=== PATIENT | male | born 1940 | race Caucasian/White ===

== ENCOUNTER 2019-12-31 12:40 | Emergency (ER) | payer MEDICARE, OTHER, SELFPAY ==
[2019-12-31 12:40] VITALS: BP 121/63; PULSE 70; RESP 24; TEMP 36.7; O2SAT 97
--- NOTE | 2019-12-31 13:21 | ED.EXTPRO ---
HPI - Extremity Problem General Chief complaint: Extremity Problem,Nontraumatic Stated complaint: LEG WEAKNESS Time Seen by Provider: 12/31/19 12:52 Source: patient Mode of arrival: ambulatory Limitations: no limitations History of Present Illness HPI Narrative: This patient is a 79 year old male with history of DM, peripheral neuropathy who presents for evaluation of left leg pain. PAtient reports pain located on lateral left knee down to his ankle. He states he has had this pain for 1-2 months. His pain is getting worse and he is having pain with bearing weight. He denies any injury or prior knee issues. He was evaluated at [facility] for this pain 2 weeks ago. He was discharged with hydrocodone for pain but he ran out. His PCP has prescribed his tramadol but he states that does not have with the pain. He also reports pain to his left calf, but he denies chest pain, fever, or sob. Related Data Allergies Allergy/AdvReac Type Severity Reaction Status Date / Time No Known Allergies Allergy Mild Verified 12/31/19 12:44 Review of Systems Review of Systems: All systems reviewed & are unremarkable except as noted in HPI and below Constitutional: Constitutional: Denies chills and Denies fever(s) Gastrointestinal: Gastrointestinal: Denies abdominal pain and Denies nausea PMFSH Past Medical History Medical History (Updated 12/31/19 @ 20:45 by Hali Redmond MD) Diabetes mellitus Hypertension Surgical History Surgical History (Updated 12/31/19 @ 20:43 by Hali Redmond MD) S/P left knee arthroscopy Social History Social History (Updated 12/31/19 @ 20:44 by Hali Redmond MD) Smoking status: Never smoker Alcohol intake: former Exam Const: General: no acute distress and alert Nutritional Appearance: obese Orientation/consciousness: patient oriented x3 HENMT: General nose exam: No nasal polyps present Face and sinus: face symmetric Eyes: EOM: EOMs intact bilaterally Chest: Chest palpation & inspection: normal inspection of the chest Resp: Effort & Inspection: normal respiratory effort and no retractions Auscultation: clear to auscultation bilaterally Cardio: Rate: regular rate Rhythm: regular rhythm Heart sounds: no murmurs GI: GI Palp: Yes Soft to palpation, No Tenderness to palpation present (GI), No Guarding due to palpation present (GI) and No Rigid due to palpation Neuro: General: patient oriented x3 and moves all extremities Extrem: General: edema Other: no knee effusion, no erythema, there is TTP left calf Psych: Mental Status: mental status grossly normal Affect: normal affect Course Reevaluation(s) Reevaluation #1: I discussed patient that pain medication, lower extremity US, xray and labs had been ordered to evaluate his pain. His healthcare liaison states patient wants to leave AMA. He signed AMA Date: 12/31/19 Time: 13:22 Vital Signs Vital signs: Vital Signs Temperature 98.1 F 12/31/19 12:40 Pulse Rate 70 12/31/19 12:40 Respiratory Rate 24 H 12/31/19 12:40 Blood Pressure 121/63 12/31/19 12:40 Pulse Oximetry 97 12/31/19 12:40 Temperature 98.1 F 12/31/19 12:40 Pulse Rate 70 12/31/19 12:40 Respiratory Rate 24 H 12/31/19 12:40 Blood Pressure 121/63 12/31/19 12:40 Pulse Oximetry 97 12/31/19 12:40 Discharge Plan Discharge Clinical Impression: Leg pain, left Patient Disposition: Left Against Medical Advice Condition: Stable Interventions: Discharge Disposition Last Done: 12/31/19 14:06 IV Removed Last Done: 12/31/19 14:06 IV Stop Time Documented Last Done: 12/31/19 14:06 Follow-up/Referrals: Trung Avendaño MD [Primary Care Provider] - Discharge Date/Time: 12/31/19 14:07
--- NOTE | 2019-12-31 13:40 | PC.NURSE ---
After speaking with EDP pt and caregiver decided to leave AMA. Pt IV line removed and was assisted into a wheelchair and brought to car.
== END 2019-12-31 14:07 | disposition left against medical advice (07) ==
PROVIDERS: Emergency Provider General Practice; PCP Family Medicine
DX: M79.605 Pain in left leg (principal); E11.42 Type 2 diabetes mellitus with diabetic polyneuropathy; I10 Essential (primary) hypertension
CPT/HCPCS: 99281

== ENCOUNTER 2020-01-16 23:58 | IRF | payer MEDICARE, OTHER, SELFPAY ==
--- NOTE | 2020-01-16 23:42 | ADMGEN ---
This patient, Ramos Urbina, was admitted to [facility] Room 230-02. Patient/family oriented to hospital policies and general routines including ID bracelet, bed and alarms, visiting hours, pain management, procedures, bathroom and other care routines, personal items, smoking policy, room service/diet, and visiting hours. Information on how to activate the Rapid Response Team has been discussed. Patient/Family are encouraged to report perceived risks to care and to ask questions if they do not understand what they are told or what they should do.
[2020-01-16 23:55] VITALS: BP 181/147; PULSE 66; RESP 20; TEMP 36.1; O2SAT 100; BMI 49.4
[2020-01-17 06:00] VITALS: BP 161/57; PULSE 82; RESP 20; TEMP 36; O2SAT 98
[2020-01-17 06:14] LABS: Basophils Percent Auto 0.2 % (0.2-1.2); Eosinophils Absolute Auto 0.4 K/mm3 (0-0.3); Eosinophils Percent Auto 5.7 % (0-4.4); Hematocrit 31.5 % (42.0-52.0); Immature Granulocyte Absolute 0.02 K/mm3 (0.00-0.031); Immature Granulocyte Percent A 0.3 % (0-0.5); Lymphocytes Absolute Auto 2.41 K/mm3 (0.9-3.2); Lymphocytes Percent Auto 37.1 % (18.3-44.2); Mean Corpuscular HGB Conc 31.7 g/dl (32-36); Mean Corpuscular Volume 85.1 fl (80-100); Mean Platelet Volume 9.8 fl (7.4-10.4); Monocytes Absolute Auto 0.4 K/mm3 (0.1-0.6); Monocytes Percent Auto 6.6 % (2.6-8.5); Neutrophils Absolute Auto 3.3 K/mm3 (1.3-6.7); Neutrophils Percent Auto 50.1 % (45.5-73.1); Platelet Count Result 248 k/mm3 (150-375); Red Cell Distribution Width 12.6 % (11.5-14.5); White Blood Count 6.5 K/mm3 (4.5-10.0)
[2020-01-17 06:30] LABS: Anion Gap 8 mmol/L (8-16); Blood Urea Nitrogen 42 mg/dL (9-20); Calcium 9.2 mg/dL (8.4-10.2); Carbon Dioxide 24 mmol/L (22-30); Chloride 106 mmol/L (98-107); Estimated CRCL calculation 32 ml/min; Estimated Glomerular Filt Rate 29; Glucose 193 mg/dL (75-110); Potassium 4.4 mmol/L (3.4-5.0); Sodium 138 mmol/L (137-145)
[2020-01-17 06:36] LABS: Hemoglobin A1C 8.8 % (<5.7)
[2020-01-17 07:14] LABS: Glucose Point of Care 183 (65-105)
[2020-01-17] MEDS: INSULIN ASPART (*BKC) 100 UNITS/ML 10 UNITS SUB-Q ×3 (07:45→16:48)
[2020-01-17 09:44] VITALS: PULSE 82
[2020-01-17] MEDS: atenoloL 50 MG TABLET 100 MG PO (09:44)
[2020-01-17] MEDS: ASPIRIN 81 MG ENTERIC TABLET PO (09:44)
[2020-01-17] MEDS: GABAPENTIN 300 MG CAPSULE PO ×3 (09:45→17:38)
[2020-01-17] MEDS: TERAZOSIN HCL 1 MG CAPSULE 2 MG PO (09:45)
[2020-01-17] MEDS: PANTOPRAZOLE 40 MG TABLET PO (09:45)
[2020-01-17] MEDS: MUPIROCIN 2% OINT 22 GM TUBE 1 APPLIC TOPICAL ×3 (09:45→17:38)
[2020-01-17] MEDS: HYDROcodone/acetaminophen (*CRX) 5-325 MG TABLET 1 TAB PO (09:53)
[2020-01-17 11:47] LABS: Glucose Point of Care 236 (65-105)
[2020-01-17] MEDS: INSULIN ASPART (*BKC) 100 UNITS/ML SUB-Q (12:08)
--- NOTE | 2020-01-17 13:00 | PM.IMHP ---
H&P: HPI History of Present Illness Date/Time: 01/17/20 15:19 Chief complaint: Diabetic Right Foot Wound Narrative: Ramos Urbina is a 79 year old male who is right-handed is admitted with the rehab impairment category of miscellaneous / debility and weakness The etiology diagnosis of diabetic right foot wound 1st and 2nd toe for which he was treated with the IV antibiotics from the [facility] where he came to us The patient was examined by this examiner [id number] at 1:00 p.m. on January 17, 2020 H and P This 79-year-old was right-handed significantly obese hard of hearing with a past medical history of hypertension hyperlipidemia type 2 diabetes mellitus GERD congestive heart failure morbid obesity who initially presented to [facility] Emergency Department on January 12, 2020 due to right toe pain and concern for gangrene of the right 2nd toe. Right foot x-ray showed hallux valgus and degenerative disease. Blood work was performed the patient was discharged home on Bactrim and Bactroban. On January 12 read 20 the patient return to the emergency department per physician request due to positive blood cultures from January 12, 2020 showing Staph epi bacteremia. He was admitted for further evaluation and management of care on January 13, 2020. The patient was placed on IV antibiotics of Flagyl cefepime and vancomycin. He has a dark hard scab noted to the right 2nd toe and in fact the right big toe also and this is at the lateral aspect of the right toe. Chest x-ray shows cardiomegaly. Infectious Disease was consulted and repeated blood cultures are negative so IV antibiotics are discontinued. At this time no surgical intervention is warranted. Medical complications have included acute on chronic kidney injury, bilateral lower extremity edema, leukocytosis, uncontrolled diabetes, anemia, diabetic right foot wound, and hypotension. Patient would benefit from the diabetic consult or agricultural extension educator. The patient is awake alert x4 he will be discharged T with no p.o. prophylaxis to the patient was not on DVT prophylaxis prior to hospitalization. The patient has not traveled outside the [place] or had contact with someone who is ill that has traveled outside the [place] in the past 21 days. The patient has not traveled to an area of the [place] that is experiencing no transmission of the Coronavirus and has not had close personal contact with anyone that has. The patient does not have a fever. The patient is not experiencing lower respiratory illness symptoms. Therapy was initiated at the acute care facility and the patient was transferred to us from [facility] on January 16, 2020 later in the evening The patient has not had no major surgery in the last days. The patient has had falls in the past year. The patient has had no falls with injury in the past year. Past medical history, hypertension, hyperlipidemia, type 2 diabetes mellitus, GERD, congestive heart failure, morbid obesity, cellulitis of the left lower extremity obstructive sleep apnea on CPAP peripheral neuropathy restless leg syndrome I must add that the caregiver who knows the patient well mentions that he did have some Doppler studies done at the other hospital and did not show any blood clots however he does have poor circulation I presume that he does have a peripheral arterial disease Past surgical history, on February 10, 2005 patient had L4-5/ L5-S1 laminectomy, facetectomy, foraminotomy with pedicle screw fixation and fusion of the L4 through S1 and left iliac crest bone graft harvest with Helios aspiration and insertion of Marcus with PL IG L5-S1 left left knee surgery, hernia repair x3 tonsillectomy Social history 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 He has 3 children he denies tobacco use alcohol use or illicit use of drugs Family history father had history of stroke and heart failure mother with history of arterial sc
[2020-01-17 14:00] VITALS: BP 135/51; PULSE 58; RESP 18; TEMP 36.5; O2SAT 98
[2020-01-17 17:01] LABS: Glucose Point of Care 154 (65-105)
--- NOTE | 2020-01-17 19:42 | PC.NURSE ---
at 1800 patient c/o feeling his heart beating out of his chest b/p is 135/62 pulse is 102 and pulse ox is 96%. No diaphoresis or SOB. assured patient his blood pressure is fine. continued to monitor. at 1830 gave patient xanax for anxiety, at present time states he feels better but wants medication to help him sleep. continue to monitor, report to night nurse
[2020-01-17 20:00] VITALS: PULSE 63; RESP 18; O2SAT 100
[2020-01-17 21:23] LABS: Glucose Point of Care 153 (65-105)
[2020-01-17] MEDS: INSULIN GLARGINE (*BKC) 100 UNITS/ML 30 UNITS SUB-Q (21:24)
[2020-01-17] MEDS: rOPINIRole HCL 1 MG TABLET 2 MG PO (21:24)
[2020-01-17 22:00] VITALS: BP 151/72; PULSE 63; RESP 18; TEMP 36.2; O2SAT 100
[2020-01-18 06:00] VITALS: BP 178/74; PULSE 65; RESP 16; TEMP 36.4; O2SAT 97
[2020-01-18 06:58] LABS: Glucose Point of Care 168 (65-105)
[2020-01-18] MEDS: INSULIN ASPART (*BKC) 100 UNITS/ML 10 UNITS SUB-Q ×3 (09:15→17:38)
[2020-01-18] MEDS: ASPIRIN 81 MG ENTERIC TABLET PO (09:18)
[2020-01-18] MEDS: GABAPENTIN 300 MG CAPSULE PO ×3 (09:18→17:35)
[2020-01-18] MEDS: MUPIROCIN 2% OINT 22 GM TUBE 1 APPLIC TOPICAL ×3 (09:19→17:39)
[2020-01-18] MEDS: TERAZOSIN HCL 1 MG CAPSULE 2 MG PO (09:19)
[2020-01-18] MEDS: PANTOPRAZOLE 40 MG TABLET PO (09:19)
[2020-01-18 09:28] VITALS: PULSE 65
[2020-01-18] MEDS: atenoloL 50 MG TABLET 100 MG PO (09:28)
[2020-01-18] MEDS: HYDROcodone/acetaminophen (*CRX) 5-325 MG TABLET 1 TAB PO ×2 (10:38→21:21)
[2020-01-18 12:01] LABS: Glucose Point of Care 220 (65-105)
[2020-01-18] MEDS: INSULIN ASPART (*BKC) 100 UNITS/ML SUB-Q (12:01)
[2020-01-18 14:00] VITALS: BP 129/69; PULSE 60; RESP 20; TEMP 37.1; O2SAT 97
--- NOTE | 2020-01-18 15:50 | WPDNEURORHBP ---
Subjective Date/time seen: 01/18/20 15:50 Interval history: this 79-year-old gentleman who is morbidly obese with a BMI of 49.5 also has sleep apnea diabetes diabetic peripheral neuropathy and also diabetic right big toe and the 2nd toe wound which in fact is better a consult from the Wound Care Nursing is pending the patient is happy with the care he is receiving he denies any headache nausea vomiting chest pain shortness of breath fever chills sore throat Review of Systems Review of Systems: All systems reviewed & are unremarkable except as noted in HPI and below Functional Status Ambulation Ability Ability to Ambulate 10 Feet: Contact Guard Ambulation Assistive Devices: Walker, Wheeled Transfers Ability Ability to Transfer In/Out of Chair: Contact Guard Exam Narrative: Exam Narrative: patient is awake and alert well oriented in time place and person is speech and language functions are normal cranial exam shows normal his strength is improving his peripheral neuropathy is stable the wound in his right big toe and the 2nd toe shows black eschar however the redness is less and swelling of the extremities is also less he most likely also has a peripheral arterial disease beside having had the diabetic peripheral neuropathy Objective Data Vital Signs Vital Signs: Vital Signs - 24 hr 01/17/20 20:00 01/17/20 22:00 01/18/20 06:00 Temperature 36.2 C L 36.4 C Pulse Rate 63 63 65 Respiratory Rate 18 18 16 Blood Pressure 151/72 H 178/74 H Pulse Oximetry 100 100 97 01/18/20 09:28 01/18/20 14:00 Temperature 37.1 C Pulse Rate 65 60 Respiratory Rate 20 Blood Pressure 129/69 Pulse Oximetry 97 Intake/Output Intake/Output: Intake & Output 01/15/20 01/16/20 01/17/20 01/18/20 23:59 23:59 23:59 23:59 Intake Total 720 480 Balance 720 480 Meds/Results Medications: Active Medications Generic Name Dose Route Start Last Admin Trade Name Freq PRN Reason Stop Dose Admin Hydrocodone Bitart/Acetaminophen 1 tab 01/17/20 00:23 01/18/20 10:38 Hydrocodone/Acetaminophen (*Crx) 5-325 Mg Tablet PO 1 tab Q6H PRN Administration Pain Aspirin 81 mg 01/17/20 09:00 01/18/20 09:18 Aspirin 81 Mg Enteric Tablet PO 02/16/20 09:01 81 mg DAILY MARIANO Administration Atenolol 100 mg 01/17/20 09:00 01/18/20 09:28 Atenolol 50 Mg Tablet PO 100 mg DAILY MARIANO Administration Dextrose 12.5 gm 01/17/20 00:28 Dextrose 50% 25 Gm/50 Ml Syringe IV PUSH PRN PRN Hypoglycemia Protocol Ergocalciferol 50,000 unit 01/21/20 09:00 Ergocalciferol 50,000 Unit Capsule PO We@0900 MARIANO Gabapentin 300 mg 01/17/20 09:00 01/18/20 12:16 Gabapentin 300 Mg Capsule PO 300 mg TID MARIANO Administration Glucagon 1 mg 01/17/20 00:28 Glucagon For Inj 1 Mg Vial IM PRN PRN Hypoglycemia Protocol Glucose 15 gm 01/17/20 00:28 Glucose Oral Gel 15 Gm Of Glucse In 37.5 Gm Tube PO PRN PRN Hypoglycemia Protocol Dextrose 1,000 mls @ 100 mls/hr 01/17/20 00:28 Dextrose 5% 1,000 Ml IVPB PRN PRN Hypoglycemia Protocol Insulin Aspart 10 units 01/17/20 08:00 01/18/20 12:01 Insulin Aspart (*Bkc) 100 Units/Ml SUB-Q 02/16/20 08:01 10 units TIDWM MARIANO Administration Insulin Aspart 2 - 5 units 01/17/20 08:00 01/18/20 12:01 Insulin Aspart (*Bkc) 100 Units/Ml SUB-Q 2 units TIDWM MARIANO Administration Protocol Insulin Glargine 30 units 01/17/20 21:00 01/17/20 21:24 Insulin Glargine (*Bkc) 100 Units/Ml SUB-Q 30 units HS MARIANO Administration Mupirocin 1 applic 01/17/20 09:00 01/18/20 09:19 Mupirocin 2% Oint 22 Gm Tube TOPICAL 02/16/20 09:01 1 applic TID MARIANO Administration Pantoprazole Sodium 40 mg 01/17/20 09:00 01/18/20 09:19 Pantoprazole 40 Mg Tablet PO 40 mg QAM MARIANO Administration Ropinirole HCl 2 mg 01/17/20 21:00 01/17/20 21:24 Ropinirole Hcl 1 Mg Tablet PO 2 mg HS MARIANO Administr
[2020-01-18 17:39] LABS: Glucose Point of Care 197 (65-105)
[2020-01-18] MEDS: rOPINIRole HCL 1 MG TABLET 2 MG PO (21:05)
[2020-01-18] MEDS: INSULIN GLARGINE (*BKC) 100 UNITS/ML 30 UNITS SUB-Q (21:06)
[2020-01-18 21:15] LABS: Glucose Point of Care 247 (65-105)
[2020-01-18 22:00] VITALS: BP 149/74; PULSE 64; RESP 18; TEMP 36.4; O2SAT 97
[2020-01-19 06:00] VITALS: BP 168/54; PULSE 70; RESP 19; TEMP 36; O2SAT 98
[2020-01-19 07:01] LABS: Glucose Point of Care 186 (65-105)
[2020-01-19 07:40] VITALS: PULSE 64
[2020-01-19] MEDS: atenoloL 50 MG TABLET 100 MG PO (07:40)
[2020-01-19] MEDS: ASPIRIN 81 MG ENTERIC TABLET PO (07:40)
[2020-01-19] MEDS: INSULIN ASPART (*BKC) 100 UNITS/ML 10 UNITS SUB-Q ×3 (07:41→17:14)
[2020-01-19] MEDS: GABAPENTIN 300 MG CAPSULE PO ×3 (07:41→17:14)
[2020-01-19] MEDS: MUPIROCIN 2% OINT 22 GM TUBE 1 APPLIC TOPICAL ×3 (07:41→17:14)
[2020-01-19] MEDS: PANTOPRAZOLE 40 MG TABLET PO (07:41)
[2020-01-19] MEDS: TERAZOSIN HCL 1 MG CAPSULE 2 MG PO (07:41)
[2020-01-19] MEDS: HYDROcodone/acetaminophen (*CRX) 5-325 MG TABLET 1 TAB PO ×2 (09:57→19:11)
--- NOTE | 2020-01-19 10:43 | RPD ---
INDIVIDUALIZED PLAN OF CARE FOR Ramos Urbina Brief Synthesis of Pre-Admission Screen, Post-Admission Evaluation and Therapy Evaluations: The patient presents to rehab with a diabetic right foot wound. Comorbidities include generalized weakness, malaise and fatigue, diabetic right foot wound, hypertension, hyperlipidemia, type 2 diabetes mellitus, GERD, CHF, morbid obesity, acute kidney injury superimposed on chronic kidney disease stage 3, hyperglycemia, anemia, obstructive sleep apnea on CPAP, restless leg syndrome, diabetic polyneuropathy associated with DM, and acute cystitis with hematura. The complexity of the patient's medical management, nursing, and therapy needs require an inpatient rehab hospital stay with a physician-led interdisciplinary team approach. The patient?s needs will be best met in an intensive program vs. at a lower level of care. The patient requires physician services for medical oversight, management of medical complications in setting of present comorbidities, and pain management. The patient requires nursing services for DVT prophylactics, infection protection, medication management and education, pressure relief, and wound care. Deficits include:ADLs, Balance, Endurance, Family Training/Education, Mobility, Pain Management, ROM, Safety, Strength, and Transfers Oracle Obiee Developer/Case Management for: Discharge Planning and Patient/Family Counseling Physical Therapy: 5 days per week for 90 minutes. Treatments may include: Therapeutic Exercise, Gait Training, Neuromuscular Re-education, Transfer Training, Community Reintegration, Bed Mobility, Patient/Family Education, Wheelchair Mobility Group Therapy/Concurrent Therapy Rationales: -Improve attention span during functional activities in a distracted environment. -Enhance problem solving and/or adequate judgment skills during functional activities in a distracted environment. -Promote increased safety awareness in a distracted environment to reduce fall risk with functional tasks, transfers, and ambulation to allow a more safe, self-sufficient return to the home environment. -Improve dynamic balance skills to promote safety and independence with functional activities in a distracted environment for maximum gain. Occupational Therapy: 5 days per week for 90 minutes. Treatments may include: Therapeutic Exercise, Therapeutic Activity, Cognitive Training, Self-Care Transfer Training, Community Reintegration, Home Management, Patient/Family Education, Wheelchair Mobility Training, Energy Conservation Training Group Therapy/Concurrent Therapy Rationales: -Allow therapist to observe and teach generalization and carry-over of skills learned in individual therapy. -Enhance problem solving and sequencing skills during therapeutic activities in a distracted environment. -Promote increased safety awareness in a realistic setting to reduce fall risk with functional tasks due to visual and verbal distractions. -Increase functional level with ADLs, ADL transfers and use of adaptive equipment through therapeutic activities with others while promoting safety to allow a more safe, self-sufficient return home. Medical Prognosis: Good Anticipated Length of Stay: 10 days Rehab Goals: Eating Goal: 06-Independent Oral Hygiene Goal: 06-Independent Toileting Hygiene Goal: 04-Supervision or Touching Assistance Shower/Bathe Self Goal: 04-Supervision or Touching Assistance Upper Body Dressing Goal: 05-Setup or Clean Up Assistance Lower Body Dressing Goal: 04-Supervision or Touching Assistance Putting On/Taking Off Footwear Goal: 04-Supervision or Touching Assistance Rolling Left and Right Goal: 06-Independent Sit to Lying Goal: 06-Independent Lying to Sitting on Side of Bed Goal: 06-Independent Sit to Stand Goal: 06-Independent Chair/Qyr-[id number]-Kbhxa Transfer Goal: 06-Independent Toilet Transfer Goal: 06-Independent Car Transfer Goal: 06-Independent Walk 10' Goal: 06-Independent Walk 50' with Two Turns Goal: 03-
[2020-01-19 11:48] LABS: Glucose Point of Care 179 (65-105)
[2020-01-19 14:00] VITALS: BP 127/46; PULSE 58; RESP 18; TEMP 37; O2SAT 99
[2020-01-19 14:10] VITALS: BMI 49.4
--- NOTE | 2020-01-19 15:16 | PCNSR ---
On 01/19/20, the student, Ernestine Mcduffie, provided care and completed [facility] documentation on this patient. I have reviewed the student's documentation and agree with the findings.
[2020-01-19 16:56] LABS: Glucose Point of Care 143 (65-105)
[2020-01-19 20:00] VITALS: PULSE 64; RESP 20; O2SAT 98
[2020-01-19 20:21] VITALS: BP 162/49; PULSE 55; RESP 20; TEMP 36.4; O2SAT 100
[2020-01-19 21:01] LABS: Glucose Point of Care 191 (65-105)
[2020-01-19] MEDS: rOPINIRole HCL 1 MG TABLET 2 MG PO (21:10)
[2020-01-19] MEDS: INSULIN GLARGINE (*BKC) 100 UNITS/ML 30 UNITS SUB-Q (21:11)
[2020-01-19 22:35] VITALS: PULSE 64; O2SAT 98
[2020-01-20 03:01] VITALS: PULSE 59; O2SAT 97
[2020-01-20 05:22] VITALS: BP 139/51; PULSE 60; RESP 20; TEMP 36.3; O2SAT 98
[2020-01-20 06:54] LABS: Glucose Point of Care 168 (65-105)
[2020-01-20] MEDS: INSULIN ASPART (*BKC) 100 UNITS/ML 10 UNITS SUB-Q ×3 (07:14→17:30)
[2020-01-20] MEDS: TERAZOSIN HCL 1 MG CAPSULE 2 MG PO (07:49)
[2020-01-20 07:50] VITALS: PULSE 62
[2020-01-20] MEDS: atenoloL 50 MG TABLET 100 MG PO (07:50)
[2020-01-20] MEDS: ASPIRIN 81 MG ENTERIC TABLET PO (07:50)
[2020-01-20] MEDS: GABAPENTIN 300 MG CAPSULE PO ×3 (07:50→17:26)
[2020-01-20] MEDS: PANTOPRAZOLE 40 MG TABLET PO (07:51)
[2020-01-20] MEDS: MUPIROCIN 2% OINT 22 GM TUBE 1 APPLIC TOPICAL (07:52)
[2020-01-20] MEDS: HYDROcodone/acetaminophen (*CRX) 5-325 MG TABLET 1 TAB PO (07:52)
[2020-01-20 12:01] LABS: Glucose Point of Care 164 (65-105)
--- NOTE | 2020-01-20 12:43 | WPDNEURORHBP ---
Subjective Date/time seen: 01/20/20 12:43 Interval history: this 79-year-old significantly obese gentleman is here for the diabetic right foot wound which is getting better and the upper wound care nurse has seen and the ask her black 1 has fallen there is much less swelling the patient is improving in the rehab he has been deconditioned for quite some time and the aches and pains is having is after the therapy and I told him so he also has left knee pain obviously caring 134.8 kilogram on his body with the osteoarthritis of his knee these things were explained to him and also the power of emd teacher rather caregiver in this case on the other in the patient denies any chest pain shortness of breath fever chills sore throat Will have the asthma educator involved continue the PT OT Functional Status Ambulation Ability Ability to Ambulate 10 Feet: Contact Guard Ambulation Assistive Devices: Walker, Wheeled Transfers Ability Ability to Transfer In/Out of Chair: Contact Guard Exam Narrative: Exam Narrative: patient is awake alert well oriented time place person stable right foot wound is much condenser cleaner healthy less swelling of the legs Nasim Chiquis arthritic left knee more so than the right knee evidence of peripheral neuropathy overall patient has sleep apnea for which she uses the CPAP overall picture is of improvement Objective Data Vital Signs Vital Signs: Vital Signs - 24 hr 01/19/20 14:00 01/19/20 20:00 01/19/20 20:21 Temperature 37.0 C 36.4 C Pulse Rate 58 L 64 55 L Respiratory Rate 18 20 20 Blood Pressure 127/46 L 162/49 H Pulse Oximetry 99 98 100 01/19/20 22:35 01/20/20 03:01 01/20/20 05:22 Temperature 36.3 C L Pulse Rate 64 59 L 60 Respiratory Rate 20 Blood Pressure 139/51 L Pulse Oximetry 98 97 98 01/20/20 07:50 Temperature Pulse Rate 62 Respiratory Rate Blood Pressure Pulse Oximetry Intake/Output Intake/Output: Intake & Output 01/17/20 01/18/20 01/19/20 01/20/20 23:59 23:59 23:59 23:59 Intake Total 301 894 2084 480 Balance 091 919 7234 480 Meds/Results Medications: Active Medications Generic Name Dose Route Start Last Admin Trade Name Freq PRN Reason Stop Dose Admin Hydrocodone Bitart/Acetaminophen 1 tab 01/17/20 00:23 01/20/20 07:52 Hydrocodone/Acetaminophen (*Crx) 5-325 Mg Tablet PO 1 tab Q6H PRN Administration Pain Aspirin 81 mg 01/17/20 09:00 01/20/20 07:50 Aspirin 81 Mg Enteric Tablet PO 02/16/20 09:01 81 mg DAILY MARIANO Administration Atenolol 100 mg 01/17/20 09:00 01/20/20 07:50 Atenolol 50 Mg Tablet PO 100 mg DAILY MARIANO Administration Dextrose 12.5 gm 01/17/20 00:28 Dextrose 50% 25 Gm/50 Ml Syringe IV PUSH PRN PRN Hypoglycemia Protocol Ergocalciferol 50,000 unit 01/21/20 09:00 Ergocalciferol 50,000 Unit Capsule PO We@0900 MARIANO Gabapentin 300 mg 01/17/20 09:00 01/20/20 12:18 Gabapentin 300 Mg Capsule PO 300 mg TID MARIANO Administration Glucagon 1 mg 01/17/20 00:28 Glucagon For Inj 1 Mg Vial IM PRN PRN Hypoglycemia Protocol Glucose 15 gm 01/17/20 00:28 Glucose Oral Gel 15 Gm Of Glucse In 37.5 Gm Tube PO PRN PRN Hypoglycemia Protocol Dextrose 1,000 mls @ 100 mls/hr 01/17/20 00:28 Dextrose 5% 1,000 Ml IVPB PRN PRN Hypoglycemia Protocol Insulin Aspart 10 units 01/17/20 08:00 01/20/20 12:18 Insulin Aspart (*Bkc) 100 Units/Ml SUB-Q 02/16/20 08:01 10 units TIDWM MARIANO Administration Insulin Aspart 2 - 5 units 01/17/20 08:00 01/20/20 12:18 Insulin Aspart (*Bkc) 100 Units/Ml SUB-Q Not Given TIDWM [facility] Protocol Insulin Glargine 30 units 01/17/20 21:00 01/19/20 21:11 Insulin Glargine (*Bkc) 100 Units/Ml SUB-Q 30 units HS MARIANO Administration Ondansetron HCl 4 mg 01/20/20 10:46 Ondansetron Hcl Odt 4 Mg Tablet PO Q6H PRN Nausea And Vomiting Pantoprazole Sodium 40 mg 01/17/20 09:00 10
[2020-01-20 14:00] VITALS: BP 130/52; PULSE 56; RESP 18; TEMP 36.6; O2SAT 98
--- NOTE | 2020-01-20 14:12 | PC.NURSE ---
Spoke with parent educator, she will be up here sunday, 01/22 to speak with patient
--- NOTE | 2020-01-20 16:33 | PC.NURSE ---
Patient given educational material on pain management, itching skin, and managing diabetes. Encouraged him to read and ask any questions he may have
[2020-01-20 17:05] LABS: Glucose Point of Care 152 (65-105)
[2020-01-20] MEDS: diphenhydrAMINE HCl CAP 25 MG CAPSULE PO (17:29)
[2020-01-20] MEDS: rOPINIRole HCL 1 MG TABLET 2 MG PO (20:38)
[2020-01-20] MEDS: INSULIN GLARGINE (*BKC) 100 UNITS/ML 30 UNITS SUB-Q (20:40)
[2020-01-20 20:44] LABS: Glucose Point of Care 166 (65-105)
[2020-01-20 22:00] VITALS: BP 161/56; PULSE 56; RESP 20; TEMP 36.6; O2SAT 97
[2020-01-20 22:31] VITALS: PULSE 60; O2SAT 92
[2020-01-21] VITALS (7 sets, daily range): BP systolic 102–150; BP diastolic 44–60; PULSE 56–60; RESP 16–19; TEMP 36.3–36.4; O2SAT 93–99
[2020-01-21 06:57] LABS: Glucose Point of Care 118 (65-105)
[2020-01-21] MEDS: ONDANSETRON HCL ODT 4 MG TABLET PO (07:26)
[2020-01-21] MEDS: INSULIN ASPART (*BKC) 100 UNITS/ML 10 UNITS SUB-Q ×3 (08:30→17:32)
[2020-01-21] MEDS: ERGOCALCIFEROL 50,000 UNIT CAPSULE 50000 UNITS PO (08:31)
[2020-01-21] MEDS: GABAPENTIN 300 MG CAPSULE PO ×3 (08:31→17:27)
[2020-01-21] MEDS: atenoloL 50 MG TABLET 100 MG PO (08:31)
[2020-01-21] MEDS: ASPIRIN 81 MG ENTERIC TABLET PO (08:31)
[2020-01-21] MEDS: TERAZOSIN HCL 1 MG CAPSULE 2 MG PO (08:32)
[2020-01-21] MEDS: PANTOPRAZOLE 40 MG TABLET PO (08:32)
[2020-01-21] MEDS: diphenhydrAMINE HCl CAP 25 MG CAPSULE PO ×2 (09:29→18:35)
[2020-01-21] MEDS: HYDROcodone/acetaminophen (*CRX) 5-325 MG TABLET 1 TAB PO (10:49)
[2020-01-21 11:47] LABS: Glucose Point of Care 183 (65-105)
--- NOTE | 2020-01-21 12:30 | WPDNEURORHBP ---
Subjective Date/time seen: 01/21/20 12:30 Interval history: this 79-year-old gentleman is here because of diabetic right foot wound which is improving quite a bit is significantly obese with multiple medical issues including the sleep apnea being on CPAP and aches and pains however he has been quite a bit deconditioned and has done fairly well in over rehab program walking up to 50 feet with a walker which is a great thing he has been able to achieve while we pushed him to the rehab his aches and pains remained the same nothing extraordinary he denies any headache nausea vomiting chest pain shortness of breath fever chills or sore throat Review of Systems Review of Systems: All systems reviewed & are unremarkable except as noted in HPI and below Functional Status Ambulation Ability Ability to Ambulate 10 Feet: Contact Guard Ability to Ambulate 50 Feet With 2 Turns: Contact Guard Ambulation Assistive Devices: Walker, Wheeled Transfers Ability Ability to Transfer In/Out of Chair: Contact Guard Exam Narrative: Exam Narrative: patient is stable not any distress stable vital signs signs not any distress well oriented time place and person significantly obese with left knee arthritis hampering the walking of course the wound on the right foot is clean and healthy swelling of the lower extremities is less examination of chest heart and abdomen is unremarkable no sign of any infectious processes is noted Objective Data Vital Signs Vital Signs: Vital Signs - 24 hr 01/20/20 14:00 01/20/20 22:00 01/20/20 22:31 Temperature 36.6 C 36.6 C Pulse Rate 56 L 56 L 60 Respiratory Rate 18 20 Blood Pressure 130/52 L 161/56 H Pulse Oximetry 98 97 92 01/21/20 02:20 01/21/20 06:00 01/21/20 08:31 Temperature 36.4 C Pulse Rate 59 L 58 L 60 Respiratory Rate 18 Blood Pressure 150/59 H Pulse Oximetry 93 97 01/21/20 08:39 Temperature Pulse Rate 60 Respiratory Rate 18 Blood Pressure Pulse Oximetry 97 Intake/Output Intake/Output: Intake & Output 01/18/20 01/19/20 01/20/20 01/21/20 23:59 23:59 23:59 23:59 Intake Total 720 1520 1200 480 Balance 720 1520 1200 480 Meds/Results Medications: Active Medications Generic Name Dose Route Start Last Admin Trade Name Freq PRN Reason Stop Dose Admin Hydrocodone Bitart/Acetaminophen 1 tab 10/17/20 00:23 01/21/20 10:49 Hydrocodone/Acetaminophen (*Crx) 5-325 Mg Tablet PO 1 tab Q6H PRN Administration Pain Aspirin 81 mg 01/17/20 09:00 01/21/20 08:31 Aspirin 81 Mg Enteric Tablet PO 02/16/20 09:01 81 mg DAILY MARIANO Administration Atenolol 100 mg 01/17/20 09:00 01/21/20 08:31 Atenolol 50 Mg Tablet PO 100 mg DAILY MARIANO Administration Dextrose 12.5 gm 01/17/20 00:28 Dextrose 50% 25 Gm/50 Ml Syringe IV PUSH PRN PRN Hypoglycemia Protocol Diphenhydramine HCl 25 mg 01/20/20 15:37 01/21/20 09:29 Diphenhydramine Hcl Cap 25 Mg Capsule PO 25 mg Q6H PRN Administration Itching Ergocalciferol 50,000 unit 01/21/20 09:00 01/21/20 08:31 Ergocalciferol 50,000 Unit Capsule PO 50,000 unit We@0900 MARIANO Administration Gabapentin 300 mg 01/17/20 09:00 01/21/20 12:03 Gabapentin 300 Mg Capsule PO 300 mg TID MARIANO Administration Glucagon 1 mg 01/17/20 00:28 Glucagon For Inj 1 Mg Vial IM PRN PRN Hypoglycemia Protocol Glucose 15 gm 01/17/20 00:28 Glucose Oral Gel 15 Gm Of Glucse In 37.5 Gm Tube PO PRN PRN Hypoglycemia Protocol Dextrose 1,000 mls @ 100 mls/hr 01/17/20 00:28 Dextrose 5% 1,000 Ml IVPB PRN PRN Hypoglycemia Protocol Insulin Aspart 10 units 01/17/20 08:00 01/21/20 12:03 Insulin Aspart (*Bkc) 100 Units/Ml SUB-Q 02/16/20 08:01 10 units TIDWM MARIANO Administration Insulin Aspart 2 - 5 units 01/17/20 08:00 01/21/20 12:03 Insulin Aspart (*Bkc) 100 Units/Ml SUB-Q Not Given TIDWM [facility] Protocol Insulin Glargine 30 un
[2020-01-21 17:01] LABS: Glucose Point of Care > 500 (65-105)
[2020-01-21 17:11] LABS: Glucose Point of Care 98 (65-105)
[2020-01-21 17:11] LABS: Glucose Point of Care 190 (65-105)
[2020-01-21 17:11] LABS: Glucose Point of Care 103 (65-105)
[2020-01-21 17:24] LABS: Glucose Point of Care 101 (65-105)
[2020-01-21 17:24] LABS: Glucose Point of Care 105 (65-105)
[2020-01-21 20:55] LABS: Glucose Point of Care 70 (65-105)
[2020-01-21] MEDS: rOPINIRole HCL 1 MG TABLET 2 MG PO (21:01)
[2020-01-21 21:07] LABS: Glucose Point of Care 77 (65-105)
[2020-01-21 22:44] LABS: Glucose Point of Care 139 (65-105)
[2020-01-22 02:45] VITALS: PULSE 57; O2SAT 95
[2020-01-22 06:00] VITALS: BP 150/56; PULSE 62; RESP 19; TEMP 36.1; O2SAT 97
[2020-01-22 06:33] LABS: Glucose Point of Care 154 (65-105)
[2020-01-22] MEDS: INSULIN ASPART (*BKC) 100 UNITS/ML 10 UNITS SUB-Q ×3 (07:46→17:30)
[2020-01-22] MEDS: TERAZOSIN HCL 1 MG CAPSULE 2 MG PO (07:47)
[2020-01-22 07:48] VITALS: PULSE 62
[2020-01-22] MEDS: atenoloL 50 MG TABLET 100 MG PO (07:48)
[2020-01-22] MEDS: GABAPENTIN 300 MG CAPSULE PO ×3 (07:48→17:30)
[2020-01-22] MEDS: HYDROcodone/acetaminophen (*CRX) 5-325 MG TABLET 1 TAB PO ×3 (07:48→20:27)
[2020-01-22] MEDS: diphenhydrAMINE HCl CAP 25 MG CAPSULE PO ×3 (07:48→20:29)
[2020-01-22] MEDS: ASPIRIN 81 MG ENTERIC TABLET PO (07:48)
[2020-01-22] MEDS: PANTOPRAZOLE 40 MG TABLET PO (07:49)
[2020-01-22] MEDS: ONDANSETRON HCL ODT 4 MG TABLET PO (10:46)
[2020-01-22 11:56] LABS: Glucose Point of Care 143 (65-105)
[2020-01-22 14:00] VITALS: BP 122/60; PULSE 60; RESP 18; TEMP 36.7; O2SAT 99
[2020-01-22 17:03] LABS: Glucose Point of Care 148 (65-105)
[2020-01-22] MEDS: INSULIN GLARGINE (*BKC) 100 UNITS/ML 30 UNITS SUB-Q (20:19)
[2020-01-22] MEDS: rOPINIRole HCL 1 MG TABLET 2 MG PO (20:19)
[2020-01-22 21:36] LABS: Glucose Point of Care 161 (65-105)
[2020-01-22 22:00] VITALS: BP 155/67; PULSE 63; RESP 19; TEMP 36.3; O2SAT 95
[2020-01-22 22:35] VITALS: PULSE 58; O2SAT 96
[2020-01-23 03:30] VITALS: PULSE 60; O2SAT 96
[2020-01-23 06:00] VITALS: BP 127/49; PULSE 57; RESP 17; TEMP 36.5; O2SAT 96
[2020-01-23 06:42] LABS: Glucose Point of Care 156 (65-105)
[2020-01-23] MEDS: INSULIN ASPART (*BKC) 100 UNITS/ML 10 UNITS SUB-Q ×3 (07:31→17:54)
[2020-01-23 09:49] VITALS: PULSE 60
[2020-01-23] MEDS: GABAPENTIN 300 MG CAPSULE PO ×3 (09:49→17:54)
[2020-01-23] MEDS: atenoloL 50 MG TABLET 100 MG PO (09:49)
[2020-01-23] MEDS: ASPIRIN 81 MG ENTERIC TABLET PO (09:49)
[2020-01-23] MEDS: TERAZOSIN HCL 1 MG CAPSULE 2 MG PO (09:49)
[2020-01-23] MEDS: HYDROcodone/acetaminophen (*CRX) 5-325 MG TABLET 1 TAB PO (09:50)
[2020-01-23] MEDS: PANTOPRAZOLE 40 MG TABLET PO (09:50)
[2020-01-23 11:59] LABS: Glucose Point of Care 165 (65-105)
--- NOTE | 2020-01-23 12:13 | WPDNEURORHBP ---
Subjective Date/time seen: 01/23/20 12:13 Interval history: this 79-year-old gentleman diabetic is here after having had a wound to his right 1st and 2nd toe which has healed well swelling of the legs is much better in fact he has done more as compared to what he was doing at home where mostly he was Fedder in not walk walking or doing much and he realizes that he denies any headache nausea vomiting chest pain shortness of breath fever chills sore throat not any distress looking forward to be going home Review of Systems Review of Systems: All systems reviewed & are unremarkable except as noted in HPI and below Functional Status Ambulation Ability Ability to Ambulate 10 Feet: Standby Assistance Ability to Ambulate 50 Feet With 2 Turns: Standby Assistance Ambulation Assistive Devices: Walker, Wheeled Transfers Ability Ability to Transfer In/Out of Chair: Standby Assistance Exam Narrative: Exam Narrative: the patient is awake alert well oriented time place person is speech language functions are normal cranial examination is normal evidence of peripheral neuropathy is there he has improved quite a bit the wound on the right 1st does clean and healthy and extremities reveal no deformities and in fact the swelling in lower extremities is less Objective Data Vital Signs Vital Signs: Vital Signs - 24 hr 01/22/20 14:00 01/22/20 22:00 01/22/20 22:35 Temperature 36.7 C 36.3 C L Pulse Rate 60 63 58 L Respiratory Rate 18 19 Blood Pressure 122/60 155/67 H Pulse Oximetry 99 95 96 01/23/20 03:30 01/23/20 06:00 01/23/20 09:49 Temperature 36.5 C Pulse Rate 60 57 L 60 Respiratory Rate 17 Blood Pressure 127/49 L Pulse Oximetry 96 96 Intake/Output Intake/Output: Intake & Output 01/20/20 01/21/20 01/22/20 01/23/20 23:59 23:59 23:59 23:59 Intake Total 4651 598 4982 240 Balance 7402 114 4924 240 Meds/Results Medications: Active Medications Generic Name Dose Route Start Last Admin Trade Name Freq PRN Reason Stop Dose Admin Hydrocodone Bitart/Acetaminophen 1 tab 01/17/20 00:23 01/23/20 09:50 Hydrocodone/Acetaminophen (*Crx) 5-325 Mg Tablet PO 1 tab Q6H PRN Administration Pain Aspirin 81 mg 01/17/20 09:00 01/23/20 09:49 Aspirin 81 Mg Enteric Tablet PO 02/16/20 09:01 81 mg DAILY MARIANO Administration Atenolol 100 mg 01/17/20 09:00 01/23/20 09:49 Atenolol 50 Mg Tablet PO 100 mg DAILY MARIANO Administration Dextrose 12.5 gm 01/17/20 00:28 Dextrose 50% 25 Gm/50 Ml Syringe IV PUSH PRN PRN Hypoglycemia Protocol Diphenhydramine HCl 25 mg 01/20/20 15:37 01/22/20 20:29 Diphenhydramine Hcl Cap 25 Mg Capsule PO 25 mg Q6H PRN Administration Itching Ergocalciferol 50,000 unit 01/21/20 09:00 01/21/20 08:31 Ergocalciferol 50,000 Unit Capsule PO 50,000 unit We@0900 MARIANO Administration Gabapentin 300 mg 01/17/20 09:00 01/23/20 09:49 Gabapentin 300 Mg Capsule PO 300 mg TID MARIANO Administration Glucagon 1 mg 01/17/20 00:28 Glucagon For Inj 1 Mg Vial IM PRN PRN Hypoglycemia Protocol Glucose 15 gm 01/17/20 00:28 Glucose Oral Gel 15 Gm Of Glucse In 37.5 Gm Tube PO PRN PRN Hypoglycemia Protocol Hydrocortisone 1 applic 01/21/20 18:41 Hydrocortisone 1% 30 Gm Cream TOPICAL Q6HR PRN Itching Dextrose 1,000 mls @ 100 mls/hr 01/17/20 00:28 Dextrose 5% 1,000 Ml IVPB PRN PRN Hypoglycemia Protocol Insulin Aspart 10 units 01/17/20 08:00 01/23/20 07:31 Insulin Aspart (*Bkc) 100 Units/Ml SUB-Q 02/16/20 08:01 10 units TIDWM MARIANO Administration Insulin Aspart 2 - 5 units 01/17/20 08:00 01/23/20 09:52 Insulin Aspart (*Bkc) 100 Units/Ml SUB-Q Not Given TIDWM [facility] Protocol Insulin Glargine 30 units 01/17/20 21:00 01/22/20 20:19 Insulin Glargine (*Bkc) 100 Units/Ml SUB-Q 30 units HS MARIANO Administration Ondansetron HCl 4 mg 01/20/20 10:46
[2020-01-23] MEDS: diphenhydrAMINE HCl CAP 25 MG CAPSULE PO ×2 (12:50→17:54)
[2020-01-23 14:00] VITALS: BP 131/81; PULSE 62; RESP 20; TEMP 36.4; O2SAT 98
[2020-01-23 16:30] VITALS: BMI 49.4
[2020-01-23 17:22] LABS: Glucose Point of Care 102 (65-105)
[2020-01-23 20:00] VITALS: PULSE 58; RESP 18; O2SAT 99
[2020-01-23 20:23] LABS: Glucose Point of Care 154 (65-105)
[2020-01-23 20:45] VITALS: BP 161/62; PULSE 58; RESP 18; TEMP 36.3; O2SAT 99
[2020-01-23] MEDS: rOPINIRole HCL 1 MG TABLET 2 MG PO (21:06)
[2020-01-23] MEDS: INSULIN GLARGINE (*BKC) 100 UNITS/ML 30 UNITS SUB-Q (21:08)
[2020-01-24] MEDS: diphenhydrAMINE HCl CAP 25 MG CAPSULE PO ×2 (04:01→09:51)
[2020-01-24 05:01] LABS: Anion Gap 7 mmol/L (8-16); Blood Urea Nitrogen 35 mg/dL (9-20); Carbon Dioxide 23 mmol/L (22-30); Chloride 104 mmol/L (98-107); Estimated CRCL calculation 33 ml/min; Estimated Glomerular Filt Rate 31; Glucose 159 mg/dL (75-110); Sodium 134 mmol/L (137-145)
[2020-01-24 05:14] LABS: Basophils Percent Auto 0.3 % (0.2-1.2); Eosinophils Absolute Auto 0.3 K/mm3 (0-0.3); Eosinophils Percent Auto 4.3 % (0-4.4); Hematocrit 29.6 % (42.0-52.0); Hemoglobin 9.6 g/dL (14.0-18.0); Immature Granulocyte Absolute 0.02 K/mm3 (0.00-0.031); Immature Granulocyte Percent A 0.3 % (0-0.5); Lymphocytes Absolute Auto 1.97 K/mm3 (0.9-3.2); Lymphocytes Percent Auto 32.6 % (18.3-44.2); Mean Corpuscular HGB Conc 32.4 g/dl (32-36); Mean Corpuscular Hemoglobin 26.8 pg (26-34); Mean Corpuscular Volume 82.7 fl (80-100); Mean Platelet Volume 9.1 fl (7.4-10.4); Monocytes Absolute Auto 0.3 K/mm3 (0.1-0.6); Monocytes Percent Auto 4.8 % (2.6-8.5); Neutrophils Absolute Auto 3.5 K/mm3 (1.3-6.7); Neutrophils Percent Auto 57.7 % (45.5-73.1); Platelet Count Result 214 k/mm3 (150-375); Red Blood Count 3.58 M/mm3 (4.6-6.20)
[2020-01-24 05:18] VITALS: BP 149/55; PULSE 69; RESP 20; TEMP 36.1; O2SAT 95
[2020-01-24 06:44] LABS: Glucose Point of Care 150 (65-105)
[2020-01-24] MEDS: PANTOPRAZOLE 40 MG TABLET PO (09:42)
[2020-01-24] MEDS: INSULIN ASPART (*BKC) 100 UNITS/ML 10 UNITS SUB-Q ×2 (09:45→12:55)
[2020-01-24] MEDS: ONDANSETRON HCL ODT 4 MG TABLET PO ×2 (09:47→20:31)
[2020-01-24] MEDS: GABAPENTIN 300 MG CAPSULE PO ×3 (09:47→18:24)
[2020-01-24] MEDS: TERAZOSIN HCL 1 MG CAPSULE 2 MG PO (09:47)
[2020-01-24 09:48] VITALS: PULSE 69
[2020-01-24] MEDS: ASPIRIN 81 MG ENTERIC TABLET PO (09:48)
[2020-01-24] MEDS: atenoloL 50 MG TABLET 100 MG PO (09:48)
[2020-01-24] MEDS: HYDROcodone/acetaminophen (*CRX) 5-325 MG TABLET 1 TAB PO (10:36)
[2020-01-24 11:38] LABS: Glucose Point of Care 187 (65-105)
[2020-01-24 14:00] VITALS: BP 123/61; PULSE 64; RESP 20; TEMP 36.8; O2SAT 97
--- NOTE | 2020-01-24 15:04 | WPDNEURORHBP ---
Subjective Date/time seen: 01/24/20 15:04 79 years old right-handed male with 1. Diabetic right foot wound 2. Hypertension 3. Hyperlipidemia 4. Type 2 diabetes mellitus 5. . Congestive heart failure 6 Morbid obesity7 History of positive blood culture and at this stage no surgical intervention by history no smoker,nor drinker Review of Systems Review of Systems: All systems reviewed & are unremarkable except as noted in HPI and below Functional Status Ambulation Ability Ability to Ambulate 10 Feet: Standby Assistance Ability to Ambulate 50 Feet With 2 Turns: Standby Assistance Ambulation Assistive Devices: Walker, Wheeled Transfers Ability Ability to Transfer In/Out of Chair: Standby Assistance Exam Narrative: Exam Narrative: examination today reveals him to be awake alert oriented x3 ,though he is extremely hard of hearing head,,normocephalic with no cranial bruit, ear nose throat examination carlyn,neckl supple with no cervical bruit, no thyromegaly, no lymphadenopathy, documented lipoma on the upper part of the neck, heart regular with no murmur, lungs clear to auscultation , neuro unchanged. Objective Data Vital Signs Vital Signs: Vital Signs - 24 hr 01/23/20 20:00 01/23/20 20:45 01/24/20 05:18 Temperature 36.3 C L 36.1 C L Pulse Rate 58 L 58 L 69 Respiratory Rate 18 18 20 Blood Pressure 161/62 H 149/55 H Pulse Oximetry 99 99 95 01/24/20 09:48 01/24/20 14:00 Temperature 36.8 C Pulse Rate 69 64 Respiratory Rate 20 Blood Pressure 123/61 Pulse Oximetry 97 Intake/Output Intake/Output: Intake & Output 01/21/20 01/22/20 01/23/20 01/24/20 23:59 23:59 23:59 23:59 Intake Total 960 1200 720 480 Balance 960 1200 720 480 Meds/Results Medications: Active Medications Generic Name Dose Route Start Last Admin Trade Name Freq PRN Reason Stop Dose Admin Hydrocodone Bitart/Acetaminophen 1 tab 01/17/20 00:23 01/24/20 10:36 Hydrocodone/Acetaminophen (*Crx) 5-325 Mg Tablet PO 1 tab Q6H PRN Administration Pain Aspirin 81 mg 01/17/20 09:00 01/24/20 09:48 Aspirin 81 Mg Enteric Tablet PO 02/16/20 09:01 81 mg DAILY MARIANO Administration Atenolol 100 mg 01/17/20 09:00 01/24/20 09:48 Atenolol 50 Mg Tablet PO 100 mg DAILY MARIANO Administration Dextrose 12.5 gm 01/17/20 00:28 Dextrose 50% 25 Gm/50 Ml Syringe IV PUSH PRN PRN Hypoglycemia Protocol Diphenhydramine HCl 25 mg 01/20/20 15:37 01/24/20 09:51 Diphenhydramine Hcl Cap 25 Mg Capsule PO 25 mg Q6H PRN Administration Itching Ergocalciferol 50,000 unit 01/21/20 09:00 01/21/20 08:31 Ergocalciferol 50,000 Unit Capsule PO 50,000 unit We@0900 MARIANO Administration Gabapentin 300 mg 01/17/20 09:00 01/24/20 12:57 Gabapentin 300 Mg Capsule PO 300 mg TID MARIANO Administration Glucagon 1 mg 01/17/20 00:28 Glucagon For Inj 1 Mg Vial IM PRN PRN Hypoglycemia Protocol Glucose 15 gm 01/17/20 00:28 Glucose Oral Gel 15 Gm Of Glucse In 37.5 Gm Tube PO PRN PRN Hypoglycemia Protocol Hydrocortisone 1 applic 01/21/20 18:41 Hydrocortisone 1% 30 Gm Cream TOPICAL Q6HR PRN Itching Dextrose 1,000 mls @ 100 mls/hr 01/17/20 00:28 Dextrose 5% 1,000 Ml IVPB PRN PRN Hypoglycemia Protocol Insulin Aspart 10 units 01/17/20 08:00 01/24/20 12:55 Insulin Aspart (*Bkc) 100 Units/Ml SUB-Q 02/16/20 08:01 10 units TIDWM MARIANO Administration Insulin Aspart 2 - 5 units 01/17/20 08:00 01/24/20 12:55 Insulin Aspart (*Bkc) 100 Units/Ml SUB-Q Not Given TIDWM [facility] Protocol Insulin Glargine 30 units 01/17/20 21:00 01/23/20 21:08 Insulin Glargine (*Bkc) 100 Units/Ml SUB-Q 30 units HS MARIANO Administration Ondansetron HCl 4 mg 01/20/20 10:46 01/24/20 09:47 Ondansetron Hcl Odt 4 Mg Tablet PO 4 mg Q6H PRN Administration Nausea And Vomiting Pantoprazole Sodium 40 mg 01/17/20 09:00 01/24/20
[2020-01-24 16:57] LABS: Glucose Point of Care 67 (65-105)
[2020-01-24 18:30] LABS: Glucose Point of Care 141 (65-105)
[2020-01-24 20:04] VITALS: BP 185/95; PULSE 73; RESP 22; TEMP 37.1; O2SAT 95
[2020-01-24 20:21] LABS: Glucose Point of Care 215 (65-105)
[2020-01-24] MEDS: rOPINIRole HCL 1 MG TABLET 2 MG PO (20:26)
[2020-01-24] MEDS: INSULIN GLARGINE (*BKC) 100 UNITS/ML 30 UNITS SUB-Q (20:28)
[2020-01-24 22:15] VITALS: BP 142/76
[2020-01-24 22:35] VITALS: PULSE 76; O2SAT 97
[2020-01-25 03:15] VITALS: PULSE 71; O2SAT 97
[2020-01-25 04:52] VITALS: BP 142/49; PULSE 76; RESP 22; TEMP 36.5; O2SAT 94
[2020-01-25 06:54] LABS: Glucose Point of Care 158 (65-105)
[2020-01-25] MEDS: diphenhydrAMINE HCl CAP 25 MG CAPSULE PO ×3 (07:40→20:50)
[2020-01-25] MEDS: HYDROCORTISONE 1% 30 GM CREAM 1 APPLIC TOPICAL (07:40)
[2020-01-25] MEDS: ASPIRIN 81 MG ENTERIC TABLET PO (07:41)
[2020-01-25 07:42] VITALS: PULSE 76
[2020-01-25] MEDS: INSULIN ASPART (*BKC) 100 UNITS/ML 10 UNITS SUB-Q ×3 (07:42→18:32)
[2020-01-25] MEDS: GABAPENTIN 300 MG CAPSULE PO ×3 (07:42→18:31)
[2020-01-25] MEDS: atenoloL 50 MG TABLET 100 MG PO (07:42)
[2020-01-25] MEDS: PANTOPRAZOLE 40 MG TABLET PO (07:43)
[2020-01-25] MEDS: TERAZOSIN HCL 1 MG CAPSULE 2 MG PO (07:43)
[2020-01-25 11:58] LABS: Glucose Point of Care 124 (65-105)
[2020-01-25] MEDS: ONDANSETRON HCL ODT 4 MG TABLET PO (13:28)
[2020-01-25] MEDS: HYDROcodone/acetaminophen (*CRX) 5-325 MG TABLET 1 TAB PO (13:28)
[2020-01-25 14:00] VITALS: BP 125/42; PULSE 64; RESP 20; TEMP 36.7; O2SAT 98
--- NOTE | 2020-01-25 14:19 | WPDREHABHP ---
H&P: HPI History of Present Illness Date/Time: 01/25/20 14:19 79 years old right-handed male with history of 1. Diabetic right foot wound 2. Hypertension 3. Hyperlipidemia 4. Type 2 diabetes mellitus 5. Congestive heart failure 6. Morbid obesity 7. History of positive blood culture and 8. No smoking or drinking habits at present receiving physical therapy and occupational therapy accordingly Chief complaint: Weakness Narrative: Ramos Urbina is a 79 year old male Review of Systems Review of Systems All systems reviewed & are unremarkable except as noted in HPI and below PMFSH Past Medical History Medical History (Updated 01/17/20 @ 15:34 by Vikash Peña MD) Diabetes mellitus Generalized weakness History of congestive heart failure Hypertension Morbid obesity Obstructive sleep apnea on CPAP Peripheral arterial disease Peripheral neuropathy Wound of right foot Surgical History Surgical History S/P left knee arthroscopy Family History Family History Father Congestive heart failure Mother Congestive heart failure Social History Social History Smoking status: Never smoker Alcohol intake: former Substance use: never Gender identity (if verbalized by the patient): Male Spiritual care concerns: No Meds Home Medications and Allergies Home Medications Medication Instructions Recorded Confirmed Type Humalog U-100 Insulin 10 unit SUBCUT TIDWM 01/17/20 01/17/20 History aspirin 81 mg PO DAILY 01/17/20 01/17/20 History atenolol 100 mg PO DAILY 01/17/20 01/17/20 History cholecalciferol (vitamin D3) 50,000 unit WEEKLY 01/17/20 01/17/20 History gabapentin 300 mg PO TID 01/17/20 01/17/20 History insulin glargine [Lantus U-100 30 unit SUBCUT HS 01/17/20 01/17/20 History Insulin] mupirocin calcium [Bactroban] 1 applic TOPICAL TID 01/17/20 01/17/20 History pantoprazole [Protonix] 40 mg PO QAM 01/17/20 01/17/20 History ropinirole [Requip] 2 mg HS 01/17/20 01/17/20 History sulfamethoxazole-trimethoprim 160 - 800 tablet PO BID 01/17/20 01/17/20 History [Bactrim DS] terazosin [Hytrin] 2 mg PO DAILY 01/17/20 01/17/20 History hydrocodone-acetaminophen [[place]] 1 tablet PO Q6H PRN #45 tablet 01/23/20 Rx Allergies Allergy/AdvReac Type Severity Reaction Status Date / Time No Known Allergies Allergy Mild Verified 12/31/19 12:44 Vital Signs Vital Signs - 24 hr 01/24/20 20:04 01/24/20 22:15 01/24/20 22:35 Temperature 37.1 C Pulse Rate 73 76 Respiratory Rate 22 H Blood Pressure 185/95 H 142/76 H Pulse Oximetry 95 97 01/25/20 03:15 01/25/20 04:52 01/25/20 07:42 Temperature 36.5 C Pulse Rate 71 76 76 Respiratory Rate 22 H Blood Pressure 142/49 H Pulse Oximetry 97 94 Exam Narrative Exam Narrative: on examination today he is awake alert sitting in chair comfortably following all the instructions very well, his speech not dysphasic not dysarthric, heart regular with no murmur, lungs without rhonchi or crepitations, abdomen is soft and protuberant but normal bowel sounds nontender, neurological examination unchanged Assessment and Plan Assessment and plan (1) Wound of right foot: Code(s): S91.301A - Unspecified open wound, right foot, initial encounter Status: Acute (2) Obstructive sleep apnea on CPAP: Code(s): G47.33 - Obstructive sleep apnea (adult) (pediatric); Z99.89 - Dependence on other enabling machines and devices Status: Acute (3) Peripheral arterial disease: Code(s): I73.9 - Peripheral vascular disease, unspecified Status: Acute (4) Peripheral neuropathy: Code(s): G62.9 - Polyneuropathy, unspecified Status: Acute (5) Generalized weakness: Code(s): R53.1 - Weakness Status: Acute (6) Morbid obesity: Code(s): E66.01 - Morbid (severe) obesity due
[2020-01-25 16:31] LABS: Glucose Point of Care 174 (65-105)
[2020-01-25 20:05] LABS: Glucose Point of Care 219 (65-105)
[2020-01-25] MEDS: rOPINIRole HCL 1 MG TABLET 2 MG PO (20:48)
[2020-01-25] MEDS: INSULIN GLARGINE (*BKC) 100 UNITS/ML 30 UNITS SUB-Q (20:50)
[2020-01-25 21:14] VITALS: PULSE 71; O2SAT 97
[2020-01-25 22:00] VITALS: BP 182/49; PULSE 64; RESP 18; TEMP 36.6; O2SAT 94
[2020-01-26 06:00] VITALS: BP 171/49; PULSE 69; RESP 19; TEMP 36.1; O2SAT 100
[2020-01-26 06:44] LABS: Glucose Point of Care 157 (65-105)
[2020-01-26] MEDS: INSULIN ASPART (*BKC) 100 UNITS/ML 10 UNITS SUB-Q ×2 (07:12→11:57)
[2020-01-26 08:00] VITALS: PULSE 66; RESP 18; O2SAT 99
[2020-01-26 08:20] VITALS: PULSE 66
[2020-01-26] MEDS: GABAPENTIN 300 MG CAPSULE PO (08:20)
[2020-01-26] MEDS: atenoloL 50 MG TABLET 100 MG PO (08:20)
[2020-01-26] MEDS: PANTOPRAZOLE 40 MG TABLET PO (08:20)
[2020-01-26] MEDS: TERAZOSIN HCL 1 MG CAPSULE 2 MG PO (08:21)
[2020-01-26] MEDS: ASPIRIN 81 MG ENTERIC TABLET PO (08:21)
[2020-01-26] MEDS: ONDANSETRON HCL ODT 4 MG TABLET PO (08:24)
[2020-01-26 11:55] LABS: Glucose Point of Care 150 (65-105)
--- NOTE | 2020-01-26 16:46 | PC.NURSE ---
Patient's caregiver Rebecca Mcintyre called stating that patient's insurance would not pay for Humalog. [facility] in [place] was the preferred pharmacy and per Dr. Castelan and the in home tutor Georgette stated Humalog could be substituted. I called [facility] to substitute per Dr. Castelan instruction. I called Rebecca mcintyre with information and stated if the Humalog could not be obtained to call back to [facility] and Dr. Castelan/Casey would be informed.
--- NOTE | 2020-01-26 18:15 | PC.NURSE ---
Patient's caregive Rebecca mcintyre called asking for Zofran for patient's nausea. Phoned Dr. Castelan and he approved Zofran 4 mg. q6 hrs prn for nausea, vomitting, called in to patient's pharmacy, [facility] in [place].
--- NOTE | 2020-01-29 12:03 | PM.DS ---
DS: Admitting Diagnosis Admitting Diagnosis Admitting Diagnosis: Weakness 79 years old right-handed male admitted to the rehab with the impairment category of miscellaneous /debility and weakness and etiological diagnosis of diabetic right foot wound involving 1st and 2nd toe for which he was treated with IV antibiotics at the [facility] and was transferred to us for the further care. he is extremely hard of hearing and in the past has history of 1. Hypertension 2. Hyperlipidemia 3. Type 2 diabetes mellitus 4. GERD 5. Congestive heart failure and 6. Morbid obesity he initially presented to [facility] Emergency Department on January 12, 2020 for the right toe pain with the concern regarding the possibility of gangrene. radiological investigation documented hallux valgus and degenerative disc disease he was discharged on Bactrim and Bactroban subsequently he returned to the ER for patient's physician request because the blood culture was positive for Staph bacteremia and he was placed on IV antibiotics along with Flagyl. infectious disease personnel were consulted but repeat blood cultures were negative the IV antibiotics were discontinued. he was also noted to have acute on chronic kidney injury with bilateral lower extremity edema.there was no history of COVID exposure. During the hospitalization here he was only seen by the rehab physicians .by the time of discharge he was walking with a wheeled walker up to 50ft with 2 turns and standby assistance, he was able to transfer in and out of chair with standby assistance ,and general physical examination was stable. He was found to be independent in all the modalities except he requires supervision for bathing lower body, dressing car transfer ,walking 10ft, 50ft,2 turns and walking 10ft on uneven surfaces, he was discharged to his home witha home health instruction had no fall during the entire hospitalization and his condition definitely improved. DS: Summary Time Spent with Patient Time attestation: Total time spent providing and/or coordinating discharge services: Discharge Plan Discharge Attending physician on discharge: Vikash Peña Discharging Clinician: Vikash Peña Anticipated Discharge Date/Time: 01/25/20 12:15 Patient Disposition: Home Health Service Activity: may shower and no driving Diet: diabetic Wound Care Instructions: follow printed instructions Discharge Instructions: Per Care Coordination: [facility] has been arranged to follow at discharge. [facility] will follow for PT/OT Eval and Treat. [facility] can be contacted at [phone]. Nursing please fax discharge paperwork to [phone]. Patient Instructions: Antibiotic Form, Pain Management in Older Adults (GEN), Itchy Skin (GEN), Diabetes Type 1: Management (GEN) Stand Alone Forms: General Discharge Information Follow-up/Referrals: Primary care Physician [Other] (Call your PCP if you have a fever over 101. Difficulty breathing or chest pain Persistant dizziness or light headedness. Severe uncontrolled pain.Headache, visual disturbances, weakness & speech changes.) Discharge Medications: New insulin aspart U-100 [Novolog U-100 Insulin aspart] 100 unit/mL Solution 10 units subcut TIDWM Qty: 0 RF: 0 gabapentin [Neurontin] 300 mg Capsule 300 mg PO TID Qty: 0 RF: 0 ergocalciferol (vitamin D2) [Vitamin D2] 1,250 mcg (50,000 unit) Capsule 50,000 unit PO We@0900 Qty: 0 RF: 0 (DME) insulin syringe-needle U-100 [BD Insulin Syringe Safety-Yue] 1 mL 29 gauge x 1/2 Syringe Qty: 10 RF: 3 Continued Lantus U-100 Insulin 100 unit/mL Solution 30 unit SUBCUT HS RF: 0 atenolol 100 mg Tablet 100 mg PO DAILY RF: 0 terazosin 2 mg Capsule 2 mg PO DAILY RF: 0 ropinirole 2 mg Tablet 2 mg HS RF: 0 pantoprazole [Protonix] 40 mg Tablet,Delayed Release (Dr/Ec) 40 mg PO QAM RF: 0 aspirin 81 mg Tablet 81 mg P
== END 2020-01-26 12:26 | disposition home health service (06) | DRG 638 ==
PROVIDERS: Admitting Provider Psychiatry & Neurology Neurology; PCP Internal Medicine; Visit Provider Psychiatry & Neurology Neurology
DX: E11.621 Type 2 diabetes mellitus with foot ulcer (principal); I13.0 Hypertensive heart and chronic kidney disease with heart failure and stage 1 through stage 4 chronic kidney disease, or unspecified chronic kidney disease; Z68.42 Body mass index [BMI] 45.0-49.9, adult; L97.519 Non-pressure chronic ulcer of other part of right foot with unspecified severity; R53.1 Weakness; D63.1 Anemia in chronic kidney disease; E11.22 Type 2 diabetes mellitus with diabetic chronic kidney disease; E11.51 Type 2 diabetes mellitus with diabetic peripheral angiopathy without gangrene; E11.42 Type 2 diabetes mellitus with diabetic polyneuropathy; E11.65 Type 2 diabetes mellitus with hyperglycemia; E78.5 Hyperlipidemia, unspecified; E66.01 Morbid (severe) obesity due to excess calories; G47.33 Obstructive sleep apnea (adult) (pediatric); G25.81 Restless legs syndrome; H91.90 Unspecified hearing loss, unspecified ear; I50.9 Heart failure, unspecified; K21.9 Gastro-esophageal reflux disease without esophagitis; M20.11 Hallux valgus (acquired), right foot; N18.30 Chronic kidney disease, stage 3 unspecified; Z99.89 Dependence on other enabling machines and devices; Z79.4 Long term (current) use of insulin
CPT/HCPCS: 36415; 80048; 83036; 85025; 97110; 97116; 97161; 97166; 97530; 97535; 97542; A9270; J1815

== ENCOUNTER 2020-11-17 16:12 | Emergency (ER) | payer MEDICARE, OTHER, SELFPAY ==
[2020-11-17 16:19] VITALS: BP 153/58; PULSE 67; RESP 20; TEMP 35.9; O2SAT 100
[2020-11-17 16:51] LABS: Basophils Percent Auto 0.4 % (0.2-1.2); Eosinophils Absolute Auto 0.4 K/mm3 (0-0.3); Eosinophils Percent Auto 3.5 % (0-4.4); Hematocrit 33.2 % (42.0-52.0); Hemoglobin 10.7 g/dL (14.0-18.0); Immature Granulocyte Absolute 0.03 K/mm3 (0.00-0.031); Immature Granulocyte Percent A 0.3 % (0-0.5); Lymphocytes Absolute Auto 3.84 K/mm3 (0.9-3.2); Lymphocytes Percent Auto 38.9 % (18.3-44.2); Mean Corpuscular HGB Conc 32.2 g/dl (32-36); Mean Corpuscular Hemoglobin 26.8 pg (26-34); Mean Platelet Volume 9.2 fl (7.4-10.4); Monocytes Absolute Auto 0.5 K/mm3 (0.1-0.6); Monocytes Percent Auto 5.3 % (2.6-8.5); Neutrophils Absolute Auto 5.1 K/mm3 (1.3-6.7); Neutrophils Percent Auto 51.6 % (45.5-73.1); Platelet Count Result 250 k/mm3 (150-375); Red Cell Distribution Width 12.7 % (11.5-14.5); White Blood Count 9.9 K/mm3 (4.5-10.0)
[2020-11-17 16:56] LABS: Add Urine Microscopic? YES; Appearance Urine Clear (Clear); Bilirubin Urine Negative (Negative); Blood Urine Negative (Negative); Color Urine Colorless (Yellow); Glucose Urine UA 3+ mg/dL (Negative); Ketones Urine Negative (Negative); Leukocyte Esterase Ur Negative LEU/UL (Negative); Mucus Urine Rare /lpf; Nitrate Urine Negative (Negative); Protein Urine Negative (Negative); Specific Grav Ur 1.005 (1.001-1.035); Squamous Epithelial Cell Urine Rare /hpf (Few); Urobilinogen Urine Negative mg/dL (<2.0); WBC Urine 0-3 /hpf
[2020-11-17 17:09] LABS: Alanine Aminotransferase 14 U/L (4-50); Albumin Level 4.5 g/dL (3.5-5.1); Alkaline Phosphatase 103 U/L (38-126); Anion Gap 11 mmol/L (8-16); Aspartate Amino Transferase 19 U/L (17-59); Bilirubin,Total 0.7 mg/dL (0.2-1.3); Blood Urea Nitrogen 50 mg/dL (9-20); Calcium 9.4 mg/dL (8.4-10.2); Carbon Dioxide 24 mmol/L (22-30); Chloride 95 mmol/L (98-107); Estimated CRCL calculation 33 ml/min; Estimated Glomerular Filt Rate 34; Glucose 460 mg/dL (65-110); Magnesium 1.6 mg/dL (1.6-2.3); Phosphorus 4.5 mg/dL (2.5-4.5); Potassium 4.2 mmol/L (3.4-5.0); Sodium 130 mmol/L (137-145)
[2020-11-17 19:06] LABS: Glucose Point of Care 417 mg/dl (65-105)
[2020-11-17] MEDS: INSULIN HUMAN REGULAR (*BKC) 100 UNITS/ML 12 UNITS IV PUSH (19:21)
[2020-11-17] MEDS: SODIUM CHLORIDE 0.9% IV 500 ML 999 ML IV CONT (19:21)
[2020-11-17 20:17] LABS: Glucose Point of Care 249 mg/dl (65-105)
[2020-11-17] MEDS: ALPRAZolam (*CRX) 0.25 MG TABLET 0.5 MG PO (20:18)
--- NOTE | 2020-11-17 20:38 | ED.GENADULT ---
HPI - General Adult General Chief complaint: Recheck/Abnormal Lab/Rx Stated complaint: elevated bs Time Seen by Provider: 11/17/20 18:53 Source: patient and family Mode of arrival: ambulatory Limitations: no limitations History of Present Illness HPI narrative: 79-year-old with a history of hypertension, hyperlipidemia, diabetes on insulin here with complaints of high blood sugar. Patient needs mentions that he may not be taking insulin as prescribed. However patient denies any fever or chills. No history of nausea or vomiting or abdominal pain. Onset (ago): day(s) (1) Exacerbating factors: none Associated symptoms: denies other symptoms Related Data Home Medications Medication Instructions Recorded Confirmed Lantus U-100 Insulin 30 unit SUBCUT HS 01/17/20 01/17/20 aspirin 81 mg PO DAILY 01/17/20 01/17/20 atenolol 100 mg PO DAILY 01/17/20 01/17/20 pantoprazole [Protonix] 40 mg PO QAM 01/17/20 01/17/20 ropinirole 2 mg HS 01/17/20 01/17/20 terazosin 2 mg PO DAILY 01/17/20 01/17/20 alprazolam 11/17/20 Allergies Allergy/AdvReac Type Severity Reaction Status Date / Time No Known Allergies Allergy Mild Verified 11/17/20 19:09 Review of Systems Review of Systems: All systems reviewed & are unremarkable except as noted in HPI and below Constitutional: Constitutional: Reports no additional constitutional complaints Eyes: Eyes: Reports no additional eye complaints ENT: Reports system reviewed and no additional complaints, except as documented Cardiovascular: Cardiovascular: Reports no additional cardiovascular complaints Respiratory: Respiratory: Reports no additional respiratory complaints Gastrointestinal: Gastrointestinal: Reports no additional gastrointestinal complaints Musculoskeletal: Musculoskeletal: Reports no additional musculoskeletal complaints Integumentary/Breasts: Skin/Breast: Reports system reviewed and no additional complaints, except as docu Neurologic: Reports system reviewed and no additional complaints, except as documented Endocrine: Endocrine: Reports as per HPI [facility] Past Medical History Medical History Diabetes mellitus Generalized weakness History of congestive heart failure Hypertension Morbid obesity Obstructive sleep apnea on CPAP Peripheral arterial disease Peripheral neuropathy Wound of right foot Surgical History Surgical History S/P left knee arthroscopy Family History Family History Father Congestive heart failure Mother Congestive heart failure Social History Social History Smoking status: Never smoker Alcohol intake: former Substance use: never Gender identity (if verbalized by the patient): Male Spiritual care concerns: No Exam Narrative: GENERAL: Well-appearing, morbidly obese, and in no acute distress. HEAD: Normocephalic, atraumatic. EYES: PERRLA and EOMI. NECK: Supple. CHEST: Clear to auscultation. No respiratory distress. HEART: Regular rate and rhythm. No murmur heard. Normal peripheral pulses. ABDOMEN: Soft, nontender, nondistended, normal active bowel sounds. EXTREMITIES: Normal range of motion. No edema. SKIN: Warm, dry, no rash. NEURO: No focal deficits. Alert and oriented x3. PSYCH: Normal mood and affect. Course Course Emergency Course: Patient presently has no major complaints I will give him IV fluids along with 12 units of regular insulin IV. He is presently not in DKA Vital Signs Vital signs: Vital Signs Temperature 35.9 C L 11/17/20 16:19 Pulse Rate 67 11/17/20 16:19 Respiratory Rate 20 11/17/20 16:19 Blood Pressure 153/58 H 11/17/20 16:19 Pulse Oximetry 100 11/17/20 16:19 Temperature 35.9 C L 11/17/20 16:19 Pulse Rate 67 11/17/20 16:19 Respiratory Rate 20 11/17/20 16:19 Bloo
[2020-11-17 20:50] VITALS: BP 150/78; PULSE 70; RESP 18; TEMP 36.6; O2SAT 100
== END 2020-11-17 20:50 | disposition home or self-care (01) ==
PROVIDERS: Emergency Medicine; Emergency Provider Family Medicine; PCP Internal Medicine
DX: E11.65 Type 2 diabetes mellitus with hyperglycemia (principal); E78.5 Hyperlipidemia, unspecified; I50.9 Heart failure, unspecified; I11.0 Hypertensive heart disease with heart failure; E66.01 Morbid (severe) obesity due to excess calories; Z68.39 Body mass index [BMI] 39.0-39.9, adult; E11.51 Type 2 diabetes mellitus with diabetic peripheral angiopathy without gangrene; E11.42 Type 2 diabetes mellitus with diabetic polyneuropathy; G47.33 Obstructive sleep apnea (adult) (pediatric); Z79.82 Long term (current) use of aspirin; Z79.4 Long term (current) use of insulin
CPT/HCPCS: 36415; 80053; 81001; 82010; 82948; 83735; 84100; 85025; 96361; 96374; 99284; A9270; J1815; J7040

== ENCOUNTER 2021-06-29 10:19 | Emergency (ER) | payer MEDICARE, OTHER, SELFPAY ==
[2021-06-29] VITALS (14 sets, daily range): BP systolic 109–172; BP diastolic 57–97; PULSE 62–64; RESP 18–19; TEMP 36.6; O2SAT 93–97
--- NOTE | ~2021-06-29 | CT_ITS ---
EXAMINATION: CT abdomen pelvis wo con EXAM DATE: 06/29/2021 10:58 INDICATION: Bilateral flank pain. TECHNIQUE: Spiral CT of the abdomen and pelvis was performed without contrast. Axial, coronal and sag ittal images were reviewed. The dose-length product (DLP) for this examination was 1533.43 mGy-cm. The exposure was tailored according to patient size (auto mA exposure control), and iterative reconst ruction (ASIR) was used as additional dose reduction technique. There is no prior study for comparis on. FINDINGS: There is no nephrolithiasis or hydronephrosis. The prostate is unremarkable. The bladder is unremarkable. The liver, spleen, adrenal glands and pancreas are unremarkable. Gallbladder is u nremarkable. No biliary obstruction. There is no retroperitoneal or pelvic lymphadenopathy. There is moderate scattered arteriosclerotic disease. The appendix is normal. There is mild scattered colonic diverticulosis. There is no adjacent inflamm atory change to suggest diverticulitis. The stomach and small bowel are unremarkable. There is expec rayna amount of colonic stool. No free intraperitoneal gas. Dense coronary artery calcifications an d/or stents. Scattered basilar granulomata. Small left inguinal fat-containing hernia. Small umbilic al fat-containing hernia. There is a widened disc space at the L1-2 level with erosion of the endplates. Scattered foci of gas within this disc space which typically excludes osteomyelitis. There is no paraspinal abscess. There is disc bulge at this level causing moderate central canal stenosis. Also severe disc disease at L2-3 and moderate to severe at L3-4. L4-S1 posterior fusion without lucency surrounding the screws. L5 la minectomies, L4 laminotomies. There are no osteoblastic or osteolytic lesions identified. IMPRESSION: 1. No acute intra-abdominal findings. 2. Advanced upper lumbar spondylosis with endplate Erosions L1-2 and moderate disc bulge, central ca nal stenosis. Probably all chronic degenerative. Are symptoms localizable to the back? Given lower zaida mbar surgical changes there are likely prior studies at outside facility which could be used for comp arison. 3. Mild colonic diverticulosis. 4. Small umbilical, left inguinal fat-containing hernias. Reviewed, dictated and finalized at location B. IMPRESSION: 1. No acute intra-abdominal findings. 2. Advanced upper lumbar spondylosis with endplate Erosions L1-2 and moderate disc bulge, central canal stenosis. Probably all chronic degenerative. Are symp toms localizable to the back? Given lower lumbar surgical changes there are lik jess prior studies at outside facility which could be used for comparison. 3. Mild colonic diverticulosis. 4. Small umbilical, left inguinal fat-containing hernias.
--- NOTE | 2021-06-29 10:46 | ED.BACK ---
HPI - Back Pain/Injury General Chief Complaint: Back Pain/Injury Stated Complaint: Back pain Time Seen by Provider: 06/29/21 10:25 Source: patient Mode of arrival: EMS Limitations: no limitations History of Present Illness HPI Narrative: Patient is an 80-year-old male complaining of low back pain, 9 out of 10, dull, aching, worse with movement, history of chronic low back pain, recently placed yesterday by his PCP on [facility] ER for his back pain. Patient also states that he has an appointment with his pain management doctor next week for back injection but cannot wait that long since the pain is getting worse. Patient denies any recent injury. Patient denies any weakness, numbness, incontinence, fever or chills. Related Data Home Medications Medication Instructions Recorded Confirmed Lantus U-100 Insulin 30 unit SUBCUT HS 01/17/20 01/17/20 atenolol 100 mg PO DAILY 01/17/20 01/17/20 pantoprazole [Protonix] 40 mg PO QAM 01/17/20 01/17/20 ropinirole 2 mg HS 01/17/20 01/17/20 terazosin 2 mg PO DAILY 01/17/20 01/17/20 bupropion HCl 50 mg PO BID 06/29/21 buspirone 5 mg PO TID 06/29/21 furosemide 40 mg PO DAILY 06/29/21 hydroxyzine HCl 25 mg PO TID 06/29/21 simvastatin 40 mg PO DAILY 06/29/21 Allergies Allergy/AdvReac Type Severity Reaction Status Date / Time No Known Allergies Allergy Mild Verified 11/17/20 19:09 Review of Systems Review of Systems: All systems reviewed & are unremarkable except as noted in HPI and below Constitutional: Constitutional: Denies body ache(s), Denies chills, Denies excessive sweating, Denies fatigue, Denies fever(s), Denies headache(s), Denies lethargy, Denies malaise, Denies weakness and Denies weight loss Eyes: Eyes: Denies blurry vision, Denies change in vision and Denies loss of vision ENT: Denies dizziness, Denies ear discharge, Denies headache(s), Denies lip swelling, Denies epistaxis, Denies nasal congestion, Denies neck pain, Denies throat swelling and Denies tongue swelling Cardiovascular: Cardiovascular: Denies chest pain, Denies chest pain at rest, Denies chest pain with activity, Denies diaphoresis, Denies rapid heart rate, Denies edema, Denies irregular heart rhythm, Denies lightheadedness, Denies palpitations, Denies dyspnea and Denies dyspnea on exertion Respiratory: Respiratory: Denies chest congestion, Denies cough, Denies hemoptysis, Denies dyspnea and Denies dyspnea on exertion Gastrointestinal: Gastrointestinal: Denies abdominal pain, Denies melena, Denies hematochezia, Denies diarrhea, Denies nausea, Denies vomiting and Denies hematemesis Musculoskeletal: Musculoskeletal: Reports as per HPI, Denies abnormal gait, Denies deformity, Denies limited range of motion, Denies neck pain and Denies numbness Neurologic: Denies Abnormal speech present, Denies abnormal gait, Denies confusion, Denies dizziness, Denies headache(s), Denies focal weakness, Denies loss of vision, Denies numbness, Denies Other visual disturbances, Denies Sensory deficit (Neuro) and Denies weakness Psychiatric: Psychiatric: Denies confusion, Denies depression, Denies auditory hallucinations, Denies homicidal ideation and Denies suicidal ideation Endocrine: Endocrine: Denies cold intolerance, Denies excessive sweating, Denies fatigue, Denies heat intolerance and Denies palpitations Hematologic/Lymphatic: Hematologic/Lymphatic: Denies easy bleeding and Denies easy bruising Allergic/Immunologic: Allergic/Immunologic: Denies lip swelling, Denies throat swelling and Denies tongue swelling PMFSH Past Medical History Medical History Diabetes mellitus Generalized weakness History of congestive heart failure Hypertension Morbid obesity Obstructive sleep apnea on CPAP Peripheral arterial disease Peripheral neuropathy Wound of right foot Surgical History Surgical History S/P left knee arthroscopy
[2021-06-29] MEDS: diazePAM (*CRX) 5 MG TABLET PO (11:55)
[2021-06-29] MEDS: HYDROmorphone HCL INJ (*CRX) 1 MG/ML SYR IM (11:56)
--- NOTE | 2021-06-29 12:52 | PC.NURSE ---
RN called pt's brother, pt's brother will pick him up in about 30 minutes. Pt updated.
== END 2021-06-29 13:43 | disposition home or self-care (01) ==
PROVIDERS: Emergency Provider Emergency Medicine; PCP Internal Medicine
DX: M54.50 Low back pain, unspecified (principal); E11.9 Type 2 diabetes mellitus without complications; Z79.4 Long term (current) use of insulin; I11.0 Hypertensive heart disease with heart failure; I50.9 Heart failure, unspecified; G47.30 Sleep apnea, unspecified
CPT/HCPCS: 74176; 96372; 99284; A9270; J1170

== ENCOUNTER 2021-12-19 18:06 | Emergency (ER) | payer MEDICARE, OTHER, SELFPAY ==
[2021-12-19 19:10] VITALS: BP 118/57; PULSE 105; RESP 18; TEMP 36.4; O2SAT 97
[2021-12-19 19:18] LABS: Glucose Point of Care 170 mg/dl (65-105)
--- NOTE | 2021-12-19 20:07 | ED.GENADULT ---
HPI - General Adult General Chief complaint: Nausea/Vomiting/Diarrhea Stated complaint: nausea, myalgia Time Seen by Provider: 12/19/21 19:48 History of Present Illness HPI narrative: Patient is an 81-year-old male here for evaluation of generalized fatigue and right arm soreness today. Patient had a COVID and flu shot in right arm yesterday. Patient states he just feels generally unwell, is somewhat nauseated, and has had little appetite. He also reports right arm pain at the injection site. Patient took a Tylenol earlier this morning with some relief. No abdominal pain, chest pain, shortness of breath, fevers or chills, vomiting. Denies any urinary complaints. Related Data Home Medications Medication Instructions Recorded Confirmed atenolol 100 mg tablet 100 mg PO DAILY 01/17/20 01/17/20 insulin glargine 100 unit/mL 30 unit subcut HS 01/17/20 01/17/20 subcutaneous solution (Lantus U-100 Insulin) pantoprazole 40 mg tablet,delayed 40 mg PO QAM 01/17/20 01/17/20 release (Protonix) ropinirole 2 mg tablet 2 mg HS 01/17/20 01/17/20 terazosin 2 mg capsule 2 mg PO DAILY 01/17/20 01/17/20 bupropion HCl 100 mg tablet 50 mg PO BID 06/29/21 buspirone 5 mg tablet 5 mg PO TID 06/29/21 furosemide 40 mg tablet 40 mg PO DAILY 06/29/21 hydroxyzine HCl 25 mg tablet 25 mg PO TID 06/29/21 simvastatin 40 mg tablet 40 mg PO DAILY 06/29/21 Allergies Allergy/AdvReac Type Severity Reaction Status Date / Time No Known Allergies Allergy Mild Verified 11/17/20 19:09 Review of Systems Review of Systems: Gen: Denies fevers or chills Eyes: Denies eye pain or visual change ENT: Denies congestion Respiratory: Denies shortness of breath or cough CV: Denies chest pain or palpitations GI: Denies abdominal pain nausea, emesis or diarrhea denies burning, urgency, frequency or hematuria Musculoskeletal: Denies back pain or muscle pain Neuro: Reports generalized fatigue. Denies numbness, tingling, focal weakness Skin: Denies rash Except as documented, all other systems reviewed and negative [facility] Past Medical History Medical History Diabetes mellitus Generalized weakness History of congestive heart failure Hypertension Morbid obesity Obstructive sleep apnea on CPAP Peripheral arterial disease Peripheral neuropathy Wound of right foot Surgical History Surgical History S/P left knee arthroscopy Family History Family History Father Congestive heart failure Mother Congestive heart failure Social History Social History Smoking status: Never smoker Alcohol intake: former Substance use: never Gender identity (if verbalized by the patient): Male Spiritual care concerns: No Exam Narrative: APPEARANCE: Well appearing, no pain in distress, well-nourished. Head: Normocephalic and atraumatic. EYES: PERRLA/EOMI, conjunctivae clear NOSE: No nasal drainage EARS: External ear normal in appearance THROAT: Oropharynx is clear. Mucous membranes are moist. NECK: Supple. No adenopathy, no masses. RESPIRATORY: Airway patent, respirations nonlabored. Clear to auscultation bilaterally, no rales, rhonchi, wheezing. CARDIOVASCULAR: Regular rate and rhythm without murmurs, rubs, or gallops. ABDOMINAL: Normoactive bowel sounds. Soft, nontender, nondistended. No rebound tenderness or guarding. MUSCULOSKELETAL: Extremities are warm and well-perfused. Moves all extremities well. No edema. NEURO: Normal speech. No focal neurologic deficits. SKIN: Skin is warm and dry. No rashes. PSYCHIATRIC: Normal affect/mood. Course Vital Signs Vital signs: Vital Signs Temperature 97.6 F 12/19/21 19:10 Pulse Rate 105 H 12/19/21 19:10 Respiratory Rate 18 12/19/21 19:10 Blood Pressure 118/57 L
[2021-12-19] MEDS: ACETAMINOPHEN 325 MG TABLET 650 MG PO (20:16)
[2021-12-19 21:04] LABS: Basophils Percent Auto 0.2 % (0.2-1.2); Eosinophils Percent Auto 0.2 % (0-4.4); Hematocrit 29.9 % (42.0-52.0); Hemoglobin 9.4 g/dL (14.0-18.0); Immature Granulocyte Absolute 0.03 K/mm3 (0.00-0.031); Immature Granulocyte Percent A 0.5 % (0-0.5); Lymphocytes Absolute Auto 1.37 K/mm3 (0.9-3.2); Lymphocytes Percent Auto 24.9 % (18.3-44.2); Mean Corpuscular HGB Conc 31.4 g/dl (32-36); Mean Corpuscular Hemoglobin 28.1 pg (26-34); Mean Corpuscular Volume 89.3 fl (80-100); Monocytes Absolute Auto 0.3 K/mm3 (0.1-0.6); Monocytes Percent Auto 5.5 % (2.6-8.5); Neutrophils Absolute Auto 3.8 K/mm3 (1.3-6.7); Neutrophils Percent Auto 68.7 % (45.5-73.1); Platelet Count Result 172 k/mm3 (150-375); Red Blood Count 3.35 M/mm3 (4.6-6.20); White Blood Count 5.5 K/mm3 (4.5-10.0)
[2021-12-19 21:15] LABS: Alanine Aminotransferase 15 U/L (6-50); Albumin Level 3.9 g/dL (3.5-5.1); Alkaline Phosphatase 65 U/L (38-126); Anion Gap 15 mmol/L (8-16); Aspartate Amino Transferase 17 U/L (17-59); Bilirubin,Total 0.4 mg/dL (0.2-1.3); Blood Urea Nitrogen 51 mg/dL (9-20); Calcium 8.6 mg/dL (8.4-10.2); Carbon Dioxide 20 mmol/L (22-30); Chloride 101 mmol/L (98-107); Estimated CRCL calculation 26 ml/min; Estimated Glomerular Filt Rate 27; Glucose 155 mg/dL (65-110); Potassium 4.5 mmol/L (3.4-5.0); Sodium 136 mmol/L (137-145)
--- NOTE | 2021-12-19 21:26 | ECG_ITS ---
Measurements Intervals [place] Rate: 99 P: 14 LA: 231 QRS: -8 QRSD: 85 T: 37 QT: 319 QTc: 409 Interpretive Statements SINUS RHYTHM WITH FIRST DEGREE AV BLOCK ABNORMAL ECG NO PREVIOUS ECG AVAILABLE FOR COMPARISON Electronically Signed On 12-20-2021 9:56:15 CDT by Hector Hernandez D.O.
[2021-12-19 22:44] LABS: Appearance Urine Clear (Clear); Bilirubin Urine Negative (Negative); Blood Urine Negative (Negative); Color Urine Yellow (Yellow); Glucose Urine UA Negative (Negative); Ketones Urine Negative (Negative); Leukocyte Esterase Ur 1+ LEU/UL (Negative); Nitrate Urine Negative (Negative); Protein Urine Negative (Negative); Specific Grav Ur 1.015 (1.001-1.035); Urobilinogen Urine 0.2 mg/dL (<2.0)
[2021-12-19 23:20] LABS: Bacteria Urine Trace /hpf; RBC Urine 0-2 /hpf (0-2); WBC Urine 16-20 /hpf
[2021-12-19 23:25] LABS: Add Urine Microscopic? YES
== END 2021-12-19 23:22 | disposition home or self-care (01) ==
PROVIDERS: Physician Assistant; Emergency Provider Emergency Medicine; PCP Internal Medicine
DX: M79.10 Myalgia, unspecified site (principal); T50.B95A Adverse effect of other viral vaccines, initial encounter; I50.9 Heart failure, unspecified; I11.0 Hypertensive heart disease with heart failure; E11.51 Type 2 diabetes mellitus with diabetic peripheral angiopathy without gangrene; I73.9 Peripheral vascular disease, unspecified; E11.42 Type 2 diabetes mellitus with diabetic polyneuropathy; G47.33 Obstructive sleep apnea (adult) (pediatric); Z79.4 Long term (current) use of insulin; I44.0 Atrioventricular block, first degree
CPT/HCPCS: 36415; 80053; 81001; 82948; 85025; 87086; 93005; 99283; A9270

== ENCOUNTER → 2023-01-09 10:43 | Outpatient (CLI) | payer MEDICARE, OTHER, SELFPAY ==
--- NOTE | ~2023-01-09 | US_ITS ---
Renal-Bladder ultrasound Clinical History: Abdominal pain Technique: Real-time sonographic imaging of the kidneys and urinary bladder was performed. Findings: The right kidney measures 8.4 cm in length and the left kidney measures 10.5 cm. There is n o hydronephrosis or renal calculus identified. Renal cortical echogenicity is within normal limits. N o renal mass lesion is identified. The urinary bladder is minimally distended at the time of this exam, somewhat limiting evaluation. Impression: No hydronephrosis. Reviewed, dictated and finalized at location M. Impression: No hydronephrosis.
== END ==
PROVIDERS: PCP Internal Medicine Nephrology; Visit Provider Internal Medicine Nephrology
DX: R10.9 Unspecified abdominal pain (principal)
CPT/HCPCS: 76775

== ENCOUNTER 2023-11-21 08:00 | Outpatient (CLI) | payer MEDICARE, SELFPAY ==
--- NOTE | ~2023-11-21 | XR_ITS ---
EXAMINATION: XR UGI w small bowel DATE: 11/21/2023 12:44 INDICATION: Chronic nausea. TECHNIQUE: The patient drank thin barium. Fluoroscopy of the esophagus, stomach, and small bowel was performed. Fluoroscopy exposure time was 0.7 minutes. Radiographs of the abdomen were obtained. The t ota number of images was 535. COMPARISON: CT abdomen and pelvis 06/29/2021 FINDINGS: UPPER GASTROINTESTINAL SERIES: There is no mass or stricture of the esophagus. There is decreased primary and secondary esophageal p eristalsis. Abnormal tertiary waves are noted. There is no hiatal hernia. There was no gastroesophage al reflux with provocative maneuvers. The stomach shows a normal folding pattern. SMALL BOWEL SERIES: The small bowel shows a normal folding pattern. No mass or stricture. There is no contrast in the col on at 3 hours and 45 minutes. There are changes of anterior and posterior fusion procedures in lumbar spine. IMPRESSION: 1. Moderate esophageal peristalsis. 2. Slow passage of contrast in the small bowel, consistent with adynamic ileus. Reviewed, dictated and finalized at location A.
== END 2023-11-21 08:01 | disposition home or self-care (01) ==
PROVIDERS: PCP Family Medicine; Visit Provider Nurse Practitioner
DX: R11.0 Nausea (principal); R93.3 Abnormal findings on diagnostic imaging of other parts of digestive tract
CPT/HCPCS: 74240; 74248

== ENCOUNTER 2023-12-26 02:31 | Inpatient (IN) | payer MEDICARE, SELFPAY ==
[2023-12-26] VITALS (26 sets, daily range): BP systolic 118–157; BP diastolic 1–90; PULSE 85–142; RESP 17–25; TEMP 35.8–38.9; O2SAT 92–100; BMI 47.2
--- NOTE | 2023-12-26 | ECHO_ITS ---
Patient Info Name: Ramos Urbina Age: 83 years : 1940 Gender: Male Ht: 65 in Wt: 283 lbs BSA: 2.50 m2 HR: 105 bpm BP: 118 / 59 mmHg Heart Rhythm: Sinus Rhythm, Tachycardia Technical Quality: Poor Exam Date: 12/26/2023 12:03 PM Exam Location: Echo Lab Patient Status: Inpatient Admit Date: 12/26/2023 Staff Ordering Physician: Rebecca Parmar APRN Regional Safety Manager: Anmol Youssef RDCS Attending Provider: Rebecca Parmar APRN Referring Physician: Ghulam RIVAS; Exam Type: CA echo dop color flow w con Study Info Indications I48.1 - Persistent atrial fibrillation - Atrial Flutter Complete two-dimensional, color flow and Doppler transthoracic echocardiogram is performed with contrast to opacify the left ventricle and to improve the deliniation of the left ventricle endocardial borders. Contrast/Agitated Saline Contrast/Ag. Saline: Definity Amount: 3.00 ml Existing IV Access: Yes IV Access Condition: patent with no signs of infiltration Reason for Poor Study: poor echocardiographic windows Summary 1. Very technically difficult study with limited views. 2. Left ventricular chamber dimension is normal. 3. Left ventricular systolic function is normal, estimated at 50-55%. 4. The left ventricular diastolic function is grade III diastolic dysfunction. 5. Right ventricular systolic function is normal. 6. No significant valvular disease appreciated. Left Ventricle Left ventricular chamber dimension is normal. Left ventricular systolic function is normal, estimated at 50-55%. The left ventricular diastolic function is grade III diastolic dysfunction. Right Ventricle Right ventricular chamber dimension is normal. Right ventricular systolic function is normal. Left Atria Left atrial chamber dimension is normal. Right Atria Right atrial chamber dimension is normal. Aortic Valve The aortic valve is not well visualized. There is no aortic valve stenosis. There is no aortic valve regurgitation. Pulmonic Valve The pulmonic valve is not well visualized. Mitral Valve There is trace mitral valve regurgitation. The mitral valve annulus is mildly calcified. Tricuspid Valve There is trace tricuspid valve regurgitation. Pericardium/Pleural There is no pericardial effusion. Inferior Vena Cava Inferior vena cava is not well visualized. Aorta The aortic root size at the sinus of Valsalva is normal. Left Ventricular Outflow Tract Name Value Normal LVOT 2D LVOT Diameter 2.11 cm LVOT Doppler LVOT Peak Gradient 4 mmHg LVOT Mean Gradient 2 mmHg LVOT VTI 14.50 cm LVOT VTI/AV VTI Ratio 1.07 LVOT Stroke Volume 50.56 ml LVOT CO 4.94 l/min LVOT CI 1.97 L/min/m2 Pulmonic Valve Name Value Normal PV Doppler
--- NOTE | ~2023-12-26 | NM_ITS ---
EXAMINATION: NM lung vent and perfusion DATE: 12/26/2023 13:45 INDICATION: Atrial flutter and hypoxia TECHNIQUE: 7.9 mCi xenon-133 by inhalation and 5.3 mCi Tc-99m MAA by intravenous route. Scintigraphi c images of the chest were obtained. COMPARISON: Chest CT dated 12/26/2023 FINDINGS: The ventilation images are suboptimal but demonstrate grossly homogeneous radiotracer activity throug hout the lungs on the single breath ventilation sequence. There is relatively homogeneous matched pe rfusion throughout the lungs. No discrete perfusion defects identified. IMPRESSION: 1. Normal study. Very low probability for pulmonary embolism. Reviewed, dictated and finalized at location A.
--- NOTE | ~2023-12-26 | CT_ITS ---
CT Scan of the Chest without Contrast: Clinical Indication: Shortness of breath Technique: Contiguous sections were acquired throughout the chest without intravenous contrast. Dose reduction technique was used on this scan by utilizing automated exposure control and iterative recon struction technique. The dose-length product (DLP) was 845.00 mGy-cm. Findings: There is no evidence of any significant mediastinal, hilar or axillary lymphadenopathy. Calcified med iastinal and hilar lymph nodes are present. There are extensive coronary artery calcifications as wel l as atherosclerotic calcifications of the aorta. There is no evidence of pleural or pericardial effusion. Multiple scattered bilateral calcified granulomas are present. There is focal scarring or atelectasis at the lingula. Images through the upper abdomen reveal no abnormalities. Impression: No acute abnormality. Evidence of prior granulomatous disease. Atherosclerotic disease, as above. Reviewed, dictated and finalized at [facility]. Impression: No acute abnormality. Evidence of prior granulomatous disease. Atherosclerotic disease, as above.
--- NOTE | ~2023-12-26 | US_ITS ---
EXAMINATION: US venous doppler [facility] DATE: 12/26/2023 14:30 INDICATION: Edema/pain . TECHNIQUE: Grayscale images without and with compression and Doppler images of the bilateral lower ex tremity veins were obtained. COMPARISON: None FINDINGS: The right common femoral vein, profunda (deep) femoral vein, femoral vein, popliteal vein, peroneal v ein, posterior tibial veins, gastrocnemius vein, and greater saphenous vein are patent. The left common femoral vein, profunda (deep) femoral vein, femoral vein, popliteal vein, gastrocnem ius vein, and greater saphenous vein are patent. IMPRESSION: Left posterior tibial vein and peroneal vein not imaged. Otherwise patent bilateral lower extremity v eins. No evidence of deep venous thrombosis in the visualized veins. Reviewed, dictated and finalized at location K. IMPRESSION: Left posterior tibial vein and peroneal vein not imaged. Otherwise patent bilat eral lower extremity veins. No evidence of deep venous thrombosis in the visual ized veins.
--- NOTE | ~2023-12-26 | US_ITS ---
EXAMINATION:US venous doppler LE LT INDICATION:Left calf pain TECHNIQUE: Multiple grayscale, color flow and Doppler images of the left lower extremity deep venous systems were obtained and reviewed. COMPARISON:No prior studies for comparison. FINDINGS: The common femoral, superficial femoral and popliteal veins demonstrate normal respiratory variation, augmentation and compressibility. Color flow is also seen within the posterior tibial, pe roneal, greater saphenous and profunda veins. IMPRESSION: 1: No lower extremity deep venous thrombosis. Reviewed, dictated and finalized at location B.
--- NOTE | 2023-12-26 02:37 | ECG_ITS ---
Test Date: 2023-12-26 02:38:05 Measurements Intervals [place] Rate: 140 P: 200 MD: 132 QRS: -9 QRSD: 85 T: 61 QT: 293 QTc: 448 Interpretive Statements ATRIAL FLUTTER/TACHYCARDIA WITH RAPID VENTRICULAR RESPONSE CONSIDER INFERIOR INFARCT, AGE INDETERMINATE BORDERLINE ST-T WAVE ABNORMALITY- LAT/HIGH LAT LEADS ABNORMAL ECG No previous ECG available for comparison Electronically Signed On 12-26-2023 06:42:25 CDT by Hector Hernandez D.O.
--- NOTE | 2023-12-26 02:45 | PC.NURSE ---
pt did get a covid vaccine today.
[2023-12-26 02:55] LABS: Basophils Percent Auto 0.2 % (0.2-1.2); Eosinophils Absolute Auto 0.2 K/mm3 (0-0.3); Hematocrit 28.5 % (42.0-52.0); Hemoglobin 9.1 g/dL (14.0-18.0); Immature Granulocyte Absolute 0.08 K/mm3 (0.00-0.031); Immature Granulocyte Percent A 0.9 % (0-0.5); Lymphocytes Percent Auto 8.1 % (18.3-44.2); Mean Corpuscular HGB Conc 31.9 g/dl (32-36); Mean Corpuscular Hemoglobin 27.5 pg (26-34); Mean Corpuscular Volume 86.1 fl (80-100); Mean Platelet Volume 8.9 fl (7.4-10.4); Monocytes Absolute Auto 0.3 K/mm3 (0.1-0.6); Neutrophils Absolute Auto 7.3 K/mm3 (1.3-6.7); Neutrophils Percent Auto 84.8 % (45.5-73.1); Platelet Count Result 232 k/mm3 (150-375); Red Blood Count 3.31 M/mm3 (4.6-6.20); Red Cell Distribution Width 13.8 % (11.5-14.5); White Blood Count 8.6 K/mm3 (4.5-10.0)
[2023-12-26 03:18] LABS: Lactic Acid Reflex 4.7 mmol/L (0.7-2.0)
[2023-12-26 03:32] LABS: Influenza A QL RT-PCR Negative (Negative); Influenza B QL RT-PCR Negative (Negative); RSV RNA, RT-PCR Negative (Negative); SARS-CoV-2 RNA PCR Negative (Negative)
[2023-12-26 03:33] LABS: Alanine Aminotransferase 14 U/L (6-50); Albumin Level 3.7 g/dL (3.5-5.1); Alkaline Phosphatase 88 U/L (38-126); Anion Gap 16 mmol/L (4-12); Aspartate Amino Transferase 20 U/L (17-59); Bilirubin,Total 0.2 mg/dL (0.2-1.3); Blood Urea Nitrogen 36 mg/dL (9-20); Calcium 8.4 mg/dL (8.4-10.2); Carbon Dioxide 18 mmol/L (22-30); Chloride 99 mmol/L (98-107); Estimated CRCL calculation 23 ml/min; Estimated Glomerular Filt Rate 22; Glucose 241 mg/dL (65-110); Sodium 133 mmol/L (137-145)
[2023-12-26 03:46] LABS: Potassium 4.8 mmol/L (3.4-5.0)
[2023-12-26 04:08] LABS: NT Pro B Type Natriuretic Pept 531 pg/mL (19.9-100)
[2023-12-26 05:52] LABS: Alveolar/Arterial O2 Gradient 66.5 mmHg; Base Excess ABG -3.2 mEq/l (+/-2.0); Fractional Inspired Oxygen 28 %; Oxygen Content ABG 13.4 %vol (16.0-22.0); Oxygen Saturation ABG 97.2 % (95.0-100.0); Oxyhemoglobin 95.9 % THb (90.0-100.0); PCO2 ABG 34.4 mmHg (35.0-45.0); PO2 ABG 92.6 mmHg (80.0-100.0); PO2 FiO2 Ratio Arterial Blood 3.31 %; Total Hemoglobin 9.8 g/dL (12.0-18.0); pH ABG 7.404 (7.350-7.450)
[2023-12-26 05:53] LABS: Reflex Lactic Acid Yes or No Add Lactic
[2023-12-26 05:54] LABS: Device NASAL CANNULA; Modified Allen's Test Pass; Site Drawn RIGHT RADIAL
[2023-12-26] MEDS: ENOXAPARIN 60 MG/0.6 ML SYRINGE 29 MG SUB-Q (05:54)
[2023-12-26] MEDS: SODIUM CHLORIDE 0.9% IV 1,000 ML 999 ML IV CONT (05:54)
--- NOTE | 2023-12-26 05:54 | ED.GENADULT ---
HPI - General Adult General Chief complaint: Shortness of Breath/Dyspnea Stated complaint: fall/sob 3D Time Seen by Provider: 12/26/23 02:44 History of Present Illness HPI narrative: Patient is an 83-year-old male who presents to the emergency department this morning complaining of shortness of breath that has been worsening for the past 3-4 days. Patient presented to the emergency department via EMS and initially EMS were called for a lift assist but once they got there patient was complaining of shortness of breath. Patient states that he called his primary care physician and informed him that he was having worsening shortness of breath and his PCP told him to wear his CPAP not only at night but throughout the day as well which patient states that he has been doing. Patient presented to the emergency department tachycardic, tachypneic and satting around 90% on room air. EMS reports that patient was noted to be hypoxic around 85% on room air. Patient currently denies any chest pain or recent URI/flu-like symptoms, denies any fevers or chills at home, denies any abdominal pain, any dysuria or hematuria, any nausea or vomiting. No additional symptoms or concerns at this time. Related Data Home Medications Medication Instructions Recorded Confirmed simvastatin 40 mg tablet 40 mg PO DAILY 06/29/21 12/13/23 acetaminophen 325 mg capsule 650 mg PO Q6H PRN 12/07/22 12/13/23 bupropion HCl 150 mg tablet,12 hr 150 mg PO BID 12/07/22 12/13/23 sustained-release buspirone 5 mg tablet 5 mg PO BID 12/07/22 12/13/23 docusate sodium 100 mg capsule 100 mg PO DAILY 12/07/22 12/13/23 terazosin 2 mg capsule 2 mg PO BID 12/07/22 12/13/23 ropinirole 1 mg tablet 1 mg PO QHS 03/06/23 12/13/23 [id number]-[id number]-[id number] 1 cap PO Q6H PRN 05/01/23 12/13/23 50 mg-325 mg-40 mg capsule (Esgic) Allergies Allergy/AdvReac Type Severity Reaction Status Date / Time No Known Allergies Allergy Mild Verified 12/26/23 05:59 Review of Systems Review of Systems: All systems are reviewed and are negative unless stated otherwise in the HPI. PMFSH Past Medical History Medical History Abdominal pain Anemia Anxiety Cellulitis of leg, left Chronic kidney disease Chronic low back pain Depression Diabetes mellitus Edema Encounter to establish care Generalized weakness GERD (gastroesophageal reflux disease) History of congestive heart failure Hyperlipidemia Hypertension Lower abdominal pain Morbid obesity Morbid obesity with BMI of 40.0-44.9, adult Nausea Obstructive sleep apnea on CPAP Peripheral arterial disease Peripheral neuropathy Seasonal allergies Tinea cruris Urinary frequency Wound of right foot Surgical History Surgical History S/P left knee arthroscopy Family History Family History Father Congestive heart failure Cerebrovascular accident Hypertension Mother Congestive heart failure Lung cancer Heart disease Sibling Hypertension Daughter Lung cancer Depression Grandparent Diabetes mellitus Social History Social History Smoking status: Never smoker Alcohol intake: former Substance use: never Do You Feel Safe in your Home?: Yes Lack of Transportation: No Lack of Food: Never True Current Housing: I Do Not Have Housing Concerned About Future Housing: No Difficulty Paying Gas/Electric Bills: Decline to Answer Difficulty Paying for Meds: No Currently Unemployed: No Education: Grade School Difficulty w/ Childcare or Family Care: No Gender identity (if verbalized by the patient): Male Spiritual care concerns: No Exam Narrative: General: Alert, awake, afebrile, in no acute distress. HEENT: PERRL, no rhinorrhea, no post nasal drip, oropharynx clear. Cardi
[2023-12-26] MEDS: ENOXAPARIN 100 MG/ML SYRINGE SUB-Q (05:55)
--- NOTE | 2023-12-26 07:51 | ECG_ITS ---
Test Date: 2023-12-26 09:25:02 Measurements Intervals [place] Rate: 108 P: 29 SD: 241 QRS: -14 QRSD: 87 T: 47 QT: 309 QTc: 415 Interpretive Statements SINUS TACHYCARDIA WITH FIRST DEGREE AV BLOCK CONSIDER INFERIOR INFARCT, AGE INDETERMINATE NONSPECIFIC ST-T WAVE ABNORMALITY- HIGH LATERAL LEADS ABNORMAL ECG Compared to ECG 12/26/2023 02:38:05 ATRIAL FLUTTER/TACHYCARDIA NO LONGER PRESENT Electronically Signed On 12-26-2023 10:14:39 CDT by Hector Hernandez D.O.
[2023-12-26 07:55] LABS: Lactic Acid 1.6 mmol/L (0.7-2.0)
[2023-12-26 07:58] LABS: Glucose Point of Care 213 mg/dl (65-105)
[2023-12-26] MEDS: METOPROLOL TARTRATE INJ 5 MG/5 ML VIAL IV PUSH (08:29)
[2023-12-26 09:25] LABS: Cholesterol 144 mg/dL (0-200); HDL Direct 70 mg/dL; Magnesium 1.8 mg/dL (1.6-2.3); Triglycerides 78 mg/dL (<150)
[2023-12-26 09:34] LABS: LDL Cholesterol Direct 48 mg/dL
[2023-12-26] MEDS: INSULIN ASPART (*BKC) 100 UNITS/ML SUB-Q (10:15)
[2023-12-26] MEDS: busPIRone HCL 5 MG TABLET PO ×2 (10:49→17:20)
[2023-12-26] MEDS: FUROSEMIDE 20 MG TABLET PO (10:49)
[2023-12-26] MEDS: DICYCLOMINE HCL 10 MG CAPSULE 20 MG PO ×3 (10:49→21:48)
[2023-12-26] MEDS: MICONAZOLE NITRATE 2% CREAM 30 GM TUBE 1 APPLIC TOPICAL ×2 (10:50→21:48)
[2023-12-26] MEDS: METOPROLOL SUCCINATE EXT REL 50 MG TABCR PO (10:50)
[2023-12-26] MEDS: SERTRALINE HCL 50 MG TABLET PO (10:50)
[2023-12-26] MEDS: buPROPion HCL SR (12 HR) 150 MG TAB PO ×2 (10:50→21:48)
[2023-12-26 11:37] LABS: Glucose Point of Care 173 mg/dl (65-105)
[2023-12-26] MEDS: CEPHALEXIN 500 MG CAPSULE PO ×3 (11:47→21:48)
[2023-12-26] MEDS: PERFLUTREN LIPID MICROSPHERES 1.5 ML VIAL DILUTED TO 10 ML TOTAL VOLUME IV PUSH (12:49)
--- NOTE | 2023-12-26 12:49 | IVDEFINITY ---
Prior to administration of IV Definity the patient was educated on the risks and benefits of the imaging enhancing agent including potential adverse side effects. The patient verbalized understanding. Allergies were verified. No exclusion criteria were identified and at least one of the following inclusion criteria were met: 1) physician request, 2) patient technically difficult to image (per the [place] [employer] guidelines of two or more segments not discernable within the apical view), or 3) questionable left ventricular function. ?
[2023-12-26] MEDS: GABAPENTIN 300 MG CAPSULE PO (14:05)
--- NOTE | 2023-12-26 14:20 | PM.CNCAR ---
Assessment and Plan Assessment and plan (1) Atrial flutter with rapid ventricular response: Code(s): I48.92 - Unspecified atrial flutter Status: Acute Assessment and Plan: In sinus rhythm this morning. Agree with starting Toprol. Discussed anticoagulation with the patient, he is agreeable. Start Eliquis 2.5mg BID given age and renal function. TTE pending. (2) Hypertension: Code(s): I10 - Essential (primary) hypertension Status: Acute Assessment and Plan: Continue Toprol, Lasix (3) Diabetes mellitus: Code(s): E11.9 - Type 2 diabetes mellitus without complications Status: Acute Assessment and Plan: Management as per primary team. (4) Obstructive sleep apnea on CPAP: Code(s): G47.33 - Obstructive sleep apnea (adult) (pediatric); Z99.89 - Dependence on other enabling machines and devices Status: Acute (5) Hyperlipidemia: Code(s): E78.5 - Hyperlipidemia, unspecified Status: Acute Assessment and Plan: Continue statin. History of Present Illness History of Present Illness Consult date/time: 12/26/23 14:20 Requesting physician: Rebecca Parmar, MEDICAL SCHEDULER Consult reason: Other (Atrial flutter with RVR) Reason For Visit: hypoxic,sob Narrative: This is an 83 year old male with hypertension, hyperlipidemia, diabetes mellitus, chronic kidney disease, morbid obesity with BMI of 47 who presented to [place] for shortness of breath. No chest pain. He was found to be in atrial flutter with RVR upon presentation. Workup shows: Hgb of 9.1 SCr is 2.8 TSH level normal. Chest CT with no acute abnormality, evidence of prior granulomatous disease. V/Q scan is negative. Review of Systems Review of Systems: All systems reviewed & are unremarkable except as noted in HPI and below (HPI) [facility] Past Medical History Medical History Abdominal pain Anemia Anxiety Cellulitis of leg, left Chronic kidney disease Chronic low back pain Depression Diabetes mellitus Edema Encounter to establish care Generalized weakness GERD (gastroesophageal reflux disease) History of congestive heart failure Hyperlipidemia Hypertension Lower abdominal pain Morbid obesity Morbid obesity with BMI of 40.0-44.9, adult Nausea Obstructive sleep apnea on CPAP Peripheral arterial disease Peripheral neuropathy Seasonal allergies Tinea cruris Urinary frequency Wound of right foot Surgical History Surgical History S/P left knee arthroscopy Family History Family History Father Congestive heart failure Cerebrovascular accident Hypertension Mother Congestive heart failure Lung cancer Heart disease Sibling Hypertension Daughter Lung cancer Depression Grandparent Diabetes mellitus Social History Social History Smoking status: Never smoker Alcohol intake: former Substance use: never Do You Feel Safe in your Home?: Yes Lack of Transportation: No Lack of Food: Never True Current Housing: I Do Not Have Housing Concerned About Future Housing: No Difficulty Paying Gas/Electric Bills: Decline to Answer Difficulty Paying for Meds: No Currently Unemployed: No Education: Grade School Difficulty w/ Childcare or Family Care: No Gender identity (if verbalized by the patient): Male Spiritual care concerns: No Meds Home Medications and Allergies Home Medications Medication Instructions Recorded Confirmed Type simvastatin 40 mg tablet 40 mg PO HS 06/29/21 12/26/23 History acetaminophen 325 mg capsule 650 mg PO Q6H PRN headache/fever 12/07/22 12/26/23 History bupropion HCl 150 mg tablet,12 hr 150 mg PO BID 12/07/22 12/26/23 History sustained-release buspirone 5 mg tablet 5 mg PO BID 12/07/22 12/26/23 History docus
--- NOTE | 2023-12-26 15:02 | PM.IMHP ---
H&P: HPI History of Present Illness Date/Time: 12/26/23 15:02 Chief Complaint: SOB/Fall Narrative: Patient is an 83-year-old male who presented to the emergency department overnight with complaints shortness of breath. Per staff at the assisted nursing facility patient had fallen and called EMS for lift assist in upon assessment patient was found to be hypoxic with tachycardia and tachypnea with oxygen saturations at 85% on room air. Patient was then brought to the emergency department for further evaluation. Patient is not the best historian his past medical history most information is taken from the medical chart. Patient has a past medical history of diabetes, chronic kidney disease, GERD, CHF, HLD, HTN, MAICOL, PAD, and peripheral neuropathy. It was reported patient had received his COVID-19 vaccination yesterday. Upon arrival patient did have a temperature of a 102? and was found to be in AFib RVR with rates as great as 140s to 150s. Patient was given full-dose Lovenox with V/Q scan pending for in the morning he was then admitted to IMU for further evaluation. Patient had been placed 4 L supplemental oxygen for his hypoxia. Review of Systems Review of Systems: All systems reviewed & are unremarkable except as noted in HPI and below PMFSH Past Medical History Medical History Abdominal pain Anemia Anxiety Cellulitis of leg, left Chronic kidney disease Chronic low back pain Depression Diabetes mellitus Edema Encounter to establish care Generalized weakness GERD (gastroesophageal reflux disease) History of congestive heart failure Hyperlipidemia Hypertension Lower abdominal pain Morbid obesity Morbid obesity with BMI of 40.0-44.9, adult Nausea Obstructive sleep apnea on CPAP Peripheral arterial disease Peripheral neuropathy Seasonal allergies Tinea cruris Urinary frequency Wound of right foot Surgical History Surgical History S/P left knee arthroscopy Family History Family History Father Congestive heart failure Cerebrovascular accident Hypertension Mother Congestive heart failure Lung cancer Heart disease Sibling Hypertension Daughter Lung cancer Depression Grandparent Diabetes mellitus Social History Social History Smoking status: Never smoker Alcohol intake: former Substance use: never Do You Feel Safe in your Home?: Yes Lack of Transportation: No Lack of Food: Never True Current Housing: I Do Not Have Housing Concerned About Future Housing: No Difficulty Paying Gas/Electric Bills: Decline to Answer Difficulty Paying for Meds: No Currently Unemployed: No Education: Grade School Difficulty w/ Childcare or Family Care: No Gender identity (if verbalized by the patient): Male Spiritual care concerns: No Meds Home Medications and Allergies Home Medications Medication Instructions Recorded Confirmed Type simvastatin 40 mg tablet 40 mg PO HS 06/29/21 12/26/23 History acetaminophen 325 mg capsule 650 mg PO Q6H PRN headache/fever 12/07/22 12/26/23 History bupropion HCl 150 mg tablet,12 hr 150 mg PO BID 12/07/22 12/26/23 History sustained-release buspirone 5 mg tablet 5 mg PO BID 12/07/22 12/26/23 History docusate sodium 100 mg capsule 100 mg PO DAILY 12/07/22 12/26/23 History terazosin 2 mg capsule 2 mg PO BID 12/07/22 12/26/23 History tramadol 50 mg tablet 50 - 100 mg PO Q6H PRN pain #240 01/03/23 12/26/23 Rx tabs gabapentin 300 mg capsule See Rx Instructions PO TID #120 01/24/23 12/26/23 Rx (Neurontin) caps ropinirole 1 mg tablet 1 mg PO QHS 03/06/23 12/26/23 History slstvtbjzv-yueqfesdpqqem-fyeuzyua 1 - 2 cap PO Q6H PRN headaches 05/01/23 12/26/23 History 50 mg-325 mg-40 mg capsule (Esgic) sertralin
[2023-12-26 15:43] LABS: Glucose Point of Care 146 mg/dl (65-105)
--- NOTE | 2023-12-26 16:09 | ECG_ITS ---
Test Date: 2023-12-26 16:20:39 Measurements Intervals [place] Rate: 98 P: 45 TN: 255 QRS: -17 QRSD: 107 T: 28 QT: 345 QTc: 442 Interpretive Statements SINUS RHYTHM WITH FIRST DEGREE AV BLOCK CONSIDER INFERIOR INFARCT, AGE INDETERMINATE BORDERLINE ECG Compared to ECG 12/26/2023 09:25:02 HEART RATE HAS DECREASED Electronically Signed On 12-27-2023 05:37:39 CDT by Hector Hernandez D.O.
--- NOTE | 2023-12-26 16:39 | PC.NURSE ---
Pt complains of 7/10 midsternal non-radiating chest pain, non reproducible with palpation. Describes as burning like gas . Dr. Calzada notified. EKG completed. Results transmitted and reviewed with Dr. Calzada. New orders noted for GI cocktail.
[2023-12-26] MEDS: TERAZOSIN HCL 1 MG CAPSULE 2 MG PO (17:20)
[2023-12-26] MEDS: FLUTICASONE PROPIONATE 0.05% NA SPR 16 GM BTL (*BKC) 1 SPRAY NASAL (17:21)
[2023-12-26] MEDS: BELLADONNA ALK/PHENOB ELIX 10 ML, MAG HYDROX/ALUMINUM HYD/SIMETH 30 ML, LIDOCAINE HCL 2... PO (17:23)
[2023-12-26 20:29] LABS: Glucose Point of Care 148 mg/dl (65-105)
[2023-12-26] MEDS: SIMVASTATIN 20 MG TABLET 40 MG PO (21:48)
[2023-12-26] MEDS: GABAPENTIN 300 MG CAPSULE 600 MG PO (21:48)
[2023-12-26] MEDS: rOPINIRole HCL 1 MG TABLET PO (21:48)
[2023-12-26] MEDS: APIXABAN 2.5 MG TABLET PO (21:48)
[2023-12-27] VITALS (21 sets, daily range): BP systolic 134–153; BP diastolic 40–82; PULSE 70–91; RESP 15–23; TEMP 36.4–37.1; O2SAT 95–99
[2023-12-27 05:24] LABS: Basophils Percent Auto 0.2 % (0.2-1.2); Eosinophils Percent Auto 0.4 % (0-4.4); Hematocrit 30.5 % (42.0-52.0); Hemoglobin 9.6 g/dL (14.0-18.0); Immature Granulocyte Absolute 0.07 K/mm3 (0.00-0.031); Immature Granulocyte Percent A 1.3 % (0-0.5); Lymphocytes Absolute Auto 0.76 K/mm3 (0.9-3.2); Lymphocytes Percent Auto 13.9 % (18.3-44.2); Mean Corpuscular HGB Conc 31.5 g/dl (32-36); Mean Corpuscular Hemoglobin 27.5 pg (26-34); Mean Corpuscular Volume 87.4 fl (80-100); Mean Platelet Volume 8.9 fl (7.4-10.4); Monocytes Absolute Auto 0.3 K/mm3 (0.1-0.6); Monocytes Percent Auto 6.1 % (2.6-8.5); Neutrophils Absolute Auto 4.3 K/mm3 (1.3-6.7); Neutrophils Percent Auto 78.1 % (45.5-73.1); Platelet Count Result 186 k/mm3 (150-375); Red Blood Count 3.49 M/mm3 (4.6-6.20); Red Cell Distribution Width 13.9 % (11.5-14.5); White Blood Count 5.5 K/mm3 (4.5-10.0)
[2023-12-27 05:36] LABS: Alanine Aminotransferase 30 U/L (6-50); Albumin Level 3.3 g/dL (3.5-5.1); Alkaline Phosphatase 70 U/L (38-126); Anion Gap 8 mmol/L (4-12); Aspartate Amino Transferase 140 U/L (17-59); Bilirubin,Total 0.3 mg/dL (0.2-1.3); Blood Urea Nitrogen 36 mg/dL (9-20); Calcium 8.3 mg/dL (8.4-10.2); Carbon Dioxide 24 mmol/L (22-30); Chloride 99 mmol/L (98-107); Estimated CRCL calculation 23 ml/min; Estimated Glomerular Filt Rate 22; Glucose 145 mg/dL (65-110); Potassium 3.9 mmol/L (3.4-5.0); Sodium 131 mmol/L (137-145)
[2023-12-27] MEDS: CEPHALEXIN 500 MG CAPSULE PO ×3 (06:53→19:56)
[2023-12-27] MEDS: DICYCLOMINE HCL 10 MG CAPSULE 20 MG PO ×4 (06:53→19:55)
[2023-12-27 07:52] LABS: Glucose Point of Care 151 mg/dl (65-105)
--- NOTE | 2023-12-27 08:24 | P.PNIM_ITS ---
Progress Note: A&P Assessment and Plan (1) Atrial flutter with rapid ventricular response: Code(s): I48.92 - Unspecified atrial flutter Status: Acute Assessment and Plan: * New onset * Lopressor x1 rates in the 120's * started on metoprolol PO * Cardiology consult * Echocardiogram pending * Started on Eliquis 2.5 mg b.i.d. per renal dose an age * Converted to sinus tach * Patient reported he received his COVID vaccine yesterday 12/27/23: * Continue metoprolol and Eliquis * Currently in normal sinus rhythm * Cardiology following * Continue to wean O2 for sat greater than 92% (2) Acute respiratory failure with hypoxia: Code(s): J96.01 - Acute respiratory failure with hypoxia Status: Acute Assessment and Plan: * Secondary to AFIB RVR * V/Q negative PE * Will continue to wean oxygen as tolerated * Chest CT with no acute abnormalities * We need home O2 walk study prior to discharge * Continue CPAP at night 12/27/23: * Continue to wean O2 for sat greater than 92% (3) Acute kidney injury superimposed on chronic kidney disease: Code(s): N17.9 - Acute kidney failure, unspecified; N18.9 - Chronic kidney disease, unspecified Status: Acute Assessment and Plan: * 2.3-2.8 around 2.00 is baseline follow with Follow with Dr. Lozano O/P * Avoid nephrotoxic drugs. * Monitor antihypertensive drug therapy. * Avoid NSAIDs. * Routine CMP monitoring GFR. * Monitor electrolytes especially potassium. * Antibiotic doses depending on creatinine clearance. * Pharmacy does medications. * Routine follow-up with Nephrology as an outpatient. 12/27/23: * Creatinine 2.80 * Continue to avoid nephrotoxic drugs were imaging with contrast L (4) Hypertension: Code(s): I10 - Essential (primary) hypertension Status: Acute Assessment and Plan: * Stable * Resumed home medications * Started on metoprolol 12/27/23: * No change to current treatment plan (5) Diabetes mellitus: Code(s): E11.9 - Type 2 diabetes mellitus without complications Status: Acute Assessment and Plan: * Accu-Cheks a.c. HS * sliding scale insulin * hold oral diabetic medications * resume patient's home long-acting * Diabetic diet * consult to dietitian * encourage lifestyle modifications and weight loss * Optimize [place] inhibitors and statins. * Watch for hypoglycemia/hypoglycemic protocol ordered 12/27/23: * No change to current treatment plan (6) Morbid obesity: Code(s): E66.01 - Morbid (severe) obesity due to excess calories Status: Acute Assessment and Plan: * encourage increased on physical activity and lifestyle modifications * BMI 47.2 * Diet exercise counseling done. 12/27/23: * No change to current treatment plan (7) Obstructive sleep apnea on CPAP: Code(s): G47.33 - Obstructive sleep apnea (adult) (pediatric); Z99.89 - Dependence on other enabling machines and devices Status: Acute Assessment and [place]
--- NOTE | 2023-12-27 08:24 | PM.IMPN ---
Progress Note: A&P Assessment and Plan (1) Atrial flutter with rapid ventricular response: Code(s): I48.92 - Unspecified atrial flutter Status: Acute Assessment and Plan: New onset Lopressor x1 rates in the 120's started on metoprolol PO Cardiology consult Echocardiogram pending Started on Eliquis 2.5 mg b.i.d. per renal dose an age Converted to sinus tach Patient reported he received his COVID vaccine yesterday 12/27/23: Continue metoprolol and Eliquis Currently in normal sinus rhythm Cardiology following Continue to wean O2 for sat greater than 92% (2) Acute respiratory failure with hypoxia: Code(s): J96.01 - Acute respiratory failure with hypoxia Status: Acute Assessment and Plan: Secondary to AFIB RVR V/Q negative PE Will continue to wean oxygen as tolerated Chest CT with no acute abnormalities We need home O2 walk study prior to discharge Continue CPAP at night 12/27/23: Continue to wean O2 for sat greater than 92% (3) Acute kidney injury superimposed on chronic kidney disease: Code(s): N17.9 - Acute kidney failure, unspecified; N18.9 - Chronic kidney disease, unspecified Status: Acute Assessment and Plan: 2.3-2.8 around 2.00 is baseline follow with Follow with Dr. Lozano O/P Avoid nephrotoxic drugs. Monitor antihypertensive drug therapy. Avoid NSAIDs. Routine CMP monitoring GFR. Monitor electrolytes especially potassium. Antibiotic doses depending on creatinine clearance. Pharmacy does medications. Routine follow-up with Nephrology as an outpatient. 12/27/23: Creatinine 2.80 Continue to avoid nephrotoxic drugs were imaging with contrast (4) Hypertension: Code(s): I10 - Essential (primary) hypertension Status: Acute Assessment and Plan: Stable Resumed home medications Started on metoprolol 12/27/23: No change to current treatment plan (5) Diabetes mellitus: Code(s): E11.9 - Type 2 diabetes mellitus without complications Status: Acute Assessment and Plan: Accu-Cheks a.c. HS sliding scale insulin hold oral diabetic medications resume patient's home long-acting Diabetic diet consult to dietitian encourage lifestyle modifications and weight loss Optimize [place] inhibitors and statins. Watch for hypoglycemia/hypoglycemic protocol ordered 12/27/23: No change to current treatment plan (6) Morbid obesity: Code(s): E66.01 - Morbid (severe) obesity due to excess calories Status: Acute Assessment and Plan: encourage increased on physical activity and lifestyle modifications BMI 47.2 Diet exercise counseling done. 12/27/23: No change to current treatment plan (7) Obstructive sleep apnea on CPAP: Code(s): G47.33 - Obstructive sleep apnea (adult) (pediatric); Z99.89 - Dependence on other enabling machines and devices Status: Acute Assessment and Plan: CPAP at night 12/27/23: No change to current treatment plan (8) Fever: Code(s): R50.9 - Fever, unspecified Status: Acute Assessment and Plan: Unknown origin Likely secondary to response to COVID vaccine Is being treated for cellulitis on antibiotics Chest x-ray clear Normal WBC Antipyretics 12/27/23: Patient T-max 99.0? Could be due to known cellulitis versus COVID vaccine White blood cell count is still normal today (9) Cellulitis of leg, left: Code(s): L03.116 - Cellulitis of left lower limb Status: Acute Assessment and Plan: 12/27/23: Currently on Keflex Reports that left lower extremity is sensitive to touch Time Spent With Patient Time with patient: 25 - 35 minutes Subjective Date/time seen: 12/27/23 08:24 Interval history: Interval history: This is an 83 year old male with a significant past medical history of DM, GERD, HLD, HTN, OS
[2023-12-27] MEDS: SERTRALINE HCL 50 MG TABLET PO (09:10)
[2023-12-27] MEDS: busPIRone HCL 5 MG TABLET PO ×2 (09:10→16:51)
[2023-12-27] MEDS: METOPROLOL SUCCINATE EXT REL 50 MG TABCR PO (09:10)
[2023-12-27] MEDS: APIXABAN 2.5 MG TABLET PO ×2 (09:10→19:56)
[2023-12-27] MEDS: DOCUSATE SODIUM 100 MG CAPSULE PO (09:10)
[2023-12-27] MEDS: buPROPion HCL SR (12 HR) 150 MG TAB PO ×2 (09:10→19:56)
[2023-12-27] MEDS: FUROSEMIDE 20 MG TABLET PO (09:10)
[2023-12-27] MEDS: polyethylene glycoL 3350 17 GM POWD.PACK PO (09:10)
[2023-12-27] MEDS: GABAPENTIN 300 MG CAPSULE PO ×2 (09:11→13:33)
[2023-12-27] MEDS: MICONAZOLE NITRATE 2% CREAM 30 GM TUBE 1 APPLIC TOPICAL ×2 (09:11→19:56)
[2023-12-27] MEDS: PANTOPRAZOLE 40 MG TABLET PO (09:12)
[2023-12-27] MEDS: TERAZOSIN HCL 1 MG CAPSULE 2 MG PO ×2 (09:13→16:51)
[2023-12-27] MEDS: OLOPATADINE 0.1% OPHTH SOLN 5 ML BTL 1 DROP EACH EYE (09:13)
--- NOTE | 2023-12-27 09:59 | PM.PNCARD ---
Progress Note: A&P Assessment and Plan (1) Atrial flutter with rapid ventricular response: Code(s): I48.92 - Unspecified atrial flutter Status: Acute Assessment and Plan: Remains in sinus rhythm this morning. Agree with starting Toprol. Discussed anticoagulation with the patient, he is agreeable. Start Eliquis 2.5mg BID given age and renal function. TTE showed normal LV function, grade 3 diastolic dysfunction Cardiology will sign off. Please call with questions. (2) Hypertension: Code(s): I10 - Essential (primary) hypertension Status: Acute Assessment and Plan: Continue Toprol, Lasix (3) Diabetes mellitus: Code(s): E11.9 - Type 2 diabetes mellitus without complications Status: Acute Assessment and Plan: Management as per primary team. (4) Obstructive sleep apnea on CPAP: Code(s): G47.33 - Obstructive sleep apnea (adult) (pediatric); Z99.89 - Dependence on other enabling machines and devices Status: Acute (5) Hyperlipidemia: Code(s): E78.5 - Hyperlipidemia, unspecified Status: Acute Assessment and Plan: Continue statin. (6) Diastolic dysfunction: Onset Date: ~12/26/23 Code(s): I51.89 - Other ill-defined heart diseases Status: Acute Assessment and Plan: Grade 3 diastolic dysfunction. No clinical signs or symptoms of decompensated heart failure. Blood pressure control, weight loss. Subjective Date/time seen: 12/27/23 09:59 Interval history: Cardiology follow up for atrial flutter Date of service 12/27/2023: Remains in sinus rhythm. Has a sore throat but no other complaints. Review of Systems Review of Systems: All systems reviewed & are unremarkable except as noted in HPI and below (HPI) Exam Const: General: comfortable and no acute distress Other: Morbid obesity HENMT: Mouth: Yes moist mucous membranes Eyes: General: appearance normal, both eyes and all related structures Sclera: sclerae normal Resp: Effort & Inspection: normal respiratory effort Cardio: Rate: regular rate Rhythm: regular rhythm Heart sounds: no murmurs Skin: General skin exam: normal color Psych: Mental Status: mental status grossly normal Affect: normal affect Objective Data Vital Signs Vital Signs: Vital Signs - 24 hr 12/26/23 10:50 12/26/23 11:44 12/26/23 10:00 Temperature 35.8 C L Pulse Rate 108 H 105 H 109 H Respiratory Rate 20 Blood Pressure 135/55 L Pulse Oximetry 100 Oxygen Delivery Oxygen Flow Rate 12/26/23 12:00 12/26/23 14:00 12/26/23 12:00 Temperature Pulse Rate 100 102 H Respiratory Rate Blood Pressure Pulse Oximetry 100 Oxygen Delivery Nasal Cannula Oxygen Flow Rate 4 12/26/23 15:51 12/26/23 16:00 12/26/23 18:00 Temperature 36.0 C L Pulse Rate 102 H 104 H 95 Respiratory Rate 20 Blood Pressure 134/78 Pulse Oximetry 98 Oxygen Delivery Oxygen Flow Rate 12/26/23 16:00 12/26/23 20:11 12/26/23 20:00 Temperature 37.2 C Pulse Rate 93 93 Respiratory Rate 23 H 23 H Blood Pressure 130/60 Pulse Oximetry 96 95 95 Oxygen Delivery Nasal Cannula Nasal Cannula Oxygen Flow Rate 2 2 12/26/23 23:56 12/27/23 00:30 12/26/23 20:00 Temperature 36.4 C Pulse Rate 90 94 Respiratory Rate 23 H 19 Blood Pressure 134/50 L Pulse Oximetry 97 95 Oxygen Delivery Autopap Oxygen Flow Rate 12/26/23 22:00 12/27/23 00:00 12/27/23 00:00 Temperature Pulse Rate 85 89 89 Respiratory Rate 19 Blood Pressure Pulse Oximetry 95 Oxygen Delivery Autopap Oxygen Flow Rate 12/27/23 02:00 12/27/23 02:54 12/27/23 04:37 Temperature 36.4 C Pulse Rate 82 85 Respiratory Rate 16 23 H Blood Pressure 134/46 L Pulse Oximetry 95 98 Oxygen Delivery Autopap Oxygen Flow Rate 12/27/23 04:00 12/27/23 04:00 12/27/23 06:00 Temperature Pulse Rate 79 85 90 Respiratory Rate 23 H Blood Pres
[2023-12-27] MEDS: MORPHINE SULFATE (*CRX) 2 MG/ML INJ IV PUSH (10:29)
[2023-12-27 11:55] LABS: Glucose Point of Care 190 mg/dl (65-105)
[2023-12-27 15:45] LABS: Glucose Point of Care 164 mg/dl (65-105)
[2023-12-27] MEDS: rOPINIRole HCL 1 MG TABLET PO (19:54)
[2023-12-27] MEDS: GABAPENTIN 300 MG CAPSULE 600 MG PO (19:55)
[2023-12-27] MEDS: SIMVASTATIN 20 MG TABLET 40 MG PO (19:55)
[2023-12-27 20:11] LABS: Glucose Point of Care 149 mg/dl (65-105)
[2023-12-28] VITALS (22 sets, daily range): BP systolic 112–145; BP diastolic 43–84; PULSE 60–86; RESP 11–24; TEMP 36.1–37.2; O2SAT 92–99
[2023-12-28 05:32] LABS: Basophils Percent Auto 0.3 % (0.2-1.2); Eosinophils Absolute Auto 0.3 K/mm3 (0-0.3); Eosinophils Percent Auto 4.2 % (0-4.4); Hematocrit 30.1 % (42.0-52.0); Hemoglobin 9.3 g/dL (14.0-18.0); Immature Granulocyte Absolute 0.08 K/mm3 (0.00-0.031); Immature Granulocyte Percent A 1.3 % (0-0.5); Lymphocytes Absolute Auto 1.52 K/mm3 (0.9-3.2); Lymphocytes Percent Auto 25.2 % (18.3-44.2); Mean Corpuscular HGB Conc 30.9 g/dl (32-36); Mean Corpuscular Hemoglobin 27.5 pg (26-34); Mean Corpuscular Volume 89.1 fl (80-100); Mean Platelet Volume 9.2 fl (7.4-10.4); Monocytes Absolute Auto 0.4 K/mm3 (0.1-0.6); Monocytes Percent Auto 7.1 % (2.6-8.5); Neutrophils Absolute Auto 3.7 K/mm3 (1.3-6.7); Neutrophils Percent Auto 61.9 % (45.5-73.1); Platelet Count Result 184 k/mm3 (150-375); Red Blood Count 3.38 M/mm3 (4.6-6.20); Red Cell Distribution Width 13.7 % (11.5-14.5)
[2023-12-28 05:43] LABS: Alanine Aminotransferase 33 U/L (6-50); Albumin Level 3.3 g/dL (3.5-5.1); Alkaline Phosphatase 61 U/L (38-126); Anion Gap 11 mmol/L (4-12); Aspartate Amino Transferase 130 U/L (17-59); Bilirubin,Total 0.3 mg/dL (0.2-1.3); Blood Urea Nitrogen 42 mg/dL (9-20); Calcium 8.4 mg/dL (8.4-10.2); Carbon Dioxide 23 mmol/L (22-30); Chloride 101 mmol/L (98-107); Estimated CRCL calculation 21 ml/min; Estimated Glomerular Filt Rate 19; Glucose 150 mg/dL (65-110); Sodium 135 mmol/L (137-145)
[2023-12-28] MEDS: DICYCLOMINE HCL 10 MG CAPSULE 20 MG PO ×4 (06:47→20:55)
[2023-12-28] MEDS: CEPHALEXIN 500 MG CAPSULE PO ×3 (06:47→20:56)
[2023-12-28 08:10] LABS: Glucose Point of Care 165 mg/dl (65-105)
[2023-12-28] MEDS: polyethylene glycoL 3350 17 GM POWD.PACK PO (08:32)
[2023-12-28] MEDS: busPIRone HCL 5 MG TABLET PO ×2 (08:35→16:28)
[2023-12-28] MEDS: FLUTICASONE PROPIONATE 0.05% NA SPR 16 GM BTL (*BKC) 1 SPRAY NASAL (08:35)
[2023-12-28] MEDS: FUROSEMIDE 20 MG TABLET PO (08:35)
[2023-12-28] MEDS: buPROPion HCL SR (12 HR) 150 MG TAB PO ×2 (08:35→20:55)
[2023-12-28] MEDS: METOPROLOL SUCCINATE EXT REL 50 MG TABCR PO (08:35)
[2023-12-28] MEDS: APIXABAN 2.5 MG TABLET PO ×2 (08:36→20:56)
[2023-12-28] MEDS: SERTRALINE HCL 50 MG TABLET PO (08:36)
[2023-12-28] MEDS: PANTOPRAZOLE 40 MG TABLET PO (08:36)
[2023-12-28] MEDS: TERAZOSIN HCL 1 MG CAPSULE 2 MG PO ×2 (08:36→16:28)
[2023-12-28] MEDS: DOCUSATE SODIUM 100 MG CAPSULE PO (08:36)
[2023-12-28] MEDS: MICONAZOLE NITRATE 2% CREAM 30 GM TUBE 1 APPLIC TOPICAL ×2 (08:37→20:56)
[2023-12-28] MEDS: OLOPATADINE 0.1% OPHTH SOLN 5 ML BTL 1 DROP EACH EYE (08:44)
[2023-12-28] MEDS: GABAPENTIN 300 MG CAPSULE PO ×2 (08:44→13:04)
--- NOTE | 2023-12-28 11:20 | PC.NURSE ---
Updated [facility] staff member, Jaycee, via telephone on patient condition.
--- NOTE | 2023-12-28 12:29 | PC.NURSE ---
Updated patient's sister, JacqueABE, on plan of care and patient condition.
--- NOTE | 2023-12-28 12:37 | PCPTNOTE ---
changed PT orders from 3-5x/week to 2-3x/week d/t pt progressing quickly and requiring less intense frequency of therapy
--- NOTE | 2023-12-28 12:44 | PM.DS ---
DS: Admitting Diagnosis Discharge Date 12/28/23 Admitting Diagnosis Atrial flutter with rapid ventricular response Acute respiratory failure with hypoxia Hypertension Diabetes mellitus Morbid obesity Obstructive sleep apnea on CPAP Acute kidney injury superimposed on chronic kidney disease Fever DS: Discharge Diagnosis Discharge Diagnosis (1) Atrial flutter with rapid ventricular response: Code(s): I48.92 - Unspecified atrial flutter Status: Acute (2) Acute respiratory failure with hypoxia: Code(s): J96.01 - Acute respiratory failure with hypoxia Status: Acute (3) Acute kidney injury superimposed on chronic kidney disease: Code(s): N17.9 - Acute kidney failure, unspecified; N18.9 - Chronic kidney disease, unspecified Status: Acute (4) Hypertension: Code(s): I10 - Essential (primary) hypertension Status: Acute (5) Diabetes mellitus: Code(s): E11.9 - Type 2 diabetes mellitus without complications Status: Acute (6) Morbid obesity: Code(s): E66.01 - Morbid (severe) obesity due to excess calories Status: Acute (7) Obstructive sleep apnea on CPAP: Code(s): G47.33 - Obstructive sleep apnea (adult) (pediatric); Z99.89 - Dependence on other enabling machines and devices Status: Acute (8) Fever: Code(s): R50.9 - Fever, unspecified Status: Acute (9) Cellulitis of leg, left: Code(s): L03.116 - Cellulitis of left lower limb Status: Acute DS: Summary Hospital Course Reason for hospitalization: Atrial flutter with rapid ventricular response Acute respiratory failure with hypoxia Hypertension Diabetes mellitus Morbid obesity Obstructive sleep apnea on CPAP Acute kidney injury superimposed on chronic kidney disease Fever Hospital Course: This is an 83 year old male with a significant past medical history of DM, GERD, HLD, HTN, MAICOL, obesity, peripheral neuropathy, anxiety, depression who presented to the hospital on 12/26/23 with complaint of shortness of breath. Work up in the hospital included Chest CT was negative for any acute abnormality. Pulmonary perfusion imaging shown low probability for PE. Venous doppler's negative for DVT. Initial labs shown WBC 8.6, Hgb 9.1, Na+ 133, Bicarb 18, anion gap 16, Creatinine 2.80, eGFR 22, BG ranging 146-241, Lactic acid 4.7> 1.6, pro BNP 531, TSH 2.090. Respiratory panel negative for Influenza A and B, RSV, Covid. Blood cultures were obtained and showing no growth to date on preliminary read. Initial EKG showing a flutter with a rate of 140. Patient was given a dose of metoprolol and converted yesterday. Echo shown normal LV systolic function with an estimated EF of 50-55%, grade III diastolic dysfunction. EKG post metoprolol shown sinus rhythm with 1st degree AV block with a rate of 98, QTc 442. Patient was started on metoprolol and Eliquis for his atrial flutter with RVR. He converted after receiving an oral dose of metoprolol. Cardiology was consulted increase with care plan. Patient did have acute respiratory failure with hypoxia and was likely due to his atrial flutter. Patient has not been taking in a lot of food or fluid. He states that he does not feel hungry. Encouraged him to drink more fluids and will hold off on his Lasix for now. He will need to follow up with his primary care physician next week. He will also need to get a BMP to check his creatinine level. Final diagnosis: Atrial flutter with rapid ventricular response, acute respiratory failure with hypoxia, acute kidney injury superimposed on chronic kidney disease, cellulitis Status at Discharge Cognitive/behavioral status at discharge: Alert oriented x3 Functional status at discharge: uses cane/walker Overall status at discharge: patient is progressing back to baseline Time Spent with Patient Time attestation: Total time spent providing and/or coordinating discharge services: Time spent: Greater than 30 minute
[2023-12-28 13:09] LABS: Glucose Point of Care 170 mg/dl (65-105)
--- NOTE | 2023-12-28 15:23 | P.PNIM_ITS ---
Progress Note: A&P Assessment and Plan (1) Atrial flutter with rapid ventricular response: Code(s): I48.92 - Unspecified atrial flutter Status: Acute Assessment and Plan: * New onset * Lopressor x1 rates in the 120's * started on metoprolol PO * Cardiology consult * Echocardiogram pending * Started on Eliquis 2.5 mg b.i.d. per renal dose an age * Converted to sinus tach * Patient reported he received his COVID vaccine yesterday 12/27/23: * Continue metoprolol and Eliquis * Currently in normal sinus rhythm * Cardiology following * Continue to wean O2 for sat greater than 92% 12/28/23: * Continue with current treatment plan (2) Acute respiratory failure with hypoxia: Code(s): J96.01 - Acute respiratory failure with hypoxia Status: Acute Assessment and Plan: * Secondary to AFIB RVR * V/Q negative PE * Will continue to wean oxygen as tolerated * Chest CT with no acute abnormalities * We need home O2 walk study prior to discharge * Continue CPAP at night 12/27/23: * Continue to wean O2 for sat greater than 92% 12/28/23: * Will need home O2 study before discharge * Currently on C pap (3) Acute kidney injury superimposed on chronic kidney disease: Code(s): N17.9 - Acute kidney failure, unspecified; N18.9 - Chronic kidney disease, unspecified Status: Acute Assessment and Plan: * 2.3-2.8 around 2.00 is baseline follow with Follow with Dr. Lozano O/P * Avoid nephrotoxic drugs. * Monitor antihypertensive drug therapy. * Avoid NSAIDs. * Routine CMP monitoring GFR. * Monitor electrolytes especially potassium. * Antibiotic doses depending on creatinine clearance. * Pharmacy does medications. * Routine follow-up with Nephrology as an outpatient. 12/27/23: * Creatinine 2.80 * Continue to avoid nephrotoxic drugs were imaging with contrast 12/28/23: * Creatinine 3.10 * Will hold Lasix today * Encouraged po intake, patient has not been eating or drinking * Urine output adequate * Patient is net negative 746ml according to the EMR (4) Hypertension: Code(s): I10 - Essential (primary) hypertension Status: Acute Assessment and Plan: * Stable * Resumed home medications * Started on metoprolol 12/27/23: * No change to current treatment plan (5) Diabetes mellitus: Code(s): E11.9 - Type 2 diabetes mellitus without complications Status: Acute Assessment and Plan: * Accu-Cheks a.c. HS * sliding scale insulin * hold oral diabetic medications * resume patient's home long-acting * Diabetic diet * consult to dietitian * encourage lifestyle modifications and weight loss * Optimize [place] inhibitors and statins. * Watch for hypoglycemia/hypoglycemic protocol ordered 12/27/23: * No change to current treatment plan (6) Morbid obesity: Code(s): E66.01 - Morbid (severe) obesity due to excess calories Status: Acute Assessment and Plan: * encourage increased on physical activity and lifestyle modificatio
--- NOTE | 2023-12-28 15:23 | PM.IMPN ---
Progress Note: A&P Assessment and Plan (1) Atrial flutter with rapid ventricular response: Code(s): I48.92 - Unspecified atrial flutter Status: Acute Assessment and Plan: New onset Lopressor x1 rates in the 120's started on metoprolol PO Cardiology consult Echocardiogram pending Started on Eliquis 2.5 mg b.i.d. per renal dose an age Converted to sinus tach Patient reported he received his COVID vaccine yesterday 12/27/23: Continue metoprolol and Eliquis Currently in normal sinus rhythm Cardiology following Continue to wean O2 for sat greater than 92% 12/28/23: Continue with current treatment plan (2) Acute respiratory failure with hypoxia: Code(s): J96.01 - Acute respiratory failure with hypoxia Status: Acute Assessment and Plan: Secondary to AFIB RVR V/Q negative PE Will continue to wean oxygen as tolerated Chest CT with no acute abnormalities We need home O2 walk study prior to discharge Continue CPAP at night 12/27/23: Continue to wean O2 for sat greater than 92% 12/28/23: Will need home O2 study before discharge Currently on C pap (3) Acute kidney injury superimposed on chronic kidney disease: Code(s): N17.9 - Acute kidney failure, unspecified; N18.9 - Chronic kidney disease, unspecified Status: Acute Assessment and Plan: 2.3-2.8 around 2.00 is baseline follow with Follow with Dr. Lozano O/P Avoid nephrotoxic drugs. Monitor antihypertensive drug therapy. Avoid NSAIDs. Routine CMP monitoring GFR. Monitor electrolytes especially potassium. Antibiotic doses depending on creatinine clearance. Pharmacy does medications. Routine follow-up with Nephrology as an outpatient. 12/27/23: Creatinine 2.80 Continue to avoid nephrotoxic drugs were imaging with contrast 12/28/23: Creatinine 3.10 Will hold Lasix today Encouraged po intake, patient has not been eating or drinking Urine output adequate Patient is net negative 746ml according to the EMR (4) Hypertension: Code(s): I10 - Essential (primary) hypertension Status: Acute Assessment and Plan: Stable Resumed home medications Started on metoprolol 12/27/23: No change to current treatment plan (5) Diabetes mellitus: Code(s): E11.9 - Type 2 diabetes mellitus without complications Status: Acute Assessment and Plan: Accu-Cheks a.c. HS sliding scale insulin hold oral diabetic medications resume patient's home long-acting Diabetic diet consult to dietitian encourage lifestyle modifications and weight loss Optimize [place] inhibitors and statins. Watch for hypoglycemia/hypoglycemic protocol ordered 12/27/23: No change to current treatment plan (6) Morbid obesity: Code(s): E66.01 - Morbid (severe) obesity due to excess calories Status: Acute Assessment and Plan: encourage increased on physical activity and lifestyle modifications BMI 47.2 Diet exercise counseling done. 12/27/23: No change to current treatment plan (7) Obstructive sleep apnea on CPAP: Code(s): G47.33 - Obstructive sleep apnea (adult) (pediatric); Z99.89 - Dependence on other enabling machines and devices Status: Acute Assessment and Plan: CPAP at night 12/27/23: No change to current treatment plan (8) Fever: Code(s): R50.9 - Fever, unspecified Status: Acute Assessment and Plan: Unknown origin Likely secondary to response to COVID vaccine Is being treated for cellulitis on antibiotics Chest x-ray clear Normal WBC Antipyretics 12/27/23: Patient T-max 99.0? Could be due to known cellulitis versus COVID vaccine White blood cell count is still normal today (9) Cellulitis of leg, left: Code(s): L03.116 - Cellulitis of left lower limb Status: Acute Assessment and Plan: 12/27/23: Cur
[2023-12-28 16:25] LABS: Glucose Point of Care 186 mg/dl (65-105)
--- NOTE | 2023-12-28 16:29 | PCRCNOTE ---
HOLD HOME O2 EVAL UNTIL CLOSER TO D/C. PT ON ROOM AIR RESTING, 93%- DID WELL WITH PT/OT ON ROOM AIR. DID NOT AMBULATE AT THIS TIME.
[2023-12-28 20:18] LABS: Glucose Point of Care 195 mg/dl (65-105)
[2023-12-28] MEDS: SIMVASTATIN 20 MG TABLET 40 MG PO (20:56)
[2023-12-28] MEDS: rOPINIRole HCL 1 MG TABLET PO (20:56)
[2023-12-28] MEDS: GABAPENTIN 300 MG CAPSULE 600 MG PO (20:56)
[2023-12-29] VITALS (16 sets, daily range): BP systolic 106–170; BP diastolic 54–82; PULSE 60–83; RESP 11–23; TEMP 36.4–37.1; O2SAT 92–99
[2023-12-29 05:26] LABS: Basophils Percent Auto 0.4 % (0.2-1.2); Eosinophils Absolute Auto 0.3 K/mm3 (0-0.3); Eosinophils Percent Auto 5.9 % (0-4.4); Hematocrit 28.6 % (42.0-52.0); Immature Granulocyte Absolute 0.04 K/mm3 (0.00-0.031); Immature Granulocyte Percent A 0.8 % (0-0.5); Lymphocytes Absolute Auto 1.39 K/mm3 (0.9-3.2); Lymphocytes Percent Auto 26.3 % (18.3-44.2); Mean Corpuscular HGB Conc 31.5 g/dl (32-36); Mean Corpuscular Hemoglobin 27.6 pg (26-34); Mean Corpuscular Volume 87.7 fl (80-100); Mean Platelet Volume 9.5 fl (7.4-10.4); Monocytes Absolute Auto 0.4 K/mm3 (0.1-0.6); Monocytes Percent Auto 7.6 % (2.6-8.5); Neutrophils Absolute Auto 3.1 K/mm3 (1.3-6.7); Platelet Count Result 185 k/mm3 (150-375); Red Blood Count 3.26 M/mm3 (4.6-6.20); Red Cell Distribution Width 13.6 % (11.5-14.5); White Blood Count 5.3 K/mm3 (4.5-10.0)
[2023-12-29 05:38] LABS: Alanine Aminotransferase 39 U/L (6-50); Albumin Level 3.3 g/dL (3.5-5.1); Alkaline Phosphatase 70 U/L (38-126); Anion Gap 8 mmol/L (4-12); Aspartate Amino Transferase 109 U/L (17-59); Bilirubin,Total 0.3 mg/dL (0.2-1.3); Blood Urea Nitrogen 44 mg/dL (9-20); Calcium 8.5 mg/dL (8.4-10.2); Carbon Dioxide 25 mmol/L (22-30); Chloride 101 mmol/L (98-107); Estimated CRCL calculation 21 ml/min; Estimated Glomerular Filt Rate 21; Glucose 190 mg/dL (65-110); Potassium 3.8 mmol/L (3.4-5.0); Sodium 134 mmol/L (137-145)
[2023-12-29] MEDS: DICYCLOMINE HCL 10 MG CAPSULE 20 MG PO ×4 (06:57→20:26)
[2023-12-29] MEDS: CEPHALEXIN 500 MG CAPSULE PO ×2 (06:57→13:58)
[2023-12-29 07:37] LABS: Glucose Point of Care 192 mg/dl (65-105)
[2023-12-29] MEDS: TERAZOSIN HCL 1 MG CAPSULE 2 MG PO ×2 (08:24→17:13)
[2023-12-29] MEDS: SERTRALINE HCL 50 MG TABLET PO (08:24)
[2023-12-29] MEDS: PANTOPRAZOLE 40 MG TABLET PO (08:25)
[2023-12-29] MEDS: polyethylene glycoL 3350 17 GM POWD.PACK PO (08:25)
[2023-12-29] MEDS: busPIRone HCL 5 MG TABLET PO ×2 (08:26→17:13)
[2023-12-29] MEDS: FUROSEMIDE 20 MG TABLET PO (08:26)
[2023-12-29] MEDS: METOPROLOL SUCCINATE EXT REL 50 MG TABCR PO (08:26)
[2023-12-29] MEDS: OLOPATADINE 0.1% OPHTH SOLN 5 ML BTL 1 DROP EACH EYE (08:26)
[2023-12-29] MEDS: DOCUSATE SODIUM 100 MG CAPSULE PO (08:26)
[2023-12-29] MEDS: buPROPion HCL SR (12 HR) 150 MG TAB PO ×2 (08:27→20:26)
[2023-12-29] MEDS: APIXABAN 2.5 MG TABLET PO ×2 (08:27→20:25)
[2023-12-29] MEDS: MICONAZOLE NITRATE 2% CREAM 30 GM TUBE 1 APPLIC TOPICAL ×2 (08:30→20:28)
[2023-12-29] MEDS: GABAPENTIN 300 MG CAPSULE PO ×2 (08:30→13:58)
[2023-12-29] MEDS: INSULIN ASPART (*BKC) 100 UNITS/ML SUB-Q (11:24)
[2023-12-29 11:32] LABS: Glucose Point of Care 202 mg/dl (65-105)
--- NOTE | 2023-12-29 13:01 | P.PNIM_ITS ---
Progress Note: A&P Assessment and Plan (1) Bacteremia: Code(s): R78.81 - Bacteremia Status: Acute Assessment and Plan: * blood cultures positive for Staph epidermidis x1 bottle likely contaminated * will start vancomycin empirically pending follow-up cultures * patient did have a fever 102 POA * follow-up cultures pending (2) Fever: Code(s): R50.9 - Fever, unspecified Status: Acute Assessment and Plan: * Unknown origin * Likely secondary to response to COVID vaccine * Is being treated for cellulitis on antibiotics * Chest x-ray clear * Normal WBC * Antipyretics 12/27/23: * Patient T-max 99.0? * Could be due to known cellulitis versus COVID vaccine * White blood cell count is still normal today 12/29/2023 * Max Fever 102 POA * Now positive blood culture Staph x 1 bottle likely contaminated * start on vancomycin empirically due to patient's previous temperatures * repeat cultures ordered * UA ordered (3) Atrial flutter with rapid ventricular response: Code(s): I48.92 - Unspecified atrial flutter Status: Acute Assessment and Plan: * New onset * Lopressor x1 rates in the 120's * started on metoprolol PO * Cardiology consult * Echocardiogram pending * Started on Eliquis 2.5 mg b.i.d. per renal dose an age * Converted to sinus tach * Patient reported he received his COVID vaccine yesterday 12/27/23: * Continue metoprolol and Eliquis * Currently in normal sinus rhythm * Cardiology following * Continue to wean O2 for sat greater than 92% 12/28/23: * Continue with current treatment plan (4) Acute respiratory failure with hypoxia: Code(s): J96.01 - Acute respiratory failure with hypoxia Status: Acute Assessment and Plan: * Secondary to AFIB RVR * V/Q negative PE * Will continue to wean oxygen as tolerated * Chest CT with no acute abnormalities * We need home O2 walk study prior to discharge * Continue CPAP at night 12/27/23: * Continue to wean O2 for sat greater than 92% 12/28/23: * Will need home O2 study before discharge * Currently on C pap (5) Acute kidney injury superimposed on chronic kidney disease: Code(s): N17.9 - Acute kidney failure, unspecified; N18.9 - Chronic kidney disease, unspecified Status: Acute Assessment and Plan: * 2.3-2.8 around 2.00 is baseline follow with Follow with Dr. Lozano O/P * Avoid nephrotoxic drugs. * Monitor antihypertensive drug therapy. * Avoid NSAIDs. * Routine CMP monitoring GFR. * Monitor electrolytes especially potassium. * Antibiotic doses depending on creatinine clearance. * Pharmacy does medications. * Routine follow-up with Nephrology as an outpatient. 12/27/23: * Creatinine 2.80 * Continue to avoid nephrotoxic drugs were imaging with contrast 12/28/23: * Creatinine 3.10 * Will hold Lasix today * Encouraged po intake, patient has not been eating or drinking * Urine output adequate * Patient is net negative 746ml according to the EMR (6) Hypertension:
--- NOTE | 2023-12-29 13:01 | PM.IMPN ---
Progress Note: A&P Assessment and Plan (1) Bacteremia: Code(s): R78.81 - Bacteremia Status: Acute Assessment and Plan: blood cultures positive for Staph epidermidis x1 bottle likely contaminated will start vancomycin empirically pending follow-up cultures patient did have a fever 102 POA follow-up cultures pending (2) Fever: Code(s): R50.9 - Fever, unspecified Status: Acute Assessment and Plan: Unknown origin Likely secondary to response to COVID vaccine Is being treated for cellulitis on antibiotics Chest x-ray clear Normal WBC Antipyretics 12/27/23: Patient T-max 99.0? Could be due to known cellulitis versus COVID vaccine White blood cell count is still normal today 12/29/2023 Max Fever 102 POA Now positive blood culture Staph x 1 bottle likely contaminated start on vancomycin empirically due to patient's previous temperatures repeat cultures ordered UA ordered (3) Atrial flutter with rapid ventricular response: Code(s): I48.92 - Unspecified atrial flutter Status: Acute Assessment and Plan: New onset Lopressor x1 rates in the 120's started on metoprolol PO Cardiology consult Echocardiogram pending Started on Eliquis 2.5 mg b.i.d. per renal dose an age Converted to sinus tach Patient reported he received his COVID vaccine yesterday 12/27/23: Continue metoprolol and Eliquis Currently in normal sinus rhythm Cardiology following Continue to wean O2 for sat greater than 92% 12/28/23: Continue with current treatment plan (4) Acute respiratory failure with hypoxia: Code(s): J96.01 - Acute respiratory failure with hypoxia Status: Acute Assessment and Plan: Secondary to AFIB RVR V/Q negative PE Will continue to wean oxygen as tolerated Chest CT with no acute abnormalities We need home O2 walk study prior to discharge Continue CPAP at night 12/27/23: Continue to wean O2 for sat greater than 92% 12/28/23: Will need home O2 study before discharge Currently on C pap (5) Acute kidney injury superimposed on chronic kidney disease: Code(s): N17.9 - Acute kidney failure, unspecified; N18.9 - Chronic kidney disease, unspecified Status: Acute Assessment and Plan: 2.3-2.8 around 2.00 is baseline follow with Follow with Dr. oLzano O/P Avoid nephrotoxic drugs. Monitor antihypertensive drug therapy. Avoid NSAIDs. Routine CMP monitoring GFR. Monitor electrolytes especially potassium. Antibiotic doses depending on creatinine clearance. Pharmacy does medications. Routine follow-up with Nephrology as an outpatient. 12/27/23: Creatinine 2.80 Continue to avoid nephrotoxic drugs were imaging with contrast 12/28/23: Creatinine 3.10 Will hold Lasix today Encouraged po intake, patient has not been eating or drinking Urine output adequate Patient is net negative 746ml according to the EMR (6) Hypertension: Code(s): I10 - Essential (primary) hypertension Status: Acute Assessment and Plan: Stable Resumed home medications Started on metoprolol 12/27/23: No change to current treatment plan (7) Diabetes mellitus: Code(s): E11.9 - Type 2 diabetes mellitus without complications Status: Acute Assessment and Plan: Accu-Cheks a.c. HS sliding scale insulin hold oral diabetic medications resume patient's home long-acting Diabetic diet consult to dietitian encourage lifestyle modifications and weight loss Optimize [place] inhibitors and statins. Watch for hypoglycemia/hypoglycemic protocol ordered 12/27/23: No change to current treatment plan (8) Morbid obesity: Code(s): E66.01 - Morbid (severe) obesity due to excess calories Status: Acute Assessment and Plan: encourage increased on physical activity and lifestyle modifications BMI 47.2
[2023-12-29 14:22] LABS: Add Urine Microscopic? YES; Appearance Urine Clear (Clear); Bacteria Urine None Seen /hpf; Bilirubin Urine Negative (Negative); Blood Urine 2+ (Negative); Color Urine Yellow (Yellow); Glucose Urine UA Trace mg/dL (Negative); Ketones Urine Negative (Negative); Leukocyte Esterase Ur 2+ LEU/UL (Negative); Need Manual Microscopic Reviewed; Nitrate Urine Negative (Negative); Protein Urine 3+ mg/dL (Negative); Specific Grav Ur 1.015 (1.001-1.035); Squamous Epithelial Cell Urine None Seen /hpf (Few); Urobilinogen Urine 0.2 mg/dL (<2.0); WBC Urine 51-100 /hpf (0-3); pH Urine 5.5 (5.0-9.0)
[2023-12-29] MEDS: VANCOMYCIN 1,250 MG/NS 250 ML 1,250 MG/250 ML BAG 166.67 MG IVPB ×2 (14:42→17:11)
[2023-12-29 17:31] LABS: Glucose Point of Care 168 mg/dl (65-105)
[2023-12-29] MEDS: rOPINIRole HCL 1 MG TABLET PO (20:24)
[2023-12-29] MEDS: GABAPENTIN 300 MG CAPSULE 600 MG PO (20:25)
[2023-12-29] MEDS: SIMVASTATIN 20 MG TABLET 40 MG PO (20:26)
[2023-12-29 20:32] LABS: Glucose Point of Care 238 mg/dl (65-105)
[2023-12-30] VITALS (14 sets, daily range): BP systolic 130–161; BP diastolic 54–66; PULSE 61–76; RESP 14–22; TEMP 36.4–36.6; O2SAT 95–98
--- NOTE | 2023-12-30 04:44 | PC.NURSE ---
Danisha Piedra RN took over patient cares [phone]
[2023-12-30 06:03] LABS: Basophils Percent Auto 0.2 % (0.2-1.2); Eosinophils Absolute Auto 0.3 K/mm3 (0-0.3); Eosinophils Percent Auto 6.8 % (0-4.4); Hemoglobin 9.3 g/dL (14.0-18.0); Immature Granulocyte Absolute 0.03 K/mm3 (0.00-0.031); Immature Granulocyte Percent A 0.6 % (0-0.5); Lymphocytes Absolute Auto 1.51 K/mm3 (0.9-3.2); Lymphocytes Percent Auto 30.3 % (18.3-44.2); Mean Corpuscular Hemoglobin 26.7 pg (26-34); Mean Corpuscular Volume 86.2 fl (80-100); Mean Platelet Volume 9.4 fl (7.4-10.4); Monocytes Absolute Auto 0.4 K/mm3 (0.1-0.6); Neutrophils Absolute Auto 2.7 K/mm3 (1.3-6.7); Neutrophils Percent Auto 54.1 % (45.5-73.1); Platelet Count Result 201 k/mm3 (150-375); Red Blood Count 3.48 M/mm3 (4.6-6.20); Red Cell Distribution Width 13.6 % (11.5-14.5)
[2023-12-30 06:24] LABS: Alanine Aminotransferase 39 U/L (6-50); Albumin Level 3.4 g/dL (3.5-5.1); Alkaline Phosphatase 68 U/L (38-126); Anion Gap 10 mmol/L (4-12); Aspartate Amino Transferase 82 U/L (17-59); Bilirubin,Total 0.3 mg/dL (0.2-1.3); Blood Urea Nitrogen 44 mg/dL (9-20); Calcium 8.5 mg/dL (8.4-10.2); Carbon Dioxide 24 mmol/L (22-30); Chloride 103 mmol/L (98-107); Estimated CRCL calculation 24 ml/min; Estimated Glomerular Filt Rate 24; Glucose 222 mg/dL (65-110); Potassium 3.8 mmol/L (3.4-5.0); Sodium 137 mmol/L (137-145)
[2023-12-30] MEDS: DICYCLOMINE HCL 10 MG CAPSULE 20 MG PO ×4 (06:27→20:49)
[2023-12-30 07:46] LABS: Glucose Point of Care 249 mg/dl (65-105)
[2023-12-30] MEDS: INSULIN ASPART (*BKC) 100 UNITS/ML SUB-Q ×3 (08:11→16:45)
[2023-12-30] MEDS: FUROSEMIDE 20 MG TABLET PO (08:23)
[2023-12-30] MEDS: DOCUSATE SODIUM 100 MG CAPSULE PO (08:23)
[2023-12-30] MEDS: buPROPion HCL SR (12 HR) 150 MG TAB PO ×2 (08:24→20:49)
[2023-12-30] MEDS: busPIRone HCL 5 MG TABLET PO ×2 (08:24→16:50)
[2023-12-30] MEDS: METOPROLOL SUCCINATE EXT REL 50 MG TABCR PO (08:24)
[2023-12-30] MEDS: APIXABAN 2.5 MG TABLET PO ×2 (08:24→20:49)
[2023-12-30] MEDS: SERTRALINE HCL 50 MG TABLET PO (08:29)
[2023-12-30] MEDS: GABAPENTIN 300 MG CAPSULE PO ×2 (08:29→13:20)
[2023-12-30] MEDS: PANTOPRAZOLE 40 MG TABLET PO (08:29)
[2023-12-30] MEDS: TERAZOSIN HCL 1 MG CAPSULE 2 MG PO ×2 (08:29→16:45)
[2023-12-30] MEDS: MICONAZOLE NITRATE 2% CREAM 30 GM TUBE 1 APPLIC TOPICAL ×2 (08:30→20:51)
[2023-12-30] MEDS: OLOPATADINE 0.1% OPHTH SOLN 5 ML BTL 1 DROP EACH EYE (08:49)
--- NOTE | 2023-12-30 08:54 | PCOTNOTE ---
Attempted to see pt for OT treatment. Pt was trying to sleep at therapist arrival with cpap on. Pt request to attempt therapy later.
[2023-12-30 11:17] LABS: Glucose Point of Care 276 mg/dl (65-105)
[2023-12-30] MEDS: CALCIUM CARBONATE (TUMS) 500 MG (200 MG ELEMENTAL) PO (11:25)
--- NOTE | 2023-12-30 15:00 | PM.IMPN ---
Progress Note: A&P Assessment and Plan (1) Bacteremia: Code(s): R78.81 - Bacteremia Status: Acute Assessment and Plan: blood cultures positive for Staph epidermidis x1 bottle likely contaminated will start vancomycin empirically pending follow-up cultures patient did have a fever 102 POA follow-up cultures pending (2) Fever: Code(s): R50.9 - Fever, unspecified Status: Acute Assessment and Plan: Unknown origin Likely secondary to response to COVID vaccine Is being treated for cellulitis on antibiotics Chest x-ray clear Normal WBC Antipyretics 12/27/23: Patient T-max 99.0? Could be due to known cellulitis versus COVID vaccine White blood cell count is still normal today 12/29/2023 Max Fever 102 POA Now positive blood culture Staph x 1 bottle likely contaminated start on vancomycin empirically due to patient's previous temperatures repeat cultures ordered UA ordered 12/30/23: UA suspicious for UTI HAs remained Afebrile (3) Atrial flutter with rapid ventricular response: Code(s): I48.92 - Unspecified atrial flutter Status: Acute Assessment and Plan: New onset Lopressor x1 rates in the 120's started on metoprolol PO Cardiology consult Echocardiogram pending Started on Eliquis 2.5 mg b.i.d. per renal dose an age Converted to sinus tach Patient reported he received his COVID vaccine yesterday 12/27/23: Continue metoprolol and Eliquis Currently in normal sinus rhythm Cardiology following Continue to wean O2 for sat greater than 92% 12/28/23: Continue with current treatment plan (4) Acute respiratory failure with hypoxia: Code(s): J96.01 - Acute respiratory failure with hypoxia Status: Acute Assessment and Plan: Secondary to AFIB RVR V/Q negative PE Will continue to wean oxygen as tolerated Chest CT with no acute abnormalities We need home O2 walk study prior to discharge Continue CPAP at night 12/27/23: Continue to wean O2 for sat greater than 92% 12/28/23: Will need home O2 study before discharge Currently on C pap (5) Acute kidney injury superimposed on chronic kidney disease: Code(s): N17.9 - Acute kidney failure, unspecified; N18.9 - Chronic kidney disease, unspecified Status: Acute Assessment and Plan: 2.3-2.8 around 2.00 is baseline follow with Follow with Dr. Lozano O/P Avoid nephrotoxic drugs. Monitor antihypertensive drug therapy. Avoid NSAIDs. Routine CMP monitoring GFR. Monitor electrolytes especially potassium. Antibiotic doses depending on creatinine clearance. Pharmacy does medications. Routine follow-up with Nephrology as an outpatient. 12/27/23: Creatinine 2.80 Continue to avoid nephrotoxic drugs were imaging with contrast 12/28/23: Creatinine 3.10 Will hold Lasix today Encouraged po intake, patient has not been eating or drinking Urine output adequate Patient is net negative 746ml according to the EMR 12/30/23: Stable (6) Hypertension: Code(s): I10 - Essential (primary) hypertension Status: Acute Assessment and Plan: Stable Resumed home medications Started on metoprolol 12/27/23: No change to current treatment plan (7) Diabetes mellitus: Code(s): E11.9 - Type 2 diabetes mellitus without complications Status: Acute Assessment and Plan: Accu-Cheks a.c. HS sliding scale insulin hold oral diabetic medications resume patient's home long-acting Diabetic diet consult to dietitian encourage lifestyle modifications and weight loss Optimize [place] inhibitors and statins. Watch for hypoglycemia/hypoglycemic protocol ordered 12/27/23: No change to current treatment plan (8) Morbid obesity: Code(s): E66.01 - Morbid (severe) obesity due to excess calories Status: Acute Assessment and Plan: e
--- NOTE | 2023-12-30 15:29 | PC.NURSE ---
Reviewed and acknowledge charting Corrie Miles, Arnold[facility]
[2023-12-30 16:17] LABS: Glucose Point of Care 282 mg/dl (65-105)
[2023-12-30] MEDS: FAMOTIDINE 20 MG TABLET PO (16:49)
[2023-12-30 20:07] LABS: Glucose Point of Care 243 mg/dl (65-105)
[2023-12-30] MEDS: SIMVASTATIN 20 MG TABLET 40 MG PO (20:48)
[2023-12-30] MEDS: GABAPENTIN 300 MG CAPSULE 600 MG PO (20:48)
[2023-12-30] MEDS: rOPINIRole HCL 1 MG TABLET PO (20:49)
[2023-12-31] VITALS (7 sets, daily range): BP systolic 136–140; BP diastolic 59–65; PULSE 61–68; RESP 22; TEMP 36.4–36.6; O2SAT 91–94
[2023-12-31] MEDS: VANCOMYCIN 1,500 MG/NS 500 ML 1,500 MG/500 ML BAG 250 MG IVPB (04:00)
[2023-12-31 04:53] LABS: Basophils Percent Auto 0.3 % (0.2-1.2); Eosinophils Absolute Auto 0.3 K/mm3 (0-0.3); Eosinophils Percent Auto 5.7 % (0-4.4); Hematocrit 28.6 % (42.0-52.0); Hemoglobin 8.7 g/dL (14.0-18.0); Immature Granulocyte Absolute 0.05 K/mm3 (0.00-0.031); Immature Granulocyte Percent A 0.8 % (0-0.5); Lymphocytes Absolute Auto 2.14 K/mm3 (0.9-3.2); Mean Corpuscular HGB Conc 30.4 g/dl (32-36); Mean Corpuscular Hemoglobin 26.5 pg (26-34); Mean Corpuscular Volume 87.2 fl (80-100); Mean Platelet Volume 9.3 fl (7.4-10.4); Monocytes Absolute Auto 0.4 K/mm3 (0.1-0.6); Monocytes Percent Auto 7.4 % (2.6-8.5); Neutrophils Percent Auto 49.8 % (45.5-73.1); Platelet Count Result 212 k/mm3 (150-375); Red Blood Count 3.28 M/mm3 (4.6-6.20); Red Cell Distribution Width 13.4 % (11.5-14.5)
[2023-12-31 05:06] LABS: Alanine Aminotransferase 35 U/L (6-50); Albumin Level 3.3 g/dL (3.5-5.1); Alkaline Phosphatase 70 U/L (38-126); Anion Gap 7 mmol/L (4-12); Aspartate Amino Transferase 54 U/L (17-59); Bilirubin,Total 0.2 mg/dL (0.2-1.3); Blood Urea Nitrogen 41 mg/dL (9-20); Calcium 8.4 mg/dL (8.4-10.2); Carbon Dioxide 27 mmol/L (22-30); Chloride 103 mmol/L (98-107); Estimated CRCL calculation 24 ml/min; Estimated Glomerular Filt Rate 24; Glucose 249 mg/dL (65-110); Potassium 3.9 mmol/L (3.4-5.0); Sodium 137 mmol/L (137-145)
[2023-12-31] MEDS: DICYCLOMINE HCL 10 MG CAPSULE 20 MG PO ×2 (05:42→13:06)
[2023-12-31] MEDS: CALCIUM CARBONATE (TUMS) 500 MG (200 MG ELEMENTAL) PO (08:03)
[2023-12-31 08:13] LABS: Glucose Point of Care 245 mg/dl (65-105)
[2023-12-31] MEDS: SERTRALINE HCL 50 MG TABLET PO (08:35)
[2023-12-31] MEDS: TERAZOSIN HCL 1 MG CAPSULE 2 MG PO (08:35)
[2023-12-31] MEDS: FUROSEMIDE 20 MG TABLET PO (08:35)
[2023-12-31] MEDS: METOPROLOL SUCCINATE EXT REL 50 MG TABCR PO (08:35)
[2023-12-31] MEDS: buPROPion HCL SR (12 HR) 150 MG TAB PO (08:35)
[2023-12-31] MEDS: PANTOPRAZOLE 40 MG TABLET PO (08:35)
[2023-12-31] MEDS: busPIRone HCL 5 MG TABLET PO (08:35)
[2023-12-31] MEDS: APIXABAN 2.5 MG TABLET PO (08:35)
[2023-12-31] MEDS: FLUTICASONE PROPIONATE 0.05% NA SPR 16 GM BTL (*BKC) 1 SPRAY NASAL (08:35)
[2023-12-31] MEDS: OLOPATADINE 0.1% OPHTH SOLN 5 ML BTL 1 DROP EACH EYE (08:36)
[2023-12-31] MEDS: MICONAZOLE NITRATE 2% CREAM 30 GM TUBE 1 APPLIC TOPICAL (08:36)
[2023-12-31] MEDS: INSULIN ASPART (*BKC) 100 UNITS/ML SUB-Q ×2 (08:36→13:06)
[2023-12-31] MEDS: GABAPENTIN 300 MG CAPSULE PO ×2 (08:40→13:06)
[2023-12-31 11:58] LABS: Glucose Point of Care 280 mg/dl (65-105)
--- NOTE | 2023-12-31 14:51 | PC.NURSE ---
Pt voided 200mls clear, yellow urine per urinal post farr removal. Offers no complaints.
--- NOTE | 2023-12-31 15:21 | PM.DS ---
DS: Admitting Diagnosis Discharge Date 12/31/2023 Admitting Diagnosis AFIB with RVR/FEVER/Cellulitis DS: Discharge Diagnosis Discharge Diagnosis (1) Bacteremia: Code(s): R78.81 - Bacteremia Status: Acute Assessment and Plan: RULED OUT (2) Fever: Code(s): R50.9 - Fever, unspecified Status: Acute (3) Atrial flutter with rapid ventricular response: Code(s): I48.92 - Unspecified atrial flutter Status: Acute (4) Acute respiratory failure with hypoxia: Code(s): J96.01 - Acute respiratory failure with hypoxia Status: Acute (5) Acute kidney injury superimposed on chronic kidney disease: Code(s): N17.9 - Acute kidney failure, unspecified; N18.9 - Chronic kidney disease, unspecified Status: Acute (6) Hypertension: Code(s): I10 - Essential (primary) hypertension Status: Acute (7) Diabetes mellitus: Code(s): E11.9 - Type 2 diabetes mellitus without complications Status: Acute (8) Morbid obesity: Code(s): E66.01 - Morbid (severe) obesity due to excess calories Status: Acute Assessment and Plan: encourage increased on physical activity and lifestyle modifications BMI 47.2 Diet exercise counseling done. 12/27/23: No change to current treatment plan (9) Obstructive sleep apnea on CPAP: Code(s): G47.33 - Obstructive sleep apnea (adult) (pediatric); Z99.89 - Dependence on other enabling machines and devices Status: Acute (10) Cellulitis of leg, left: Code(s): L03.116 - Cellulitis of left lower limb Status: Acute (11) Urinary retention: Code(s): R33.9 - Retention of urine, unspecified Status: Acute (12) UTI (urinary tract infection): Code(s): N39.0 - Urinary tract infection, site not specified Status: Acute Plan Disposition: Patient discharged to Assisted living can follow-up with primary in 2 weeks and schedule follow-up with urology if urinary retention returns. DS: Summary Hospital Course Reason for hospitalization: AFIB with RVR/FEVER/Cellulitis Hospital Course: Patient was a 83-year-old male who presented to the emergency department overnight with complaints shortness of breath. Per staff at the assisted nursing facility patient had fallen and called EMS for lift assist in upon assessment patient was found to be hypoxic with tachycardia and tachypnea with oxygen saturations at 85% on room air. Patient was then brought to the emergency department for further evaluation. Patient is not the best historian his past medical history most information is taken from the medical chart. Patient has a past medical history of diabetes, chronic kidney disease, GERD, CHF, HLD, HTN, MAICOL, PAD, and peripheral neuropathy. It was reported patient had received his COVID-19 vaccination yesterday. Upon arrival patient did have a temperature of a 102? and was found to be in AFib RVR with rates as great as 140s to 150s. Patient was given full-dose Lovenox with V/Q scan pending for in the morning he was then admitted to IMU for further evaluation. Patient was placed 4 L supplemental oxygen for his hypoxia, V/Q showed low probability for PE and he was transitioned to PO Eliquis for his AFIB. Patient continued to improve and was weaned off oxygen. Patient did have positive blood culture x 1 bottle due to patient presentation and fever on arrival he was placed on vanc empirically until rule out. MRSA nares was negative and second set of blood cultures negative, ABX therapy was D/C due to contamination. Patient also had urinary retention during admission which he has had a history of currently terazosin, was able to remove farr and perform bladder trial with post void. Patient had been started on metoprolol and eliquis which he converted and remained in SR well controlled. Echo reviewed with no significant findings. Cardiology cleared patient for disc
== END 2023-12-31 17:13 | DRG 189 ==
LOC: ANHED 06:04 → ANHIMU 06:21
PROVIDERS: Admitting Provider Internal Medicine; Emergency Provider Emergency Medicine; PCP Family Medicine; Visit Provider Nurse Practitioner Family
DX: J96.01 Acute respiratory failure with hypoxia (principal); Z68.42 Body mass index [BMI] 45.0-49.9, adult; N17.9 Acute kidney failure, unspecified; L03.116 Cellulitis of left lower limb; N39.0 Urinary tract infection, site not specified; I13.0 Hypertensive heart and chronic kidney disease with heart failure and stage 1 through stage 4 chronic kidney disease, or unspecified chronic kidney disease; I48.92 Unspecified atrial flutter; R78.81 Bacteremia; B95.7 Other staphylococcus as the cause of diseases classified elsewhere; E66.01 Morbid (severe) obesity due to excess calories; E78.5 Hyperlipidemia, unspecified; E11.51 Type 2 diabetes mellitus with diabetic peripheral angiopathy without gangrene; E11.22 Type 2 diabetes mellitus with diabetic chronic kidney disease; E11.42 Type 2 diabetes mellitus with diabetic polyneuropathy; F32.A Depression, unspecified; F41.9 Anxiety disorder, unspecified; G47.33 Obstructive sleep apnea (adult) (pediatric); I50.9 Heart failure, unspecified; K21.9 Gastro-esophageal reflux disease without esophagitis; N18.9 Chronic kidney disease, unspecified; R50.83 Postvaccination fever; R33.9 Retention of urine, unspecified; T50.B95A Adverse effect of other viral vaccines, initial encounter; Z99.89 Dependence on other enabling machines and devices; Z79.4 Long term (current) use of insulin; Z20.822 Contact with and (suspected) exposure to COVID-19
CPT/HCPCS: 36415; 36600; 71250; 78582; 80053; 80061; 81001; 82805; 82810; 82948; 83605; 83735; 83880; 84443; 85018; 85025; 87040; 87077; 87086; 87181; 87637; 93005; 93970; 93971; 94002; 96372; 97110; 97162; 97165; 97530; 97535; 99285; A9270; A9540; A9558; C8929; J0696; J1650; J1815; J2270; J3370; J7030; Q9957

== ENCOUNTER 2024-02-01 17:48 | Emergency (ER) | payer MEDICARE, SELFPAY ==
[2024-02-01] VITALS (12 sets, daily range): BP systolic 111–141; BP diastolic 46–98; PULSE 81–98; RESP 17–22; TEMP 36.9; O2SAT 95–100
--- NOTE | 2024-02-01 18:13 | PC.NURSE ---
pt states to staff that they were scheduled to get a shower at the facility Sunday and , but has not received one since Sunday01/26/24.
[2024-02-01 20:36] LABS: Basophils Percent Auto 0.3 % (0.2-1.2); Eosinophils Absolute Auto 0.6 K/mm3 (0-0.3); Eosinophils Percent Auto 5.6 % (0-4.4); Hematocrit 25.8 % (42.0-52.0); Hemoglobin 8.1 g/dL (14.0-18.0); Immature Granulocyte Absolute 0.04 K/mm3 (0.00-0.031); Immature Granulocyte Percent A 0.4 % (0-0.5); Lymphocytes Absolute Auto 4.83 K/mm3 (0.9-3.2); Lymphocytes Percent Auto 46.9 % (18.3-44.2); Mean Corpuscular HGB Conc 31.4 g/dl (32-36); Mean Corpuscular Hemoglobin 27.1 pg (26-34); Mean Corpuscular Volume 86.3 fl (80-100); Mean Platelet Volume 8.6 fl (7.4-10.4); Monocytes Absolute Auto 0.7 K/mm3 (0.1-0.6); Monocytes Percent Auto 6.5 % (2.6-8.5); Neutrophils Absolute Auto 4.1 K/mm3 (1.3-6.7); Neutrophils Percent Auto 40.3 % (45.5-73.1); Platelet Count Result 251 k/mm3 (150-375); Red Blood Count 2.99 M/mm3 (4.6-6.20); Red Cell Distribution Width 14.7 % (11.5-14.5); White Blood Count 10.3 K/mm3 (4.5-10.0)
--- NOTE | 2024-02-01 20:36 | ED.WOUNDLAC ---
HPI - Wound/Laceration General Chief Complaint: Wound/Laceration Stated Complaint: BUTT SORES Time Seen by Provider: 02/01/24 20:31 Source: patient Mode of arrival: ambulatory Limitations: no limitations History of Present Illness HPI narrative: This is an 83-year-old male who presents to the ED via EMS from assisted living for chief complaint of back/buttock sores and rash to the groin. Patient states that he noticed some drainage from the wound when he woke up this morning. Reports there is discharge in the groin area. Endorses irritation he throughout the entire area. Denies urinary symptoms. Denies abdominal pain, fevers, chills, back pain, nausea, vomiting. Related Data Home Medications Medication Instructions Recorded Confirmed simvastatin 40 mg tablet 40 mg PO HS 06/29/21 01/26/24 acetaminophen 325 mg capsule 650 mg PO Q6H PRN headache/fever 12/07/22 01/26/24 bupropion HCl 150 mg tablet,12 hr 150 mg PO BID 12/07/22 01/26/24 sustained-release buspirone 5 mg tablet 5 mg PO BID 12/07/22 01/26/24 terazosin 2 mg capsule 2 mg PO BID 12/07/22 01/26/24 ropinirole 1 mg tablet 1 mg PO QHS 03/06/23 01/26/24 [id number]-ktrgvmnioorst-xenmyvtp 1 - 2 cap PO Q6H PRN headaches 05/01/23 01/26/24 50 mg-325 mg-40 mg capsule (Esgic) insulin glargine 100 unit/mL (3 34 unit subcut DAILY 12/26/23 01/26/24 mL) subcutaneous pen (Lantus Solostar U-100 Insulin) insulin lispro 100 unit/mL See Rx Instructions .Route .COMPLEX 12/26/23 01/26/24 subcutaneous pen (Humalog KwikPen (U-100) Insulin) miconazole nitrate 2 % topical 1 applic topical BID PRN irritation 12/26/23 01/26/24 powder (Zeasorb AF) olopatadine 0.1 % eye drops 1 drp EACH EYE DAILY 12/26/23 01/26/24 (Pataday Twice Daily Relief) tirzepatide 2.5 mg/0.5 mL 5 mg subcut WEEKLY 12/26/23 01/26/24 subcutaneous pen injector (Mounjaro) torsemide 10 mg tablet 10 mg PO QAM 01/17/24 01/17/24 Allergies Allergy/AdvReac Type Severity Reaction Status Date / Time No Known Allergies Allergy Mild Verified 02/01/24 18:32 Review of Systems Review of Systems: All systems as dictated in [facility] Past Medical History Medical History Abdominal pain Anemia Anxiety Cellulitis of leg, left Chronic kidney disease Chronic low back pain Depression Diabetes mellitus Edema Encounter to establish care Generalized weakness GERD (gastroesophageal reflux disease) History of congestive heart failure Hyperlipidemia Hypertension Lower abdominal pain Morbid obesity Morbid obesity with BMI of 40.0-44.9, adult Nausea Obstructive sleep apnea on CPAP Peripheral arterial disease Peripheral neuropathy Seasonal allergies Tinea cruris Urinary frequency Wound of right foot Surgical History Surgical History S/P left knee arthroscopy Family History Family History Father Congestive heart failure Cerebrovascular accident Hypertension Mother Congestive heart failure Lung cancer Heart disease Sibling Hypertension Daughter Lung cancer Depression Grandparent Diabetes mellitus Social History Social History Smoking status: Never smoker Alcohol intake: former Substance use: never Do You Feel Safe in your Home?: Yes Lack of Transportation: No Lack of Food: Never True Current Housing: I Do Not Have Housing Concerned About Future Housing: No Difficulty Paying Gas/Electric Bills: Decline to Answer Difficulty Paying for Meds: No Currently Unemployed: No Education: Grade School Difficulty w/ Childcare or Family Care: No Gender identity (if verbalized by the patient): Male Spiritual care concerns: No Exam Narrative: GENERAL: Well-appearing, well-nourished, and in no acute distress. HEAD: Normocephalic, atraumatic. EYES: PERRLA and EOMI. ENT: Nares clear, no rhinorrhea or epistaxis. Mucous membranes moist. Oropharynx without tonsillar hypertrophy exudate or other lesions. NECK: Supple. No adenopathy or masses. CHEST: No respiratory distress. Clear to auscultation. No wheezes rales or rhonchi HEART: Regular rate and rhythm. No murmur heard. Normal peripheral pulses. ABDOMEN: Soft, nontender, nondistended, normal active bowel sounds. MSK: Normal range of motion. No edema. SKIN: Sacral decubitus stage I ulceration with erythema and some areas of skin breakdown. No purulence. Minimal warmth or tenderness. To the groin there is cause cheeselike discharge with beefy red erythema surrounding in the groin folds. NEURO: Alert and oriented x4. No focal deficits. PSYCH: Normal mood and affect. Course Vital Signs Vital signs: Vital Signs Blood Pressure 135/98 H 02/01/24 17:57 Pulse Oximetry 98 02/01/24 17:57 Temperature 98.4 F 02/01/24 18:00 Pulse Rate 83 02/01/24 21:02 Respiratory Rate 19 02/01/24 21:02 Blood Pressure 132/47 L 02/01/24 21:02 Pulse Oximetry 96 02/01/24 21:02 Oxygen Delivery Room Air 02/01/24 18:00 MDM - Wound/Laceration MDM Narrative Medical decision making narrative: This is a 83 yo male who presents to the ED for chief complaint of rash and discomfort to the buttocks and groin. Vitals are normal. Exam shows stage I sacral/buttock ulcer with scant amount of skin breakdown. No purulence or tenderness to luma infection. The skin folds of the groin show evidence of yeast intertrigo. No remarkable findings on his lab work, all seems to be at baseline. Patient was given nystatin cream here. Spoke with family member about the plan for the patient. We agreed the patient needs to have home health for dressing changes. He was given padded sacral ulcer dressing. Rx for nystatin given as well. Family will help out during the weekend and PCP will be contacted for home health. Patient will be discharged in stable condition. Supportive measures discussed and return precautions given. Patient is understanding and agreeable with plan for discharge with PCP follow-up. Lab Data 02/01/24 20:26 02/01/24 20:26 Labs: Lab Results 02/01/24 02/01/24 Range/Units 20:26 21:19 WBC 10.3 H (4.5-10.0) K/mm3 RBC 2.99 L (4.6-6.20) M/mm3 Hgb 8.1 L (14.0-18.0) g/dL Hct 25.8 L (42.0-52.0) % MCV 86.3 (80-100) fl MCH 27.1 (26-34) pg MCHC 31.4 L (32-36) g/dl RDW 14.7 H (11.5-14.5) % Plt Count 251 (150-375) k/mm3 MPV 8.6 (7.4-10.4) fl Immature Gran % (Auto) 0.4 (0-0.5) % Neut % (Auto) 40.3 L (45.5-73.1) % Lymph % (Auto) 46.9 H (18.3-44.2) % Ada % (Auto) 6.5 (2.6-8.5) % Eos % (Auto) 5.6 H (0-4.4) % Baso % (Auto) 0.3 (0.2-1.2) % Lymph # (Auto) 4.83 H (0.9-3.2) K/mm3 Ada # (Auto) 0.7 H (0.1-0.6) K/mm3 Eos # (Auto) 0.6 H (0-0.3) K/mm3 Baso # (Auto) 0.0 (0.0-0.1) K/mm3 Abs Immat Gran (auto) 0.04 H (0.00-0.031) K/mm3 Absolute Neuts (auto) 4.1 (1.3-6.7) K/mm3 Absolute Nucleated RBC 0.000 (0.0-0.012) K/mm3 Nucleated RBC % 0.0 (0.0-0.2) % PT 15.1 H (11.1-14.7) Seconds INR 1.2 APTT 37.0 H (22.3-36.8) Seconds Sodium 139 (137-145) mmol/L Potassium 4.4 (3.4-5.0) mmol/L Chloride 102 (98-107) mmol/L Carbon Dioxide 25 (22-30) mmol/L Anion Gap 12 (4-12) mmol/L BUN 49 H (9-20) mg/dL Creatinine 2.90 H (0.7-1.3) mg/dL Estim Creat Clear Calc Not Reportable Estimated GFR 21 L (59 - ) Glucose 118 H (65-110) mg/dL Calcium 8.2 L (8.4-10.2) mg/dL Total Bilirubin 0.3 (0.2-1.3) mg/dL AST 23 (17-59) U/L ALT 18 (6-50) U/L Alkaline Phosphatase 70 (38-126) U/L Total Protein 7.0 (6.3-8.2) g/dL Albumin 3.5 (3.5-5.1) g/dL Urine Color Yellow (Yellow) Urine Appearance Cloudy H (Clear) Urine pH 6.5 (5.0-9.0) Ur Specific [place] 1.014 (1.001-1.035) Urine Protein 2+ H (Negative) mg/dL Urine Glucose (UA) Negative (Negative) mg/dL Urine Ketones Negative (Negative) mg/dL Ur Blood (Man) Negative (Negative) Urine Nitrate Negative (Negative) Urine Bilirubin Negative (Negative) Urine Urobilinogen 1.0 (<2.0) mg/dL Add Ur Microanalysis Reviewed Leukocyte Esterase Rfl 2+ H (Negative) ELIZ/UL Urine RBC 6-10 H (0-2) /hpf Urine WBC >100 H (0-3) /hpf Ur Squamous Epith Cells None seen (Few) /hpf Urine Bacteria None seen /hpf Urine Casts 3-5 Discharge Plan Discharge Clinical Impression: Pressure injury of back, stage 1, Intertrigo, UTI (urinary tract infection) Patient Disposition: [place] Snf/Asst Living Condition: Stable Instructions: Antibiotic Form Additional Instructions: There is a pressure sore on in the backside that needs to be dressed and needs to have the pressure relieved every few hours. Please have the dressing changed every 1-2 days. Use the topical cream for yeast infection. Take cephalexin for possible UTI. Follow-up with PCP on these issues for next week If you have any new or worsening symptoms please return to the ER for further evaluation. Prescriptions: New nystatin 100,000 unit/gram powder 1 applic topical BID Qty: 15 0RF cephalexin 500 mg capsule 500 mg PO Q8H 7 Days Qty: 21 0RF cephalexin 500 mg capsule 500 mg PO Q8H 7 Days Qty: 21 0RF nystatin 100,000 unit/gram ointment 1 applic topical BID Qty: 15 0RF No Action acetaminophen 325 mg capsule 650 mg PO Q6H PRN (Reason: headache/fever) buspirone 5 mg tablet 5 mg PO BID bupropion HCl 150 mg tablet sustained-release 12 hr 150 mg PO BID terazosin 2 mg capsule 2 mg PO BID gabapentin [Neurontin] 300 mg capsule See Rx Instructions PO TID Qty: 120 11RF Rx Instructions: take 1 cap by mouth in morning and afternoon, and take 2 caps at night. ropinirole 1 mg tablet 1 mg PO QHS torsemide 10 mg tablet 10 mg PO QAM polyethylene glycol 3350 [Miralax] 17 gram powder in packet 17 g PO DAILY Qty: 30 11RF omeprazole 40 mg capsule,delayed release(DR/EC) 40 mg PO DAILY Qty: 30 6RF metoclopramide HCl [Reglan] 5 mg tablet 10 mg PO .HS Qty: 60 3RF sertraline 50 mg tablet 50 mg PO DAILY Qty: 30 11RF [id number]-ydxzxufkxfcpp-bfyh [Esgic] 50-325-40 mg capsule 1 - 2 cap PO Q6H PRN (Reason: headaches) Rx Instructions: take 1-2 tabs by mouth every 6h prn headaches; 1 tab for mild/mod and 2 for severe; max 6 tabs/day clotrimazole [Jock Itch (clotrimazole)] 1 % cream 1 applic topical Q12H Qty: 90 11RF Rx Instructions: apply to affected area miconazole nitrate [Antifungal (miconazole)] 2 % powder 1 applic topical BID PRN (Reason: rash) Qty: 85 11RF simvastatin 40 mg Tablet 40 mg PO HS miconazole nitrate [Zeasorb AF] 2 % Powder 1 applic TOPICAL BID PRN (Reason: irritation) insulin lispro [Humalog KwikPen Insulin] 100 unit/mL insulin pen See Rx Instructions .ROUTE .COMPLEX Rx Instructions: SSI: 150-200 =2u 201-250 =4u 251-300 =5u 301-350 =6u >350 =7u Mounjaro 2.5 mg/0.5 mL pen injector 5 mg SUBCUT WEEKLY Rx Instructions: administer on Sunday olopatadine [Pataday Twice Daily Relief] 0.1 % drops 1 drp EACH EYE DAILY insulin glargine [Lantus Solostar U-100 Insulin] 100 unit/mL (3 mL) insulin pen 34 unit subcut DAILY metoprolol succinate 50 mg Tablet Extended Release 24 Hr 50 mg PO QAM Qty: 30 0RF Eliquis 2.5 mg Tablet 2.5 mg PO Q12HR Qty: 60 0RF sennosides-docusate sodium 8.6-50 mg capsule 1 tab-cap PO BID PRN (Reason: constipation) Qty: 60 0RF tramadol 50 mg tablet 50 - 100 mg PO Q6H PRN (Reason: pain) Qty: 240 5RF Rx Instructions: take with acetaminophen ondansetron HCl 4 mg tablet 4 - 8 mg PO Q8H PRN (Reason: nausea and vomiting) Qty: 60 5RF (DME) FreeStyle Filemon 2 Sensor Kit See Rx Instructions .Route Qty: 2 2RF Rx Instructions: change every 14 days fluticasone propionate [Flonase Allergy Relief] 50 mcg/actuation spray,suspension 1 spray intranasal BID Qty: 16 2RF Rx Instructions: administer into each nostril insulin lispro [Humalog KwikPen Insulin] 100 unit/mL insulin pen 10 unit subcut .before meals MDD 40 Qty: 45 0RF Rx Instructions: 10 units three times/day before meals (DME) FreeStyle Filemon 2 [place] Misc See Rx Instructions .Route Qty: 1 0RF Rx Instructions: use with Filemon 2 Sensors Follow-up/Referrals: Trung Avendaño MD [Primary Care Provider] - Stand Alone Forms: Group Home Discharge Time of Disposition: 21:40
[2024-02-01 20:55] LABS: Alanine Aminotransferase 18 U/L (6-50); Albumin Level 3.5 g/dL (3.5-5.1); Alkaline Phosphatase 70 U/L (38-126); Anion Gap 12 mmol/L (4-12); Aspartate Amino Transferase 23 U/L (17-59); Bilirubin,Total 0.3 mg/dL (0.2-1.3); Blood Urea Nitrogen 49 mg/dL (9-20); Calcium 8.2 mg/dL (8.4-10.2); Carbon Dioxide 25 mmol/L (22-30); Chloride 102 mmol/L (98-107); Estimated Glomerular Filt Rate 21; Glucose 118 mg/dL (65-110); Potassium 4.4 mmol/L (3.4-5.0); Sodium 139 mmol/L (137-145)
[2024-02-01 21:12] LABS: INR 1.2; Prothrombin Time 15.1 Seconds (11.1-14.7)
[2024-02-01] MEDS: MICONAZOLE NITRATE 2% CREAM 30 GM TUBE 1 APPLIC TOPICAL (21:20)
--- NOTE | 2024-02-01 21:42 | PC.NURSE ---
pt family member Jcaque states that they would like to assist with changing patients dressings. educated family member on the phone about the importance of keeping dressings intact and monitoring the wound.
[2024-02-01 21:46] LABS: Add Urine Microscopic? YES; Appearance Urine Cloudy (Clear); Bacteria Urine None Seen /hpf; Bilirubin Urine Negative (Negative); Blood Urine Negative (Negative); Color Urine Yellow (Yellow); Glucose Urine UA Negative (Negative); Ketones Urine Negative (Negative); Leukocyte Esterase Ur 2+ LEU/UL (Negative); Need Manual Microscopic Reviewed; Nitrate Urine Negative (Negative); Protein Urine 2+ mg/dL (Negative); Specific Grav Ur 1.014 (1.001-1.035); Squamous Epithelial Cell Urine None Seen /hpf (Few); WBC Urine >100 /hpf (0-3); pH Urine 6.5 (5.0-9.0)
--- NOTE | 2024-02-01 22:39 | PC.NURSE ---
updated Michelle at [facility] @2114 and again at 2229. all questions answered.
--- NOTE | 2024-02-01 22:43 | PC.NURSE ---
ems arrives to get patient at 2240
== END 2024-02-01 22:43 ==
PROVIDERS: Emergency Medicine; Emergency Provider Physician Assistant; PCP Family Medicine
DX: L30.4 Erythema intertrigo (principal); L89.151 Pressure ulcer of sacral region, stage 1; N39.0 Urinary tract infection, site not specified; E11.22 Type 2 diabetes mellitus with diabetic chronic kidney disease; I13.0 Hypertensive heart and chronic kidney disease with heart failure and stage 1 through stage 4 chronic kidney disease, or unspecified chronic kidney disease; I50.9 Heart failure, unspecified; N18.9 Chronic kidney disease, unspecified; E11.51 Type 2 diabetes mellitus with diabetic peripheral angiopathy without gangrene; I73.9 Peripheral vascular disease, unspecified; E78.5 Hyperlipidemia, unspecified; E66.01 Morbid (severe) obesity due to excess calories; Z68.41 Body mass index [BMI] 40.0-44.9, adult; D64.9 Anemia, unspecified; K21.9 Gastro-esophageal reflux disease without esophagitis; F41.9 Anxiety disorder, unspecified; F32.A Depression, unspecified; Z79.4 Long term (current) use of insulin; Z79.85 Long-term (current) use of injectable non-insulin antidiabetic drugs; Z79.899 Other long term (current) drug therapy; G47.33 Obstructive sleep apnea (adult) (pediatric)
CPT/HCPCS: 36415; 80053; 81001; 85025; 85610; 85730; 87086; 99283; A9270

== ENCOUNTER 2024-02-20 17:57 | Emergency (ER) | payer MEDICARE, SELFPAY ==
--- NOTE | ~2024-02-20 | CT_ITS ---
EXAMINATION: CT abdomen pelvis wo con DATE: 02/20/2024 21:19 INDICATION: Lower abdominal pain. Urinary retention. TECHNIQUE: Computed tomography (CT) of the abdomen and pelvis was performed without intravenous contr ast. Automated exposure control and iterative reconstruction technique were employed. The dose-length product was 1705.70 mGy-cm. COMPARISON: CT abdomen and pelvis 06/29/2021 FINDINGS: The visualized portions of the lung bases demonstrate mild atelectasis. Calcified pulmonary nodules and calcified hilar mediastinal lymph nodes are consistent with old granulomatous disease. T he heart size is normal. There are coronary artery calcifications. No pericardial effusion. There is bilateral gynecomastia. Calcifications in the liver are consistent with old granulomatous disease. Th e gallbladder, spleen, pancreas, and adrenal glands are normal. There is cortical thinning of the kid neys. The bladder is distended. There is diverticulosis of the colon without evidence of diverticulit is. The rectosigmoid is distended and stool-filled. The appendix is normal. There are no pathological ly enlarged lymph nodes. There is no free intraperitoneal fluid. There is calcified atherosclerosis o f the aorta and many of the other arteries. There is an umbilical hernia containing fat. There is a l eft inguinal hernia containing fat. There is severe thoracic and lumbar spondylosis. There are chroni c compression fractures of L1 on L2. There are changes of posterior fusion procedure from L4 to S1 wi th pedicle screws. There are changes of anterior fusion procedure at L5-S1. IMPRESSION: 1. Distended and stool-filled rectosigmoid. 2. Umbilical hernia and left inguinal hernia containing fat. Reviewed, dictated and finalized at location A. L [employer]
[2024-02-20 18:02] VITALS: BP 174/64; PULSE 81; RESP 16; TEMP 36.6; O2SAT 97
--- NOTE | 2024-02-20 18:16 | ECG_ITS ---
Test Date: 2024-02-20 20:11:23 Measurements Intervals [place] Rate: 77 P: 5 MS: 220 QRS: -11 QRSD: 85 T: 30 QT: 379 QTc: 430 Interpretive Statements SINUS RHYTHM WITH FIRST DEGREE AV BLOCK CONSIDER INFERIOR INFARCT, AGE INDETERMINATE ABNORMAL ECG Compared to ECG 12/26/2023 16:20:39 NO SIGNIFICANT CHANGE Electronically Signed On 02-20-2024 20:22:47 INTERNAL CONTROL ANALYST by Hector Hernandez D.O.
[2024-02-20 20:35] LABS: Basophils Percent Auto 0.3 % (0.2-1.2); Eosinophils Absolute Auto 1.1 K/mm3 (0-0.3); Hematocrit 28.7 % (42.0-52.0); Hemoglobin 8.9 g/dL (14.0-18.0); Immature Granulocyte Absolute 0.09 K/mm3 (0.00-0.031); Immature Granulocyte Percent A 0.8 % (0-0.5); Lymphocytes Absolute Auto 4.58 K/mm3 (0.9-3.2); Lymphocytes Percent Auto 38.3 % (18.3-44.2); Mean Corpuscular Hemoglobin 26.6 pg (26-34); Mean Corpuscular Volume 85.9 fl (80-100); Mean Platelet Volume 8.7 fl (7.4-10.4); Monocytes Absolute Auto 0.7 K/mm3 (0.1-0.6); Monocytes Percent Auto 5.4 % (2.6-8.5); Neutrophils Absolute Auto 5.5 K/mm3 (1.3-6.7); Neutrophils Percent Auto 46.2 % (45.5-73.1); Platelet Count Result 282 k/mm3 (150-375); Red Blood Count 3.34 M/mm3 (4.6-6.20); Red Cell Distribution Width 14.7 % (11.5-14.5)
[2024-02-20 20:45] LABS: Alanine Aminotransferase 14 U/L (6-50); Albumin Level 3.9 g/dL (3.5-5.1); Alkaline Phosphatase 80 U/L (38-126); Anion Gap 11 mmol/L (4-12); Aspartate Amino Transferase 20 U/L (17-59); Bilirubin,Total 0.3 mg/dL (0.2-1.3); Blood Urea Nitrogen 52 mg/dL (9-20); Calcium 8.4 mg/dL (8.4-10.2); Carbon Dioxide 24 mmol/L (22-30); Chloride 101 mmol/L (98-107); Estimated Glomerular Filt Rate 20; Glucose 151 mg/dL (65-110); Lipase 26 U/L (23-300); Potassium 4.9 mmol/L (3.4-5.0); Sodium 136 mmol/L (137-145)
[2024-02-20 20:48] LABS: INR 1.1; Prothrombin Time 14.3 Seconds (11.1-14.7)
[2024-02-20 20:49] LABS: Partial Thromboplastin Time 40.3 Seconds (22.3-36.8)
[2024-02-20 20:56] LABS: Troponin I < 0.012 ng/mL (0.000-0.034)
--- NOTE | 2024-02-20 21:55 | ED_ITS ---
HPI - General Adult General Chief complaint: Urogenital-Male Stated complaint: urinary retention, wounds Time Seen by Provider: 02/20/24 21:51 History of Present Illness HPI narrative: Patient is an 83-year-old male who presents to the emergency department this evening complaining of constipation and inability to urinate since 1400. Patient states that he has not had a bowel movement in the last 4 days and today he finally took some stool softeners but admits that he has not had a bowel movement. He denies any abdominal pain, any fevers or chills, any nausea or vomiting, any chest pain or shortness of breath. Patient lives at her nearby assisted living facility. Denies any additional symptoms or concerns at this time. Related Data Home Medications Medication Instructions Recorded Confirmed simvastatin 40 mg tablet 40 mg PO HS 06/29/21 01/26/24 acetaminophen 325 mg capsule 650 mg PO Q6H PRN headache/fever 12/07/22 01/26/24 bupropion HCl 150 mg tablet,12 hr 150 mg PO BID 12/07/22 01/26/24 sustained-release buspirone 5 mg tablet 5 mg PO BID 12/07/22 01/26/24 terazosin 2 mg capsule 2 mg PO BID 12/07/22 01/26/24 ropinirole 1 mg tablet 1 mg PO QHS 03/06/23 01/26/24 [id number]-[id number] 1 - 2 cap PO Q6H PRN headaches 05/01/23 01/26/24 50 mg-325 mg-40 mg capsule (Esgic) insulin glargine 100 unit/mL (3 34 unit subcut DAILY 12/26/23 01/26/24 mL) subcutaneous pen (Lantus Solostar U-100 Insulin) insulin lispro 100 unit/mL See Rx Instructions .Route .COMPLEX 12/26/23 01/26/24 subcutaneous pen (Humalog KwikPen (U-100) Insulin) miconazole nitrate 2 % topical 1 applic topical BID PRN irritation 12/26/23 01/26/24 powder (Zeasorb AF) olopatadine 0.1 % eye drops 1 drp EACH EYE DAILY 12/26/23 01/26/24 (Pataday Twice Daily Relief) tirzepatide 2.5 mg/0.5 mL 5 mg subcut WEEKLY 12/26/23 01/26/24 subcutaneous pen injector (Mounjaro) torsemide 10 mg tablet 10 mg PO QAM 01/17/24 01/17/24 Allergies Allergy/AdvReac Type Severity Reaction Status Date / Time No Known Allergies Allergy Mild Verified 02/01/24 18:32 Review of Systems Review of Systems: All systems are reviewed and are negative unless stated otherwise in the HPI. [facility] Past Medical History Medical History Abdominal pain Anemia Anxiety Cellulitis of leg, left Chronic kidney disease Chronic low back pain Depression Diabetes mellitus Edema Encounter to establish care Generalized weakness GERD (gastroesophageal reflux disease) History of congestive heart failure Hyperlipidemia Hypertension Lower abdominal pain Morbid obesity Morbid obesity with BMI of 40.0-44.9, adult Nausea Obstructive sleep apnea on CPAP Peripheral arterial disease Peripheral neuropathy Seasonal allergies Tinea cruris Urinary frequency Wound of right foot Surgical History Surgical History S/P left knee arthroscopy Family History Family History Father Congestive heart failure Cerebrovascular accident Hypertension Mother Congestive heart failure Lung cancer Heart disease Sibling Hypertension Daughter Lung cancer Depression Grandparent Diabetes mellitus Social History Social History Smoking status: Never smoker Alcohol intake: former Substance use: never Do You Feel Safe in your Home?: Yes Lack of Transportation: No Lack of Food: Never True Current Housing: I Do Not Have Housing Concerned About Future Housing: No Difficulty Paying Gas/Electric Bills: Decline to Answer Difficulty Paying for Meds: No Currently Unemployed: No Education: Grade School Difficulty w/ Childcare or Family Care: No Gender identity (if verbalized by the patient): Male Spiritual care concerns: No Exam Narrative: General: Alert, awake, afebrile, in no acute distress, obese. HEENT: PERRL, no rhinorrhea, no post nasal drip, oropharynx clear. Neck: Trachea midline, no JVD, no lymphadenopathy. Cardiovascular: Regular rate and rhythm, no murmurs, rubs or gallops, no peripheral edema. Respiratory: Clear to auscultation bilaterally, no tachypnea, no wheezing, no rhonchi, no rubs, no respiratory distress. Abdomen: Soft, nontender, nondistended, no rebound, no guarding, no peritoneal signs. Rectal: Stage II sacral decubitus ulcers. Musculoskeletal: No joint swelling or deformity, normal muscle tone. Skin: No rashes or petechia, no signs of infection. Psychiatric: Alert and oriented, normal behavior and judgment for situation. Neurological: Alert and oriented to person, place, and time. Follows all commands. No focal deficits, speech is clear and fluent. Course Vital Signs Vital signs: Vital Signs Temperature 97.8 F 02/20/24 18:02 Pulse Rate 81 02/20/24 18:02 Respiratory Rate 16 02/20/24 18:02 Blood Pressure 174/64 H 02/20/24 18:02 Pulse Oximetry 97 02/20/24 18:02 Oxygen Delivery Room Air 02/20/24 18:02 Temperature 97.8 F 02/20/24 18:02 Pulse Rate 84 02/21/24 00:40 Respiratory Rate 16 02/21/24 00:40 Blood Pressure 169/82 H 02/21/24 00:40 Pulse Oximetry 100 02/21/24 00:40 Oxygen Delivery Room Air 02/20/24 18:02 Procedures Rectal Disimpaction Rectal Disimpaction #1: Rectal Disimpaction Date: 02/21/24 Rectal Disimpaction Time: 00:29 Time out performed rectal disimpaction: Yes Indication: fecal impaction Procedural Sedation: No Sedation/Analgesia: none Technique: manual disimpaction with gloved finger Result: significant stool output Patient Tolerated Procedure: well Complications: none Medical Decision Making MDM Narrative Medical decision making narrative: The patient was evaluated by myself in the emergency department. History is obtained from patient who is an independent historian and physical exam was performed. External medical records were reviewed at this time. IV was established and pertinent tests were ordered. Laboratory results obtained revealing a creatinine of 3 which is around patient's baseline given his history of CKD, otherwise no acute process. Bladder scan revealed 600 cc of urine. Urinalysis obtained via straight cath was unremarkable. Imaging studies obtained included CT abdomen pelvis with IV contrast which was independently interpreted by me revealing a distended and stool-filled rectosigmoid, which is pending final radiology interpretation. At this time, fecal disimpaction was performed. Patient was informed that the constipation/ fecal impaction is likely what is causing urinary retention. Differential diagnosis considerations include BPH, UTI, pyelonephritis, constipation, fecal impaction. Comorbidities impacting this visit include none. I have evaluated and discussed social determinants of health with the patient that could potentially impact subsequent diagnosis and treatment plans. On repeat assessment of the patient, reevaluation revealed that the patient is doing well and is in no acute distress. Patient symptoms have improved since he arrived to our emergency department. Repeat vital signs were all reviewed and noted to be stable. Differential diagnosis and treatment plan were discussed with the patient at bedside. Patient agrees with discussion and after shared medical decision making agrees with discharge. All questions were answered to the patient's satisfaction. Patient will follow up with his PCP in 3-5 days. He was provided with scripts for Colace and MiraLax to use as prescribed for his constipation and instructed on how to use them. Patient was provided with strict return precautions and instructed to return to the emergency department if any new or worsening symptoms develop. The patient was discharged in stable condition. Vital Signs Vital Signs: Vital Signs Temperature 97.8 F 02/20/24 18:02 Pulse Rate 81 02/20/24 18:02 Respiratory Rate 16 02/20/24 18:02 Blood Pressure 174/64 H 02/20/24 18:02 Pulse Oximetry 97 02/20/24 18:02 Oxygen Delivery Room Air 02/20/24 18:02 Temperature 97.8 F 02/20/24 18:02 Pulse Rate 84 02/21/24 00:40 Respiratory Rate 16 02/21/24 00:40 Blood Pressure 169/82 H 02/21/24 00:40 Pulse Oximetry 100 02/21/24 00:40 Oxygen Delivery Room Air 02/20/24 18:02 Lab Data 02/20/24 20:23 02/20/24 20:23 Labs: Lab Results 02/20/24 Range/Units 20:23 WBC 12.0 H (4.5-10.0) K/mm3 RBC 3.34 L (4.6-6.20) M/mm3 Hgb 8.9 L (14.0-18.0) g/dL Hct 28.7 L (42.0-52.0) % MCV 85.9 (80-100) fl MCH 26.6 (26-34) pg MCHC 31.0 L (32-36) g/dl RDW 14.7 H (11.5-14.5) % Plt Count 282 (150-375) k/mm3 MPV 8.7 (7.4-10.4) fl Immature Gran % (Auto) 0.8 H (0-0.5) % Neut % (Auto) 46.2 (45.5-73.1) % Lymph % (Auto) 38.3 (18.3-44.2) % [place] % (Auto) 5.4 (2.6-8.5) % Eos % (Auto) 9.0 H (0-4.4) % Baso % (Auto) 0.3 (0.2-1.2) % Lymph # (Auto) 4.58 H (0.9-3.2) K/mm3 [place] # (Auto) 0.7 H (0.1-0.6) K/mm3 Eos # (Auto) 1.1 H (0-0.3) K/mm3 Baso # (Auto) 0.0 (0.0-0.1) K/mm3 Abs Immat Gran (auto) 0.09 H (0.00-0.031) K/mm3 Absolute Neuts (auto) 5.5 (1.3-6.7) K/mm3 Absolute Nucleated RBC 0.000 (0.0-0.012) K/mm3 Nucleated RBC % 0.0 (0.0-0.2) % PT 14.3 (11.1-14.7) Seconds INR 1.1 APTT 40.3 H (22.3-36.8) Seconds Sodium 136 L (137-145) mmol/L Potassium 4.9 (3.4-5.0) mmol/L Chloride 101 (98-107) mmol/L Carbon Dioxide 24 (22-30) mmol/L Anion Gap 11 (4-12) mmol/L BUN 52 H (9-20) mg/dL Creatinine 3.00 H (0.7-1.3) mg/dL Estim Creat Clear Calc Not Reportable Estimated GFR 20 L (59 - ) Glucose 151 H (65-110) mg/dL Calcium 8.4 (8.4-10.2) mg/dL Total Bilirubin 0.3 (0.2-1.3) mg/dL AST 20 (17-59) U/L ALT 14 (6-50) U/L Alkaline Phosphatase 80 (38-126) U/L Troponin I < 0.012 (0.000-0.034) ng/mL Total Protein 8.0 (6.3-8.2) g/dL Albumin 3.9 (3.5-5.1) g/dL Lipase 26 (23-300) U/L Urine Color Yellow (Yellow) Urine Appearance Clear (Clear) Urine pH 5.5 (5.0-9.0) Ur Specific [place] 1.014 (1.001-1.035) Urine Protein 2+ H (Negative) mg/dL Urine Glucose (UA) Negative (Negative) mg/dL Urine Ketones Negative (Negative) mg/dL Ur Blood (Man) Negative (Negative) Urine Nitrate Negative (Negative) Urine Bilirubin Negative (Negative) Urine Urobilinogen 0.2 (<2.0) mg/dL Leukocyte Esterase Rfl Negative (Negative) ELIZ/UL Urine RBC 0-2 (0-2) /hpf Urine WBC 0-5 (0-3) /hpf Ur Squamous Epith Cells None seen (Few) /hpf Urine Bacteria None seen /hpf Urine Casts 0-2 Discharge Plan Discharge Clinical Impression: Constipation, CKD (chronic kidney disease), Sacral decubitus ulcer, stage II Patient Disposition: Home, Self-Care Condition: Improved Instructions: Antibiotic Form, Constipation (DC) Additional Instructions: Please take the prescribed stool softeners and laxatives as instructed to help with your constipation as this may be contributing to some of urinary retention. Return to the emergency department if any new or worsening symptoms develop. Prescriptions: New polyethylene glycol 3350 [Miralax] 17 gram/dose powder 17 g PO Q1H Qty: 119 0RF Rx Instructions: Use 17 g every hour for up to 5 hours until a bowel movement. docusate sodium 100 mg tablet 100 mg PO BID Qty: 30 0RF bisacodyl [Dulcolax (bisacodyl)] 5 mg tablet,delayed release (DR/EC) 10 mg PO TID 2 Days Qty: 30 0RF No Action acetaminophen 325 mg capsule 650 mg PO Q6H PRN (Reason: headache/fever) buspirone 5 mg tablet 5 mg PO BID bupropion HCl 150 mg tablet sustained-release 12 hr 150 mg PO BID terazosin 2 mg capsule 2 mg PO BID gabapentin [Neurontin] 300 mg capsule See Rx Instructions PO TID Qty: 120 11RF Rx Instructions: take 1 cap by mouth in morning and afternoon, and take 2 caps at night. ropinirole 1 mg tablet 1 mg PO QHS torsemide 10 mg tablet 10 mg PO QAM polyethylene glycol 3350 [Miralax] 17 gram powder in packet 17 g PO DAILY Qty: 30 11RF omeprazole 40 mg capsule,delayed release(DR/EC) 40 mg PO DAILY Qty: 30 6RF metoclopramide HCl [Reglan] 5 mg tablet 10 mg PO .HS Qty: 60 3RF sertraline 50 mg tablet 50 mg PO DAILY Qty: 30 11RF jzflnejbub-ctwdcqmmbhbbn-glzz [Esgic] 50-325-40 mg capsule 1 - 2 cap PO Q6H PRN (Reason: headaches) Rx Instructions: take 1-2 tabs by mouth every 6h prn headaches; 1 tab for mild/mod and 2 for severe; max 6 tabs/day clotrimazole [Jock Itch (clotrimazole)] 1 % cream 1 applic topical Q12H Qty: 90 11RF Rx Instructions: apply to affected area miconazole nitrate [Antifungal (miconazole)] 2 % powder 1 applic topical BID PRN (Reason: rash) Qty: 85 11RF simvastatin 40 mg Tablet 40 mg PO HS miconazole nitrate [Zeasorb AF] 2 % Powder 1 applic TOPICAL BID PRN (Reason: irritation) insulin lispro [Humalog KwikPen Insulin] 100 unit/mL insulin pen See Rx Instructions .ROUTE .COMPLEX Rx Instructions: SSI: 150-200 =2u 201-250 =4u 251-300 =5u 301-350 =6u >350 =7u Mounjaro 2.5 mg/0.5 mL pen injector 5 mg SUBCUT WEEKLY Rx Instructions: administer on Sunday olopatadine [Pataday Twice Daily Relief] 0.1 % drops 1 drp EACH EYE DAILY insulin glargine [Lantus Solostar U-100 Insulin] 100 unit/mL (3 mL) insulin pen 34 unit subcut DAILY metoprolol succinate 50 mg Tablet Extended Release 24 Hr 50 mg PO QAM Qty: 30 0RF Eliquis 2.5 mg Tablet 2.5 mg PO Q12HR Qty: 60 0RF sennosides-docusate sodium 8.6-50 mg capsule 1 tab-cap PO BID PRN (Reason: constipation) Qty: 60 0RF nystatin 100,000 unit/gram powder 1 applic topical BID Qty: 15 0RF cephalexin 500 mg capsule 500 mg PO Q8H 7 Days Qty: 21 0RF cephalexin 500 mg capsule 500 mg PO Q8H 7 Days Qty: 21 0RF nystatin 100,000 unit/gram ointment 1 applic topical BID Qty: 15 0RF tramadol 50 mg tablet 50 - 100 mg PO Q6H PRN (Reason: pain) Qty: 240 5RF Rx Instructions: take with acetaminophen ondansetron HCl 4 mg tablet 4 - 8 mg PO Q8H PRN (Reason: nausea and vomiting) Qty: 60 5RF fluticasone propionate [Flonase Allergy Relief] 50 mcg/actuation sp ray,suspension 1 spray intranasal BID Qty: 16 2RF Rx Instructions: administer into each nostril insulin lispro [Humalog KwikPen Insulin] 100 unit/mL insulin pen 10 unit subcut .before meals MDD 40 Qty: 45 0RF Rx Instructions: 10 units three times/day before meals (DME) FreeStyle Filemon 2 Andrew Misc See Rx Instructions .Route Qty: 1 0RF Rx Instructions: use with Filemon 2 Sensors (DME) FreeStyle Filemon 2 Sensor Kit See Rx Instructions .Route Qty: 2 2RF Rx Instructions: change every 14 days Follow-up/Referrals: Trung Avendaño MD [Primary Care Provider] - 3 Days Time of Disposition: 23:46
[2024-02-20 22:53] LABS: Add Urine Microscopic? YES; Appearance Urine Clear (Clear); Bacteria Urine None Seen /hpf; Bilirubin Urine Negative (Negative); Blood Urine Negative (Negative); Color Urine Yellow (Yellow); Glucose Urine UA Negative (Negative); Ketones Urine Negative (Negative); Leukocyte Esterase Ur Negative LEU/UL (Negative); Nitrate Urine Negative (Negative); Non Pathogenic Casts 0-2; Protein Urine 2+ mg/dL (Negative); RBC Urine 0-2 /hpf (0-2); Specific Grav Ur 1.014 (1.001-1.035); Squamous Epithelial Cell Urine None Seen /hpf (Few); Urobilinogen Urine 0.2 mg/dL (<2.0); WBC Urine 0-5 /hpf (0-3); pH Urine 5.5 (5.0-9.0)
[2024-02-21 00:40] VITALS: BP 169/82; PULSE 84; RESP 16; O2SAT 100
== END 2024-02-21 00:51 | disposition home or self-care (01) ==
PROVIDERS: Registered Nurse; Emergency Provider Emergency Medicine; PCP Family Medicine
DX: K59.00 Constipation, unspecified (principal); L89.153 Pressure ulcer of sacral region, stage 3; I12.9 Hypertensive chronic kidney disease with stage 1 through stage 4 chronic kidney disease, or unspecified chronic kidney disease; E11.22 Type 2 diabetes mellitus with diabetic chronic kidney disease; N18.9 Chronic kidney disease, unspecified; Z79.4 Long term (current) use of insulin; D64.9 Anemia, unspecified; F41.9 Anxiety disorder, unspecified; F32.A Depression, unspecified; K21.9 Gastro-esophageal reflux disease without esophagitis; I50.9 Heart failure, unspecified; G47.30 Sleep apnea, unspecified; R94.31 Abnormal electrocardiogram [ECG] [EKG]
CPT/HCPCS: 36415; 74176; 80053; 81001; 83690; 84484; 85025; 85610; 85730; 93005; 99284

== ENCOUNTER 2024-06-04 13:32 | Outpatient (CLI) | payer MEDICARE, MEDICAID, SELFPAY ==
--- OUTSIDE RECORDS SUMMARY | 2024-06-04 14:59 | XMS_ITS ---
Author Organization [facility] Address [address] [place], [place] [id number] Care Team Providers Care Relish Blender Name Role Phone Trung Avendaño Unavailable Unavailable SAGARENZO Webb Unavailable [phone] Allergies No Known Allergies REASON FOR VISIT Patient presents for at-risk foot care . The patient has painful toenails that are causing difficulty with ambulation and shoegear. The onset is gradual. The patient has diabetes mellitus Medications Medication SIG (Take, Route, Frequency, Duration) Notes Start Date End Date Status Cephalexin 500 MG Oral for 10 Days Active Docusate Sodium 100 MG Oral for 15 Days Active Antifungal 2 % External for 20 Days Active Lantus SoloStar 100 UNIT/ML Subcutaneous for 40 Days Active Ondansetron HCl 4 MG Oral for 10 Days Active Terazosin HCl 2 MG Oral for 30 Days Active BD AutoShield Duo 30G X 5 MM for 20 Days Active Sertraline HCl 50 MG Oral for 30 Days Active Simvastatin 40 MG Oral for 30 Days Active Omeprazole 40 MG Oral for 30 Days Active Eliquis 2.5 MG Oral for 30 Days Active Metoclopramide HCl 10 MG Oral for 30 Days Active Gabapentin 300 MG Oral for 30 Days Active buPROPion HCl ER (SR) 150 MG Oral for 30 Days Active Metoprolol Succinate ER 50 MG Oral for 30 Days Active Clotrimazole 1 % External for 10 Days Active Vital Signs Weight 300 lbs 04/28/2024 Weight-kg 136.08 kg 04/28/2024 Encounters Encounter Location Date Provider Diagnosis [facility] [place] [address] [place], [place] [id number] 04/28/2024 ENZO BAER Tinea unguium B35.1 ; Pain in right toe(s) M79.674 ; Pain in left toe(s) M79.675 ; Atherosclerosis of [place] arteries of extremities with intermittent claudication, bilateral legs I70.213 and Type 2 diabetes mellitus with other circulatory complications E11.59 Assessments Encounter Date Diagnosis (ICD Code) Assessment Notes Treatment Notes Treatment Clinical Notes Section Notes 04/28/2024 Tinea unguium (ICD-10 - B35.1) NAIL DEBRIDEMENT: Nails 1-5 Bilateral were debrided extensively with nail nippers and emery board, reducing length and girth to pink healthy tissue with any subungual debris and necrotic tissue removed 04/28/2024 Pain in right toe(s) (ICD-10 - M79.674) 04/28/2024 Pain in left toe(s) (ICD-10 - M79.675) 04/28/2024 Atherosclerosis of [place] arteries of extremities with intermittent claudication, bilateral legs (ICD-10 - I70.213) 04/28/2024 Type 2 diabetes mellitus with other circulatory complications (ICD-10 - E11.59) Diabetic Foot Care: The patient was educated on diabetes and the lower extremity. The patient was instructed to check his feet daily to report any problems or signs of infection immediately. The patient was provided written information on Diabetic Foot Care as well as the Amputation Prevention Guide. Plan Of Treatment Treatment Notes Assessment Notes Tinea unguium NAIL DEBRIDEMENT: Na ils 1-5 Bilateral were debrided extensively with nail nippers and emery board, reducing length and girth to pink healthy tissue with any subungual debris and necrotic tissue removed Type 2 diabetes mellitus wit h other circulatory complications Diabetic Foot Care: The patient was educated on diabetes and the lower extremity. The patient was instructed to check his feet daily to report any problems or signs of infection immediately. The patient was provided written information on Diabetic Foot Care as well as the Amputation Prevention Guide. Next Appt Details Follow Up: 10 - 12 weeks, Re ason: At-Risk Foot care, sooner if problems develop. Provider Name:ENZO BAER, 01:00:00 PM, [address], [place], [place], [id number], Progress Notes * Ramos ELIASDOB:1940 ( 83 yo M)Acc No.[id number]:04/28/2024 Progress Notes Patient: Ramos FERRARO Provider: Carlos Baer DPM :1940 A ge:83 Y S ex:Male Date:04/28/2024 Address:[facility] [address], [id number] Subjective: * Chief Complaints: * Claire banegas presents for at-risk foot care . The patient has painful toenails that are causing difficulty with ambulation and shoegear. The onset is gradual. The patient has diabetes mellitus * HPI: H PI: General care Claire banegas presents to the office for diabetic foot care. Patient states that their nails are thickened, elongated and painful. Patient states that it is aggravated by shoe gear. Onset is gradual., Patient denies taking blood thinners., Date last seen by Dr. Avendaño was March 2024. Initials ars. * ROS: G eneral / Constitutional: Patient denies c hills, fever, weight loss. ? M usculoskeletal: Patient denies b roken foot bone. P bassam complains of?wheelchair use. P eripheral Vascular: Patient denies p ain / cramping in legs after exertion, ulceration of feet. S kin: Patient complains of f ungal nails, nail changes. ? N eurologic: Patient denies c onfusion, difficulty speaking, dizziness.? * Medical History: * Surgical History: H ernia Rotator Cuff * Hospitalization/Major Diagno stic Procedure: * Family History: F ather: stroke. M other: Respiratory Disease, Cancer. * Medications: T akingGabapentin 300 MG Capsule Oral buPROPion HCl ER (SR) 150 MG Tablet Extended Release 12 Hour Oral Eliquis 2.5 MG Tablet Oral Metoclopramide HCl 10 MG Tablet Oral Metoprolol Succinate ER 50 MG Tablet Extended Release 24 Hour Oral Omeprazole 40 MG Capsule Delayed Release Oral Sertraline HCl 50 MG Tablet Oral Simvastatin 40 MG Tablet Oral Terazosin HCl 2 MG Capsule Oral BD AutoShield Duo 30G X 5 MM Miscellaneous Cephalexin 500 MG Capsule Oral Antifungal 2 % Powder External Lantus SoloStar 100 UNIT/ML Solution Pen-injector Subcutaneous Docusate Sodium 100 MG Capsule Oral Ondansetron HCl 4 MG Tablet Oral Clotrimazole 1 % Cream External Medication List reviewed and reconciled with the patientTaking Gabapentin 300 MG Capsule Oral Taking buPROPion HCl ER (SR) 150 MG Tablet Extended Release 12 Hour Oral Taking Eliquis 2.5 MG Tablet Oral Taking Metoclopramide HCl 10 MG Tablet Oral Taking Metoprolol Succinate ER 50 MG Tablet Extended Release 24 Hour Oral Taking Omeprazole 40 MG Capsule Delayed Release Oral Taking Sertraline HCl 50 MG Tablet Oral Taking Simvastatin 40 MG Tablet Oral Taking Terazosin HCl 2 MG Capsule Oral Taking BD AutoShield Duo 30G X 5 MM Miscellaneous Taking Cephalexin 500 MG Capsule Oral Taking Antifungal 2 % Powder External Taking Lantus SoloStar 100 UNIT/ML Solution Pen-injector Subcutaneous Taking Docusate Sodium 100 MG Capsule Oral Taking Ondansetron HCl 4 MG Tablet Oral Taking Clotrimazole 1 % Cream External Medication List reviewed and reconciled with the patient * Allergies: N .K.D.A.no[Allergies Verified] Objective: * Vitals: S hoe Size: 7, Wt: 300 lbs, Wt-k.08 kg. * Examination: P hysical Examination: General appearance: A lert, pleasant, well-nourished and in no acute distress. D ermatologic: Skin findings: S kin is thin, atrophic and lacking pedal hair. Nail pathology: N ails 1, 2, 3, 4, and 5 bilateral are elongated, thick, discolored, and dystrophic with subungual debris. They are painful to palpation. ? V ascular: Dorsalis pedis pulse: 1 /4 b ilateral. Posterior tibial pulse: 0 /4 bilateral. Capillary refill: g reater than 3 seconds. Edema: m ild edema bilateral. N eurologic: Gross sensation G rossly intact to light touch. There is negative Tinel's sign. M usculoskeletal: Muscle Strength M uscle strength is 5/5 in regards to dorsiflexion, plantarflexion, inversion, and eversion in bilateral lower extremities. ? Assessment: * Assessment: 1. T jonathan hummeluium - B35.1 (Primary) 2 . P ain in right toe(s) - M79.674? 3. P ain in left toe(s) - M79.675 4 . A therosclerosis of nik[place] arteries of extremities with intermittent claudication, bilateral legs - I70.213 5 . T ype 2 diabetes mellitus with other circulatory complications - E11.59 Plan: * Treatment: 2. T ype 2 diabetes mellitus with other circulatory complications Notes: Diabetic Foot Care: The patient was educated on diabetes and the lower extremity. The patient was instructed to check his feet daily to report any problems or signs of infection immediately. The patient was provided written information on Diabetic Foot Care as well as the Amputation Prevention Guide. * Procedure Codes: * Follow Up: 1 0 - 12 weeks (Reason: At-Risk Foot care, sooner if problems develop.) * Billing Information: * Visit Code: 94847 Office Visit, New Pt., Level 3. * Procedure Codes: * UTERIZED TABLE CUTTER Sign off status: Completed true * Provider: Carlos Baer DPM Date: 0 04/28/2024 Generated for Rae mari/Leo/Cori on: 0 06/04/2024 02:59 PM COMPUTERIZED TABLE CUTTER History and Physical Notes * HPI (History of Present Illness) Category Sub-Category Detail Notes Category Not es HPI General care Patient presents to the office for diabetic foot care. Patient states that their nails are thickened, elongated and painful. Patient states that it is aggravated by shoe gear. Onset is gradual., Patient denies taking blood thinners., Date last seen by Dr. Avendaño was March 2024. Initials ars Examination Category Sub-Category Detail Notes Category Not es Dermatologic Skin findings: Skin is thin, at rophic and lacking pedal hair Nail pathology: Nails 1, 2, 3, 4, an d 5 bilateral are elongated, thick, discolored, and dystrophic with subungual debris. They are painful to palpation Neurologic Gross sensation Grossly intact t o light touch. There is negative Tinel's sign Vascular Dorsalis pedis pulse: 1/4 bilateral Edema: mild edema bilateral Capillary refill: greater than 3 secon ds Posterior tibial pulse: 0/4 bilateral Physical Examination General appearance: Alert, pleasant, well-nourished and in no acute distress Musculoskeletal Muscle Strength Muscle strength is 5/5 in regards to dorsiflexion, plantarflexion, inversion, and eversion in bilateral lower extremities
--- OUTSIDE RECORDS SUMMARY | 2024-06-04 14:59 | XMS_ITS | Continuity of Care Document ---
Author Organization [facility] [place] [place] Address [address] [place] [address] Phone Care Team Providers Care Cap And Stud Machine Operator Name Role Phone Kirill Carrillo Unavailable Unavailable Procedures Procedure Date Office/outpatient Visit, Est Dilated Retinal Exam W Interpretation Sd Eye Exam & Treatment Dilated Retinal Exam W Interpretation Office/outpatient Visit, Est Eye Exam & Treatment Refraction Advance Directives Directive Yes / No Effective Date File Name No Information Encounters Encounter Description Practice Location Reason(s) For Visit Diagnoses Date Provider Providers Copied on Encounter Office/outpat ient Visit, Est [facility], [address] [place] [address] [address], [place], [place], [id number], [place] tel:[phone] [facility] No Information May-0 9-201 0 Gerardo Pedrazal. [address] [facility] [address], [place], [place], [facility], [place]. tel:[phone] [facility], [address] [place] [address] [address], [place], [place], [id number], [place] tel:[phone] [facility] No Information May-0 5-200 9 Metz Amy. [address] [facility] , [address], [place], [place], [facility], [place]. tel:[phone] Office/outpat ient Visit, [facility], [address] [place] [address] [address], [place], [place], [id number], tel:[phone] [facility] No Information 1-200 8 Lashay Reyes. [address] , [address], [place], [address], . tel:[phone] [facility], [address], [place], [place], [address], tel:[phone] [facility] No Information -200 7 Lashay Reyes. [address] , [address], [place], [address], [place]. tel:[phone] Family History Family Member Type Diagnosis Age At Onset No Information Payers Payer name Insurance type Covered alliance party ID Authoriza tion(s) [place] [id number] Social History Type Description Quantity Date Captured [...]
--- OUTSIDE RECORDS SUMMARY | 2024-06-04 14:59 | XMS_ITS | Patient Health Record ---
Author Organization [facility] Address [address] [place], [place] [id number] Care Team Providers Care Senior Reliability Engineer Name Role Phone Trung Avendaño Unavailable Unavailable ENZO BAER Unavailable [phone] Allergies No Known Allergies Reason For Referral No Information Medications Medication SIG (Take, Route, Frequency, Duration) Notes Start Date End Date Status BD AutoShield Duo 30G X 5 MM for 20 Days Active Cephalexin 500 MG Oral for 10 Days Active Eliquis 2.5 MG Oral for 30 Days Active Docusate Sodium 100 MG Oral for 15 Days Active Metoclopramide HCl 10 MG Oral for 30 Days Active Gabapentin 300 MG Oral for 30 Days Active Antifungal 2 % External for 20 Days Active buPROPion HCl ER (SR) 150 MG Oral for 30 Days Active Lantus SoloStar 100 UNIT/ML Subcutaneous for 40 Days Active Sertraline HCl 50 MG Oral for 30 Days Active Clotrimazole 1 % External for 10 Days Active Simvastatin 40 MG Oral for 30 Days Active Metoprolol Succinate ER 50 MG Oral for 30 Days Active Omeprazole 40 MG Oral for 30 Days Active Ondansetron HCl 4 MG Oral for 10 Days Active Terazosin HCl 2 MG Oral for 30 Days Active Vital Signs Weight-kg 136.08 kg 04/28/2024 Weight 300 lbs 04/28/2024 Encounters Encounter Location Date Provider Diagnosis [facility] [address] [place], [place] [id number] 04/28/2024 ENZOMARKY BAER Tinea unguium B35.1 ; Pain in right toe(s) M79.674 ; Pain in left toe(s) M79.675 ; Atherosclerosis of [place] arteries of extremities with intermittent claudication, bilateral [...] toe(s) (ICD-10 - M79.675) 04/28/2024 Atherosclerosis of [place] arteries of extremities with intermittent claudication, bilateral [...] the Amputation Prevention Guide. Plan Of Treatment Next Appt Details Provider Name:ENZO BAER, 01:00:00 PM, [address], [address], [id number], Insurance Providers Payer Name Payer Address Payer Phone Subscriber Number Group Number Insured Name Patient Relationship to Insured Coverage Start Date Coverage End Date [address] [id number] Ramos Urbina Self - patient is the insured Medical (General) History Medical History History ICD Code Diabetic Surgical History Surgery Date(Month/Year) Hernia Rotator Cuff
== END 2024-06-04 13:33 | disposition home or self-care (01) ==
LOC: ANHAUDIO 13:32
PROVIDERS: PCP Family Medicine; Visit Provider Otolaryngology
DX: H90.3 Sensorineural hearing loss, bilateral (principal)
CPT/HCPCS: 92557

== ENCOUNTER 2024-12-30 09:31 | Inpatient (IN) | payer MEDICARE, MEDICAID, SELFPAY ==
--- OUTSIDE RECORDS SUMMARY | 2009-06-08 08:45 | XMS_ITS | Continuity of Care Document ---
Author Organization [facility] Address [address] [place] [address] Phone Care Team Providers Care Erp Implementation Consultant Name Role Phone Kirill Carrillo Unavailable Unavailable Procedures Procedure Date Office/outpatient Visit, Est Dilated Retinal Exam W Interpretation [place] Eye Exam & Treatment Dilated Retinal Exam W Interpretation Office/outpatient Visit, Est Eye Exam & Treatment Refraction Advance Directives Directive Yes / No Effective Date File Name No Information Encounters Encounter Description Practice Location Reason(s) For Visit Diagnoses Date Provider Providers Copied on Encounter Office/outpat ient Visit, Est [facility], [id number] [place] [address] [address], [place], [place], [id number], [place] tel:[phone] [facility] No Information May-0 9-201 0 Gerardo Pedrazal. [address] [facility] [address], [place], [place], [facility], [place]. tel:[phone] [facility], [id number] [place] [address] [address], [place], [place], [id number], [place] tel:[phone] [facility] No Information May-0 5-200 9 Metz Amy. [address] [facility] , [address], [place], [place], [facility], [place]. tel:[phone] Office/outpat [place], [facility] [id number] [place] [address] [address], [place], [place], [id number], tel:[phone] SEC [facility] No Information 1-200 8 Lashay Reyes. [address] [facility] [place] , [address], [place], [address], . tel:[phone] [facility], [address] [facility] [address], [place], [place], [id number], tel:[phone] [facility] No Information -200 7 Lsahay Reyes. [address] [facility] , [address], [place], [address], [place]. tel:[phone] Family History Family Member Type Diagnosis Age At Onset No Information Payers Payer name Insurance type Covered alliance party ID Authoriza tion(s) [place] [id number] Social History Type Description Quantity Date Captured Comments Sex Male Smoking Status No Information Chief Complaint And Reason For Visit No Information Reason For Referral Reason For Referral No Information History Of Present Illness Encounter Date Complaint History Of Prese nt Illness No Information Functional Status Date Functional Assessmen t No Information Instructions Date Instruction Additional Infor mation No Information Assessments Type Assessment Date No Information Patient Care Teams Name Effective Dates (start - stop) Status Members No Information
--- OUTSIDE RECORDS SUMMARY | 2024-07-28 08:00 | XMS_ITS ---
Author Organization [facility] Address [address] [place], [place] [id number] Care Team Providers Care Rail Car Driver Name Role Phone ENZO BAER Unavailable [phone] Trung Avendaño Unavailable Unavailable REASON FOR VISIT *General care Encounters Encounter Location Date Provider Diagnosis [facility] [place] [address] [facility] [address] [place], [place] [id number] 07/28/2024 ENZO BAER Plan Of Treatment No Information Progress Notes * Ramos ELIASDOB:1940 ( 84 yo M)Acc No.[id number]:07/28/2024 Patient: Claire ANAIS Ramos Provider: Carlos Baer DPM :1940 A ge:83 Y S ex:Male Date:07/28/2024 Address:[address] , [address], [place], [id number] Subjective: * Chief Complaints: * 1 . *General care. * Medical History: Objective: * Vitals: Assessment: Plan: * Treatment: * Billing Information: * Visit Code: * Procedure Codes: * Electronic signature of ENZO BAER DPM on 12/30/2024 at 10:13 AM CDT Sign off status: Pending * Provider: Carlos Baer DPM Date: 0 07/28/2024 Generated for Printi ng/Fajayeg/eTransmitting on: 0 12/30/2024 10:13 AM CDT
[2024-12-30] VITALS (14 sets, daily range): BP systolic 110–134; BP diastolic 42–63; PULSE 62–106; RESP 18–20; TEMP 36.4–38.5; O2SAT 95–99; BMI 45.1
--- NOTE | ~2024-12-30 | CT_ITS ---
Exam: CT chest, abdomen and pelvis with contrast Clinical History: [Fever. Altered mental status ] Comparison: [ CT abdomen and pelvis 02/20/2024; CT chest 12/26/2023] Technique: Multiple axial CT images of the chest, abdomen and pelvis were obtained without IV contrast. Sagittal and coronal reformatted images were obtained. FINDINGS: Lungs and pleura: [ Tracheobronchial tree is patent. No pneumothorax. No pleural effusion. No pulmonary mass. There are a few calcified granulomas throughout the lungs. 5 mm pulmonary nodule in the right upper lobe. There are a few small subpleural reticular and patchy opacities in the lower lungs.] Mediastinum and pulmonary marshall: [ No mass or adenopathy.] Axillary/intramammary and supraclavicular: [ No mass or adenopathy.] Heart and great vessels: [ Heart is mildly enlarged. [ Small pericardial effusion.] [ No aneurysm.] Coronary artery calcifications. Moderate atherosclerotic disease in the thoracic aorta. Chest Wall: [ Unremarkable.] Liver: [ No mass.] [ No intrahepatic biliary duct dilatation.] Gallbladder: [ No wall thickening or stones.] Common bile duct: [ Normal caliber.] [ No stones.] Spleen: [ Within normal limits.] Pancreas: [ No mass. No pancreatic fluid collection.] Adrenals: [ No masses.] Kidneys: [ No masses. No hydronephrosis.][ ] Lymph nodes: [ No adenopathy in the abdomen or pelvis.] Stomach, small bowel and colon: [ No bowel wall thickening or obstruction.] Moderate amount of stool. Peritoneum cavity: [ No mesenteric fat stranding or fluid.] Bladder: Moderate thickening of the osborne of the bladder with a small amount of air within the bladder. There is a Artis catheter in the bladder. Osseous structures: [ [ Multilevel degenerative change in the visualized spine.] Hardware noted in the lumbosacral spine. Correlate clinically. Abdominal aorta: [ No aneurysm.] Additional findings: [ None of significance.] IMPRESSION: 1. Moderate thickening of the osborne of the bladder with a small amount of air within the bladder. Differential includes incomplete bladder wall distention versus cystitis. The small amount of air in the bladder may be due to recent Artis catheter placement versus cystitis. 2. There are a few small subpleural reticular and patchy opacities in the lower lungs. Differential includes atelectasis/scarring or infiltrates. 3. There is a 5 mm pulmonary nodule in the right upper lobe. A follow-up chest CT in 3 months is recommended. Reviewed, dictated and finalized at location Q. IMPRESSION: 1. Moderate thickening of the osborne of the bladder with a small amount of air w ithin the bladder. Differential includes incomplete bladder wall distention jorge ruslan cystitis. The small amount of air in the bladder may be due to recent Artis catheter placement versus cystitis. 2. There are a few small subpleural reticular and patchy opacities in the lower lungs. Differential includes atelectasis/scarring or infiltrates. 3. There is a 5 mm pulmonary nodule in the right upper lobe. A follow-up chest CT in 3 months is recommended.
--- NOTE | ~2024-12-30 | CT_ITS ---
EXAMINATION: CT cervical spine wo con COMPARISON: None HISTORY: trauma TECHNIQUE: Axial images were obtained through the spine without IV contrast. Coronal, sagittal reconstruction images were obtained from the axial views. CT scan performed using dose optimization techniques including the following automated exposure control; adjustment of mA and/or kV; use of iterative reconstruction technique. Automatic exposure control was used to reduce radiation dose. Permanent radiation dose record is archived to PACS. FINDINGS: Grade 1 anterolisthesis of C4 on C5 C5 on C6, no fracture. Moderate to severe loss of disc height throughout with multilevel moderate canal and foraminal stenosis. Soft tissues unremarkable. The lung apices demonstrate chronic changes with scattered calcified granulomas. Impression: No acute abnormality. Reviewed, dictated and finalized at location P. Impression: No acute abnormality.
--- NOTE | ~2024-12-30 | XR_ITS ---
Examination: XR chest 1V Clinical History: fever Comparison: None Technique: Portable AP Findings: Low lung volumes magnify heart size and crowding of bronchovascular markings. Heart size prominent. Diffuse interstitial opacities. No acute bony abnormality. IMPRESSION: 1. Interstitial pulmonary edema and/or pneumonitis. Reviewed, dictated and finalized at location R.
--- NOTE | ~2024-12-30 | CT_ITS ---
EXAMINATION: CT brain wo con DATE: 12/30/2024 10:18 INDICATION: Fall TECHNIQUE: Computed tomography (CT) of the head was performed without intravenous contrast. The dose-length product was 605.33 mGy-cm. COMPARISON: None FINDINGS: No acute intracranial hemorrhage. No mass effect. No midline shift. No hydrocephalus. No skull fracture. Visualized paranasal sinuses mastoid air cells are clear. There are several low density regions scattered throughout the periventricular and deep white matter which are favored to represent chronic ischemic white matter change. This study is slightly limited due to motion artifact. IMPRESSION: 1. No acute intracranial hemorrhage. No mass effect. 2. Probable chronic ischemic white matter change. Reviewed, dictated and finalized at location Q.
--- NOTE | 2024-12-30 09:40 | ECG_ITS ---
Test Date: 2024-12-30 09:55:13 Measurements Intervals [place] Rate: 106 P: 13 RI: 242 QRS: -14 QRSD: 87 T: 62 QT: 304 QTc: 405 Interpretive Statements SINUS TACHYCARDIA WITH FIRST DEGREE AV BLOCK NONSPECIFIC T-WAVE ABNORMALITY Compared to ECG 02/20/2024 20:11:23 T-wave abnormality now present Sinus rhythm no longer present Myocardial infarct finding no longer present Electronically Signed On 12-30-2024 14:43:43 CDT by Hill Pate M.D.
--- NOTE | 2024-12-30 09:52 | ED.GENADULT ---
HPI - General Adult General Chief complaint: Altered Mental Status Stated complaint: fall History of Present Illness HPI narrative: 84-year-old male presents to the emergency department for evaluation for increased confusion, generalized weakness and 2 falls today. Patient reports he does feel confused compared to his baseline. Patient denies any pain from the fall. Patient states he did not strike his head. Patient did have a temperature of 101.3? on arrival. Patient denies any recent illnesses coughs colds fevers or pain with urination. Patient does have prior history of tremor, high cholesterol, hypertension, diabetes, peripheral neuropathy, peripheral arterial disease, sleep apnea, CHF Related Data Home Medications ?Medication ?Instructions ?Recorded ?Confirmed ?Last Taken ?Type simvastatin 40 mg tablet 40 mg PO HS 06/29/21 12/30/24 Unknown History acetaminophen 325 mg capsule 650 mg PO Q6H PRN headache/fever 12/07/22 12/30/24 Unknown History bupropion HCl 150 mg tablet,12 hr 150 mg PO BID 12/07/22 12/30/24 Unknown History sustained-release buspirone 5 mg tablet 5 mg PO BID 12/07/22 12/30/24 Unknown History terazosin 2 mg capsule 2 mg PO BID 12/07/22 12/30/24 Unknown History ropinirole 1 mg tablet 1 mg PO QHS 03/06/23 12/30/24 Unknown History debrdedpjr-ormuhrysnekjj-tltprpbk 1 - 2 cap PO Q6H PRN headaches 05/01/23 12/30/24 Unknown History 50 mg-325 mg-40 mg capsule (Esgic) miconazole nitrate 2 % topical 1 applic topical BID PRN irritation 12/26/23 12/30/24 Unknown History powder (Zeasorb AF) olopatadine 0.1 % eye drops 1 drp EACH EYE BID 12/26/23 12/30/24 Unknown History (Pataday Twice Daily Relief) torsemide 10 mg tablet 10 mg PO QAM 01/17/24 12/30/24 Unknown History cholecalciferol (vitamin D3) 1,250 1,250 mcg PO WEEKLY 05/07/24 12/30/24 Unknown History mcg (50,000 unit) capsule insulin lispro 100 unit/mL 1 sliding scale dose subcut 12/30/24 12/30/24 Unknown History subcutaneous pen (Humalog KwikPen TIDWMEAL (U-100) Insulin) polyethylene glycol 3350 17 17 g PO DAILY 12/30/24 12/30/24 Unknown History gram/dose oral powder Allergies Allergy/AdvReac Type Severity Reaction Status Date / Time No Known Allergies Allergy Mild Verified 12/30/24 16:16 Review of Systems Review of Systems: All systems reviewed & are unremarkable except as noted in HPI and below PMFSH Past Medical History Medical History Tremor Hearing loss Cellulitis of leg, left Edema Tinea cruris Abdominal pain Seasonal allergies Morbid obesity with BMI of 40.0-44.9, adult Chronic low back pain Chronic kidney disease Hyperlipidemia Lower abdominal pain Urinary frequency Nausea GERD (gastroesophageal reflux disease) Depression Anxiety Anemia Encounter to establish care Wound of right foot Obstructive sleep apnea on CPAP History of congestive heart failure Peripheral arterial disease Peripheral neuropathy Generalized weakness Morbid obesity Diabetes mellitus Hypertension Surgical History Surgical History S/P left knee arthroscopy Family History Family History Father Congestive heart failure Cerebrovascular accident Hypertension Mother Congestive heart failure Lung cancer Heart disease Sibling Hypertension Daughter Lung cancer Depression Grandparent Diabetes mellitus Social History Social History Smoking status: Never smoker Alcohol intake: never Substance use: never Substance use type: does not use Do You Feel Safe in your Home?: Yes Lack of Transportation: No Lack of Food: Never True Current Housing: I Have Housing Concerned About Future Housing: No Difficulty Paying Gas/Electric Bills: No Difficulty Paying for Meds: No Currently Unemployed: No Education: Grade School Difficulty w/ Childcare or Family Care: No Gender identity (if verbalized by the patient): Male Spiritual care concerns: No Exam Narrative: APPEARANCE: Ill-appearing HEAD: normocephalic, atraumatic. EYES: PERRLA/EOMI, conjunctivae clear. NOSE: Normal no drainage EARS:TMS clear with good light reflex. THROAT: Pharynx clear, no exudate. NECK: Supple. No adenopathy, no masses. RESPIRATORY: Airway patent, respirations nonlabored. Clear to auscultation bilaterally, no rales, rhonchi, wheezing. CARDIOVASCULAR: Tachycardia ABDOMINAL: Soft, nontender, nondistended, normal bowel sounds MUSCULOSKELETAL: Moves all extremities. Strength/ROM intact, No edema, No calf tenderness. NEURO: Alert. Tremor at baseline SKIN: Warm, dry. Normal Color Course Vital Signs Vital signs: Vital Signs Temperature 101.3 F H 12/30/24 09:32 Pulse Rate 106 H 12/30/24 09:32 Respiratory Rate 18 12/30/24 09:32 Blood Pressure 124/48 L 12/30/24 09:32 Pulse Oximetry 96 12/30/24 09:32 Oxygen Delivery Room Air 12/30/24 09:32 Temperature 97.6 F 12/30/24 15:37 Pulse Rate 100 12/30/24 16:00 Respiratory Rate 18 12/30/24 15:54 Blood Pressure 110/42 L 12/30/24 15:37 Pulse Oximetry 95 12/30/24 15:59 Oxygen Delivery Room Air 12/30/24 15:59 Medical Decision Making MDM Narrative Medical decision making narrative: 84-year-old male presents emergency department for evaluation for altered mental status and frequent falls. Patient was found to have a temperature of 101.3?. Patient was treated with Tylenol. Blood cultures and CRP were ordered. Head CT and cervical spine CT were negative for acute injury. CT was concerning for pneumonia. Blood cultures were ordered patient was started antibiotics. Case was discussed with hospitalist patient was accepted for admission. Patient was stable time of admission. Differential Diagnosis Differential Diagnosis: Pneumonia, colitis, diverticulitis, subdural hematoma, subarachnoid hemorrhage, cervical spine fracture, UTI Vital Signs Vital Signs: Vital Signs Temperature 101.3 F H 12/30/24 09:32 Pulse Rate 106 H 12/30/24 09:32 Respiratory Rate 18 12/30/24 09:32 Blood Pressure 124/48 L 12/30/24 09:32 Pulse Oximetry 96 12/30/24 09:32 Oxygen Delivery Room Air 12/30/24 09:32 Temperature 97.6 F 12/30/24 15:37 Pulse Rate 100 12/30/24 16:00 Respiratory Rate 18 12/30/24 15:54 Blood Pressure 110/42 L 12/30/24 15:37 Pulse Oximetry 95 12/30/24 15:59 Oxygen Delivery Room Air 12/30/24 15:59 Lab Data Lab results reviewed: Yes I reviewed the patient's lab results. 12/30/24 09:55 12/30/24 09:53 Labs: Lab Results 12/30/24 12/30/24 12/30/24 Range/Units 09:53 09:53 09:53 WBC (4.5-10.0) K/mm3 RBC (4.6-6.20) M/mm3 Hgb (14.0-18.0) g/dL Hct (42.0-52.0) % MCV (80-100) fl MCH (26-34) pg MCHC (32-36) g/dl RDW (11.5-14.5) % Plt Count (150-375) k/mm3 MPV (7.4-10.4) fl Immature Gran % (Auto) (0-0.5) % Neut % (Auto) (45.5-73.1) % Lymph % (Auto) (18.3-44.2) % [place] % (Auto) (2.6-8.5) % Eos % (Auto) (0-4.4) % Baso % (Auto) (0.2-1.2) % Lymph # (Auto) (0.9-3.2) K/mm3 [place] # (Auto) (0.1-0.6) K/mm3 Eos # (Auto) (0-0.3) K/mm3 Baso # (Auto) (0.0-0.1) K/mm3 Abs Immat Gran (auto) (0.00-0.031) K/mm3 Absolute Neuts (auto) (1.3-6.7) K/mm3 Absolute Nucleated RBC (0.0-0.012) K/mm3 Nucleated RBC % (0.0-0.2) % PT 16.1 H (11.1-14.7) Seconds INR 1.3 APTT 35.9 (22.3-36.8) Seconds Sodium Cancelled 133 L Potassium Cancelled 5.2 H Chloride Cancelled Carbon Dioxide Anion Gap BUN Creatinine Estim Creat Clear Calc Estimated GFR Glucose Lactic Acid (0.7-2.0) mmol/L Calcium Total Bilirubin AST ALT Alkaline Phosphatase C-Reactive Protein (<1.0) mg/dL NT-Pro-B Natriuret Pep (19.9-100) pg/mL Total Protein Albumin Urine Color (Yellow) Urine Appearance (Clear) Urine pH (5.0-9.0) Ur Specific [place] (1.001-1.035) Urine Protein (Negative) mg/dL Urine Glucose (UA) (Negative) mg/dL Urine Ketones (Negative) mg/dL Ur Blood (Man) (Negative) Urine Nitrate (Negative) Urine Bilirubin (Negative) Urine Urobilinogen (<2.0) mg/dL Leukocyte Esterase Rfl (Negative) ELIZ/UL Urine RBC (0-2) /hpf Urine WBC (0-3) /hpf Ur Squamous Epith Cells (Few) /hpf Urine Bacteria /hpf Urine Casts Influenza A (RT-PCR) (Negative) Influenza B (RT-PCR) (Negative) RSV (RT-PCR) (Negative) SARS-CoV-2 RNA (RT-PCR) (Negative) 12/30/24 12/30/24 12/30/24 Range/Units 09:53 09:53 09:53 WBC (4.5-10.0) K/mm3 RBC (4.6-6.20) M/mm3 Hgb (14.0-18.0) g/dL Hct (42.0-52.0) % MCV (80-100) fl MCH (26-34) pg MCHC (32-36) g/dl RDW (11.5-14.5) % Plt Count (150-375) k/mm3 MPV (7.4-10.4) fl Immature Gran % (Auto) (0-0.5) % Neut % (Auto) (45.5-73.1) % Lymph % (Auto) (18.3-44.2) % [place] % (Auto) (2.6-8.5) % Eos % (Auto) (0-4.4) % Baso % (Auto) (0.2-1.2) % Lymph # (Auto) (0.9-3.2) K/mm3 [place] # (Auto) (0.1-0.6) K/mm3 Eos # (Auto) (0-0.3) K/mm3 Baso # (Auto) (0.0-0.1) K/mm3 Abs Immat Gran (auto) (0.00-0.031) K/mm3 Absolute Neuts (auto) (1.3-6.7) K/mm3 Absolute Nucleated RBC (0.0-0.012) K/mm3 Nucleated RBC % (0.0-0.2) % PT (11.1-14.7) Seconds INR APTT (22.3-36.8) Seconds Sodium Potassium Chloride 101 Carbon Dioxide Cancelled 20 L Anion Gap Cancelled 12 BUN Cancelled Creatinine Estim Creat Clear Calc Estimated GFR Glucose Lactic Acid (0.7-2.0) mmol/L Calcium Total Bilirubin AST ALT Alkaline Phosphatase C-Reactive Protein (<1.0) mg/dL NT-Pro-B Natriuret Pep (19.9-100) pg/mL Total Protein Albumin Urine Color (Yellow) Urine Appearance (Clear) Urine pH (5.0-9.0) Ur Specific [place] (1.001-1.035) Urine Protein (Negative) mg/dL Urine Glucose (UA) (Negative) mg/dL Urine Ketones (Negative) mg/dL Ur Blood (Man) (Negative) Urine Nitrate (Negative) Urine Bilirubin (Negative) Urine Urobilinogen (<2.0) mg/dL Leukocyte Esterase Rfl (Negative) ELIZ/UL Urine RBC (0-2) /hpf Urine WBC (0-3) /hpf Ur Squamous Epith Cells (Few) /hpf Urine Bacteria /hpf Urine Casts Influenza A (RT-PCR) (Negative) Influenza B (RT-PCR) (Negative) RSV (RT-PCR) (Negative) SARS-CoV-2 RNA (RT-PCR) (Negative) 12/30/24 12/30/24 12/30/24 Range/Units 09:53 09:53 09:53 WBC (4.5-10.0) K/mm3 RBC (4.6-6.20) M/mm3 Hgb (14.0-18.0) g/dL Hct (42.0-52.0) % MCV (80-100) fl MCH (26-34) pg MCHC (32-36) g/dl RDW (11.5-14.5) % Plt Count (150-375) k/mm3 MPV (7.4-10.4) fl Immature Gran % (Auto) (0-0.5) % Neut % (Auto) (45.5-73.1) % Lymph % (Auto) (18.3-44.2) % [place] % (Auto) (2.6-8.5) % Eos % (Auto) (0-4.4) % Baso % (Auto) (0.2-1.2) % Lymph # (Auto) (0.9-3.2) K/mm3 [place] # (Auto) (0.1-0.6) K/mm3 Eos # (Auto) (0-0.3) K/mm3 Baso # (Auto) (0.0-0.1) K/mm3 Abs Immat Gran (auto) (0.00-0.031) K/mm3 Absolute Neuts (auto) (1.3-6.7) K/mm3 Absolute Nucleated RBC (0.0-0.012) K/mm3 Nucleated RBC % (0.0-0.2) % PT (11.1-14.7) Seconds INR APTT (22.3-36.8) Seconds Sodium Potassium Chloride Carbon Dioxide Anion Gap BUN 60 H Creatinine Cancelled 3.39 H Estim Creat Clear Calc Cancelled Not Reportable Estimated GFR Cancelled Glucose Lactic Acid (0.7-2.0) mmol/L Calcium Total Bilirubin AST ALT Alkaline Phosphatase C-Reactive Protein (<1.0) mg/dL NT-Pro-B Natriuret Pep (19.9-100) pg/mL Total Protein Albumin Urine Color (Yellow) Urine Appearance (Clear) Urine pH (5.0-9.0) Ur Specific [place] (1.001-1.035) Urine Protein (Negative) mg/dL Urine Glucose (UA) (Negative) mg/dL Urine Ketones (Negative) mg/dL Ur Blood (Man) (Negative) Urine Nitrate (Negative) Urine Bilirubin (Negative) Urine Urobilinogen (<2.0) mg/dL Leukocyte Esterase Rfl (Negative) ELIZ/UL Urine RBC (0-2) /hpf Urine WBC (0-3) /hpf Ur Squamous Epith Cells (Few) /hpf Urine Bacteria /hpf Urine Casts Influenza A (RT-PCR) (Negative) Influenza B (RT-PCR) (Negative) RSV (RT-PCR) (Negative) SARS-CoV-2 RNA (RT-PCR) (Negative) 12/30/24 12/30/24 12/30/24 Range/Units 09:53 09:53 09:53 WBC (4.5-10.0) K/mm3 RBC (4.6-6.20) M/mm3 Hgb (14.0-18.0) g/dL Hct (42.0-52.0) % MCV (80-100) fl MCH (26-34) pg MCHC (32-36) g/dl RDW (11.5-14.5) % Plt Count (150-375) k/mm3 MPV (7.4-10.4) fl Immature Gran % (Auto) (0-0.5) % Neut % (Auto) (45.5-73.1) % Lymph % (Auto) (18.3-44.2) % [place] % (Auto) (2.6-8.5) % Eos % (Auto) (0-4.4) % Baso % (Auto) (0.2-1.2) % Lymph # (Auto) (0.9-3.2) K/mm3 [place] # (Auto) (0.1-0.6) K/mm3 Eos # (Auto) (0-0.3) K/mm3 Baso # (Auto) (0.0-0.1) K/mm3 Abs Immat Gran (auto) (0.00-0.031) K/mm3 Absolute Neuts (auto) (1.3-6.7) K/mm3 Absolute Nucleated RBC (0.0-0.012) K/mm3 Nucleated RBC % (0.0-0.2) % PT (11.1-14.7) Seconds INR APTT (22.3-36.8) Seconds Sodium Potassium Chloride Carbon Dioxide Anion Gap BUN Creatinine Estim Creat Clear Calc Estimated GFR 17 L Glucose Cancelled 169 H Lactic Acid 2.4 H (0.7-2.0) mmol/L Calcium Cancelled 8.2 L Total Bilirubin Cancelled AST ALT Alkaline Phosphatase C-Reactive Protein (<1.0) mg/dL NT-Pro-B Natriuret Pep (19.9-100) pg/mL Total Protein Albumin Urine Color (Yellow) Urine Appearance (Clear) Urine pH (5.0-9.0) Ur Specific [place] (1.001-1.035) Urine Protein (Negative) mg/dL Urine Glucose (UA) (Negative) mg/dL Urine Ketones (Negative) mg/dL Ur Blood (Man) (Negative) Urine Nitrate (Negative) Urine Bilirubin (Negative) Urine Urobilinogen (<2.0) mg/dL Leukocyte Esterase Rfl (Negative) ELIZ/UL Urine RBC (0-2) /hpf Urine WBC (0-3) /hpf Ur Squamous Epith Cells (Few) /hpf Urine Bacteria /hpf Urine Casts Influenza A (RT-PCR) (Negative) Influenza B (RT-PCR) (Negative) RSV (RT-PCR) (Negative) SARS-CoV-2 RNA (RT-PCR) (Negative) 12/30/24 12/30/24 12/30/24 Range/Units 09:53 09:53 09:53 WBC (4.5-10.0) K/mm3 RBC (4.6-6.20) M/mm3 Hgb (14.0-18.0) g/dL Hct (42.0-52.0) % MCV (80-100) fl MCH (26-34) pg MCHC (32-36) g/dl RDW (11.5-14.5) % Plt Count (150-375) k/mm3 MPV (7.4-10.4) fl Immature Gran % (Auto) (0-0.5) % Neut % (Auto) (45.5-73.1) % Lymph % (Auto) (18.3-44.2) % [place] % (Auto) (2.6-8.5) % Eos % (Auto) (0-4.4) % Baso % (Auto) (0.2-1.2) % Lymph # (Auto) (0.9-3.2) K/mm3 [place] # (Auto) (0.1-0.6) K/mm3 Eos # (Auto) (0-0.3) K/mm3 Baso # (Auto) (0.0-0.1) K/mm3 Abs Immat Gran (auto) (0.00-0.031) K/mm3 Absolute Neuts (auto) (1.3-6.7) K/mm3 Absolute Nucleated RBC (0.0-0.012) K/mm3 Nucleated RBC % (0.0-0.2) % PT (11.1-14.7) Seconds INR APTT (22.3-36.8) Seconds Sodium Potassium Chloride Carbon Dioxide Anion Gap BUN Creatinine Estim Creat Clear Calc Estimated GFR Glucose Lactic Acid (0.7-2.0) mmol/L Calcium Total Bilirubin 0.4 AST Cancelled 25 ALT Cancelled 18 Alkaline Phosphatase Cancelled C-Reactive Protein (<1.0) mg/dL NT-Pro-B Natriuret Pep (19.9-100) pg/mL Total Protein Albumin Urine Color (Yellow) Urine Appearance (Clear) Urine pH (5.0-9.0) Ur Specific [place] (1.001-1.035) Urine Protein (Negative) mg/dL Urine Glucose (UA) (Negative) mg/dL Urine Ketones (Negative) mg/dL Ur Blood (Man) (Negative) Urine Nitrate (Negative) Urine Bilirubin (Negative) Urine Urobilinogen (<2.0) mg/dL Leukocyte Esterase Rfl (Negative) ELIZ/UL Urine RBC (0-2) /hpf Urine WBC (0-3) /hpf Ur Squamous Epith Cells (Few) /hpf Urine Bacteria /hpf Urine Casts Influenza A (RT-PCR) (Negative) Influenza B (RT-PCR) (Negative) RSV (RT-PCR) (Negative) SARS-CoV-2 RNA (RT-PCR) (Negative) 12/30/24 12/30/24 12/30/24 Range/Units 09:53 09:53 09:53 WBC (4.5-10.0) K/mm3 RBC (4.6-6.20) M/mm3 Hgb (14.0-18.0) g/dL Hct (42.0-52.0) % MCV (80-100) fl MCH (26-34) pg MCHC (32-36) g/dl RDW (11.5-14.5) % Plt Count (150-375) k/mm3 MPV (7.4-10.4) fl Immature Gran % (Auto) (0-0.5) % Neut % (Auto) (45.5-73.1) % Lymph % (Auto) (18.3-44.2) % [place] % (Auto) (2.6-8.5) % Eos % (Auto) (0-4.4) % Baso % (Auto) (0.2-1.2) % Lymph # (Auto) (0.9-3.2) K/mm3 [place] # (Auto) (0.1-0.6) K/mm3 Eos # (Auto) (0-0.3) K/mm3 Baso # (Auto) (0.0-0.1) K/mm3 Abs Immat Gran (auto) (0.00-0.031) K/mm3 Absolute Neuts (auto) (1.3-6.7) K/mm3 Absolute Nucleated RBC (0.0-0.012) K/mm3 Nucleated RBC % (0.0-0.2) % PT (11.1-14.7) Seconds INR APTT (22.3-36.8) Seconds Sodium Potassium Chloride Carbon Dioxide Anion Gap BUN Creatinine Estim Creat Clear Calc Estimated GFR Glucose Lactic Acid (0.7-2.0) mmol/L Calcium Total Bilirubin AST ALT Alkaline Phosphatase 78 C-Reactive Protein 3.8 H (<1.0) mg/dL NT-Pro-B Natriuret Pep 1520 H (19.9-100) pg/mL Total Protein Cancelled 7.7 Albumin Cancelled 3.8 Urine Color (Yellow) Urine Appearance (Clear) Urine pH (5.0-9.0) Ur Specific [place] (1.001-1.035) Urine Protein (Negative) mg/dL Urine Glucose (UA) (Negative) mg/dL Urine Ketones (Negative) mg/dL Ur Blood (Man) (Negative) Urine Nitrate (Negative) Urine Bilirubin (Negative) Urine Urobilinogen (<2.0) mg/dL Leukocyte Esterase Rfl (Negative) ELIZ/UL Urine RBC (0-2) /hpf Urine WBC (0-3) /hpf Ur Squamous Epith Cells (Few) /hpf Urine Bacteria /hpf Urine Casts Influenza A (RT-PCR) (Negative) Influenza B (RT-PCR) (Negative) RSV (RT-PCR) (Negative) SARS-CoV-2 RNA (RT-PCR) (Negative) 12/30/24 12/30/24 12/30/24 Range/Units 09:55 09:59 11:17 WBC 7.8 (4.5-10.0) K/mm3 RBC 3.49 L (4.6-6.20) M/mm3 Hgb 8.8 L (14.0-18.0) g/dL Hct 28.3 L (42.0-52.0) % MCV 81.1 (80-100) fl MCH 25.2 L (26-34) pg MCHC 31.1 L (32-36) g/dl RDW 13.6 (11.5-14.5) % Plt Count 214 (150-375) k/mm3 MPV 8.9 (7.4-10.4) fl Immature Gran % (Auto) 0.6 H (0-0.5) % Neut % (Auto) 86.7 H (45.5-73.1) % Lymph % (Auto) 7.9 L (18.3-44.2) % [place] % (Auto) 4.3 (2.6-8.5) % Eos % (Auto) 0.4 (0-4.4) % Baso % (Auto) 0.1 L (0.2-1.2) % Lymph # (Auto) 0.62 L (0.9-3.2) K/mm3 [place] # (Auto) 0.3 (0.1-0.6) K/mm3 Eos # (Auto) 0.0 (0-0.3) K/mm3 Baso # (Auto) 0.0 (0.0-0.1) K/mm3 Abs Immat Gran (auto) 0.05 H (0.00-0.031) K/mm3 Absolute Neuts (auto) 6.8 H (1.3-6.7) K/mm3 Absolute Nucleated RBC 0.000 (0.0-0.012) K/mm3 Nucleated RBC % 0.0 (0.0-0.2) % PT (11.1-14.7) Seconds INR APTT (22.3-36.8) Seconds Sodium Potassium Chloride Carbon Dioxide Anion Gap BUN Creatinine Estim Creat Clear Calc Estimated GFR Glucose Lactic Acid (0.7-2.0) mmol/L Calcium Total Bilirubin AST ALT Alkaline Phosphatase C-Reactive Protein (<1.0) mg/dL NT-Pro-B Natriuret Pep (19.9-100) pg/mL Total Protein Albumin Urine Color Yellow (Yellow) Urine Appearance Clear (Clear) Urine pH 6.0 (5.0-9.0) Ur Specific [place] 1.013 (1.001-1.035) Urine Protein 1+ H (Negative) mg/dL Urine Glucose (UA) 2+ H (Negative) mg/dL Urine Ketones Negative (Negative) mg/dL Ur Blood (Man) 1+ H (Negative) Urine Nitrate Negative (Negative) Urine Bilirubin Negative (Negative) Urine Urobilinogen 0.2 (<2.0) mg/dL Leukocyte Esterase Rfl Negative (Negative) ELIZ/UL Urine RBC 0-2 (0-2) /hpf Urine WBC 0-5 (0-3) /hpf Ur Squamous Epith Cells None seen (Few) /hpf Urine Bacteria None seen /hpf Urine Casts 0-2 Influenza A (RT-PCR) Negative (Negative) Influenza B (RT-PCR) Negative (Negative) RSV (RT-PCR) Negative (Negative) SARS-CoV-2 RNA (RT-PCR) Negative (Negative) 12/30/24 Range/Units 12:52 WBC (4.5-10.0) K/mm3 RBC (4.6-6.20) M/mm3 Hgb (14.0-18.0) g/dL Hct (42.0-52.0) % MCV (80-100) fl MCH (26-34) pg MCHC (32-36) g/dl RDW (11.5-14.5) % Plt Count (150-375) k/mm3 MPV (7.4-10.4) fl Immature Gran % (Auto) (0-0.5) % Neut % (Auto) (45.5-73.1) % Lymph % (Auto) (18.3-44.2) % [place] % (Auto) (2.6-8.5) % Eos % (Auto) (0-4.4) % Baso % (Auto) (0.2-1.2) % Lymph # (Auto) (0.9-3.2) K/mm3 [place] # (Auto) (0.1-0.6) K/mm3 Eos # (Auto) (0-0.3) K/mm3 Baso # (Auto) (0.0-0.1) K/mm3 Abs Immat Gran (auto) (0.00-0.031) K/mm3 Absolute Neuts (auto) (1.3-6.7) K/mm3 Absolute Nucleated RBC (0.0-0.012) K/mm3 Nucleated RBC % (0.0-0.2) % PT (11.1-14.7) Seconds INR APTT (22.3-36.8) Seconds Sodium Potassium Chloride Carbon Dioxide Anion Gap BUN Creatinine Estim Creat Clear Calc Estimated GFR Glucose Lactic Acid 1.3 (0.7-2.0) mmol/L Calcium Total Bilirubin AST ALT Alkaline Phosphatase C-Reactive Protein (<1.0) mg/dL NT-Pro-B Natriuret Pep (19.9-100) pg/mL Total Protein Albumin Urine Color (Yellow) Urine Appearance (Clear) Urine pH (5.0-9.0) Ur Specific [place] (1.001-1.035) Urine Protein (Negative) mg/dL Urine Glucose (UA) (Negative) mg/dL Urine Ketones (Negative) mg/dL Ur Blood (Man) (Negative) Urine Nitrate (Negative) Urine Bilirubin (Negative) Urine Urobilinogen (<2.0) mg/dL Leukocyte Esterase Rfl (Negative) ELIZ/UL Urine RBC (0-2) /hpf Urine WBC (0-3) /hpf Ur Squamous Epith Cells (Few) /hpf Urine Bacteria /hpf Urine Casts Influenza A (RT-PCR) (Negative) Influenza B (RT-PCR) (Negative) RSV (RT-PCR) (Negative) SARS-CoV-2 RNA (RT-PCR) (Negative) Imaging Data Radiologist's impression: Impressions Cervical Spine CT 12/30/24 10:21 Impression: No acute abnormality. Head CT 12/30/24 10:33 IMPRESSION: 1. No acute intracranial hemorrhage. No mass effect. 2. Probable chronic ischemic white matter change. Chest X-Ray 12/30/24 10:35 IMPRESSION: 1. Interstitial pulmonary edema and/or pneumonitis. Chest/Abdomen/Pelvis CT 12/30/24 12:20 IMPRESSION: 1. Moderate thickening of the osborne of the bladder with a small amount of air within the bladder. Differential includes incomplete bladder wall distention versus cystitis. The small amount of air in the bladder may be due to recent Artis catheter placement versus cystitis. 2. There are a few small subpleural reticular and patchy opacities in the lower lungs. Differential includes atelectasis/scarring or infiltrates. 3. There is a 5 mm pulmonary nodule in the right upper lobe. A follow-up chest CT in 3 months is recommended. ECG Data EKG #1: EKG Interpretation: normal rate, sinus rhythm, no ectopy, non-specific ST changes, normal QRS, normal QT and NL axis Discharge Plan Discharge Clinical Impression: Pneumonia, Falls frequently, Confusion Patient Disposition: Still a Patient Condition: Serious
[2024-12-30] MEDS: ACETAMINOPHEN 500 MG TABLET 1000 MG PO (10:03)
[2024-12-30 10:04] LABS: Hematocrit 28.3 % (42.0-52.0); Hemoglobin 8.8 g/dL (14.0-18.0); Immature Granulocyte Percent A 0.6 % (0-0.5); Lymphocytes Absolute Auto 0.62 K/mm3 (0.9-3.2); Mean Corpuscular HGB Conc 31.1 g/dl (32-36); Mean Corpuscular Hemoglobin 25.2 pg (26-34); Mean Corpuscular Volume 81.1 fl (80-100); Nucleated Red Blood Cells Absolute Auto 0.000 K/mm3 (0.0-0.012); Nucleated Red Blood Cells Perc 0.0 % (0.0-0.2); Platelet Count Result 214 k/mm3 (150-375); Red Blood Count 3.49 M/mm3 (4.6-6.20); White Blood Count 7.8 K/mm3 (4.5-10.0)
[2024-12-30] MEDS: LACTATED RINGERS 1,000 ML 999 ML IV CONT (10:05)
--- OUTSIDE RECORDS SUMMARY | 2024-12-30 10:13 | XMS_ITS | Patient Health Record ---
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 Name Role Phone ENZO BAER Unavailable [phone] Trung Avendaño Unavailable Unavailable Allergies No Known Allergies Reason For Referral No Information Medications Medication SIG (Take, Route, Frequency, Duration) Notes Start Date End Date Status BD AutoShield Duo 30G X 5 MM ; Duration: 20 Days Active Cephalexin 500 MG Oral; Duration: 10 Days Active Eliquis 2.5 MG Oral; Duration: 30 Days Active Docusate Sodium 100 MG Oral; Duration: 15 Days Active Metoclopramide HCl 10 MG Oral; Duration: 30 Days Active Gabapentin 300 MG Oral; Duration: 30 Days Active Antifungal 2 % External; Duration: 20 Days Active buPROPion HCl ER (SR) 150 MG Oral; Duration: 30 Days Active Lantus SoloStar 100 UNIT/ML Subcutaneous ; Duration: 40 Days Active Sertraline HCl 50 MG Oral; Duration: 30 Days Active Clotrimazole 1 % External; Duration: 10 Days Active Simvastatin 40 MG Oral; Duration: 30 Days Active Metoprolol Succinate ER 50 MG Oral; Duration: 30 Days Acti ve Omeprazole 40 MG Oral; Duration: 30 Days Active Ondansetron HCl 4 MG Oral; Duration: 10 Days Active Terazosin HCl 2 MG Oral; Duration: 30 Days Active Vital Signs Weight-kg 136.08 kg 04/28/2024 Weight 300 lbs 04/28/2024 Encounters Encounter Location Date Provider Diagnosis [facility] [address] [place], [place] [id number] 04/28/2024 ENZO BAER Tinea unguium B35.1 ; Pain in right toe(s) M79.674 ; Pain in left toe(s) M79.675 ; 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 Plan Of Treatment No Information Insurance Providers Payer Name Payer Address Payer Phone Subscriber Number Group Number Insured Name Patient Relationship to Insured Coverage Start Date Coverage End Date [address] [address] [id number] Ramos Urbina Self - patient is the insured Medical (General) History Medical History History ICD Code Diabetic Surgical History Surgery Date(Month/Year) Hernia Rotator Cuff
[2024-12-30 10:18] LABS: INR 1.3; Prothrombin Time 16.1 Seconds (11.1-14.7)
[2024-12-30 10:19] LABS: Partial Thromboplastin Time 35.9 Seconds (22.3-36.8)
[2024-12-30 10:23] LABS: Alanine Aminotransferase 18 U/L (6-50); Albumin Level 3.8 g/dL (3.5-5.1); Alkaline Phosphatase 78 U/L (38-126); Anion Gap 12 mmol/L (4-12); Aspartate Amino Transferase 25 U/L (17-59); Bilirubin,Total 0.4 mg/dL (0.2-1.3); Blood Urea Nitrogen 60 mg/dL (9-20); CRP 3.8 mg/dL (<1.0); Calcium 8.2 mg/dL (8.4-10.2); Carbon Dioxide 20 mmol/L (22-30); Chloride 101 mmol/L (98-107); Estimated Glomerular Filt Rate 17; Glucose 169 mg/dL (65-110); Potassium 5.2 mmol/L (3.4-5.0); Sodium 133 mmol/L (137-145); Total Protein 7.7 g/dL (6.3-8.2)
[2024-12-30 10:25] LABS: NT Pro B Type Natriuretic Pept 1520 pg/mL (19.9-100)
[2024-12-30 10:45] LABS: Influenza A QL RT-PCR Negative (Negative); Influenza B QL RT-PCR Negative (Negative); RSV RNA, RT-PCR Negative (Negative); SARS-CoV-2 RNA PCR Negative (Negative)
[2024-12-30 11:33] LABS: Add Urine Microscopic? YES; Appearance Urine Clear (Clear); Glucose Urine UA 2+ mg/dL (Negative); Leukocyte Esterase Ur Negative LEU/UL (Negative); Nitrate Urine Negative (Negative); Non Pathogenic Casts 0-2; Specific Grav Ur 1.013 (1.001-1.035)
--- NOTE | 2024-12-30 13:16 | P.HP_ITS ---
H&P: HPI History of Present Illness Date/Time: 12/30/24 13:16 Chief Complaint: Fall and altered mental status Narrative: 84-year-old male past medical history of chronic lower back pain, CKD, hyperlipidemia, CHF, hypertension and diabetes presents to the hospital after a fall he also complains confusion and a temperature of 101.3?. Patient denies injuries from his fall. He states that just does not feel confused. A&O x4. Patient has no complaints of shortness of breath, nausea vomiting, or painful urination. Lab work in the ED shows anemia of 8.8, INR 1.3, sodium of 133, potassium of 5.2, carbon dioxide 20, BUN of 60, creatinine of 3.39 which are the same as last month, glucose of 169, lactic acid of 2.4 followed by 1.3, calcium of 8.2 CRP of 3.8, BNP of 1520, UA negative for infection however there is 1+ blood. Moderate thickness of the osborne of the bladder with a small amount of air. The patient was straight cathed in the emergency room, cystitis versus distension. Small subpleural patchy opacities. 5 mm pulmonary nodule in the right upper lobe. Review of Systems Review of Systems: 12 systems were reviewed and are negativ e except for as per HPI. [facility] Past Medical History Medical History Tremor Hearing loss Cellulitis of leg, left Edema Tinea cruris Abdominal pain Seasonal allergies Morbid obesity with BMI of 40.0-44.9, adult Chronic low back pain Chronic kidney disease Hyperlipidemia Lower abdominal pain Urinary frequency Nausea GERD (gastroesophageal reflux disease) Depression Anxiety Anemia Encounter to establish care Wound of right foot Obstructive sleep apnea on CPAP History of congestive heart failure Peripheral arterial disease Peripheral neuropathy Generalized weakness Morbid obesity Diabetes mellitus Hypertension Surgical History Surgical History S/P left knee arthroscopy Family History Family History Father Congestive heart failure Cerebrovascular accident Hypertension Mother Congestive heart failure Lung cancer Heart disease Sibling Hypertension Daughter Lung cancer Depression Grandparent Diabetes mellitus Social History Social History Smoking status: Never smoker Alcohol intake: never Substance use: never Substance use type: does not use Do You Feel Safe in your Home?: Yes Lack of Transportation: No Lack of Food: Never True Current Housing: I Have Housing Concerned About Future Housing: No Difficulty Paying Gas/Electric Bills: No Difficulty Paying for Meds: No Currently Unemployed: No Education: Grade School Difficulty w/ Childcare or Family Care: No Gender identity (if verbalized by the patient): Male Spiritual care concerns: No Meds Home Medications and Allergies Home Medications ?Medication ?Instructions ?Recorded ?Confirmed ?Type simvastatin 40 mg tablet 40 mg PO HS 06/29/21 5 History acetaminophen 325 mg capsule 650 mg PO Q6H PRN headach e/fever 12/07/22 12/30/24 History bupropion HCl 150 mg tablet,12 hr 150 mg PO BID 12/30/24 History sustained-release buspirone 5 mg tablet 5 mg PO BID 12/07/22 5 History terazosin 2 mg capsule 2 mg PO BID 12/07/22 5 History tramadol 50 mg tablet 50 - 100 mg (1 - 2 x 50 mg) PO Q6H 01/03/23 12/30/24 Rx PRN pain #240 tabs ropinirole 1 mg tablet 1 mg PO QHS 03/06/23 5 History sjtrgprarh-oioupzrrjnpcq-asdnhlmu 1 - 2 cap PO Q6H PRN headaches 05/01/23 12/30/24 History 50 mg-325 mg-40 mg capsule (Esgic) sertraline 50 mg tablet 50 mg PO DAILY #30 tabs 07/3112/30/24 Rx ondansetron HCl 4 mg tablet 4 - 8 mg (1 - 2 x 4 mg) PO Q8H PRN 09/25/23 12/30/24 Rx nausea and vomiting #60 tabs fluticasone propionate 50 1 spray intranasal BID #16 g kae 11/20/23 12/30/24 Rx mcg/actuation nasal spray,suspension (Flonase Allergy Relief) metoclopramide HCl 5 mg tablet 10 mg (2 x 5 mg) PO .HS #60 tabs 11/27/23 12/30/24 Rx (Reglan) omeprazole 40 mg capsule,delayed 40 mg PO DAILY #30 ca ps 11/27/23 12/30/24 Rx release miconazole nitrate 2 % topical 1 applic topical BID CO N irritation 12/26/23 12/30/24 History powder (Zeasorb AF) olopatadine 0.1 % eye drops 1 drp EACH EYE BID 4 12/30/24 History (Pataday Twice Daily Relief) apixaban 2.5 mg tablet (Eliquis) 2.5 mg PO Q12HR #60 t abs 12/28/23 12/30/24 Rx metoprolol succinate 50 mg 50 mg PO QAM #30 tabs 12/2712/30/24 Rx tablet,extended release 24 hr sennosides 8.6 mg-docusate sodium 1 tab-cap PO BID PRN constipation 12/31/23 12/30/24 Rx 50 mg capsule #60 caps torsemide 10 mg tablet 10 mg PO QAM 01/17/24 History flash glucose scanning reader #1 ea 01/25/24 12/30/24 Rx (FreeStyle Iflemon 2 [place]) nystatin 100,000 unit/gram topical 1 applic topical BI D #15 grams 02/01/24 12/30/24 Rx ointment flash glucose sensor (FreeStyle #2 ea 04/22/24 5 Rx Filemon 2 Sensor kit) cholecalciferol (vitamin D3) 1,250 1,250 mcg PO WEEKLY 05/07/24 12/30/24 History mcg (50,000 unit) capsule insulin lispro 100 unit/mL 10 unit (0.1 mL) subcut .be fore 07/02/24 12/30/24 Rx subcutaneous pen (Humalog KwikPen meals #45 mL (U-100) Insulin) tirzepatide 2.5 mg/0.5 mL 5 mg subcut WEEKLY #6 mL 05/2712/30/24 Rx subcutaneous pen injector (Ary) hydrocortisone 1 % topical cream 1 applic topical BID PRN itching 07/31/24 12/30/24 Rx (Anti-Itch (hydrocortisone)) #454 grams hydroxyzine HCl 25 mg tablet 25 mg PO TID PRN itching #90 tabs 08/01/24 12/30/24 Rx docusate sodium 100 mg tablet 100 mg PO BID #60 tabs 0 09/03/24 12/30/24 Rx gabapentin 300 mg capsule 600 mg (2 x 300 mg) PO BID # 120 09/03/24 12/30/24 Rx (Neurontin) caps Farxiga 5 mg tablet (dapagliflozin 5 mg PO DAILY #30 t abs 10/22/24 12/30/24 Rx propanediol) clotrimazole 1 % topical cream 1 applic topical Q12H # 90 grams 10/29/24 12/30/24 Rx (Jock Itch (clotrimazole)) insulin glargine 100 unit/mL (3 36 unit (0.36 mL) subc ut DAILY #45 12/03/24 12/30/24 Rx mL) subcutaneous pen (Lantus mL Solostar U-100 Insulin) insulin lispro 100 unit/mL 1 sliding scale dose subcut 12/30/24 12/30/24 History subcutaneous pen (Humalog KwikPen TIDWMEAL (U-100) Insulin) polyethylene glycol 3350 17 17 g PO DAILY 12/30/24 History gram/dose oral powder Allergies Allergy/AdvReac Type Severity Reaction Status Date / Time No Known Allergies Allergy Mild Verified 12/30/24 16:16 Vital Signs Vital Signs - 24 hr 12/30/24 09:32 12/30/24 10:08 12/30/24 11:39 Temperature 101.3 F H 99.5 F Pulse Rate 106 H Respiratory Rate 18 Blood Pressure 124/48 L Pulse Oximetry 96 Oxygen Delivery Room Air Room Air 12/30/24 11:41 Temperature 99.5 F Pulse Rate 104 H Respiratory Rate 20 Blood Pressure 127/55 L Pulse Oximetry 97 Oxygen Delivery Exam Narrative: General: well appearing, appears stated age. HEENT: normocephalic, atraumatic. Mucous membranes moist. EOMI, PERRLA, bilateral sclera anicteric, no conjunctival injection. Neck supple without JVD, lymphadenopathy, or bruit. Respiratory: Diminished and clear to ascultation bilaterally. No rales/rhonic/wheezes. Cardiovascular: Regular rate and rhythm, normal S1-S2 upon ascultation. No murmurs, rubs, or clicks. PMI is nondisplaced, capillary refill less than 3 second. Abdomen: Soft, round, no pulsatile masses, nondistended and nontender. No rebound, no guarding. No CVA tenderness, no hepatosplenomegaly. Bowel sounds present to all four quadrants. No high pitch or tinkling sounds, resonant to percussion. Extremities: No cyanosis, clubbing, or edema present. Pulses are palpable 2/2. Active ROM to all four extremities. Neuro: Alert and orientated x 4. PERRLA. Cranial nerves 2-12 intact without focal deficit. Skin: Warm, dry, and intact, without rash, erythema, or lesion. Psych: pleasant, cooperative, normal speech, normal affect, no hallucinations, no dysarthia H&P: Results Labs Labs: Short CBC 12/30/24 Range/Units 09:55 WBC 7.8 (4.5-10.0) K/mm3 Hgb 8.8 L (14.0-18.0) g/dL Hct 28.3 L (42.0-52.0) % Plt Count 214 (150-375) k/mm3 BMP 12/30/24 12/30/24 12/30/24 09:53 09:53 09:53 Sodium Cancelled 133 L Potassium Cancelled 5.2 H Chloride Cancelled Carbon Dioxide BUN Creatinine Glucose Calcium 12/30/24 12/30/24 12/30/24 09:53 09:53 09:53 Sodium Potassium Chloride 101 Carbon Dioxide Cancelled 20 L BUN Cancelled 60 H Creatinine Cancelled Glucose Calcium 12/30/24 12/30/24 12/30/24 09:53 09:53 09:53 Sodium Potassium Chloride Carbon Dioxide BUN Creatinine 3.39 H Glucose Cancelled 169 H Calcium Cancelled 8.2 L Liver Function 12/30/24 12/30/24 12/30/24 Range/Units 09:53 09:53 09:53 Total Bilirubin Cancelled 0.4 AST Cancelled 25 ALT Cancelled Alkaline Phosphatase Albumin 12/30/24 12/30/24 12/30/24 Range/Units 09:53 09:53 09:53 Total Bilirubin AST ALT 18 Alkaline Phosphatase Cancelled 78 Albumin Cancelled 3.8 Urine 12/30/24 Range/Units 11:17 Urine Color Yellow (Yellow) Urine Appearance Clear (Clear) Urine pH 6.0 (5.0-9.0) Ur Specific [place] 1.013 (1.001-1.035) Urine Protein 1+ H (Negative) mg/dL Urine Glucose (UA) 2+ H (Negative) mg/dL Assessment and Plan Assessment and plan (1) Pneumonia: Code(s): J18.9 - Pneumonia, unspecified organism Status: Acute Assessment and Plan: IV Rocephin and azithromycin Guaifenesin DuoNebs (2) Diastolic dysfunction: Onset Date: ~12/26/23 Code(s): I51.89 - Other ill-defined heart diseases Status: Acute Assessment and Plan: Acute on chronic, pulmonary edema seen on chest x-ray Patient was given a L of fluids for lactic acidosis Monitor for fluid overload Echocardiogram pending (3) Confusion: Code(s): R41.0 - Disorientation, unspecified Status: Acute Assessment and Plan: Head CT negative for acute process Replace electrolytes as needed Treat underlying infection (4) Fever: Code(s): R50.9 - Fever, unspecified Status: Acute Assessment and Plan: Possibly due to pneumonia Blood cultures pending Lactic acid resolved after fluid bolus (5) Falls frequently: Code(s): R29.6 - Repeated falls Status: Acute Assessment and Plan: CT chest abdomen pelvis, CT head and CT C-spine negative for acute injuries PT OT eval and treat (6) Lung nodule seen on imaging study: Code(s): R91.1 - Solitary pulmonary nodule Status: Acute Assessment and Plan: There is a 5 mm pulmonary nodule in the right upper lobe. A follow-up chest CT in 3 months is recommended. Follow-up with PCP Patient aware finding (7) Chronic kidney disease, stage 4 (severe): Code(s): N18.4 - Chronic kidney disease, stage 4 (severe) Status: Acute Assessment and Plan: Creatinine at baseline BMP in the morning (8) Diabetes mellitus: Code(s): E11.9 - Type 2 diabetes mellitus without complications Status: Acute Assessment and Plan: Accu-Cheks a.c. HS SSI Patient takes 36 units of Lantus daily and 10 units of aspart before meals Continue gabapentin (9) Hyperlipidemia: Code(s): E78.5 - Hyperlipidemia, unspecified Status: Acute Assessment and Plan: Continue Zocor (10) Paroxysmal atrial flutter: Code(s): I48.92 - Unspecified atrial flutter Status: Acute Assessment and Plan: Continue Eliquis and metoprolol (11) Hyperkalemia: Code(s): E87.5 - Hyperkalemia Status: Acute Assessment and Plan: [facility] Repeat potassium level 4.5 BMP in a.m. (12) Hypocalcemia: Code(s): E83.51 - Hypocalcemia Status: Acute Assessment and Plan: 1 g calcium BMP in a.m. (13) Depression: Code(s): F32.A - Depression, unspecified Status: Acute Assessment and Plan: Continue Wellbutrin, buspirone, and Zoloft (14) Obstructive sleep apnea on CPAP: Code(s): G47.33 - Obstructive sleep apnea (adult) (pediatric); Z99.89 - Dependence on other enabling machines and devices Status: Acute Assessment and Plan: Continue home CPAP Quality VTE Prophylaxis VTE prophylaxis: mechanical ordered and pharmacologic ordered Hospitalist MIPS Advance Care Plan I have confirmed that the patient's Advanced Care Plan is present, code status is documented, or surrogate decision maker is listed in patient medical record.: Yes Medication Reconciliation I have utilized all available resources to obtain, update and review the patients current medications (includes all prescriptions, OTC, herbals, cannabis, and nutritional supplements).: Yes
[2024-12-30] MEDS: cefTRIAXone 1 GM in SODIUM CHLORIDE 0.9% IV 50 ML 100 ML IVPB (13:17)
[2024-12-30] MEDS: AZITHROMYCIN IV 500 MG in SODIUM CHLORIDE 0.9% IV 250 ML IVPB (13:50)
[2024-12-30] MEDS: SODIUM ZIRCONIUM CYCLOSILICATE 10 GM POWD.PACK PO (14:28)
--- NOTE | 2024-12-30 14:40 | ADMGEN ---
This patient, Ramos Urbina, was admitted to Medical Room 244-. Patient/family oriented to hospital policies and general routines including ID bracelet, bed and alarms, visiting hours, pain management, procedures, bathroom and other care routines, personal items, smoking policy, room service/diet, and visiting hours. Information on how to activate the Rapid Response Team has been discussed. Patient/Family are encouraged to report perceived risks to care and to ask questions if they do not understand what they are told or what they should do.
[2024-12-30] MEDS: CALCIUM GLUC 1,000 MG/NS 50 ML 1,000 MG/50 ML BAG 100 MG IVPB (15:16)
[2024-12-30] MEDS: guaiFENesin 12 HR 600 MG TABCR 1200 MG PO ×2 (15:28→20:37)
[2024-12-30] MEDS: IPRATROPIUM 0.5 MG/ALBUTEROL SULFATE 2.5 MG AMPUL.NEB 3 ML INHALATION ×2 (15:53→20:13)
[2024-12-30] MEDS: DOCUSATE SODIUM 100 MG CAPSULE PO (17:12)
[2024-12-30 17:38] LABS: Potassium 4.5 mmol/L (3.4-5.0)
[2024-12-30] MEDS: OLOPATADINE 0.1% OPHTH SOLN 5 ML BTL 1 DROP EACH EYE (17:44)
[2024-12-30] MEDS: PANTOPRAZOLE 40 MG TABLET PO (20:34)
[2024-12-30] MEDS: APIXABAN 2.5 MG TABLET PO (20:35)
[2024-12-30] MEDS: GABAPENTIN 300 MG CAPSULE 600 MG PO (20:35)
[2024-12-30] MEDS: SIMVASTATIN 20 MG TABLET 40 MG PO (20:36)
[2024-12-30] MEDS: buPROPion HCL SR (12 HR) 150 MG TAB PO (20:37)
[2024-12-31] VITALS (19 sets, daily range): BP systolic 103–142; BP diastolic 53–83; PULSE 88–117; RESP 15–22; TEMP 36.6–37.1; O2SAT 95–100
[2024-12-31] MEDS: IPRATROPIUM 0.5 MG/ALBUTEROL SULFATE 2.5 MG AMPUL.NEB 3 ML INHALATION ×4 (01:30→19:42)
[2024-12-31 05:32] LABS: Anion Gap 10 mmol/L (4-12); Blood Urea Nitrogen 60 mg/dL (9-20); Calcium 8.1 mg/dL (8.4-10.2); Carbon Dioxide 21 mmol/L (22-30); Chloride 102 mmol/L (98-107); Estimated CRCL calculation 16 ml/min; Estimated Glomerular Filt Rate 15; Glucose 128 mg/dL (65-110); Potassium 3.8 mmol/L (3.4-5.0); Sodium 133 mmol/L (137-145)
[2024-12-31 05:39] LABS: Hematocrit 27.1 % (42.0-52.0); Hemoglobin 8.4 g/dL (14.0-18.0); Immature Granulocyte Percent A 1.0 % (0-0.5); Lymphocytes Absolute Auto 2.03 K/mm3 (0.9-3.2); Mean Corpuscular HGB Conc 31.0 g/dl (32-36); Mean Corpuscular Hemoglobin 25.2 pg (26-34); Mean Corpuscular Volume 81.4 fl (80-100); Nucleated Red Blood Cells Absolute Auto 0.000 K/mm3 (0.0-0.012); Nucleated Red Blood Cells Perc 0.0 % (0.0-0.2); Platelet Count Result 197 k/mm3 (150-375); Red Blood Count 3.33 M/mm3 (4.6-6.20); White Blood Count 7.7 K/mm3 (4.5-10.0)
--- NOTE | 2024-12-31 07:48 | P.PNIM_ITS ---
Progress Note: A&P Assessment and Plan (1) Pneumonia: Code(s): J18.9 - Pneumonia, unspecified organism Status: Acute Assessment and Plan: IV Rocephin and azithromycin Guaifenesin DuoNebs Tachypnea 20's but no respiratory distress - continue to monitor VS Blood cultures pending, daily labs Audible wet sputum, sputum culture ordered today (2) Diastolic dysfunction: Onset Date: ~12/26/23 Code(s): I51.89 - Other ill-defined heart diseases Status: Acute Assessment and Plan: Acute on chronic, pulmonary edema seen on chest x-ray Patient was given a L of fluids for lactic acidosis Monitor for fluid overload, fluid restriction Echocardiogram: 1. Technically difficult echocardiogram with difficult image quality, definity contrast utilized. 2. Normal left ventricular size with hyperdynamic systolic contractility well seen following contrast injection. 3. Sclerosis of the aortic valve with well maintained leaflet separation. 4. No significant valvular dysfunction identified. 5. Compared with echocardiogram done in December of last year findings are similar other than ejection fraction is now hyperdynamic. (3) Confusion: Code(s): R41.0 - Disorientation, unspecified Status: Acute Assessment and Plan: Head CT negative for acute process Replace electrolytes as needed, daily labs Treat underlying infection 12/31: A&Ox4 upon exam today (4) Fever: Code(s): R50.9 - Fever, unspecified Status: Acute Assessment and Plan: Possibly due to pneumonia Blood cultures pending Lactic acid resolved after fluid bolus Afebrile per 12/31/24 VS Acetaminophen PRN, LFTs WDL (5) Falls frequently: Code(s): R29.6 - Repeated falls Status: Acute Assessment and Plan: CT chest abdomen pelvis, CT head and CT C-spine negative for acute injuries PT OT eval and treat Uses WC at facility ([facility]) (6) Lung nodule seen on imaging study: Code(s): R91.1 - Solitary pulmonary nodule Status: Acute Assessment and Plan: There is a 5 mm pulmonary nodule in the right upper lobe. A follow-up chest CT in 3 months is recommended. Follow-up with PCP Patient aware finding (7) Chronic kidney disease, stage 4 (severe): Code(s): N18.4 - Chronic kidney disease, stage 4 (severe) Status: Acute Assessment and Plan: Creatinine at baseline BMP in AMs Continue Evette F/u with established Neph - updated pt and sister on the need for a RTC in JanSeptember 2024 nephrology note. (8) Diabetes mellitus: Code(s): E11.9 - Type 2 diabetes mellitus without complications Status: Acute Assessment and Plan: Accu-Cheks a.c. HS SSI Patient takes 36 units of Lantus daily and 10 units of aspart before meals BS here have been stable Currently taking gabapentin 600mg BID - rx by PCP - f/u outpt (9) Hyperlipidemia: Code(s): E78.5 - Hyperlipidemia, unspecified Status: Acute Assessment and Plan: Continue Zocor Labs in Dec 2023 stable, continue monitoring by PCP (10) Paroxysmal atrial flutter: Code(s): I48.92 - Unspecified atrial flutter Status: Acute Assessment and Plan: Continue Eliquis and metoprolol Continue Tele - 112 sinus tachycardia today 12/31 (11) Hyperkalemia: Code(s): E87.5 - Hyperkalemia Status: Acute Assessment and Plan: [facility] once initially Repeat potassium level 4.5 (Baseline K 3.8-4.5) Pt denies CP BMP in a.m: 12/31: 3.8 (12) Hypocalcemia: Code(s): E83.51 - Hypocalcemia Status: Acute Assessment and Plan: 1 g calcium initially Continue checking BMP in a.m. Likely due to CKD -Add on Vit D 01/01, WDL 05/2024 (On daily Vit D suppl) -Mag pending from 01/01 draw (13) Depression: Code(s): F32.A - Depression, unspecified Status: Acute Assessment and Plan: Continue Wellbutrin, buspirone, and Zoloft Mood stable (14) Obstructive sleep apnea on CPAP: Code(s): G47.33 - Obstructive sleep apnea (adult) (pediatric); Z99.89 - Dependence on other enabling machines and devices Status: Acute Assessment and Plan: Continue home CPAP in pt (15) Hyponatremia: Code(s): E87.1 - Hypo-osmolality and hyponatremia Status: Acute Assessment and Plan: Baseline Na 133-140 Labs daily, will continue to monitory Fluid restriction due to CHF already Plan Daily labs, work with PT/OT, sx management, infection tx Subjective Date/time seen: 12/31/24 1300 Interval history: Admitting hospitalist: 84-year-old male past medical history of chronic lower back pain, CKD, hyperlipidemia, CHF, hypertension and diabetes presents to the hospital after a fall he also complains confusion and a temperature of 101.3?. Patient denies injuries from his fall. He states that just does not feel confused. A&O x4. Patient has no complaints of shortness of breath, nausea vomiting, or painful urination. Lab work in the ED shows anemia of 8.8, INR 1.3, sodium of 133, potassium of 5.2, carbon dioxide 20, BUN of 60, creatinine of 3.39 which are the same as last month, glucose of 169, lactic acid of 2.4 followed by 1.3, calcium of 8.2 CRP of 3.8, BNP of 1520, UA negative for infection however there is 1+ blood. Moderate thickness of the osborne of the bladder with a small amount of air. The patient was straight cathed in the emergency room, cystitis versus distension. Small subpleural patchy opacities. 5 mm pulmonary nodule in the right upper lobe. 12/31: Pt states that he thinks he is breathing better today. Agreeable with continued tx for PNA and CHF. Spoke to pt's sister, Jacque, with pt consent at length about pt with updates; she states that the day before the pt got admitted he received his influenza, covid, and shingles vaccinations. Pt with audible wet cough Review of Systems Review of Systems: 12 systems were reviewed and are negativ e except for as per HPI. Exam Const: Other: +[place] HENMT: Face/Nose/Sinus: Normal nares present Mouth: Yes dry mucous membranes Eyes: General: appearance normal, both eyes and all related structures Sclera: sclerae normal Neck: Neck: supple Carotids: no bruits Resp: Auscultation: diminished lung sounds (throughout) Other: audible wet cough Cardio: Rate: tachycardic GI: Auscultation: normal bowel sounds Urinary Catheter: Urinary Catheter: patent and draining and urine clear Skin: General skin exam: normal color and no rashes or lesions noted Neuro: Motor exam (neuro): Normal motor muscle tone present throughout Other: BUE normal aging weakness Psych: Mental Status: mental status grossly normal Affect: normal affect Objective Data Vital Signs Vital Signs: Vital Signs - 24 hr 12/30/24 09:32 12/30/24 10:08 12/30/24 11:39 Temperature 101.3 F H 99.5 F Pulse Rate 106 H Respiratory Rate 18 Blood Pressure 124/48 L Pulse Oximetry 96 Oxygen Delivery Room Air Room Air Fraction of Inspired Oxygen 12/30/24 11:41 12/30/24 14:30 12/30/24 15:37 Temperature 99.5 F 97.6 F Pulse Rate 104 H 99 105 H Respiratory Rate 20 20 19 Blood Pressure 127/55 L 134/62 110/42 L Pulse Oximetry 97 99 97 Oxygen Delivery Fraction of Inspired Oxygen 12/30/24 15:54 12/30/24 15:59 12/30/24 16:00 Temperature Pulse Rate 62 100 Respiratory Rate 18 Blood Pressure Pulse Oximetry 95 Oxygen Delivery Room Air Fraction of Inspired Oxygen 12/30/24 20:00 12/30/24 20:00 12/30/24 20:00 Temperature Pulse Rate 75 106 H Respiratory Rate Blood Pressure Pulse Oximetry Oxygen Delivery Room Air Fraction of Inspired Oxygen 12/30/24 20:04 12/30/24 20:13 12/30/24 20:14 Temperature 100.9 F H Pulse Rate 106 H 74 74 Respiratory Rate 20 20 20 Blood Pressure 127/63 Pulse Oximetry 96 96 Oxygen Delivery Room Air Fraction of Inspired Oxygen 21 12/30/24 20:21 12/30/24 20:23 12/31/24 00:00 Temperature Pulse Rate 97 75 106 H Respiratory Rate 20 Blood Pressure Pulse Oximetry 95 Oxygen Delivery Autopap Fraction of Inspired Oxygen 12/31/24 01:30 12/31/24 01:30 12/31/24 01:40 Temperature Pulse Rate 99 99 99 Respiratory Rate 20 20 Blood Pressure Pulse Oximetry 95 Oxygen Delivery Room Air Fraction of Inspired Oxygen 12/31/24 03:54 12/31/24 04:00 12/31/24 04:57 Temperature 98.7 F Pulse Rate 115 H 110 H Respiratory Rate 22 H Blood Pressure 110/77 Pulse Oximetry 98 Oxygen Delivery Room Air Fraction of Inspired Oxygen Intake/Output Intake/Output: Intake & Output 12/28/24 12/29/24 12/30/24 12/31/24 23:59 23:59 23:59 23:59 Intake Total 1290 290 Output Total 675 550 Balance 615 -260 Meds/Results Medications: Active Medications Generic Name Dose Route Start Last Admin Trade Name Freq PRN Reason Stop Dose Admin Albuterol/Ipratropium 3 ml 12/30/24 14:00 12/31/24 01:30 Ipratropium 0.5 Mg/Albuterol Sulfate 2.5 Mg Ampul.Neb 3 Ml INHALATION 3 ml Q6HRT MARIANO Administration Apixaban 2.5 mg 12/30/24 21:00 12/30/24 20:35 Apixaban 2.5 Mg Tablet PO 2.5 mg Q12HR MARIANO Administration Bupropion HCl 150 mg 12/30/24 21:00 12/30/24 20:37 Bupropion Hcl Sr (12 Hr) 150 Mg Tab PO 150 mg Q12HR MARIANO Administration Buspirone HCl 5 mg 12/30/24 17:15 12/30/24 17:34 Buspirone Hcl 5 Mg Tablet PO 5 mg BID MARIANO Administration Dextrose 12.5 gm 12/30/24 13:34 Dextrose 50% 25 Gm/50 Ml Syringe IV PUSH PRN PRN Hypoglycemia Protocol Docusate Sodium 100 mg 12/30/24 17:00 12/30/24 17:12 Docusate Sodium 100 Mg Capsule PO 100 mg BID MARIANO Administration Gabapentin 600 mg 12/30/24 21:00 12/30/24 20:35 Gabapentin 300 Mg Capsule PO 600 mg Q12HR MARIANO Administration Glucagon 1 mg 12/30/24 13:34 Glucagon For Inj 1 Mg Vial IM PRN PRN Hypoglycemia Protocol Glucose 15 gm 12/30/24 13:34 Glucose Oral Gel 15 Gm Of Glucse In 37.5 Gm Tube PO PRN PRN Hypoglycemia Protocol Guaifenesin 1,200 mg 12/30/24 14:00 12/30/24 20:37 Guaifenesin 12 Hr 600 Mg Tabcr PO 1,200 mg Q12HR MARIANO Administration Ceftriaxone Sodium 1 gm/ 50 mls @ 100 mls/hr 12/31/24 13:00 Sodium Chloride IVPB Q24H MARIANO Azithromycin 500 mg/ Sodium 250 mls @ 250 mls/hr 12/31/24 14:00 Chloride IVPB 01/03/25 14:59 Q24H MARIANO Dextrose 1,000 mls @ 100 mls/hr 12/30/24 13:34 Dextrose 5% 1,000 Ml IVPB PRN PRN Hypoglycemia Protocol Insulin Aspart 2 - 5 units 12/30/24 17:00 12/30/24 17:12 Insulin Aspart (*Bkc) 100 Units/Ml SUB-Q Not Given TIDWM [facility] Protocol Insulin Aspart 1 - 2 units 12/30/24 21:00 12/30/24 20:49 Insulin Aspart (*Bkc) 100 Units/Ml SUB-Q Not Given HS [facility] Protocol Insulin Aspart 10 units 12/31/24 08:00 Insulin Aspart (*Bkc) 100 Units/Ml SUB-Q TIDWM [facility] Insulin Glargine 36 units 12/31/24 09:00 Insulin Glargine (*Bkc) 100 Units/Ml SUB-Q DAILY MARIANO Metoprolol Succinate 50 mg 12/31/24 09:00 Metoprolol Succinate Ext Rel 50 Mg Tabcr PO QAM MARIANO Miscellaneous Information 1 each 12/31/24 00:01 Farxiga (No Subs) Is Nonform; Can Pt Use From Home? XX 01/30/25 00:00 CLARIFY MARIANO Miscellaneous Information 1 each 12/31/24 00:01 Clarify Tramadol Dosing--50 Mg Pain Rating?, 100 Mg Pain Rating? Also Recommend Not Exceed XX 01/30/25 00:00 CLARIFY MARIANO Non-Formulary Medication 5 mg 12/31/24 09:00 Dapagliflozin Propanediol [Farxiga] PO 01/30/25 08:59 DAILY MARIANO Olopatadine HCl 1 drop 12/30/24 17:20 12/30/24 17:44 Olopatadine 0.1% Ophth Soln 5 Ml Btl EACH EYE 1 drop BID MARIANO Administration Pantoprazole Sodium 40 mg 12/30/24 21:00 12/30/24 20:34 Pantoprazole 40 Mg Tablet PO 40 mg Q12HR MARIANO Administration Perflutren Lipid Microsphere 0 ml 12/30/24 13:34 Perflutren Lipid Microspheres 1.5 Ml Vial Diluted To 10 Ml Total Volume IV PUSH 01/02/25 13:36 ONCE PRN adequate visualization Protocol Polyethylene Glycol 17 gm 12/31/24 09:00 Polyethylene Glycol 3350 17 Gm Powd.Pack PO DAILY MARIANO Ropinirole HCl 1 mg 12/30/24 21:00 12/30/24 20:37 Ropinirole Hcl 1 Mg Tablet PO 1 mg QHS MARIANO Administration Sertraline HCl 50 mg 12/31/24 09:00 Sertraline Hcl 50 Mg Tablet PO DAILY MARIANO Simvastatin 40 mg 12/30/24 21:00 12/30/24 20:36 Simvastatin 20 Mg Tablet PO 40 mg HS MARIANO Administration Torsemide 10 mg 12/31/24 09:00 Torsemide 10 Mg Tablet PO QAM MARIANO Tramadol HCl 50 - 100 mg 12/30/24 17:04 Tramadol Hcl (*Crx) 50 Mg Tablet PO Q6H PRN Pain Radiology Results: ITS Impressions Cervical Spine CT 12/30/24 10:21 Impression: No acute abnormality. Head CT 12/30/24 10:33 IMPRESSION: 1. No acute intracranial hemorrhage. No mass effect. 2. Probable chronic ischemic white matter change. Chest X-Ray 12/30/24 10:35 IMPRESSION: 1. Interstitial pulmonary edema and/or pneumonitis. Chest/Abdomen/Pelvis CT 12/30/24 12:20 IMPRESSION: 1. Moderate thickening of the osborne of the bladder with a small amount of air within the bladder. Differential includes incomplete bladder wall distention versus cystitis. The small amount of air in the bladder may be due to recent Artis catheter placement versus cystitis. 2. There are a few small subpleural reticular and patchy opacities in the lower lungs. Differential includes atelectasis/scarring or infiltrates. 3. There is a 5 mm pulmonary nodule in the right upper lobe. A follow-up chest CT in 3 months is recommended. Labs Labs: Laboratory Results - last 24 hr 12/30/24 12/30/24 12/30/24 09:53 09:53 09:53 WBC RBC Hgb Hct MCV MCH MCHC RDW Plt Count MPV Immature Gran % (Auto) Neut % (Auto) Lymph % (Auto) Stokes % (Auto) Eos % (Auto) Baso % (Auto) Lymph # (Auto) Stokes # (Auto) Eos # (Auto) Baso # (Auto) Abs Immat Gran (auto) Absolute Neuts (auto) Absolute Nucleated RBC Nucleated RBC % PT 16.1 H INR 1.3 APTT 35.9 Sodium Cancelled 133 L Potassium Cancelled 5.2 H Chloride Cancelled Carbon Dioxide Anion Gap BUN Creatinine Estim Creat Clear Calc Estimated GFR Glucose POC Capillary Glucose Lactic Acid Calcium Total Bilirubin AST ALT Alkaline Phosphatase C-Reactive Protein NT-Pro-B Natriuret Pep Total Protein Albumin Urine Color Urine Appearance Urine pH Ur Specific Hiram Urine Protein Urine Glucose (UA) Urine Ketones Ur Blood (Man) Urine Nitrate Urine Bilirubin Urine Urobilinogen Leukocyte Esterase Rfl Urine RBC Urine WBC Ur Squamous Epith Cells Urine Bacteria Urine Casts Influenza A (RT-PCR) Influenza B (RT-PCR) RSV (RT-PCR) SARS-CoV-2 RNA (RT-PCR) 12/30/24 12/30/24 12/30/24 09:53 09:53 09:53 WBC RBC Hgb Hct MCV MCH MCHC RDW Plt Count MPV Immature Gran % (Auto) Neut % (Auto) Lymph % (Auto) Stokes % (Auto) Eos % (Auto) Baso % (Auto) Lymph # (Auto) Stokes # (Auto) Eos # (Auto) Baso # (Auto) Abs Immat Gran (auto) Absolute Neuts (auto) Absolute Nucleated RBC Nucleated RBC % PT INR APTT Sodium Potassium Chloride 101 Carbon Dioxide Cancelled 20 L Anion Gap Cancelled 12 BUN Cancelled Creatinine Estim Creat Clear Calc Estimated GFR Glucose POC Capillary Glucose Lactic Acid Calcium Total Bilirubin AST ALT Alkaline Phosphatase C-Reactive Protein NT-Pro-B Natriuret Pep Total Protein Albumin Urine Color Urine Appearance Urine pH Ur Specific Hiram Urine Protein Urine Glucose (UA) Urine Ketones Ur Blood (Man) Urine Nitrate Urine Bilirubin Urine Urobilinogen Leukocyte Esterase Rfl Urine RBC Urine WBC Ur Squamous Epith Cells Urine Bacteria Urine Casts Influenza A (RT-PCR) Influenza B (RT-PCR) RSV (RT-PCR) SARS-CoV-2 RNA (RT-PCR) 12/30/24 12/30/24 12/30/24 09:53 09:53 09:53 WBC RBC Hgb Hct MCV MCH MCHC RDW Plt Count MPV Immature Gran % (Auto) Neut % (Auto) Lymph % (Auto) Stokes % (Auto) Eos % (Auto) Baso % (Auto) Lymph # (Auto) Stokes # (Auto) Eos # (Auto) Baso # (Auto) Abs Immat Gran (auto) Absolute Neuts (auto) Absolute Nucleated RBC Nucleated RBC % PT INR APTT Sodium Potassium Chloride Carbon Dioxide Anion Gap BUN 60 H Creatinine Cancelled 3.39 H Estim Creat Clear Calc Cancelled Not Reportable Estimated GFR Cancelled Glucose POC Capillary Glucose Lactic Acid Calcium Total Bilirubin AST ALT Alkaline Phosphatase C-Reactive Protein NT-Pro-B Natriuret Pep Total Protein Albumin Urine Color Urine Appearance Urine pH Ur Specific Hiram Urine Protein Urine Glucose (UA) Urine Ketones Ur Blood (Man) Urine Nitrate Urine Bilirubin Urine Urobilinogen Leukocyte Esterase Rfl Urine RBC Urine WBC Ur Squamous Epith Cells Urine Bacteria Urine Casts Influenza A (RT-PCR) Influenza B (RT-PCR) RSV (RT-PCR) SARS-CoV-2 RNA (RT-PCR) 12/30/24 12/30/24 12/30/24 09:53 09:53 09:53 WBC RBC Hgb Hct MCV MCH MCHC RDW Plt Count MPV Immature Gran % (Auto) Neut % (Auto) Lymph % (Auto) Stokes % (Auto) Eos % (Auto) Baso % (Auto) Lymph # (Auto) Stokes # (Auto) Eos # (Auto) Baso # (Auto) Abs Immat Gran (auto) Absolute Neuts (auto) Absolute Nucleated RBC Nucleated RBC % PT INR APTT Sodium Potassium Chloride Carbon Dioxide Anion Gap BUN Creatinine Estim Creat Clear Calc Estimated GFR 17 L Glucose Cancelled 169 H POC Capillary Glucose Lactic Acid 2.4 H Calcium Cancelled 8.2 L Total Bilirubin Cancelled AST ALT Alkaline Phosphatase C-Reactive Protein NT-Pro-B Natriuret Pep Total Protein Albumin Urine Color Urine Appearance Urine pH Ur Specific Hiram Urine Protein Urine Glucose (UA) Urine Ketones Ur Blood (Man) Urine Nitrate Urine Bilirubin Urine Urobilinogen Leukocyte Esterase Rfl Urine RBC Urine WBC Ur Squamous Epith Cells Urine Bacteria Urine Casts Influenza A (RT-PCR) Influenza B (RT-PCR) RSV (RT-PCR) SARS-CoV-2 RNA (RT-PCR) 12/30/24 12/30/24 12/30/24 09:53 09:53 09:53 WBC RBC Hgb Hct MCV MCH MCHC RDW Plt Count MPV Immature Gran % (Auto) Neut % (Auto) Lymph % (Auto) Stokes % (Auto) Eos % (Auto) Baso % (Auto) Lymph # (Auto) Stokes # (Auto) Eos # (Auto) Baso # (Auto) Abs Immat Gran (auto) Absolute Neuts (auto) Absolute Nucleated RBC Nucleated RBC % PT INR APTT Sodium Potassium Chloride Carbon Dioxide Anion Gap BUN Creatinine Estim Creat Clear Calc Estimated GFR Glucose POC Capillary Glucose Lactic Acid Calcium Total Bilirubin 0.4 AST Cancelled 25 ALT Cancelled 18 Alkaline Phosphatase Cancelled C-Reactive Protein NT-Pro-B Natriuret Pep Total Protein Albumin Urine Color Urine Appearance Urine pH Ur Specific Hiram Urine Protein Urine Glucose (UA) Urine Ketones Ur Blood (Man) Urine Nitrate Urine Bilirubin Urine Urobilinogen Leukocyte Esterase Rfl Urine RBC Urine WBC Ur Squamous Epith Cells Urine Bacteria Urine Casts Influenza A (RT-PCR) Influenza B (RT-PCR) RSV (RT-PCR) SARS-CoV-2 RNA (RT-PCR) 12/30/24 12/30/24 12/30/24 09:53 09:53 09:53 WBC RBC Hgb Hct MCV MCH MCHC RDW Plt Count MPV Immature Gran % (Auto) Neut % (Auto) Lymph % (Auto) Stokes % (Auto) Eos % (Auto) Baso % (Auto) Lymph # (Auto) Stokes # (Auto) Eos # (Auto) Baso # (Auto) Abs Immat Gran (auto) Absolute Neuts (auto) Absolute Nucleated RBC Nucleated RBC % PT INR APTT Sodium Potassium Chloride Carbon Dioxide Anion Gap BUN Creatinine Estim Creat Clear Calc Estimated GFR Glucose POC Capillary Glucose Lactic Acid Calcium Total Bilirubin AST ALT Alkaline Phosphatase 78 C-Reactive Protein 3.8 H NT-Pro-B Natriuret Pep 1520 H Total Protein Cancelled 7.7 Albumin Cancelled 3.8 Urine Color Urine Appearance Urine pH Ur Specific Hiram Urine Protein Urine Glucose (UA) Urine Ketones Ur Blood (Man) Urine Nitrate Urine Bilirubin Urine Urobilinogen Leukocyte Esterase Rfl Urine RBC Urine WBC Ur Squamous Epith Cells Urine Bacteria Urine Casts Influenza A (RT-PCR) Influenza B (RT-PCR) RSV (RT-PCR) SARS-CoV-2 RNA (RT-PCR) 12/30/24 12/30/24 12/30/24 09:55 09:59 11:17 WBC 7.8 RBC 3.49 L Hgb 8.8 L Hct 28.3 L MCV 81.1 MCH 25.2 L MCHC 31.1 L RDW 13.6 Plt Count 214 MPV 8.9 Immature Gran % (Auto) 0.6 H Neut % (Auto) 86.7 H Lymph % (Auto) 7.9 L Stokes % (Auto) 4.3 Eos % (Auto) 0.4 Baso % (Auto) 0.1 L Lymph # (Auto) 0.62 L Stokes # (Auto) 0.3 Eos # (Auto) 0.0 Baso # (Auto) 0.0 Abs Immat Gran (auto) 0.05 H Absolute Neuts (auto) 6.8 H Absolute Nucleated RBC 0.000 Nucleated RBC % 0.0 PT INR APTT Sodium Potassium Chloride Carbon Dioxide Anion Gap BUN Creatinine Estim Creat Clear Calc Estimated GFR Glucose POC Capillary Glucose Lactic Acid Calcium Total Bilirubin AST ALT Alkaline Phosphatase C-Reactive Protein NT-Pro-B Natriuret Pep Total Protein Albumin Urine Color Yellow Urine Appearance Clear Urine pH 6.0 Ur Specific Hiram 1.013 Urine Protein 1+ H Urine Glucose (UA) 2+ H Urine Ketones Negative Ur Blood (Man) 1+ H Urine Nitrate Negative Urine Bilirubin Negative Urine Urobilinogen 0.2 Leukocyte Esterase Rfl Negative Urine RBC 0-2 Urine WBC 0-5 Ur Squamous Epith Cells None seen Urine Bacteria None seen Urine Casts 0-2 Influenza A (RT-PCR) Negative Influenza B (RT-PCR) Negative RSV (RT-PCR) Negative SARS-CoV-2 RNA (RT-PCR) Negative 12/30/24 12/30/24 12/30/24 12:52 17:10 17:25 WBC RBC Hgb Hct MCV MCH MCHC RDW Plt Count MPV Immature Gran % (Auto) Neut % (Auto) Lymph % (Auto) Stokes % (Auto) Eos % (Auto) Baso % (Auto) Lymph # (Auto) Stokes # (Auto) Eos # (Auto) Baso # (Auto) Abs Immat Gran (auto) Absolute Neuts (auto) Absolute Nucleated RBC Nucleated RBC % PT INR APTT Sodium Potassium 4.5 Chloride Carbon Dioxide Anion Gap BUN Creatinine Estim Creat Clear Calc Estimated GFR Glucose POC Capillary Glucose 87 Lactic Acid 1.3 Calcium Total Bilirubin AST ALT Alkaline Phosphatase C-Reactive Protein NT-Pro-B Natriuret Pep Total Protein Albumin Urine Color Urine Appearance Urine pH Ur Specific Hiram Urine Protein Urine Glucose (UA) Urine Ketones Ur Blood (Man) Urine Nitrate Urine Bilirubin Urine Urobilinogen Leukocyte Esterase Rfl Urine RBC Urine WBC Ur Squamous Epith Cells Urine Bacteria Urine Casts Influenza A (RT-PCR) Influenza B (RT-PCR) RSV (RT-PCR) SARS-CoV-2 RNA (RT-PCR) 12/30/24 12/30/24 12/31/24 20:09 23:58 01:41 WBC RBC Hgb Hct MCV MCH MCHC RDW Plt Count MPV Immature Gran % (Auto) Neut % (Auto) Lymph % (Auto) Stokes % (Auto) Eos % (Auto) Baso % (Auto) Lymph # (Auto) Stokes # (Auto) Eos # (Auto) Baso # (Auto) Abs Immat Gran (auto) Absolute Neuts (auto) Absolute Nucleated RBC Nucleated RBC % PT INR APTT Sodium Potassium Chloride Carbon Dioxide Anion Gap BUN Creatinine Estim Creat Clear Calc Estimated GFR Glucose POC Capillary Glucose 102 74 167 H Lactic Acid Calcium Total Bilirubin AST ALT Alkaline Phosphatase C-Reactive Protein NT-Pro-B Natriuret Pep Total Protein Albumin Urine Color Urine Appearance Urine pH Ur Specific Hiram Urine Protein Urine Glucose (UA) Urine Ketones Ur Blood (Man) Urine Nitrate Urine Bilirubin Urine Urobilinogen Leukocyte Esterase Rfl Urine RBC Urine WBC Ur Squamous Epith Cells Urine Bacteria Urine Casts Influenza A (RT-PCR) Influenza B (RT-PCR) RSV (RT-PCR) SARS-CoV-2 RNA (RT-PCR) 12/31/24 04:39 WBC 7.7 RBC 3.33 L Hgb 8.4 L Hct 27.1 L MCV 81.4 MCH 25.2 L MCHC 31.0 L RDW 13.9 Plt Count 197 MPV 9.3 Immature Gran % (Auto) 1.0 H Neut % (Auto) 67.8 Lymph % (Auto) 26.4 Stokes % (Auto) 4.6 Eos % (Auto) 0.1 Baso % (Auto) 0.1 L Lymph # (Auto) 2.03 Stokes # (Auto) 0.4 Eos # (Auto) 0.0 Baso # (Auto) 0.0 Abs Immat Gran (auto) 0.08 H Absolute Neuts (auto) 5.2 Absolute Nucleated RBC 0.000 Nucleated RBC % 0.0 PT INR APTT Sodium 133 L Potassium 3.8 Chloride 102 Carbon Dioxide 21 L Anion Gap 10 BUN 60 H Creatinine 3.86 H Estim Creat Clear Calc 16 Estimated GFR 15 L Glucose 128 H POC Capillary Glucose Lactic Acid Calcium 8.1 L Total Bilirubin AST ALT Alkaline Phosphatase C-Reactive Protein NT-Pro-B Natriuret Pep Total Protein Albumin Urine Color Urine Appearance Urine pH Ur Specific Hiram Urine Protein Urine Glucose (UA) Urine Ketones Ur Blood (Man) Urine Nitrate Urine Bilirubin Urine Urobilinogen Leukocyte Esterase Rfl Urine RBC Urine WBC Ur Squamous Epith Cells Urine Bacteria Urine Casts Influenza A (RT-PCR) Influenza B (RT-PCR) RSV (RT-PCR) SARS-CoV-2 RNA (RT-PCR) Quality VTE Prophylaxis VTE prophylaxis: mechanical ordered and pharmacologic ordered
[2024-12-31] MEDS: INSULIN ASPART (*BKC) 100 UNITS/ML 10 UNITS SUB-Q ×2 (09:02→12:07)
[2024-12-31] MEDS: APIXABAN 2.5 MG TABLET PO ×2 (09:04→21:17)
[2024-12-31] MEDS: SERTRALINE HCL 50 MG TABLET PO (09:04)
[2024-12-31] MEDS: buPROPion HCL SR (12 HR) 150 MG TAB PO ×2 (09:05→21:16)
[2024-12-31] MEDS: METOPROLOL SUCCINATE EXT REL 50 MG TABCR PO (09:05)
[2024-12-31] MEDS: PANTOPRAZOLE 40 MG TABLET PO ×2 (09:05→21:16)
[2024-12-31] MEDS: guaiFENesin 12 HR 600 MG TABCR 1200 MG PO ×2 (09:05→21:16)
[2024-12-31] MEDS: GABAPENTIN 300 MG CAPSULE 600 MG PO ×2 (09:06→21:16)
[2024-12-31] MEDS: DOCUSATE SODIUM 100 MG CAPSULE PO ×2 (09:06→16:44)
[2024-12-31] MEDS: TORSEMIDE 10 MG TABLET PO (09:06)
[2024-12-31] MEDS: OLOPATADINE 0.1% OPHTH SOLN 5 ML BTL 1 DROP EACH EYE ×2 (09:07→16:44)
[2024-12-31] MEDS: INSULIN GLARGINE (*BKC) 100 UNITS/ML 36 UNITS SUB-Q (09:10)
[2024-12-31] MEDS: cefTRIAXone 1 GM in SODIUM CHLORIDE 0.9% IV 50 ML 100 ML IVPB (12:09)
[2024-12-31] MEDS: PERFLUTREN LIPID MICROSPHERES 1.5 ML VIAL DILUTED TO 10 ML TOTAL VOLUME IV PUSH (12:49)
--- NOTE | 2024-12-31 12:50 | IVDEFINITY ---
Prior to administration of IV Definity the patient was educated on the risks and benefits of the imaging enhancing agent including potential adverse side effects. The patient verbalized understanding. Allergies were verified. No exclusion criteria were identified and at least one of the following inclusion criteria were met: 1) physician request, 2) patient technically difficult to image (per the [place] [employer] guidelines of two or more segments not discernable within the apical view), or 3) questionable left ventricular function. ?
[2024-12-31] MEDS: AZITHROMYCIN IV 500 MG in SODIUM CHLORIDE 0.9% IV 250 ML IVPB (13:33)
--- NOTE | 2024-12-31 13:36 | ECHO_ITS ---
Patient Info Name: Ramos Urbina Age: 84 years : 1940 Gender: Male Ht: 66 in Wt: 264 lbs BSA: 2.42 m2 HR: 104 bpm BP: 110 / 77 mmHg Heart Rhythm: Sinus Rhythm Technical Quality: Poor Exam Date: 12/31/2024 11:20 AM Patient Status: I Admit Date: 12/31/2024 Exam Type: CA echo dop color flow w con Complete two-dimensional, color flow and Doppler transthoracic echocardiogram is performed with contrast to opacify the left ventricle and to improve the deliniation of the left ventricle endocardial borders. Staff Referring Physician: César Castaneda Ebay Reseller: Miguelito Malik III Attending Provider: Jadiel Flynn MD Contrast/Agitated Saline Contrast/Ag. Saline: Definity Amount: 2.00 ml Administered By: Miguelito Malik III Existing IV Access: Yes IV Access Condition: patent with no signs of infiltration Summary 1. Technically difficult echocardiogram with difficult image quality, definity contrast utilized. 2. Normal left ventricular size with hyperdynamic systolic contractility well seen following contrast injection. 3. Sclerosis of the aortic valve with well maintained leaflet separation. 4. No significant valvular dysfunction identified. 5. Compared with echocardiogram done in December of last year findings are similar other than ejection fraction is now hyperdynamic. Left Ventricle Left ventricular chamber dimension is normal. Left ventricular systolic function is hyperdynamic, estimated at >70. The left ventricular diastolic function is indeterminate. Right Ventricle Right ventricular chamber dimension is normal. Left Atria Left atrial chamber dimension is normal. Right Atria Right atrial chamber dimension is normal. Aortic Valve The aortic valve is trileaflet. There is mild aortic valve sclerosis. Pulmonic Valve The pulmonic valve is not well visualized. Mitral Valve The mitral valve has normal leaflets. Tricuspid Valve The tricuspid valve leaflets are not well visualized. Pericardium/Pleural The pericardium appears normal. Aorta The aortic root size at the sinus of Valsalva is not well visualized. Left Ventricular Outflow Tract Name Value Normal LVOT 2D LVOT Diameter 2.3 cm LVOT Doppler LVOT Peak Velocity 98 cm/s LVOT Peak Gradient 4 mmHg LVOT Mean Gradient 2 mmHg LVOT VTI 20 cm LVOT VTI/AV VTI Ratio 1.3 LVOT Stroke Volume 85 ml LVOT CO 8.6 l/min LVOT CI 3.6 l/min/m2 Pulmonic Valve Name Value Normal PV Doppler PV Peak Velocity 110 cm/s PV Peak Gradient 5 mmHg PV Mean Gradient 2 mmHg Mitral Valve Name Value Normal MV Doppler MV Peak Gradient 4 mmHg MV Mean Gradient 2 mmHg MV Area (Cont Eq VTI) 3.8 cm2 MV Diastolic Function MV E Peak Velocity 40 cm/s MV A Peak Velocity 91 cm/s MV E/A 0.4 MV Decel Time (PW) 84 ms MV Annular TDI MV E/e' (Septal) 7.5 MV E/e' (Lateral) 5.1 MV E/e' (Average) 6.3 Tricuspid Valve Name Value Normal TV Annular TDI TV Lateral Bebe s' Velocity 11.0 cm/s >=9.5 Aortic Valve Name Value Normal AV Doppler AV Peak Velocity 113 cm/s AV Peak Gradient 5 mmHg AV Mean Gradient 3 mmHg AV VTI 15 cm AV Area (Cont Eq VTI) 5.5 cm2 >=3.0 AV Area (Cont Eq Otis) 3.7 cm2 AV DI (Otis) 0.87 AV Regurgitation 2D LVOT Area 4.2 cm2 Ventricles Name Value Normal LV Dimensions 2D/MM LVOT Diameter 2.3 cm LV Fractional Shortening/Ejection Fraction 2D/MM LV Diastolic Volume (4C MOD) 93 ml LV EF (4C MOD) 84 % LV Diastolic Volume (2C MOD) 68 ml LV EF (2C MOD) 75 % LV Diastolic Volume (BP MOD) 80 ml 62-150 LV Diastolic Volume Index (BP MOD) 33 ml/m2 34-74 LV Systolic Volume (BP MOD) 16 ml 21-61 LV Systolic Volume Index (BP MOD) 7 ml/m2 11-31 LV EF (BP MOD) 80 % 52-72 LV Diastolic Length (4C) 7.6 cm LV Systolic Length (4C) 5.9 cm LV Stroke Volume (4C MOD) 79 ml Atria Name Value Normal LA Dimensions LA Volume (4C A-L) 60 ml LA Volume (BP A-L) 61 ml RA Dimensions RA Systolic Major [place] Length (4C) 5.5 cm 2.1-2.7 RA Area (4C) 15.6 cm2 <=18.0 Report Signatures
[2024-12-31] MEDS: GLUCOSE ORAL GEL 15 GM OF GLUCSE IN 37.5 GM TUBE PO (16:54)
[2024-12-31] MEDS: SIMVASTATIN 20 MG TABLET 40 MG PO (21:16)
[2025-01-01] VITALS (20 sets, daily range): BP systolic 112–149; BP diastolic 58–78; PULSE 69–103; RESP 16–20; TEMP 36.3–37.3; O2SAT 95–100
[2025-01-01] MEDS: IPRATROPIUM 0.5 MG/ALBUTEROL SULFATE 2.5 MG AMPUL.NEB 3 ML INHALATION ×4 (02:32→19:45)
[2025-01-01 05:16] LABS: Hematocrit 26.9 % (42.0-52.0); Hemoglobin 8.3 g/dL (14.0-18.0); Immature Granulocyte Percent A 0.7 % (0-0.5); Lymphocytes Absolute Auto 1.29 K/mm3 (0.9-3.2); Mean Corpuscular HGB Conc 30.9 g/dl (32-36); Mean Corpuscular Hemoglobin 25.4 pg (26-34); Mean Corpuscular Volume 82.3 fl (80-100); Nucleated Red Blood Cells Absolute Auto 0.000 K/mm3 (0.0-0.012); Nucleated Red Blood Cells Perc 0.0 % (0.0-0.2); Platelet Count Result 167 k/mm3 (150-375); Red Blood Count 3.27 M/mm3 (4.6-6.20); White Blood Count 6.9 K/mm3 (4.5-10.0)
[2025-01-01 05:37] LABS: Alanine Aminotransferase 23 U/L (6-50); Albumin Level 3.1 g/dL (3.5-5.1); Alkaline Phosphatase 73 U/L (38-126); Anion Gap 10 mmol/L (4-12); Aspartate Amino Transferase 70 U/L (17-59); Bilirubin,Total 0.3 mg/dL (0.2-1.3); Blood Urea Nitrogen 62 mg/dL (9-20); Calcium 8.2 mg/dL (8.4-10.2); Carbon Dioxide 22 mmol/L (22-30); Chloride 104 mmol/L (98-107); Estimated CRCL calculation 15 ml/min; Estimated Glomerular Filt Rate 14; Glucose 126 mg/dL (65-110); Magnesium 1.9 mg/dL (1.6-2.3); Potassium 3.7 mmol/L (3.4-5.0); Sodium 136 mmol/L (137-145); Total Protein 6.5 g/dL (6.3-8.2)
--- NOTE | 2025-01-01 08:02 | P.PNIM_ITS ---
Progress Note: A&P Assessment and Plan (1) Pneumonia: Code(s): J18.9 - Pneumonia, unspecified organism Status: Acute Assessment and Plan: IV Rocephin and azithromycin Guaifenesin DuoNebs Tachypnea 20's but no respiratory distress - continue to monitor VS Blood cultures pending, daily labs 12/31: Audible wet sputum, sputum culture ordered today 01/01: Pt no longer audible wet cough. Lungs clear today, no issues with work of breathing. NSR today of 89 bpm, VSS. D/C sputum culture. (2) Diastolic dysfunction: Onset Date: ~12/26/23 Code(s): I51.89 - Other ill-defined heart diseases Status: Acute Assessment and Plan: Acute on chronic, pulmonary edema seen on chest x-ray Patient was given a L of fluids for lactic acidosis Monitor for fluid overload, fluid restriction Echocardiogram: 1. Technically difficult echocardiogram with difficult image quality, definity contrast utilized. 2. Normal left ventricular size with hyperdynamic systolic contractility well seen following contrast injection. 3. Sclerosis of the aortic valve with well maintained leaflet separation. 4. No significant valvular dysfunction identified. 5. Compared with echocardiogram done in December of last year findings are similar other than ejection fraction is now hyperdynamic. 01/01: Pt lungs sounding a lot better today, no wet cough. 89bpm, NSR. D/C farr today. (3) Confusion: Code(s): R41.0 - Disorientation, unspecified Status: Acute Assessment and Plan: Head CT negative for acute process Replace electrolytes as needed, daily labs Treat underlying infection 12/31: A&Ox4 upon exam today 01/01: A&Ox4 upon exam today (4) Fever: Code(s): R50.9 - Fever, unspecified Status: Acute Assessment and Plan: Possibly due to pneumonia Blood cultures pending Lactic acid resolved after fluid bolus Afebrile per 12/31/24 VS Acetaminophen PRN, LFTs WDL 01/01: Continues to be afebrile (5) Falls frequently: Code(s): R29.6 - Repeated falls Status: Acute Assessment and Plan: CT chest abdomen pelvis, CT head and CT C-spine negative for acute injuries PT OT eval and treat - recs for skilled PT and OT, pending placement acceptance Uses WC at [facility] ([facility]) (6) Lung nodule seen on imaging study: Code(s): R91.1 - Solitary pulmonary nodule Status: Acute Assessment and Plan: There is a 5 mm pulmonary nodule in the right upper lobe. A follow-up chest CT in 3 months is recommended. Follow-up with PCP Patient aware finding (7) Chronic kidney disease, stage 4 (severe): Code(s): N18.4 - Chronic kidney disease, stage 4 (severe) Status: Acute Assessment and Plan: Creatinine at baseline BMP in AMs Continue [place] F/u with established Neph - updated pt and sister on the need for a RTC in Nov per September 2024 nephrology note. 01/01: Creatine continues to be elevated, still on fluid restriction, discontinued restriction today. Will continue to monitor labs in AM. (8) Diabetes mellitus: Code(s): E11.9 - Type 2 diabetes mellitus without complications Status: Acute Assessment and Plan: Nusratu-Deisy steve HS SSI Patient takes 36 units of Lantus daily and 10 units of aspart before meals BS here have been stable Currently taking gabapentin 600mg BID - rx by PCP - f/u outpt (9) Hyperlipidemia: Code(s): E78.5 - Hyperlipidemia, unspecified Status: Acute Assessment and Plan: Continue Zocor Labs in Dec 2023 stable, continue monitoring by PCP (10) Paroxysmal atrial flutter: Code(s): I48.92 - Unspecified atrial flutter Status: Acute Assessment and Plan: Continue Eliquis and metoprolol Continue Tele - 112 sinus tachycardia today 12/31 01/01: TELE: NSR today at 69 bpm, denies CP (11) Hyperkalemia: Code(s): E87.5 - Hyperkalemia Status: Acute Assessment and Plan: Cesarma once initially Repeat potassium level 4.5 (Baseline K 3.8-4.5) Pt denies CP BMP in a.m: 12/31: 3.8 01/01: 3.7 01/02: 3.7 (12) Hypocalcemia: Code(s): E83.51 - Hypocalcemia Status: Acute Assessment and Plan: 1 g calcium initially Continue checking BMP in a.m. Likely due to CKD -Add on Vit D 01/01, WDL 05/2024 (On daily Vit D suppl) -Mag pending from 01/01 draw 01/01: Ca appears to be at baseline, will continue to monitor Mag & Vit D WDL (13) Depression: Code(s): F32.A - Depression, unspecified Status: Acute Assessment and Plan: Continue Wellbutrin, buspirone, and Zoloft Mood stable (14) Obstructive sleep apnea on CPAP: Code(s): G47.33 - Obstructive sleep apnea (adult) (pediatric); Z99.89 - Dependence on other enabling machines and devices Status: Acute Assessment and Plan: Continue home CPAP in pt (15) Hyponatremia: Code(s): E87.1 - Hypo-osmolality and hyponatremia Status: Acute Assessment and Plan: Baseline Na 133-140 Labs daily, will continue to monitory Fluid restriction due to CHF already 01/01: Na 136 Plan Daily labs, work with PT/OT, sx management, infection tx, placement pending Time Spent With Patient Time: 45 Subjective Date/time seen: 01/01/25 0947 Interval history: Admitting hospitalist: 84-year-old male past medical history of chronic lower back pain, CKD, hyperlipidemia, CHF, hypertension and diabetes presents to the hospital after a fall he also complains confusion and a temperature of 101.3?. Patient denies injuries from his fall. He states that just does not feel confused. A&O x4. Patient has no complaints of shortness of breath, nausea vomiting, or painful urination. Lab work in the ED shows anemia of 8.8, INR 1.3, sodium of 133, potassium of 5.2, carbon dioxide 20, BUN of 60, creatinine of 3.39 which are the same as last month, glucose of 169, lactic acid of 2.4 followed by 1.3, calcium of 8.2 CRP of 3.8, BNP of 1520, UA negative for infection however there is 1+ blood. Moderate thickness of the osborne of the bladder with a small amount of air. The patient was straight cathed in the emergency room, cystitis versus distension. Small subpleural patchy opacities. 5 mm pulmonary nodule in the right upper lobe. 12/31: Pt states that he thinks he is breathing better today. Agreeable with continued tx for PNA and CHF. Spoke to pt's sister, Jacque, with pt consent at length about pt with updates; she states that the day before the pt got admitted he received his influenza, covid, and shingles vaccinations. Pt with audible wet cough 01/01: Pt reports that he overall feels better today. He is currently up in the chair relaxing after eating breakfast. Lungs sounding considerably better. Review of Systems Review of Systems: 12 systems were reviewed and are negativ e except for as per HPI. Exam Const: Other: +ROSEBUD HENMT: Face/Nose/Sinus: Normal nares present Mouth: Yes moist mucous membranes Eyes: General: appearance normal, both eyes and all related structures Sclera: sclerae normal Neck: Neck: supple Carotids: no bruits Resp: Auscultation: clear to auscultation bilaterally Cardio: Rate: regular rate Rhythm: regular rhythm Other: TELE: NSR 89bpm GI: Auscultation: normal bowel sounds Urinary Catheter: Urinary Catheter: patent and draining and urine clear Skin: General skin exam: normal color and no rashes or lesions noted Other: Healing skin tear to L anterior FA with surrounding healing ecchymosis Neuro: Motor exam (neuro): Normal motor muscle tone present throughout Other: BUE normal aging weakness Focal chronic tremor of lower jaw Extrem: Other: See skin Psych: Mental Status: mental status grossly normal Affect: normal affect Objective Data Vital Signs Vital Signs: Vital Signs - 24 hr 12/31/24 08:03 12/31/24 08:13 12/31/24 08:20 Temperature Pulse Rate 117 H 110 H 106 H Respiratory Rate 20 20 Blood Pressure Pulse Oximetry Oxygen Delivery 12/31/24 09:05 12/31/24 09:07 12/31/24 11:45 Temperature Pulse Rate 110 H Respiratory Rate 20 Blood Pressure Pulse Oximetry 98 Oxygen Delivery Room Air Room Air 12/31/24 12:00 12/31/24 14:00 12/31/24 14:05 Temperature 97.8 F Pulse Rate 113 H 95 Respiratory Rate 19 Blood Pressure 103/53 L Pulse Oximetry 100 Oxygen Delivery Room Air 12/31/24 14:44 12/31/24 14:49 12/31/24 16:03 Temperature Pulse Rate 94 100 89 Respiratory Rate 20 20 Blood Pressure Pulse Oximetry Oxygen Delivery 12/31/24 19:43 12/31/24 19:43 12/31/24 19:48 Temperature Pulse Rate 88 90 Respiratory Rate 15 15 Blood Pressure Pulse Oximetry 98 Oxygen Delivery Room Air 12/31/24 20:00 12/31/24 20:13 01/01/25 00:00 Temperature 97.8 F Pulse Rate 89 89 81 Respiratory Rate 18 Blood Pressure 142/83 H Pulse Oximetry 98 Oxygen Delivery 01/01/25 02:33 01/01/25 02:38 01/01/25 04:00 Temperature Pulse Rate 85 80 86 Respiratory Rate 18 18 Blood Pressure Pulse Oximetry Oxygen Delivery 01/01/25 05:46 01/01/25 07:25 01/01/25 07:25 Temperature 97.6 F Pulse Rate 88 87 Respiratory Rate 20 18 Blood Pressure 149/78 H Pulse Oximetry 95 97 Oxygen Delivery Room Air 01/01/25 07:35 Temperature Pulse Rate 88 Respiratory Rate 18 Blood Pressure Pulse Oximetry Oxygen Delivery Intake/Output Intake/Output: Intake & Output 12/29/24 12/30/24 12/31/24 01/01/25 23:59 23:59 23:59 23:59 Intake Total 1290 1490 Output Total 675 1050 650 Balance 615 440 -650 Meds/Results Medications: Active Medications Generic Name Dose Route Start Last Admin Trade Name Freq PRN Reason Stop Dose Admin Acetaminophen 650 mg 12/31/24 07:54 Acetaminophen 325 Mg Tablet PO Q6H PRN Mild Pain (1-3) or Fever Albuterol/Ipratropium 3 ml 12/30/24 14:00 01/01/25 07:26 Ipratropium 0.5 Mg/Albuterol Sulfate 2.5 Mg Ampul.Neb 3 Ml INHALATION 3 ml Q6HRT MARIANO Administration Apixaban 2.5 mg 12/30/24 21:00 12/31/24 21:17 Apixaban 2.5 Mg Tablet PO 2.5 mg Q12HR MARIANO Administration Bupropion HCl 150 mg 12/30/24 21:00 12/31/24 21:16 Bupropion Hcl Sr (12 Hr) 150 Mg Tab PO 150 mg Q12HR MARIANO Administration Buspirone HCl 5 mg 12/30/24 17:15 12/31/24 16:44 Buspirone Hcl 5 Mg Tablet PO 5 mg BID MARIANO Administration Dextrose 12.5 gm 12/30/24 13:34 Dextrose 50% 25 Gm/50 Ml Syringe IV PUSH PRN PRN Hypoglycemia Protocol Docusate Sodium 100 mg 12/30/24 17:00 12/31/24 16:44 Docusate Sodium 100 Mg Capsule PO 100 mg BID MARIANO Administration Gabapentin 600 mg 12/30/24 21:00 12/31/24 21:16 Gabapentin 300 Mg Capsule PO 600 mg Q12HR MARIANO Administration Glucagon 1 mg 12/30/24 13:34 Glucagon For Inj 1 Mg Vial IM PRN PRN Hypoglycemia Protocol Glucose 15 gm 12/30/24 13:34 12/31/24 16:54 Glucose Oral Gel 15 Gm Of Glucse In 37.5 Gm Tube PO 15 gm PRN PRN Administration Hypoglycemia Protocol Guaifenesin 1,200 mg 12/30/24 14:00 12/31/24 21:16 Guaifenesin 12 Hr 600 Mg Tabcr PO 1,200 mg Q12HR MARIANO Administration Ceftriaxone Sodium 1 gm/ 50 mls @ 100 mls/hr 12/31/24 13:00 12/31/24 12:40 Sodium Chloride IVPB Infused Q24H MARIANO Infusion Azithromycin 500 mg/ Sodium 250 mls @ 250 mls/hr 12/31/24 14:00 12/31/24 14:33 Chloride IVPB 01/03/25 14:59 Infused Q24H MARIANO Infusion Dextrose 1,000 mls @ 100 mls/hr 12/30/24 13:34 Dextrose 5% 1,000 Ml IVPB PRN PRN Hypoglycemia Protocol Insulin Aspart 2 - 5 units 12/30/24 17:00 12/31/24 16:53 Insulin Aspart (*Bkc) 100 Units/Ml SUB-Q Not Given TIDWM [facility] Protocol Insulin Aspart 1 - 2 units 12/30/24 21:00 12/31/24 23:16 Insulin Aspart (*Bkc) 100 Units/Ml SUB-Q Not Given HS MARIANO Protocol Insulin Aspart 10 units 12/31/24 08:00 12/31/24 16:53 Insulin Aspart (*Bkc) 100 Units/Ml SUB-Q Not Given TIDWM MARIANO Insulin Glargine 36 units 12/31/24 09:00 12/31/24 09:10 Insulin Glargine (*Bkc) 100 Units/Ml SUB-Q 36 units DAILY MARIANO Administration Metoprolol Succinate 50 mg 12/31/24 09:00 12/31/24 09:05 Metoprolol Succinate Ext Rel 50 Mg Tabcr PO 50 mg QAM MARIANO Administration Miscellaneous Information 1 each 12/31/24 00:01 01/01/25 07:47 Farxiga (No Subs) Is Nonform; Can Pt Use From Home? XX 01/30/25 00:00 Not Given CLARIFY MARIANO Non-Formulary Medication 5 mg 12/31/24 09:00 Dapagliflozin Propanediol [Farxiga] PO 01/30/25 08:59 DAILY MARIANO Olopatadine HCl 1 drop 12/30/24 17:20 12/31/24 16:44 Olopatadine 0.1% Ophth Soln 5 Ml Btl EACH EYE 1 drop BID MARIANO Administration Pantoprazole Sodium 40 mg 12/30/24 21:00 12/31/24 21:16 Pantoprazole 40 Mg Tablet PO 40 mg Q12HR MARIANO Administration Polyethylene Glycol 17 gm 12/31/24 09:00 12/31/24 09:07 Polyethylene Glycol 3350 17 Gm Powd.Pack PO 17 gm DAILY MARIANO Administration Ropinirole HCl 1 mg 12/30/24 21:00 12/31/24 21:16 Ropinirole Hcl 1 Mg Tablet PO 1 mg QHS MARIANO Administration Sertraline HCl 50 mg 12/31/24 09:00 12/31/24 09:04 Sertraline Hcl 50 Mg Tablet PO 50 mg DAILY MARIANO Administration Simvastatin 40 mg 12/30/24 21:00 12/31/24 21:16 Simvastatin 20 Mg Tablet PO 40 mg HS MARIANO Administration Torsemide 10 mg 12/31/24 09:00 12/31/24 09:06 Torsemide 10 Mg Tablet PO 10 mg QAM MARIANO Administration Tramadol HCl 0 mg 12/30/24 17:04 Tramadol Hcl (*Crx) 50 Mg Tablet PO Q6H PRN Pain 4-6 Radiology Results: ITS Impressions Cervical Spine CT 12/30/24 10:21 Impression: No acute abnormality. Head CT 12/30/24 10:33 IMPRESSION: 1. No acute intracranial hemorrhage. No mass effect. 2. Probable chronic ischemic white matter change. Chest X-Ray 12/30/24 10:35 IMPRESSION: 1. Interstitial pulmonary edema and/or pneumonitis. Chest/Abdomen/Pelvis CT 12/30/24 12:20 IMPRESSION: 1. Moderate thickening of the osborne of the bladder with a small amount of air within the bladder. Differential includes incomplete bladder wall distention versus cystitis. The small amount of air in the bladder may be due to recent Farr catheter placement versus cystitis. 2. There are a few small subpleural reticular and patchy opacities in the lower lungs. Differential includes atelectasis/scarring or infiltrates. 3. There is a 5 mm pulmonary nodule in the right upper lobe. A follow-up chest CT in 3 months is recommended. Labs Labs: Laboratory Results - last 24 hr 12/31/24 12/31/24 12/31/24 08:08 11:43 14:08 WBC RBC Hgb Hct MCV MCH MCHC RDW Plt Count MPV Immature Gran % (Auto) Neut % (Auto) Lymph % (Auto) [place] % (Auto) Eos % (Auto) Baso % (Auto) Lymph # (Auto) [place] # (Auto) Eos # (Auto) Baso # (Auto) Abs Immat Gran (auto) Absolute Neuts (auto) Absolute Nucleated RBC Nucleated RBC % Sodium Potassium Chloride Carbon Dioxide Anion Gap BUN Creatinine Estim Creat Clear Calc Estimated GFR Glucose POC Capillary Glucose 162 H 160 H 87 Calcium Magnesium Total Bilirubin AST ALT Alkaline Phosphatase Total Protein Albumin Vitamin D 25-Hydroxy 12/31/24 12/31/24 12/31/24 16:49 17:31 20:22 WBC RBC Hgb Hct MCV MCH MCHC RDW Plt Count MPV Immature Gran % (Auto) Neut % (Auto) Lymph % (Auto) [place] % (Auto) Eos % (Auto) Baso % (Auto) Lymph # (Auto) [place] # (Auto) Eos # (Auto) Baso # (Auto) Abs Immat Gran (auto) Absolute Neuts (auto) Absolute Nucleated RBC Nucleated RBC % Sodium Potassium Chloride Carbon Dioxide Anion Gap BUN Creatinine Estim Creat Clear Calc Estimated GFR Glucose POC Capillary Glucose 45 L* 74 188 H Calcium Magnesium Total Bilirubin AST ALT Alkaline Phosphatase Total Protein Albumin Vitamin D 25-Hydroxy 01/01/25 04:41 WBC 6.9 RBC 3.27 L Hgb 8.3 L Hct 26.9 L MCV 82.3 MCH 25.4 L MCHC 30.9 L RDW 13.9 Plt Count 167 MPV 8.9 Immature Gran % (Auto) 0.7 H Neut % (Auto) 71.0 Lymph % (Auto) 18.7 [place] % (Auto) 5.7 Eos % (Auto) 3.8 Baso % (Auto) 0.1 L Lymph # (Auto) 1.29 [place] # (Auto) 0.4 Eos # (Auto) 0.3 Baso # (Auto) 0.0 Abs Immat Gran (auto) 0.05 H Absolute Neuts (auto) 4.9 Absolute Nucleated RBC 0.000 Nucleated RBC % 0.0 Sodium 136 L Potassium 3.7 Chloride 104 Carbon Dioxide 22 Anion Gap 10 BUN 62 H Creatinine 4.16 H Estim Creat Clear Calc 15 Estimated GFR 14 L Glucose 126 H POC Capillary Glucose Calcium 8.2 L Magnesium 1.9 Total Bilirubin 0.3 AST 70 H ALT 23 Alkaline Phosphatase 73 Total Protein 6.5 Albumin 3.1 L Vitamin D 25-Hydroxy 72.3 Quality VTE Prophylaxis VTE prophylaxis: mechanical ordered and pharmacologic ordered
[2025-01-01] MEDS: DOCUSATE SODIUM 100 MG CAPSULE PO ×2 (08:18→16:07)
[2025-01-01] MEDS: TORSEMIDE 10 MG TABLET PO (08:19)
[2025-01-01] MEDS: buPROPion HCL SR (12 HR) 150 MG TAB PO ×2 (08:19→20:39)
[2025-01-01] MEDS: GABAPENTIN 300 MG CAPSULE 600 MG PO ×2 (08:19→20:39)
[2025-01-01] MEDS: PANTOPRAZOLE 40 MG TABLET PO ×2 (08:19→20:39)
[2025-01-01] MEDS: METOPROLOL SUCCINATE EXT REL 50 MG TABCR PO (08:20)
[2025-01-01] MEDS: SERTRALINE HCL 50 MG TABLET PO (08:20)
[2025-01-01] MEDS: APIXABAN 2.5 MG TABLET PO ×2 (08:20→20:39)
[2025-01-01] MEDS: guaiFENesin 12 HR 600 MG TABCR 1200 MG PO ×2 (08:20→20:39)
[2025-01-01] MEDS: INSULIN GLARGINE (*BKC) 100 UNITS/ML 36 UNITS SUB-Q (08:20)
[2025-01-01] MEDS: INSULIN ASPART (*BKC) 100 UNITS/ML 10 UNITS SUB-Q ×2 (08:20→12:19)
[2025-01-01] MEDS: OLOPATADINE 0.1% OPHTH SOLN 5 ML BTL 1 DROP EACH EYE ×2 (08:21→17:25)
[2025-01-01] MEDS: cefTRIAXone 1 GM in SODIUM CHLORIDE 0.9% IV 50 ML 100 ML IVPB (13:07)
[2025-01-01] MEDS: AZITHROMYCIN IV 500 MG in SODIUM CHLORIDE 0.9% IV 250 ML IVPB (13:07)
[2025-01-01] MEDS: SIMVASTATIN 20 MG TABLET 40 MG PO (20:39)
[2025-01-02] VITALS (17 sets, daily range): BP systolic 110–147; BP diastolic 44–50; PULSE 67–92; RESP 18–20; TEMP 36.6–36.9; O2SAT 96–100
[2025-01-02] MEDS: IPRATROPIUM 0.5 MG/ALBUTEROL SULFATE 2.5 MG AMPUL.NEB 3 ML INHALATION ×3 (01:54→20:36)
[2025-01-02 05:02] LABS: Hematocrit 26.5 % (42.0-52.0); Hemoglobin 8.1 g/dL (14.0-18.0); Immature Granulocyte Percent A 0.6 % (0-0.5); Lymphocytes Absolute Auto 1.68 K/mm3 (0.9-3.2); Mean Corpuscular HGB Conc 30.6 g/dl (32-36); Mean Corpuscular Hemoglobin 25.2 pg (26-34); Mean Corpuscular Volume 82.3 fl (80-100); Nucleated Red Blood Cells Absolute Auto 0.000 K/mm3 (0.0-0.012); Nucleated Red Blood Cells Perc 0.0 % (0.0-0.2); Platelet Count Result 199 k/mm3 (150-375); Red Blood Count 3.22 M/mm3 (4.6-6.20); White Blood Count 6.8 K/mm3 (4.5-10.0)
[2025-01-02 05:10] LABS: Alanine Aminotransferase 33 U/L (6-50); Albumin Level 3.3 g/dL (3.5-5.1); Alkaline Phosphatase 69 U/L (38-126); Anion Gap 9 mmol/L (4-12); Aspartate Amino Transferase 64 U/L (17-59); Bilirubin,Total 0.3 mg/dL (0.2-1.3); Blood Urea Nitrogen 62 mg/dL (9-20); Calcium 8.1 mg/dL (8.4-10.2); Carbon Dioxide 23 mmol/L (22-30); Chloride 105 mmol/L (98-107); Estimated CRCL calculation 16 ml/min; Estimated Glomerular Filt Rate 15; Glucose 96 mg/dL (65-110); Potassium 4.0 mmol/L (3.4-5.0); Sodium 137 mmol/L (137-145); Total Protein 6.7 g/dL (6.3-8.2)
[2025-01-02] MEDS: buPROPion HCL SR (12 HR) 150 MG TAB PO ×2 (08:16→20:24)
[2025-01-02] MEDS: OLOPATADINE 0.1% OPHTH SOLN 5 ML BTL 1 DROP EACH EYE ×2 (08:17→17:26)
[2025-01-02] MEDS: guaiFENesin 12 HR 600 MG TABCR 1200 MG PO ×2 (08:17→20:25)
[2025-01-02] MEDS: DOCUSATE SODIUM 100 MG CAPSULE PO ×2 (08:17→17:26)
[2025-01-02] MEDS: APIXABAN 2.5 MG TABLET PO ×2 (08:17→20:25)
[2025-01-02] MEDS: GABAPENTIN 300 MG CAPSULE 600 MG PO ×2 (08:17→20:25)
[2025-01-02] MEDS: PANTOPRAZOLE 40 MG TABLET PO ×2 (08:17→20:25)
[2025-01-02] MEDS: TORSEMIDE 10 MG TABLET PO (08:17)
[2025-01-02] MEDS: METOPROLOL SUCCINATE EXT REL 50 MG TABCR PO (08:17)
[2025-01-02] MEDS: SERTRALINE HCL 50 MG TABLET PO (08:17)
[2025-01-02] MEDS: INSULIN ASPART (*BKC) 100 UNITS/ML 10 UNITS SUB-Q ×3 (08:20→17:27)
[2025-01-02] MEDS: INSULIN GLARGINE (*BKC) 100 UNITS/ML 36 UNITS SUB-Q (08:20)
[2025-01-02] MEDS: cefTRIAXone 1 GM in SODIUM CHLORIDE 0.9% IV 50 ML 100 ML IVPB (12:04)
[2025-01-02] MEDS: AZITHROMYCIN IV 500 MG in SODIUM CHLORIDE 0.9% IV 250 ML IVPB (13:03)
--- NOTE | 2025-01-02 15:38 | P.PNIM_ITS ---
Progress Note: A&P Assessment and Plan (1) Pneumonia: Code(s): J18.9 - Pneumonia, unspecified organism Status: Acute Assessment and Plan: IV Rocephin and azithromycin Guaifenesin DuoNebs Tachypnea 20's but no respiratory distress - continue to monitor VS Blood cultures pending, daily labs 12/31: Audible wet sputum, sputum culture ordered today 01/01: Pt no longer audible wet cough. Lungs clear today, no issues with work of breathing. NSR today of 89 bpm, VSS. D/C sputum culture. 01/02: Pt continues to deny issues breathing. VSS. WBC WDL. (2) Diastolic dysfunction: Onset Date: ~12/26/23 Code(s): I51.89 - Other ill-defined heart diseases Status: Acute Assessment and Plan: Acute on chronic, pulmonary edema seen on chest x-ray Patient was given a L of fluids for lactic acidosis Monitor for fluid overload, fluid restriction Echocardiogram: 1. Technically difficult echocardiogram with difficult image quality, definity contrast utilized. 2. Normal left ventricular size with hyperdynamic systolic contractility well seen following contrast injection. 3. Sclerosis of the aortic valve with well maintained leaflet separation. 4. No significant valvular dysfunction identified. 5. Compared with echocardiogram done in December of last year findings are similar other than ejection fraction is now hyperdynamic. 01/01: Pt lungs sounding a lot better today, no wet cough. 89bpm, NSR. D/C farr today. 01/02: Pt lungs continue to be clear, Creatinine decreased overnight. (3) Confusion: Code(s): R41.0 - Disorientation, unspecified Status: Acute Assessment and Plan: Head CT negative for acute process Replace electrolytes as needed, daily labs Treat underlying infection 12/31: A&Ox4 upon exam today 01/01: A&Ox4 upon exam today 01/02: A&Ox4 upon exam today (4) Fever: Code(s): R50.9 - Fever, unspecified Status: Acute Assessment and Plan: Possibly due to pneumonia Blood cultures pending Lactic acid resolved after fluid bolus Afebrile per 12/31/24 VS Acetaminophen PRN, LFTs WDL 01/01: Continues to be afebrile 01/02: -Continues to be afebrile. -Prelim BC negative (5) Falls frequently: Code(s): R29.6 - Repeated falls Status: Acute Assessment and Plan: CT chest abdomen pelvis, CT head and CT C-spine negative for acute injuries PT OT eval and treat - recs for skilled PT and OT, pending placement acceptance Uses WC at facility ([facility]) (6) Lung nodule seen on imaging study: Code(s): R91.1 - Solitary pulmonary nodule Status: Acute Assessment and Plan: There is a 5 mm pulmonary nodule in the right upper lobe. A follow-up chest CT in 3 months is recommended. Follow-up with PCP Patient aware finding (7) Chronic kidney disease, stage 4 (severe): Code(s): N18.4 - Chronic kidney disease, stage 4 (severe) Status: Acute Assessment and Plan: Creatinine at baseline BMP in AMs Continue Farxiga F/u with established Neph - updated pt and sister on the need for a RTC in JanSeptember 2024 nephrology note. 01/01: Creatinine continues to be elevated, still on fluid restriction, discont inued restriction today. Will continue to monitor labs in AM. 01/02: Creatinine decreasing, now 3.84, closer to his baseline. Pt has been voiding normally post farr removal. Plan to f/u with outpt neph, reminded pt today. (8) Diabetes mellitus: Code(s): E11.9 - Type 2 diabetes mellitus without complications Status: Acute Assessment and Plan: Accu-Cheks a.cLeo HS SSI Patient takes 36 units of Lantus daily and 10 units of aspart before meals BS here have been stable Currently taking gabapentin 600mg BID - rx by PCP - f/u outpt (9) Hyperlipidemia: Code(s): E78.5 - Hyperlipidemia, unspecified Status: Acute Assessment and Plan: Continue Zocor Labs in Dec 2023 stable, continue monitoring by PCP (10) Paroxysmal atrial flutter: Code(s): I48.92 - Unspecified atrial flutter Status: Acute Assessment and Plan: Continue Eliquis and metoprolol Continue Tele - 112 sinus tachycardia today 12/31 01/01: TELE: NSR today at 69 bpm, denies CP 01/02: TELE: NSR today at 72 bpm, denies CP (11) Hyperkalemia: Code(s): E87.5 - Hyperkalemia Status: Acute Assessment and Plan: Cesaria once initially Repeat potassium level 4.5 (Baseline K 3.8-4.5) Pt denies CP BMP in a.m: 12/31: 3.8 01/01: 3.7 01/02: 3.7 (12) Hypocalcemia: Code(s): E83.51 - Hypocalcemia Status: Acute Assessment and Plan: 1 g calcium initially Continue checking BMP in a.m. Likely due to CKD -Add on Vit D 01/01, WDL 05/2024 (On daily Vit D suppl) -Mag pending from 01/01 draw 01/01: Ca appears to be at baseline, will continue to monitor Mag & Vit D WDL 01/02: Ca appears to be at baseline, will continue to monitor (13) Depression: Code(s): F32.A - Depression, unspecified Status: Acute Assessment and Plan: Continue Wellbutrin, buspirone, and Zoloft Mood stable (14) Obstructive sleep apnea on CPAP: Code(s): G47.33 - Obstructive sleep apnea (adult) (pediatric); Z99.89 - Dependence on other enabling machines and devices Status: Acute Assessment and Plan: Continue home CPAP in pt (15) Hyponatremia: Code(s): E87.1 - Hypo-osmolality and hyponatremia Status: Acute Assessment and Plan: Baseline Na 133-140 Labs daily, will continue to monitory Fluid restriction due to CHF already 01/01: Na 136 01/02: Na 137 Plan Daily labs, work with PT/OT, sx management, infection tx, placement pending to [facility] Time Spent With Patient Time: 35 Subjective Date/time seen: 01/02/25 0958 Interval history: Admitting hospitalist: 84-year-old male past medical history of chronic lower back pain, CKD, hyperlipidemia, CHF, hypertension and diabetes presents to the hospital after a fall he also complains confusion and a temperature of 101.3?. Patient denies injuries from his fall. He states that just does not feel confused. A&O x4. Patient has no complaints of shortness of breath, nausea vomiting, or painful urination. Lab work in the ED shows anemia of 8.8, INR 1.3, sodium of 133, potassium of 5.2, carbon dioxide 20, BUN of 60, creatinine of 3.39 which are the same as last month, glucose of 169, lactic acid of 2.4 followed by 1.3, calcium of 8.2 CRP of 3.8, BNP of 1520, UA negative for infection however there is 1+ blood. Moderate thickness of the osborne of the bladder with a small amount of air. The patient was straight cathed in the emergency room, cystitis versus distension. Small subpleural patchy opacities. 5 mm pulmonary nodule in the right upper lobe. 12/31: Pt states that he thinks he is breathing better today. Agreeable with continued tx for PNA and CHF. Spoke to pt's sister, Jacque, with pt consent at length about pt with updates; she states that the day before the pt got admitted he received his influenza, covid, and shingles vaccinations. Pt with audible wet cough 01/01: Pt reports that he overall feels better today. He is currently up in the chair relaxing after eating breakfast. Lungs sounding considerably better. 01/02: Pt continues to feel good although he has been nauseous because he has not had a BM x5 days. Will add on suppository on PRN. Awaiting placement for [facility]. Review of Systems Review of Systems: 12 systems were reviewed and are negativ e except for as per HPI. Exam Const: Other: +PALA HENMT: Face/Nose/Sinus: Normal nares present Mouth: Yes moist mucous membranes and Yes dry mucous membranes Eyes: General: appearance normal, both eyes and all related structures Sclera: sclerae normal Neck: Neck: supple Carotids: no bruits Resp: Auscultation: clear to auscultation bilaterally and diminished lung sounds (throughout) Cardio: Rate: regular rate and tachycardic Rhythm: regular rhythm Other: TELE: NSR 73bpm GI: Inspection: distended Auscultation: normal bowel sounds Skin: General skin exam: normal color and no rashes or lesions noted Other: Healing skin tear to L anterior FA with surrounding healing ecchymosis Neuro: Motor exam (neuro): Normal motor muscle tone present throughout Other: BUE normal aging weakness Focal chronic tremor of lower jaw Extrem: Other: See skin Psych: Mental Status: mental status grossly normal Affect: normal affect Objective Data Vital Signs Vital Signs: Vital Signs - 24 hr 01/01/25 16:00 01/01/25 19:45 01/01/25 19:49 Temperature Pulse Rate 74 70 Respiratory Rate 18 Blood Pressure Pulse Oximetry 96 Oxygen Delivery Room Air 01/01/25 19:53 01/01/25 20:00 01/01/25 20:30 Temperature 99.2 F Pulse Rate 72 79 82 Respiratory Rate 18 18 Blood Pressure 126/60 Pulse Oximetry 98 Oxygen Delivery 01/01/25 22:00 01/02/25 00:00 01/02/25 01:55 Temperature Pulse Rate 89 89 69 Respiratory Rate 18 Blood Pressure Pulse Oximetry 95 Oxygen Delivery Autopap 01/02/25 02:03 01/02/25 02:04 01/02/25 04:00 Temperature Pulse Rate 70 92 74 Respiratory Rate 18 Blood Pressure Pulse Oximetry 96 Oxygen Delivery Autopap 01/02/25 05:42 01/02/25 08:00 01/02/25 08:17 Temperature 98.5 F Pulse Rate 83 67 80 Respiratory Rate 18 Blood Pressure 120/50 L Pulse Oximetry 98 Oxygen Delivery 01/02/25 12:00 01/02/25 14:35 01/02/25 14:41 Temperature Pulse Rate 78 70 72 Respiratory Rate 18 18 Blood Pressure Pulse Oximetry Oxygen Delivery Intake/Output Intake/Output: Intake & Output 12/30/24 12/31/24 01/01/25 01/02/25 23:59 23:59 23:59 23:59 Intake Total 1290 1490 1020 660 Output Total 675 1050 800 650 Balance 615 440 220 10 Meds/Results Medications: Active Medications Generic Name Dose Route Start Last Admin Trade Name Freq PRN Reason Stop Dose Admin Acetaminophen 650 mg 12/31/24 07:54 Acetaminophen 325 Mg Tablet PO Q6H PRN Mild Pain (1-3) or Fever Albuterol/Ipratropium 3 ml 12/30/24 14:00 01/02/25 14:35 Ipratropium 0.5 Mg/Albuterol Sulfate 2.5 Mg Ampul.Neb 3 Ml INHALATION 3 ml Q6HRT MARIANO Administration Apixaban 2.5 mg 12/30/24 21:00 01/02/25 08:17 Apixaban 2.5 Mg Tablet PO 2.5 mg Q12HR MARIANO Administration Bupropion HCl 150 mg 12/30/24 21:00 01/02/25 08:16 Bupropion Hcl Sr (12 Hr) 150 Mg Tab PO 150 mg Q12HR MARIANO Administration Buspirone HCl 5 mg 12/30/24 17:15 01/02/25 08:17 Buspirone Hcl 5 Mg Tablet PO 5 mg BID MARIANO Administration Dextrose 12.5 gm 12/30/24 13:34 Dextrose 50% 25 Gm/50 Ml Syringe IV PUSH PRN PRN Hypoglycemia Protocol Docusate Sodium 100 mg 12/30/24 17:00 01/02/25 08:17 Docusate Sodium 100 Mg Capsule PO 100 mg BID MARIANO Administration Gabapentin 600 mg 12/30/24 21:00 01/02/25 08:17 Gabapentin 300 Mg Capsule PO 600 mg Q12HR MARIANO Administration Glucagon 1 mg 12/30/24 13:34 Glucagon For Inj 1 Mg Vial IM PRN PRN Hypoglycemia Protocol Glucose 15 gm 12/30/24 13:34 12/31/24 16:54 Glucose Oral Gel 15 Gm Of Glucse In 37.5 Gm Tube PO 15 gm PRN PRN Administration Hypoglycemia Protocol Guaifenesin 1,200 mg 12/30/24 14:00 01/02/25 08:17 Guaifenesin 12 Hr 600 Mg Tabcr PO 1,200 mg Q12HR MARIANO Administration Ceftriaxone Sodium 1 gm/ 50 mls @ 100 mls/hr 12/31/24 13:00 01/02/25 12:34 Sodium Chloride IVPB Infused Q24H MARIANO Infusion Azithromycin 500 mg/ Sodium 250 mls @ 250 mls/hr 12/31/24 14:00 01/02/25 13:03 Chloride IVPB 01/03/25 14:59 250 mls/hr Q24H MARIANO Administration Dextrose 1,000 mls @ 100 mls/hr 12/30/24 13:34 Dextrose 5% 1,000 Ml IVPB PRN PRN Hypoglycemia Protocol Insulin Aspart 2 - 5 units 12/30/24 17:00 01/02/25 12:05 Insulin Aspart (*Bkc) 100 Units/Ml SUB-Q Not Given TIDWM MARIANO Protocol Insulin Aspart 1 - 2 units 12/30/24 21:00 01/01/25 20:40 Insulin Aspart (*Bkc) 100 Units/Ml SUB-Q Not Given HS MARIANO Protocol Insulin Aspart 10 units 12/31/24 08:00 01/02/25 12:05 Insulin Aspart (*Bkc) 100 Units/Ml SUB-Q 10 units TIDWM MARIANO Administration Insulin Glargine 36 units 12/31/24 09:00 01/02/25 08:20 Insulin Glargine (*Bkc) 100 Units/Ml SUB-Q 36 units DAILY MARIANO Administration Metoprolol Succinate 50 mg 12/31/24 09:00 01/02/25 08:17 Metoprolol Succinate Ext Rel 50 Mg Tabcr PO 50 mg QAM MARIANO Administration Miscellaneous Information 1 each 12/31/24 00:01 01/02/25 07:25 Farxiga Nonformulary. Order Comments Say Brand Only. Are We Okay To Sub To Jardiance As A XX 01/30/25 00:00 Not Given CLARIFY MARIANO Non-Formulary Medication 5 mg 12/31/24 09:00 Dapagliflozin Propanediol [Farxiga] PO 01/30/25 08:59 DAILY MARIANO Olopatadine HCl 1 drop 12/30/24 17:20 01/02/25 08:17 Olopatadine 0.1% Ophth Soln 5 Ml Btl EACH EYE 1 drop BID MARIANO Administration Pantoprazole Sodium 40 mg 12/30/24 21:00 01/02/25 08:17 Pantoprazole 40 Mg Tablet PO 40 mg Q12HR MARIANO Administration Polyethylene Glycol 17 gm 12/31/24 09:00 01/02/25 08:16 Polyethylene Glycol 3350 17 Gm Powd.Pack PO 17 gm DAILY MARIANO Administration Ropinirole HCl 1 mg 12/30/24 21:00 01/01/25 20:39 Ropinirole Hcl 1 Mg Tablet PO 1 mg QHS MARIANO Administration Sertraline HCl 50 mg 12/31/24 09:00 01/02/25 08:17 Sertraline Hcl 50 Mg Tablet PO 50 mg DAILY MARIANO Administration Simvastatin 40 mg 12/30/24 21:00 01/01/25 20:39 Simvastatin 20 Mg Tablet PO 40 mg HS MARIANO Administration Torsemide 10 mg 12/31/24 09:00 01/02/25 08:17 Torsemide 10 Mg Tablet PO 10 mg QAM MARIANO Administration Tramadol HCl 0 mg 12/30/24 17:04 Tramadol Hcl (*Crx) 50 Mg Tablet PO Q6H PRN Pain 4-6 Radiology Results: ITS Impressions Cervical Spine CT 12/30/24 10:21 Impression: No acute abnormality. Head CT 12/30/24 10:33 IMPRESSION: 1. No acute intracranial hemorrhage. No mass effect. 2. Probable chronic ischemic white matter change. Chest X-Ray 12/30/24 10:35 IMPRESSION: 1. Interstitial pulmonary edema and/or pneumonitis. Chest/Abdomen/Pelvis CT 12/30/24 12:20 IMPRESSION: 1. Moderate thickening of the osborne of the bladder with a small amount of air within the bladder. Differential includes incomplete bladder wall distention versus cystitis. The small amount of air in the bladder may be due to recent Farr catheter placement versus cystitis. 2. There are a few small subpleural reticular and patchy opacities in the lower lungs. Differential includes atelectasis/scarring or infiltrates. 3. There is a 5 mm pulmonary nodule in the right upper lobe. A follow-up chest CT in 3 months is recommended. Labs Labs: Laboratory Results - last 24 hr 01/01/25 01/01/25 01/01/25 16:34 20:21 22:03 WBC RBC Hgb Hct MCV MCH MCHC RDW Plt Count MPV Immature Gran % (Auto) Neut % (Auto) Lymph % (Auto) Banner % (Auto) Eos % (Auto) Baso % (Auto) Lymph # (Auto) Banner # (Auto) Eos # (Auto) Baso # (Auto) Abs Immat Gran (auto) Absolute Neuts (auto) Absolute Nucleated RBC Nucleated RBC % Sodium Potassium Chloride Carbon Dioxide Anion Gap BUN Creatinine Estim Creat Clear Calc Estimated GFR Glucose POC Capillary Glucose 91 85 108 H Calcium Total Bilirubin AST ALT Alkaline Phosphatase Total Protein Albumin 01/02/25 01/02/25 01/02/25 04:26 08:00 11:33 WBC 6.8 RBC 3.22 L Hgb 8.1 L Hct 26.5 L MCV 82.3 MCH 25.2 L MCHC 30.6 L RDW 14.0 Plt Count 199 MPV 9.1 Immature Gran % (Auto) 0.6 H Neut % (Auto) 54.7 Lymph % (Auto) 24.9 Banner % (Auto) 8.4 Eos % (Auto) 11.1 H Baso % (Auto) 0.3 Lymph # (Auto) 1.68 Banner # (Auto) 0.6 Eos # (Auto) 0.8 H Baso # (Auto) 0.0 Abs Immat Gran (auto) 0.04 H Absolute Neuts (auto) 3.7 Absolute Nucleated RBC 0.000 Nucleated RBC % 0.0 Sodium 137 Potassium 4.0 Chloride 105 Carbon Dioxide 23 Anion Gap 9 BUN 62 H Creatinine 3.84 H Estim Creat Clear Calc 16 Estimated GFR 15 L Glucose 96 POC Capillary Glucose 120 H 147 H Calcium 8.1 L Total Bilirubin 0.3 AST 64 H ALT 33 Alkaline Phosphatase 69 Total Protein 6.7 Albumin 3.3 L Quality VTE Prophylaxis VTE prophylaxis: mechanical ordered and pharmacologic ordered
[2025-01-02] MEDS: SIMVASTATIN 20 MG TABLET 40 MG PO (20:25)
[2025-01-03] VITALS (22 sets, daily range): BP systolic 125–151; BP diastolic 48–97; PULSE 61–83; RESP 14–20; TEMP 36.3–36.4; O2SAT 92–99
[2025-01-03] MEDS: IPRATROPIUM 0.5 MG/ALBUTEROL SULFATE 2.5 MG AMPUL.NEB 3 ML INHALATION ×4 (02:16→19:35)
[2025-01-03 05:22] LABS: Hematocrit 26.9 % (42.0-52.0); Hemoglobin 8.2 g/dL (14.0-18.0); Immature Granulocyte Percent A 0.5 % (0-0.5); Lymphocytes Absolute Auto 2.56 K/mm3 (0.9-3.2); Mean Corpuscular HGB Conc 30.5 g/dl (32-36); Mean Corpuscular Hemoglobin 25.2 pg (26-34); Mean Corpuscular Volume 82.8 fl (80-100); Nucleated Red Blood Cells Absolute Auto 0.000 K/mm3 (0.0-0.012); Nucleated Red Blood Cells Perc 0.0 % (0.0-0.2); Platelet Count Result 211 k/mm3 (150-375); Red Blood Count 3.25 M/mm3 (4.6-6.20); White Blood Count 6.6 K/mm3 (4.5-10.0)
[2025-01-03 05:41] LABS: Alanine Aminotransferase 39 U/L (6-50); Albumin Level 3.3 g/dL (3.5-5.1); Alkaline Phosphatase 69 U/L (38-126); Anion Gap 9 mmol/L (4-12); Aspartate Amino Transferase 62 U/L (17-59); Bilirubin,Total 0.3 mg/dL (0.2-1.3); Blood Urea Nitrogen 58 mg/dL (9-20); Calcium 8.2 mg/dL (8.4-10.2); Carbon Dioxide 24 mmol/L (22-30); Chloride 104 mmol/L (98-107); Estimated CRCL calculation 17 ml/min; Estimated Glomerular Filt Rate 16; Glucose 78 mg/dL (65-110); Potassium 4.2 mmol/L (3.4-5.0); Sodium 137 mmol/L (137-145); Total Protein 6.6 g/dL (6.3-8.2)
[2025-01-03] MEDS: DOCUSATE SODIUM 100 MG CAPSULE PO ×2 (08:35→17:46)
[2025-01-03] MEDS: SERTRALINE HCL 50 MG TABLET PO (08:35)
[2025-01-03] MEDS: buPROPion HCL SR (12 HR) 150 MG TAB PO ×2 (08:35→20:38)
[2025-01-03] MEDS: GABAPENTIN 300 MG CAPSULE 600 MG PO ×2 (08:35→20:38)
[2025-01-03] MEDS: METOPROLOL SUCCINATE EXT REL 50 MG TABCR PO (08:35)
[2025-01-03] MEDS: PANTOPRAZOLE 40 MG TABLET PO ×2 (08:36→20:38)
[2025-01-03] MEDS: TORSEMIDE 10 MG TABLET PO (08:36)
[2025-01-03] MEDS: APIXABAN 2.5 MG TABLET PO ×2 (08:36→20:38)
[2025-01-03] MEDS: guaiFENesin 12 HR 600 MG TABCR 1200 MG PO ×2 (08:36→20:37)
[2025-01-03] MEDS: INSULIN GLARGINE (*BKC) 100 UNITS/ML 36 UNITS SUB-Q (08:42)
[2025-01-03] MEDS: INSULIN ASPART (*BKC) 100 UNITS/ML 10 UNITS SUB-Q ×2 (08:42→12:21)
[2025-01-03] MEDS: OLOPATADINE 0.1% OPHTH SOLN 5 ML BTL 1 DROP EACH EYE ×2 (08:45→17:46)
--- NOTE | 2025-01-03 08:57 | P.PNIM_ITS ---
Progress Note: A&P Assessment and Plan (1) Pneumonia: Code(s): J18.9 - Pneumonia, unspecified organism Status: Acute Assessment and Plan: IV Rocephin and azithromycin Guaifenesin DuoNebs Tachypnea 20's but no respiratory distress - continue to monitor VS Blood cultures pending, daily labs 12/31: Audible wet sputum, sputum culture ordered today 01/01: Pt no longer audible wet cough. Lungs clear today, no issues with work of breathing. NSR today of 89 bpm, VSS. D/C sputum culture. 01/02: Pt continues to deny issues breathing. VSS. WBC WDL. Lungs clear. 01/03: Pt continues to deny issues breathing. VSS. WBC WDL. Lungs with mild expiratory wheezing in the bases, inhaler ordered today. Switching from IV Ceftriaxone to Augmentin tomorrow prior to probable D/C Sunday. (2) Diastolic dysfunction: Onset Date: ~12/26/23 Code(s): I51.89 - Other ill-defined heart diseases Status: Acute Assessment and Plan: Acute on chronic, pulmonary edema seen on chest x-ray Patient was given a L of fluids for lactic acidosis Monitor for fluid overload, fluid restriction Echocardiogram: 1. Technically difficult echocardiogram with difficult image quality, definity contrast utilized. 2. Normal left ventricular size with hyperdynamic systolic contractility well seen following contrast injection. 3. Sclerosis of the aortic valve with well maintained leaflet separation. 4. No significant valvular dysfunction identified. 5. Compared with echocardiogram done in December of last year findings are similar other than ejection fraction is now hyperdynamic. 01/01: Pt lungs sounding a lot better today, no wet cough. 89bpm, NSR. D/C farr today. 01/02: Pt lungs continue to be clear, Creatinine decreased overnight. 01/03: Pt lungs with mild exp wheezing lower bilaterally, creatinine decreased overnight. 76bpm, NSR. (3) Confusion: Code(s): R41.0 - Disorientation, unspecified Status: Acute Assessment and Plan: Head CT negative for acute process Replace electrolytes as needed, daily labs Treat underlying infection 12/31: A&Ox4 upon exam today 01/01: A&Ox4 upon exam today 01/02: A&Ox4 upon exam today (4) Fever: Code(s): R50.9 - Fever, unspecified Status: Acute Assessment and Plan: Possibly due to pneumonia Blood cultures pending Lactic acid resolved after fluid bolus Afebrile per 12/31/24 VS Acetaminophen PRN, LFTs WDL 01/01: Continues to be afebrile 01/02: -Continues to be afebrile. -Prelim BC negative 01/03: -Continues to be afebrile. -Prelim BC negative (5) Falls frequently: Code(s): R29.6 - Repeated falls Status: Acute Assessment and Plan: CT chest abdomen pelvis, CT head and CT C-spine negative for acute injuries PT OT eval and treat - recs for skilled PT and OT, pending placement acceptance Uses WC at [facility] ([facility]) 01/03: Rcs for skilled PT and OT, pending placement acceptance to [facility] (6) Lung nodule seen on imaging study: Code(s): R91.1 - Solitary pulmonary nodule Status: Acute Assessment and Plan: There is a 5 mm pulmonary nodule in the right upper lobe. A follow-up chest CT in 3 months is recommended. Follow-up with PCP Patient aware finding (7) Chronic kidney disease, stage 4 (severe): Code(s): N18.4 - Chronic kidney disease, stage 4 (severe) Status: Acute Assessment and Plan: Creatinine at baseline BMP in AMs Continue Farxiga F/u with established Neph - updated pt and sister on the need for a RTC in JanSeptember 2024 nephrology note. 01/01: Creatinine continues to be elevated, still on fluid restriction, discontinued restriction today. Will continue to monitor labs in AM. 01/02: Creatinine decreasing, now 3.84, closer to his baseline. Pt has been voiding normally post farr removal. Plan to f/u with outpt neph, reminded pt today. 04/05: Creatinine decreasing, now 3.56, closer to his baseline. (8) Diabetes mellitus: Code(s): E11.9 - Type 2 diabetes mellitus without complications Status: Acute Assessment and Plan: Accu-Cheks a.c. HS SSI Patient takes 36 units of Lantus daily and 10 units of aspart before meals BS here have been stable Currently taking gabapentin 600mg BID - rx by PCP - f/u outpt 01/03: Continue to check BS readings in the AM. 78 lab and 101 POC this AM. Pt reports that he has not been eating as much due to his nausea secondary to constipation. HELD aspart scheduled dose until back to normal with eating. (9) Hyperlipidemia: Code(s): E78.5 - Hyperlipidemia, unspecified Status: Acute Assessment and Plan: Continue Zocor Labs in Dec 2023 stable, continue monitoring by PCP (10) Paroxysmal atrial flutter: Code(s): I48.92 - Unspecified atrial flutter Status: Acute Assessment and Plan: Continue Eliquis and metoprolol Continue Tele - 112 sinus tachycardia today 12/31 01/01: TELE: NSR today at 69 bpm, denies CP 01/02: TELE: NSR today at 72 bpm, denies CP 01/03: TELE: NSR today at 76 bpm, denies CP (11) Hyperkalemia: Code(s): E87.5 - Hyperkalemia Status: Acute Assessment and Plan: [facility] once initially Repeat potassium level 4.5 (Baseline K 3.8-4.5) Pt denies CP BMP in a.m: 12/31: 3.8 01/01: 3.7 01/02: 3.7 01/03: 4.2 (12) Hypocalcemia: Code(s): E83.51 - Hypocalcemia Status: Acute Assessment and Plan: 1 g calcium initially Continue checking BMP in a.m. Likely due to CKD -Add on Vit D 01/01, WDL 05/2024 (On daily Vit D suppl) -Mag pending from 01/01 draw 01/01: Ca appears to be at baseline, will continue to monitor Mag & Vit D WDL 01/02: Ca appears to be at baseline, will continue to monitor (13) Depression: Code(s): F32.A - Depression, unspecified Status: Acute Assessment and Plan: Continue Wellbutrin, buspirone, and Zoloft Mood stable (14) Obstructive sleep apnea on CPAP: Code(s): G47.33 - Obstructive sleep apnea (adult) (pediatric); Z99.89 - Dependence on other enabling machines and devices Status: Acute Assessment and Plan: Continue home CPAP in pt (15) Hyponatremia: Code(s): E87.1 - Hypo-osmolality and hyponatremia Status: Acute Assessment and Plan: Baseline Na 133-140 Labs daily, will continue to monitory Fluid restriction due to CHF already 01/01: Na 136 01/02: Na 137 01/03: Na 137 Plan Daily labs, work with PT/OT, sx management, infection tx, placement pending to [facility] Time Spent With Patient Time: 30 Subjective Date/time seen: 01/03/25 1038 Interval history: Admitting hospitalist: 84-year-old male past medical history of chronic lower back pain, CKD, hyperlipidemia, CHF, hypertension and diabetes presents to the hospital after a fall he also complains confusion and a temperature of 101.3?. Patient denies injuries from his fall. He states that just does not feel confused. A&O x4. Patient has no complaints of shortness of breath, nausea vomiting, or painful urination. Lab work in the ED shows anemia of 8.8, INR 1.3, sodium of 133, potassium of 5.2, carbon dioxide 20, BUN of 60, creatinine of 3.39 which are the same as last month, glucose of 169, lactic acid of 2.4 followed by 1.3, calcium of 8.2 CRP of 3.8, BNP of 1520, UA negative for infection however there is 1+ blood. Moderate thickness of the osborne of the bladder with a small amount of air. The patient was straight cathed in the emergency room, cystitis versus distension. Small subpleural patchy opacities. 5 mm pulmonary nodule in the right upper lobe. 10: Pt states that he thinks he is breathing better today. Agreeable with continued tx for PNA and CHF. Spoke to pt's sister, Jacque, with pt consent at length about pt with updates; she states that the day before the pt got admitted he received his influenza, covid, and shingles vaccinations. Pt with audible wet cough 01/01: Pt reports that he overall feels better today. He is currently up in the chair relaxing after eating breakfast. Lungs sounding considerably better. 01/02: Pt continues to feel good although he has been nauseous because he has not had a BM x5 days. Will add on suppository on PRN. Awaiting placement for [facility]. 01/03: Pt continues to feel good but still no BM, reports that he has not been eating that much due to his nausea due to constipation. Agrees to suppository today. Awaiting placement for [facility]. Review of Systems Review of Systems: 12 systems were reviewed and are negativ e except for as per HPI. Exam Const: Other: +[place] HENMT: Face/Nose/Sinus: Normal nares present Other: tacky mucous membranes Eyes: General: appearance normal, both eyes and all related structures Sclera: sclerae normal Neck: Neck: supple Carotids: no bruits Resp: Other: Bilateral lower lungs with trace expiratory wheeze Cardio: Rate: regular rate and tachycardic Rhythm: regular rhythm Other: TELE: NSR 76 bpm GI: Inspection: distended Auscultation: normal bowel sounds Skin: General skin exam: normal color and no rashes or lesions noted Other: Healing skin tear to L anterior FA with surrounding healing ecchymosis Neuro: Motor exam (neuro): Normal motor muscle tone present throughout Other: BUE normal aging weakness Focal chronic tremor of lower jaw Extrem: Other: See skin Psych: Mental Status: mental status grossly normal Affect: normal affect Objective Data Vital Signs Vital Signs: Vital Signs - 24 hr 01/02/25 12:00 01/02/25 14:00 01/02/25 14:35 Temperature 98.3 F Pulse Rate 78 73 70 Respiratory Rate 18 18 Blood Pressure 110/44 L Pulse Oximetry 99 Oxygen Delivery Fraction of Inspired Oxygen 01/02/25 14:41 01/02/25 16:00 01/02/25 20:00 Temperature Pulse Rate 72 70 73 Respiratory Rate 18 Blood Pressure Pulse Oximetry Oxygen Delivery Fraction of Inspired Oxygen 01/02/25 20:00 01/02/25 20:08 01/02/25 20:36 Temperature 97.8 F Pulse Rate 71 71 71 Respiratory Rate 18 20 18 Blood Pressure 147/48 H Pulse Oximetry 98 100 Oxygen Delivery CPAP Fraction of Inspired Oxygen 21 01/02/25 20:36 01/02/25 21:02 01/03/25 00:00 Temperature Pulse Rate 71 71 61 Respiratory Rate Blood Pressure Pulse Oximetry 99 98 Oxygen Delivery Room Air CPAP Fraction of Inspired Oxygen 01/03/25 02:16 01/03/25 02:20 01/03/25 02:21 Temperature Pulse Rate 76 76 73 Respiratory Rate 18 18 Blood Pressure Pulse Oximetry 96 Oxygen Delivery CPAP Fraction of Inspired Oxygen 01/03/25 03:39 01/03/25 04:00 01/03/25 07:17 Temperature 97.4 F L Pulse Rate 80 78 79 Respiratory Rate 20 14 Blood Pressure 125/48 L Pulse Oximetry 96 Oxygen Delivery Fraction of Inspired Oxygen 01/03/25 07:21 01/03/25 08:33 10/04/25 08:35 Temperature Pulse Rate 75 83 83 Respiratory Rate 16 Blood Pressure 147/53 H Pulse Oximetry Oxygen Delivery Fraction of Inspired Oxygen 01/03/25 08:46 Temperature Pulse Rate Respiratory Rate Blood Pressure Pulse Oximetry Oxygen Delivery Room Air Fraction of Inspired Oxygen Intake/Output Intake/Output: Intake & Output 12/31/24 01/01/25 01/02/25 01/03/25 23:59 23:59 23:59 23:59 Intake Total 1490 1020 1150 630 Output Total 6311 037 4486 400 Balance 440 220 -550 230 Meds/Results Medications: Active Medications Generic Name Dose Route Start Last Admin Trade Name Freq PRN Reason Stop Dose Admin Acetaminophen 650 mg 12/31/24 07:54 Acetaminophen 325 Mg Tablet PO Q6H PRN Mild Pain (1-3) or Fever Albuterol/Ipratropium 3 ml 12/30/24 14:00 01/03/25 07:15 Ipratropium 0.5 Mg/Albuterol Sulfate 2.5 Mg Ampul.Neb 3 Ml INHALATION 3 ml Q6HRT MARIANO Administration Apixaban 2.5 mg 12/30/24 21:00 01/03/25 08:36 Apixaban 2.5 Mg Tablet PO 2.5 mg Q12HR MARIANO Administration Bisacodyl 10 mg 01/02/25 15:39 Bisacodyl 10 Mg Suppository RECTAL QAM PRN Constipation Bupropion HCl 150 mg 12/30/24 21:00 01/03/25 08:35 Bupropion Hcl Sr (12 Hr) 150 Mg Tab PO 150 mg Q12HR MARIANO Administration Buspirone HCl 5 mg 12/30/24 17:15 01/03/25 08:36 Buspirone Hcl 5 Mg Tablet PO 5 mg BID MARIANO Administration Dextrose 12.5 gm 12/30/24 13:34 Dextrose 50% 25 Gm/50 Ml Syringe IV PUSH PRN PRN Hypoglycemia Protocol Docusate Sodium 100 mg 12/30/24 17:00 01/03/25 08:35 Docusate Sodium 100 Mg Capsule PO 100 mg BID MARIANO Administration Gabapentin 600 mg 12/30/24 21:00 01/03/25 08:35 Gabapentin 300 Mg Capsule PO 600 mg Q12HR MARIANO Administration Glucagon 1 mg 12/30/24 13:34 Glucagon For Inj 1 Mg Vial IM PRN PRN Hypoglycemia Protocol Glucose 15 gm 12/30/24 13:34 12/31/24 16:54 Glucose Oral Gel 15 Gm Of Glucse In 37.5 Gm Tube PO 15 gm PRN PRN Administration Hypoglycemia Protocol Guaifenesin 1,200 mg 12/30/24 14:00 01/03/25 08:36 Guaifenesin 12 Hr 600 Mg Tabcr PO 1,200 mg Q12HR MARIANO Administration Ceftriaxone Sodium 1 gm/ 50 mls @ 100 mls/hr 12/31/24 13:00 01/02/25 12:34 Sodium Chloride IVPB Infused Q24H MARIANO Infusion Azithromycin 500 mg/ Sodium 250 mls @ 250 mls/hr 12/31/24 14:00 01/02/25 14:03 Chloride IVPB 01/03/25 14:59 Infused Q24H MARIANO Infusion Dextrose 1,000 mls @ 100 mls/hr 12/30/24 13:34 Dextrose 5% 1,000 Ml IVPB PRN PRN Hypoglycemia Protocol Insulin Aspart 2 - 5 units 12/30/24 17:00 01/03/25 08:36 Insulin Aspart (*Bkc) 100 Units/Ml SUB-Q Not Given TIDWM MARIANO Protocol Insulin Aspart 1 - 2 units 12/30/24 21:00 01/02/25 22:24 Insulin Aspart (*Bkc) 100 Units/Ml SUB-Q Not Given HS MARIANO Protocol Insulin Aspart 10 units 12/31/24 08:00 01/03/25 08:42 Insulin Aspart (*Bkc) 100 Units/Ml SUB-Q 10 units TIDWM MARIANO Administration Insulin Glargine 36 units 12/31/24 09:00 01/03/25 08:42 Insulin Glargine (*Bkc) 100 Units/Ml SUB-Q 36 units DAILY MARIANO Administration Metoprolol Succinate 50 mg 12/31/24 09:00 01/03/25 08:35 Metoprolol Succinate Ext Rel 50 Mg Tabcr PO 50 mg QAM MARIANO Administration Miscellaneous Information 1 each 12/31/24 00:01 01/03/25 07:34 Farxiga Nonformulary. Order Comments Say Brand Only. Are We Okay To Sub To Jardiance As A XX 01/30/25 00:00 Not Given CLARIFY MARIANO Non-Formulary Medication 5 mg 12/31/24 09:00 Dapagliflozin Propanediol [Farxiga] PO 01/30/25 08:59 DAILY MARIANO Olopatadine HCl 1 drop 12/30/24 17:20 01/03/25 08:45 Olopatadine 0.1% Ophth Soln 5 Ml Btl EACH EYE 1 drop BID MARIANO Administration Pantoprazole Sodium 40 mg 12/30/24 21:00 01/03/25 08:36 Pantoprazole 40 Mg Tablet PO 40 mg Q12HR MARIANO Administration Polyethylene Glycol 17 gm 12/31/24 09:00 01/03/25 08:36 Polyethylene Glycol 3350 17 Gm Powd.Pack PO 17 gm DAILY MARIANO Administration Ropinirole HCl 1 mg 12/30/24 21:00 01/02/25 20:24 Ropinirole Hcl 1 Mg Tablet PO 1 mg QHS MARIANO Administration Sertraline HCl 50 mg 12/31/24 09:00 01/03/25 08:35 Sertraline Hcl 50 Mg Tablet PO 50 mg DAILY MARIANO Administration Simvastatin 40 mg 12/30/24 21:00 01/02/25 20:25 Simvastatin 20 Mg Tablet PO 40 mg HS MARIANO Administration Torsemide 10 mg 12/31/24 09:00 01/03/25 08:36 Torsemide 10 Mg Tablet PO 10 mg QAM MARIANO Administration Tramadol HCl 0 mg 12/30/24 17:04 Tramadol Hcl (*Crx) 50 Mg Tablet PO Q6H PRN Pain 4-6 Radiology Results: ITS Impressions Cervical Spine CT 12/30/24 10:21 Impression: No acute abnormality. Head CT 12/30/24 10:33 IMPRESSION: 1. No acute intracranial hemorrhage. No mass effect. 2. Probable chronic ischemic white matter change. Chest X-Ray 12/30/24 10:35 IMPRESSION: 1. Interstitial pulmonary edema and/or pneumonitis. Chest/Abdomen/Pelvis CT 12/30/24 12:20 IMPRESSION: 1. Moderate thickening of the osborne of the bladder with a small amount of air within the bladder. Differential includes incomplete bladder wall distention versus cystitis. The small amount of air in the bladder may be due to recent Farr catheter placement versus cystitis. 2. There are a few small subpleural reticular and patchy opacities in the lower lungs. Differential includes atelectasis/scarring or infiltrates. 3. There is a 5 mm pulmonary nodule in the right upper lobe. A follow-up chest CT in 3 months is recommended. Labs Labs: Laboratory Results - last 24 hr 01/02/25 01/02/25 01/02/25 11:33 17:06 20:12 WBC RBC Hgb Hct MCV MCH MCHC RDW Plt Count MPV Immature Gran % (Auto) Neut % (Auto) Lymph % (Auto) [place] % (Auto) Eos % (Auto) Baso % (Auto) Lymph # (Auto) [place] # (Auto) Eos # (Auto) Baso # (Auto) Abs Immat Gran (auto) Absolute Neuts (auto) Absolute Nucleated RBC Nucleated RBC % Sodium Potassium Chloride Carbon Dioxide Anion Gap BUN Creatinine Estim Creat Clear Calc Estimated GFR Glucose POC Capillary Glucose 147 H 121 H 65 Calcium Total Bilirubin AST ALT Alkaline Phosphatase Total Protein Albumin 01/02/25 01/03/25 01/03/25 22:07 04:48 08:06 WBC 6.6 RBC 3.25 L Hgb 8.2 L Hct 26.9 L MCV 82.8 MCH 25.2 L MCHC 30.5 L RDW 13.8 Plt Count 211 MPV 9.2 Immature Gran % (Auto) 0.5 Neut % (Auto) 42.3 L Lymph % (Auto) 39.0 Sutton % (Auto) 6.3 Eos % (Auto) 11.6 H Baso % (Auto) 0.3 Lymph # (Auto) 2.56 [place] # (Auto) 0.4 Eos # (Auto) 0.8 H Baso # (Auto) 0.0 Abs Immat Gran (auto) 0.03 Absolute Neuts (auto) 2.8 Absolute Nucleated RBC 0.000 Nucleated RBC % 0.0 Sodium 137 Potassium 4.2 Chloride 104 Carbon Dioxide 24 Anion Gap 9 BUN 58 H Creatinine 3.56 H Estim Creat Clear Calc 17 Estimated GFR 16 L Glucose 78 POC Capillary Glucose 82 101 Calcium 8.2 L Total Bilirubin 0.3 AST 62 H ALT 39 Alkaline Phosphatase 69 Total Protein 6.6 Albumin 3.3 L Quality VTE Prophylaxis VTE prophylaxis: mechanical ordered and pharmacologic ordered
[2025-01-03] MEDS: cefTRIAXone 1 GM in SODIUM CHLORIDE 0.9% IV 50 ML 100 ML IVPB (12:21)
[2025-01-03] MEDS: AZITHROMYCIN IV 500 MG in SODIUM CHLORIDE 0.9% IV 250 ML IVPB (13:39)
[2025-01-03] MEDS: SIMVASTATIN 20 MG TABLET 40 MG PO (20:38)
[2025-01-03] MEDS: BISACODYL 10 MG SUPPOSITORY RECTAL (20:51)
[2025-01-04] VITALS (20 sets, daily range): BP systolic 121–133; BP diastolic 47–55; PULSE 64–80; RESP 18–20; TEMP 36.2–36.4; O2SAT 92–100
[2025-01-04] MEDS: IPRATROPIUM 0.5 MG/ALBUTEROL SULFATE 2.5 MG AMPUL.NEB 3 ML INHALATION ×4 (01:10→20:26)
[2025-01-04 05:27] LABS: Hematocrit 27.8 % (42.0-52.0); Hemoglobin 8.7 g/dL (14.0-18.0); Immature Granulocyte Percent A 0.5 % (0-0.5); Lymphocytes Absolute Auto 3.30 K/mm3 (0.9-3.2); Mean Corpuscular HGB Conc 31.3 g/dl (32-36); Mean Corpuscular Hemoglobin 25.8 pg (26-34); Mean Corpuscular Volume 82.5 fl (80-100); Nucleated Red Blood Cells Absolute Auto 0.000 K/mm3 (0.0-0.012); Nucleated Red Blood Cells Perc 0.0 % (0.0-0.2); Platelet Count Result 233 k/mm3 (150-375); Red Blood Count 3.37 M/mm3 (4.6-6.20); White Blood Count 7.6 K/mm3 (4.5-10.0)
[2025-01-04 06:19] LABS: Alanine Aminotransferase 34 U/L (6-50); Albumin Level 3.3 g/dL (3.5-5.1); Alkaline Phosphatase 79 U/L (38-126); Anion Gap 10 mmol/L (4-12); Aspartate Amino Transferase 47 U/L (17-59); Bilirubin,Total 0.3 mg/dL (0.2-1.3); Blood Urea Nitrogen 52 mg/dL (9-20); Calcium 8.5 mg/dL (8.4-10.2); Carbon Dioxide 24 mmol/L (22-30); Chloride 104 mmol/L (98-107); Estimated CRCL calculation 19 ml/min; Estimated Glomerular Filt Rate 18; Glucose 126 mg/dL (65-110); Potassium 4.2 mmol/L (3.4-5.0); Sodium 138 mmol/L (137-145); Total Protein 6.8 g/dL (6.3-8.2)
[2025-01-04] MEDS: GABAPENTIN 300 MG CAPSULE 600 MG PO ×2 (08:33→20:41)
[2025-01-04] MEDS: METOPROLOL SUCCINATE EXT REL 50 MG TABCR PO (08:34)
[2025-01-04] MEDS: SERTRALINE HCL 50 MG TABLET PO (08:34)
[2025-01-04] MEDS: PANTOPRAZOLE 40 MG TABLET PO ×2 (08:34→20:42)
[2025-01-04] MEDS: guaiFENesin 12 HR 600 MG TABCR 1200 MG PO ×2 (08:34→20:42)
[2025-01-04] MEDS: APIXABAN 2.5 MG TABLET PO ×2 (08:35→20:42)
[2025-01-04] MEDS: INSULIN GLARGINE (*BKC) 100 UNITS/ML 36 UNITS SUB-Q (08:35)
[2025-01-04] MEDS: TORSEMIDE 10 MG TABLET PO (08:35)
[2025-01-04] MEDS: OLOPATADINE 0.1% OPHTH SOLN 5 ML BTL 1 DROP EACH EYE ×2 (08:35→17:46)
[2025-01-04] MEDS: buPROPion HCL SR (12 HR) 150 MG TAB PO ×2 (08:35→20:42)
--- NOTE | 2025-01-04 08:37 | P.PNIM_ITS ---
Progress Note: A&P Assessment and Plan (1) Pneumonia: Code(s): J18.9 - Pneumonia, unspecified organism Status: Acute Assessment and Plan: IV Rocephin and azithromycin Guaifenesin DuoNebs Tachypnea 20's but no respiratory distress - continue to monitor VS Blood cultures pending, daily labs 12/31: Audible wet sputum, sputum culture ordered today 01/01: Pt no longer audible wet cough. Lungs clear today, no issues with work of breathing. NSR today of 89 bpm, VSS. D/C sputum culture. 01/02: Pt continues to deny issues breathing. VSS. WBC WDL. Lungs clear. 01/03: Pt continues to deny issues breathing. VSS. WBC WDL. Lungs with mild expiratory wheezing in the bases, inhaler ordered today. Switching from IV Ceftriaxone to Augmentin tomorrow prior to probable D/C Sunday. 01/04: Pt denies SOB but has a mild wet cough today, lungs are clear. Pt now taking Augmentin, has become nauseous this AM, will continue to monitor this with Zofran administration. Pt continues to have BMs and feel nauseous. Pt does however report that zofran helps with the nausea. Will continue the Zofran admins throughout the day and night and re-assess in the AM. Pt encouraged to eat like normal breonna when takin this oral abx. (2) Diastolic dysfunction: Onset Date: ~12/26/23 Code(s): I51.89 - Other ill-defined heart diseases Status: Acute Assessment and Plan: Acute on chronic, pulmonary edema seen on chest x-ray Patient was given a L of fluids for lactic acidosis Monitor for fluid overload, fluid restriction Echocardiogram: 1. Technically difficult echocardiogram with difficult image quality, definity contrast utilized. 2. Normal left ventricular size with hyperdynamic systolic contractility well seen following contrast injection. 3. Sclerosis of the aortic valve with well maintained leaflet separation. 4. No significant valvular dysfunction identified. 5. Compared with echocardiogram done in December of last year findings are similar other than ejection fraction is now hyperdynamic. 01/01: Pt lungs sounding a lot better today, no wet cough. 89bpm, NSR. D/C farr today. 01/02: Pt lungs continue to be clear, Creatinine decreased overnight. 01/03: Pt lungs with mild exp wheezing lower bilaterally, creatinine decreased overnight. 76bpm, NSR. 01/04: Lungs clear today, mildly wet cough (3) Confusion: Code(s): R41.0 - Disorientation, unspecified Status: Acute Assessment and Plan: Head CT negative for acute process Replace electrolytes as needed, daily labs Treat underlying infection 12/31: A&Ox4 upon exam today 01/01: A&Ox4 upon exam today 01/02: A&Ox4 upon exam today (4) Fever: Code(s): R50.9 - Fever, unspecified Status: Acute Assessment and Plan: Possibly due to pneumonia Blood cultures pending Lactic acid resolved after fluid bolus Afebrile per 12/31/24 VS Acetaminophen PRN, LFTs WDL 01/01: Continues to be afebrile 01/02: -Continues to be afebrile. -Prelim BC negative 01/03: -Continues to be afebrile. -Prelim BC negative 01/04: -Continues to be afebrile -Prelim BC negative -C/o warm urine today, will obtain additional UA to r/o infection. WBC WDL. (5) Falls frequently: Code(s): R29.6 - Repeated falls Status: Acute Assessment and Plan: CT chest abdomen pelvis, CT head and CT C-spine negative for acute injuries PT OT eval and treat - recs for skilled PT and OT, pending placement acceptance Uses WC at facility ([facility]) 01/03: Rcs for skilled PT and OT, pending placement acceptance to [facility] (6) Lung nodule seen on imaging study: Code(s): R91.1 - Solitary pulmonary nodule Status: Acute Assessment and Plan: There is a 5 mm pulmonary nodule in the right upper lobe. A follow-up chest CT in 3 months is recommended. Follow-up with PCP Patient aware finding (7) Chronic kidney disease, stage 4 (severe): Code(s): N18.4 - Chronic kidney disease, stage 4 (severe) Status: Acute Assessment and Plan: Creatinine at baseline BMP in AMs [facility] with [facility] Neph - updated pt and sister on the need for a RTC in Jan per September 2024 nephrology note. 01/01: Creatinine continues to be elevated, still on fluid restriction, discontinued restriction today. Will continue to monitor labs in AM. 01/02: Creatinine decreasing, now 3.84, closer to his baseline. Pt has been voiding normally post farr removal. Plan to f/u with outpt neph, reminded pt today. 01/03: Creatinine decreasing, now 3.56, closer to his baseline. 01/04: Creatinine decreasing, now 3.29, closer to his baseline. (8) Diabetes mellitus: Code(s): E11.9 - Type 2 diabetes mellitus without complications Status: Acute Assessment and Plan: Accu-Cheks a.c. HS SSI Patient takes 36 units of Lantus daily and 10 units of aspart before meals BS here have been stable Currently taking gabapentin 600mg BID - rx by PCP - f/u outpt 01/03: Continue to check BS readings in the AM. 78 lab and 101 POC this AM. Pt reports that he has not been eating as much due to his nausea secondary to constipation. HELD aspart scheduled dose until back to normal with eating. 01/04: Pt reporting eating breakfast but now c/o nausea. Will continue to hold Aspart insulin. Better glycemic control this AM with labs. (9) Hyperlipidemia: Code(s): E78.5 - Hyperlipidemia, unspecified Status: Acute Assessment and Plan: Continue Zocor Labs in Dec 2023 stable, continue monitoring by PCP (10) Paroxysmal atrial flutter: Code(s): I48.92 - Unspecified atrial flutter Status: Acute Assessment and Plan: Continue Eliquis and metoprolol Continue Tele - 112 sinus tachycardia today 12/31 01/01: TELE: NSR today at 69 bpm, denies CP 01/02: TELE: NSR today at 72 bpm, denies CP 01/03: TELE: NSR today at 76 bpm, denies CP 01/04: TELE: NSR today at 71 bpm, denies CP (11) Hyperkalemia: Code(s): E87.5 - Hyperkalemia Status: Acute Assessment and Plan: Rafi once initially Repeat potassium level 4.5 (Baseline K 3.8-4.5) Pt denies CP BMP in a.m: 12/31: 3.8 01/01: 3.7 01/02: 3.7 01/03: 4.2 10: 4.2, normalized (12) Hypocalcemia: Code(s): E83.51 - Hypocalcemia Status: Acute Assessment and Plan: 1 g calcium initially Continue checking BMP in a.m. Likely due to CKD -Add on Vit D 01/01, WDL 05/2024 (On daily Vit D suppl) -Mag pending from 01/01 draw 01/01: Ca appears to be at baseline, will continue to monitor Mag & Vit D WDL 01/02: Ca appears to be at baseline, will continue to monitor (13) Depression: Code(s): F32.A - Depression, unspecified Status: Acute Assessment and Plan: Continue Wellbutrin, buspirone, and Zoloft Mood stable (14) Obstructive sleep apnea on CPAP: Code(s): G47.33 - Obstructive sleep apnea (adult) (pediatric); Z99.89 - Dependence on other enabling machines and devices Status: Acute Assessment and Plan: Continue home CPAP in pt (15) Hyponatremia: Code(s): E87.1 - Hypo-osmolality and hyponatremia Status: Acute Assessment and Plan: Baseline Na 133-140 Labs daily, will continue to monitory Fluid restriction due to CHF already 10: Na 136 10: Na 137 10: Na 137 10: Na 138, normalized (16) Post-nasal drip: Code(s): R09.82 - Postnasal drip Status: Acute Assessment and Plan: Pt reporting of this today with associated sinus fullness. -Pt on guaifenesin that may be attributing. Will order antihistamine to see if this helps. Plan Daily labs, work with PT/OT, sx management, infection tx, placement pending to [facility] Time Spent With Patient Time: 35 Subjective Date/time seen: 01/04/25 0958 Interval history: Admitting hospitalist: 84-year-old male past medical history of chronic lower back pain, CKD, hyperlipidemia, CHF, hypertension and diabetes presents to the hospital after a fall he also complains confusion and a temperature of 101.3?. Patient denies injuries from his fall. He states that just does not feel confused. A&O x4. Patient has no complaints of shortness of breath, nausea vomiting, or painful urination. Lab work in the ED shows anemia of 8.8, INR 1.3, sodium of 133, potassium of 5.2, carbon dioxide 20, BUN of 60, creatinine of 3.39 which are the same as last month, glucose of 169, lactic acid of 2.4 followed by 1.3, calcium of 8.2 CRP of 3.8, BNP of 1520, UA negative for infection however there is 1+ blood. Moderate thickness of the osborne of the bladder with a small amount of air. The patient was straight cathed in the emergency room, cystitis versus distension. Small subpleural patchy opacities. 5 mm pulmonary nodule in the right upper lobe. 10: Pt states that he thinks he is breathing better today. Agreeable with continued tx for PNA and CHF. Spoke to pt's sister, Jacque, with pt consent at length about pt with updates; she states that the day before the pt got admitted he received his influenza, covid, and shingles vaccinations. Pt with audible wet cough 01/01: Pt reports that he overall feels better today. He is currently up in the chair relaxing after eating breakfast. Lungs sounding considerably better. 01/02: Pt continues to feel good although he has been nauseous because he has not had a BM x5 days. Will add on suppository on PRN. Awaiting placement for [facility]. 01/03: Pt continues to feel good but still no BM, reports that he has not been eating that much due to his nausea due to constipation. Agrees to suppository today. Awaiting placement for [employer]. 10: Pt reports that he had x2 last BMs, one last night and one today and is now feeling nauseous that started this AM. Pt switched from IV abx to oral abx this AM. Pt also c/owarm urination denies dysuria or any other urinary sx. Pt also c/o post nasal drip, denies having allergies. Pt continues to have BMs and feel nauseous. Pt does however report that zofran helps with the nausea. Pt also c/o sinus fullness. Review of Systems Review of Systems: 12 systems were reviewed and are negativ e except for as per HPI. Exam Const: Other: +CHEFORNAK HENMT: Face/Nose/Sinus: Normal nares present Other: tacky mucous membranes Eyes: General: appearance normal, both eyes and all related structures Sclera: sclerae normal Neck: Neck: supple Carotids: no bruits Resp: Auscultation: clear to auscultation bilaterally Other: Wet cough Cardio: Rate: regular rate and tachycardic Rhythm: regular rhythm Other: TELE: NSR 76 bpm GI: Inspection: distended Auscultation: normal bowel sounds Skin: General skin exam: normal color and no rashes or lesions noted Other: Healing skin tear to L anterior FA with surrounding healing ecchymosis Neuro: Motor exam (neuro): Normal motor muscle tone present throughout Other: BUE normal aging weakness Focal chronic tremor of lower jaw Extrem: Other: See skin Psych: Mental Status: mental status grossly normal Affect: normal affect Objective Data Vital Signs Vital Signs: Vital Signs - 24 hr 01/03/25 08:46 01/03/25 08:46 01/03/25 12:00 Temperature Pulse Rate 80 73 Respiratory Rate Blood Pressure Pulse Oximetry Oxygen Delivery Room Air Fraction of Inspired Oxygen 01/03/25 13:08 01/03/25 13:13 01/03/25 15:32 Temperature 97.3 F L Pulse Rate 75 72 76 Respiratory Rate 18 18 20 Blood Pressure 137/56 L Pulse Oximetry 96 Oxygen Delivery Fraction of Inspired Oxygen 01/03/25 16:00 01/03/25 19:35 01/03/25 19:38 Temperature Pulse Rate 73 72 75 Respiratory Rate 20 20 Blood Pressure Pulse Oximetry 97 Oxygen Delivery Room Air Fraction of Inspired Oxygen 21 01/03/25 19:49 01/03/25 20:00 01/03/25 20:00 Temperature Pulse Rate 73 67 71 Respiratory Rate 20 20 Blood Pressure Pulse Oximetry 92 Oxygen Delivery CPAP Fraction of Inspired Oxygen 21 01/03/25 22:00 01/03/25 22:40 01/04/25 00:00 Temperature 97.5 F L Pulse Rate 74 72 67 Respiratory Rate 18 Blood Pressure 151/97 H Pulse Oximetry 96 99 Oxygen Delivery CPAP Fraction of Inspired Oxygen 01/04/25 01:10 01/04/25 01:14 01/04/25 01:19 Temperature Pulse Rate 64 68 67 Respiratory Rate 20 20 Blood Pressure Pulse Oximetry 92 Oxygen Delivery CPAP Fraction of Inspired Oxygen 01/04/25 04:00 01/04/25 04:19 01/04/25 06:00 Temperature 97.5 F L Pulse Rate 66 70 64 Respiratory Rate 18 Blood Pressure 122/48 L Pulse Oximetry 94 100 Oxygen Delivery CPAP Fraction of Inspired Oxygen 01/04/25 08:25 Temperature Pulse Rate 76 Respiratory Rate 20 Blood Pressure Pulse Oximetry Oxygen Delivery Fraction of Inspired Oxygen Intake/Output Intake/Output: Intake & Output 01/01/25 01/02/25 01/03/25/05/25 23:59 23:59 23:59 23:59 Intake Total 1020 1150 850 Output Total 800 1700 1750 950 Balance 220 550 -900 -950 Meds/Results Medications: Active Medications Generic Name Dose Route Start Last Admin Trade Name Freq PRN Reason Stop Dose Admin Acetaminophen 650 mg 12/31/24 07:54 Acetaminophen 325 Mg Tablet PO Q6H PRN Mild Pain (1-3) or Fever Albuterol 2 puff 01/03/25 14:21 Albuterol Sulfate (*Sp) Aerosol 1 Puff INHALATION QIDRT PRN Wheezing Albuterol/Ipratropium 3 ml 12/30/24 14:00 01/04/25 08:24 Ipratropium 0.5 Mg/Albuterol Sulfate 2.5 Mg Ampul.Neb 3 Ml INHALATION 3 ml Q6HRT MARIANO Administration Amoxicillin/Clavulanate Potassium 1 tablet 01/04/25 09:00 Amoxicillin/Clavulanate K 875-125 Mg Tab PO 01/07/25 08:59 Q12HR MARIANO Apixaban 2.5 mg 12/30/24 21:00 01/03/25 20:38 Apixaban 2.5 Mg Tablet PO 2.5 mg Q12HR MARIANO Administration Bisacodyl 10 mg 01/02/25 15:39 01/03/25 20:51 Bisacodyl 10 Mg Suppository RECTAL 10 mg QAM PRN Administration Constipation Bupropion HCl 150 mg 12/30/24 21:00 01/03/25 20:38 Bupropion Hcl Sr (12 Hr) 150 Mg Tab PO 150 mg Q12HR MARIANO Administration Buspirone HCl 5 mg 12/30/24 17:15 01/03/25 17:46 Buspirone Hcl 5 Mg Tablet PO 5 mg BID MARIANO Administration Dextrose 12.5 gm 12/30/24 13:34 Dextrose 50% 25 Gm/50 Ml Syringe IV PUSH PRN PRN Hypoglycemia Protocol Docusate Sodium 100 mg 12/30/24 17:00 01/03/25 17:46 Docusate Sodium 100 Mg Capsule PO 100 mg BID MARIANO Administration Gabapentin 600 mg 12/30/24 21:00 01/03/25 20:38 Gabapentin 300 Mg Capsule PO 600 mg Q12HR MARIANO Administration Glucagon 1 mg 12/30/24 13:34 Glucagon For Inj 1 Mg Vial IM PRN PRN Hypoglycemia Protocol Glucose 15 gm 12/30/24 13:34 12/31/24 16:54 Glucose Oral Gel 15 Gm Of Glucse In 37.5 Gm Tube PO 15 gm PRN PRN Administration Hypoglycemia Protocol Guaifenesin 1,200 mg 12/30/24 14:00 01/03/25 20:37 Guaifenesin 12 Hr 600 Mg Tabcr PO 1,200 mg Q12HR MARIANO Administration Dextrose 1,000 mls @ 100 mls/hr 12/30/24 13:34 Dextrose 5% 1,000 Ml IVPB PRN PRN Hypoglycemia Protocol Insulin Aspart 2 - 5 units 12/30/24 17:00 01/03/25 17:46 Insulin Aspart (*Bkc) 100 Units/Ml SUB-Q Not Given TIDWM MARIANO Protocol Insulin Aspart 1 - 2 units 12/30/24 21:00 01/03/25 20:38 Insulin Aspart (*Bkc) 100 Units/Ml SUB-Q Not Given HS MARIANO Protocol Insulin Aspart 10 units 12/31/24 08:00 01/03/25 12:21 Insulin Aspart (*Bkc) 100 Units/Ml SUB-Q 10 units On Hold: 01/03/25 14:26 TIDWM MARIANO Administration Resume: 01/05/25 08:00 Comment: Hold while pt not eating like normal Insulin Glargine 36 units 12/31/24 09:00 01/03/25 08:42 Insulin Glargine (*Bkc) 100 Units/Ml SUB-Q 36 units DAILY MARIANO Administration Metoprolol Succinate 50 mg 12/31/24 09:00 01/03/25 08:35 Metoprolol Succinate Ext Rel 50 Mg Tabcr PO 50 mg QAM MARIANO Administration Miscellaneous Information 1 each 12/31/24 00:01 01/03/25 07:34 Farxiga Nonformulary. Order Comments Say Brand Only. Are We Okay To Sub To Jardiance As A XX 01/30/25 00:00 Not Given CLARIFY MARIANO Non-Formulary Medication 5 mg 12/31/24 09:00 Dapagliflozin Propanediol [Farxiga] PO 01/30/25 08:59 DAILY MARIANO Olopatadine HCl 1 drop 12/30/24 17:20 01/03/25 17:46 Olopatadine 0.1% Ophth Soln 5 Ml Btl EACH EYE 1 drop BID MARIANO Administration Pantoprazole Sodium 40 mg 12/30/24 21:00 01/03/25 20:38 Pantoprazole 40 Mg Tablet PO 40 mg Q12HR MARIANO Administration Polyethylene Glycol 17 gm 12/31/24 09:00 01/03/25 08:36 Polyethylene Glycol 3350 17 Gm Powd.Pack PO 17 gm DAILY MARIANO Administration Ropinirole HCl 1 mg 12/30/24 21:00 01/03/25 20:37 Ropinirole Hcl 1 Mg Tablet PO 1 mg QHS MARIANO Administration Sertraline HCl 50 mg 12/31/24 09:00 01/03/25 08:35 Sertraline Hcl 50 Mg Tablet PO 50 mg DAILY MARIANO Administration Simvastatin 40 mg 12/30/24 21:00 01/03/25 20:38 Simvastatin 20 Mg Tablet PO 40 mg HS MARIANO Administration Torsemide 10 mg 12/31/24 09:00 01/03/25 08:36 Torsemide 10 Mg Tablet PO 10 mg QAM MARIANO Administration Tramadol HCl 0 mg 12/30/24 17:04 Tramadol Hcl (*Crx) 50 Mg Tablet PO Q6H PRN Pain 4-6 Radiology Results: ITS Impressions Cervical Spine CT 12/30/24 10:21 Impression: No acute abnormality. Head CT 12/30/24 10:33 IMPRESSION: 1. No acute intracranial hemorrhage. No mass effect. 2. Probable chronic ischemic white matter change. Chest X-Ray 12/30/24 10:35 IMPRESSION: 1. Interstitial pulmonary edema and/or pneumonitis. Chest/Abdomen/Pelvis CT 12/30/24 12:20 IMPRESSION: 1. Moderate thickening of the osborne of the bladder with a small amount of air within the bladder. Differential includes incomplete bladder wall distention versus cystitis. The small amount of air in the bladder may be due to recent Farr catheter placement versus cystitis. 2. There are a few small subpleural reticular and patchy opacities in the lower lungs. Differential includes atelectasis/scarring or infiltrates. 3. There is a 5 mm pulmonary nodule in the right upper lobe. A follow-up chest CT in 3 months is recommended. Labs Labs: Laboratory Results - last 24 hr 01/03/25 01/03/25 01/03/25 11:49 16:40 19:53 WBC RBC Hgb Hct MCV MCH MCHC RDW Plt Count MPV Immature Gran % (Auto) Neut % (Auto) Lymph % (Auto) Griggs % (Auto) Eos % (Auto) Baso % (Auto) Lymph # (Auto) Griggs # (Auto) Eos # (Auto) Baso # (Auto) Abs Immat Gran (auto) Absolute Neuts (auto) Absolute Nucleated RBC Nucleated RBC % Sodium Potassium Chloride Carbon Dioxide Anion Gap BUN Creatinine Estim Creat Clear Calc Estimated GFR Glucose POC Capillary Glucose 115 H 67 117 H Calcium Total Bilirubin AST ALT Alkaline Phosphatase Total Protein Albumin 01/04/25 01/04/25 04:47 07:58 WBC 7.6 RBC 3.37 L Hgb 8.7 L Hct 27.8 L MCV 82.5 MCH 25.8 L MCHC 31.3 L RDW 13.8 Plt Count 233 MPV 9.0 Immature Gran % (Auto) 0.5 Neut % (Auto) 38.5 L Lymph % (Auto) 43.3 Griggs % (Auto) 6.8 Eos % (Auto) 10.5 H Baso % (Auto) 0.4 Lymph # (Auto) 3.30 H Griggs # (Auto) 0.5 Eos # (Auto) 0.8 H Baso # (Auto) 0.0 Abs Immat Gran (auto) 0.04 H Absolute Neuts (auto) 2.9 Absolute Nucleated RBC 0.000 Nucleated RBC % 0.0 Sodium 138 Potassium 4.2 Chloride 104 Carbon Dioxide 24 Anion Gap 10 BUN 52 H Creatinine 3.29 H Estim Creat Clear Calc 19 Estimated GFR 18 L Glucose 126 H POC Capillary Glucose 125 H Calcium 8.5 Total Bilirubin 0.3 AST 47 ALT 34 Alkaline Phosphatase 79 Total Protein 6.8 Albumin 3.3 L Quality VTE Prophylaxis VTE prophylaxis: mechanical ordered and pharmacologic ordered
[2025-01-04] MEDS: ONDANSETRON INJ 4 MG/2 ML VIAL IV PUSH ×2 (12:04→18:27)
[2025-01-04] MEDS: INSULIN ASPART (*BKC) 100 UNITS/ML SUB-Q (12:04)
--- NOTE | 2025-01-04 12:28 | PCOTNOTE ---
Patient sleeping upon entry. Patient has lunch tray in room. Declined getting up to chair or sit edge of bed to eat. Patient assisted for better positioning to be able able to eat.
[2025-01-04 15:57] LABS: Add Urine Microscopic? YES; Appearance Urine Clear (Clear); Glucose Urine UA 1+ mg/dL (Negative); Leukocyte Esterase Ur Negative LEU/UL (Negative); Nitrate Urine Negative (Negative); Non Pathogenic Casts 0-2; Specific Grav Ur 1.012 (1.001-1.035)
[2025-01-04] MEDS: LORATADINE 10 MG TABLET PO (17:45)
[2025-01-04] MEDS: SIMVASTATIN 20 MG TABLET 40 MG PO (20:41)
[2025-01-05] VITALS (13 sets, daily range): BP systolic 121–132; BP diastolic 46–74; PULSE 66–90; RESP 14–20; TEMP 36.4–36.8; O2SAT 93–100
[2025-01-05 05:44] LABS: Hematocrit 26.9 % (42.0-52.0); Hemoglobin 8.2 g/dL (14.0-18.0); Immature Granulocyte Percent A 1.1 % (0-0.5); Lymphocytes Absolute Auto 4.22 K/mm3 (0.9-3.2); Mean Corpuscular HGB Conc 30.5 g/dl (32-36); Mean Corpuscular Hemoglobin 25.5 pg (26-34); Mean Corpuscular Volume 83.5 fl (80-100); Nucleated Red Blood Cells Absolute Auto 0.000 K/mm3 (0.0-0.012); Nucleated Red Blood Cells Perc 0.0 % (0.0-0.2); Platelet Count Result 238 k/mm3 (150-375); Red Blood Count 3.22 M/mm3 (4.6-6.20); White Blood Count 9.7 K/mm3 (4.5-10.0)
[2025-01-05 06:03] LABS: Alanine Aminotransferase 26 U/L (6-50); Albumin Level 3.3 g/dL (3.5-5.1); Alkaline Phosphatase 74 U/L (38-126); Anion Gap 10 mmol/L (4-12); Aspartate Amino Transferase 38 U/L (17-59); Bilirubin,Total 0.4 mg/dL (0.2-1.3); Blood Urea Nitrogen 51 mg/dL (9-20); Calcium 8.5 mg/dL (8.4-10.2); Carbon Dioxide 23 mmol/L (22-30); Chloride 105 mmol/L (98-107); Estimated CRCL calculation 19 ml/min; Estimated Glomerular Filt Rate 19; Glucose 127 mg/dL (65-110); Potassium 4.2 mmol/L (3.4-5.0); Sodium 138 mmol/L (137-145); Total Protein 6.8 g/dL (6.3-8.2)
[2025-01-05] MEDS: IPRATROPIUM 0.5 MG/ALBUTEROL SULFATE 2.5 MG AMPUL.NEB 3 ML INHALATION ×2 (07:36→13:45)
[2025-01-05] MEDS: APIXABAN 2.5 MG TABLET PO (08:38)
[2025-01-05] MEDS: guaiFENesin 12 HR 600 MG TABCR 1200 MG PO (08:38)
[2025-01-05] MEDS: GABAPENTIN 300 MG CAPSULE 600 MG PO (08:38)
[2025-01-05] MEDS: LORATADINE 10 MG TABLET PO (08:38)
[2025-01-05] MEDS: buPROPion HCL SR (12 HR) 150 MG TAB PO (08:38)
[2025-01-05] MEDS: DOCUSATE SODIUM 100 MG CAPSULE PO (08:38)
[2025-01-05] MEDS: TORSEMIDE 10 MG TABLET PO (08:38)
[2025-01-05] MEDS: ONDANSETRON INJ 4 MG/2 ML VIAL IV PUSH (08:39)
[2025-01-05] MEDS: METOPROLOL SUCCINATE EXT REL 50 MG TABCR PO (08:39)
[2025-01-05] MEDS: PANTOPRAZOLE 40 MG TABLET PO (08:39)
[2025-01-05] MEDS: SERTRALINE HCL 50 MG TABLET PO (08:39)
[2025-01-05] MEDS: INSULIN GLARGINE (*BKC) 100 UNITS/ML 36 UNITS SUB-Q (08:42)
[2025-01-05] MEDS: OLOPATADINE 0.1% OPHTH SOLN 5 ML BTL 1 DROP EACH EYE (09:05)
--- NOTE | 2025-01-05 12:27 | PC.NURSE ---
On 01/05/25, the student, Neva Spencer, provided care and completed [facility] documentation on this patient. I have reviewed the student's documentation and agree with the findings.
--- NOTE | 2025-01-05 13:39 | PCOTNOTE ---
Patient is with PT at this time. Will try back later
--- NOTE | 2025-01-05 15:19 | P.DS_ITS ---
DS: Admitting Diagnosis Discharge Date 01/05/2025 Admitting Diagnosis PNA DS: Discharge Diagnosis Discharge Diagnosis (1) Pneumonia: Code(s): J18.9 - Pneumonia, unspecified organism Status: Acute Assessment and Plan: IV Rocephin and azithromycin Guaifenesin DuoNebs Tachypnea 20's but no respiratory distress - continue to monitor VS Blood cultures pending, daily labs 12/31: Audible wet sputum, sputum culture ordered today 01/01: Pt no longer audible wet cough. Lungs clear today, no issues with work of breathing. NSR today of 89 bpm, VSS. D/C sputum culture. 01/02: Pt continues to deny issues breathing. VSS. WBC WDL. Lungs clear. 01/03: Pt continues to deny issues breathing. VSS. WBC WDL. Lungs with mild expiratory wheezing in the bases, inhaler ordered today. Switching from IV Ceftriaxone to Augmentin tomorrow prior to probable D/C Sunday. 01/04: Pt denies SOB but has a mild wet cough today, lungs are clear. Pt now taking Augmentin, has become nauseous this AM, will continue to monitor this with Zofran administration. Pt continues to have BMs and feel nauseous. Pt does however report that zofran helps with the nausea. Will continue the Zofran admins throughout the day and night and re-assess in the AM. Pt encouraged to eat like normal breonna when takin this oral abx. 01/05: Pt continued to feel nauseous overnight but improved with zofran. Decision to switch pt from Augmentin to Cefdinir this AM. Upon re-exam in the afternoon, pt feeling better and stable to discharge with remaining course of abx. (2) Diastolic dysfunction: Onset Date: ~12/26/23 Code(s): I51.89 - Other ill-defined heart diseases Status: Acute Assessment and Plan: Acute on chronic, pulmonary edema seen on chest x-ray Patient was given a L of fluids for lactic acidosis Monitor for fluid overload, fluid restriction Echocardiogram: 1. Technically difficult echocardiogram with difficult image quality, definity contrast utilized. 2. Normal left ventricular size with hyperdynamic systolic contractility well seen following contrast injection. 3. Sclerosis of the aortic valve with well maintained leaflet separation. 4. No significant valvular dysfunction identified. 5. Compared with echocardiogram done in December of last year findings are similar other than ejection fraction is now hyperdynamic. 01/01: Pt lungs sounding a lot better today, no wet cough. 89bpm, NSR. D/C farr today. 01/02: Pt lungs continue to be clear, Creatinine decreased overnight. 01/03: Pt lungs with mild exp wheezing lower bilaterally, creatinine decreased overnight. 76bpm, NSR. 01/04: Lungs clear today, mildly wet cough - describes more like post nasal drip, systemic ant histamine started and will be discharged with 01/05: Pt lungs sounding clear today, no CP or SOB complaints. Stable for discharge. (3) Confusion: Code(s): R41.0 - Disorientation, unspecified Status: Acute Assessment and Plan: Head CT negative for acute process Replace electrolytes as needed, daily labs Treat underlying infection 12/31: A&Ox4 upon exam today 01/01: A&Ox4 upon exam today 01/02: A&Ox4 upon exam today, resolved (4) Fever: Code(s): R50.9 - Fever, unspecified Status: Acute Assessment and Plan: Possibly due to pneumonia Blood cultures pending Lactic acid resolved after fluid bolus Afebrile per 12/31/24 VS Acetaminophen PRN, LFTs WDL 01/01: Continues to be afebrile 01/02: -Continues to be afebrile. -Prelim BC negative 01/03: -Continues to be afebrile. -Prelim BC negative 01/04: -Continues to be afebrile -Prelim BC negative -C/o warm urine today, will obtain additional UA to r/o infection. WBC WDL. 01/05: UA WDL. (5) Falls frequently: Code(s): R29.6 - Repeated falls Status: Acute Assessment and Plan: CT chest abdomen pelvis, CT head and CT C-spine negative for acute injuries PT OT eval and treat - recs for skilled PT and OT, pending placement acceptance Uses WC [facility]) 01/03: Rcs for skilled PT and OT, pending placement acceptance to [facility] 01/05: Pt discharged to [facility] today. (6) Lung nodule seen on imaging study: Code(s): R91.1 - Solitary pulmonary nodule Status: Acute Assessment and Plan: There is a 5 mm pulmonary nodule in the right upper lobe. A follow-up chest CT in 3 months is recommended. Follow-up with PCP Patient aware finding (7) Chronic kidney disease, stage 4 (severe): Code(s): N18.4 - Chronic kidney disease, stage 4 (severe) Status: Acute Assessment and Plan: Creatinine at baseline BMP in [facility] F/u with established Neph - updated pt and sister on the need for a RTC in Nov per September 2024 nephrology note. 01/01: Creatinine continues to be elevated, still on fluid restriction, discontinued restriction today. Will continue to monitor labs in AM. 01/02: Creatinine decreasing, now 3.84, closer to his baseline. Pt has been voiding normally post farr removal. Plan to f/u with outpt neph, reminded pt today. 01/03: Creatinine decreasing, now 3.56, closer to his baseline. 01/04: Creatinine decreasing, now 3.29, closer to his baseline. 01/05: Creatinine decreasing, now 3.17, closer to his baseline. (8) Diabetes mellitus: Code(s): E11.9 - Type 2 diabetes mellitus without complications Status: Acute Assessment and Plan: Accu-Cheks a.cLeo HS SSI Patient takes 36 units of Lantus daily and 10 units of aspart before meals BS here have been stable Currently taking gabapentin 600mg BID - rx by PCP - f/u outpt 01/03: Continue to check BS readings in the AM. 78 lab and 101 POC this AM. Pt reports that he has not been eating as much due to his nausea secondary to constipation. HELD aspart scheduled dose until back to normal with eating. 01/04: Pt reporting eating breakfast but now c/o nausea. Will continue to hold Aspart insulin. Better glycemic control this AM with labs. 01/05: Glycemic control back to baseline today with normal diet and appetite. Will continue normal insulin home regimen upon discharge with planned f/u with PCP and endo. (9) Hyperlipidemia: Code(s): E78.5 - Hyperlipidemia, unspecified Status: Acute Assessment and Plan: Continue Zocor Labs in Dec 2023 stable, continue monitoring by PCP (10) Paroxysmal atrial flutter: Code(s): I48.92 - Unspecified atrial flutter Status: Acute Assessment and Plan: Continue Eliquis and metoprolol Continue Tele - 112 sinus tachycardia today 12/31 01/01: TELE: NSR today at 69 bpm, denies CP 01/02: TELE: NSR today at 72 bpm, denies CP 01/03: TELE: NSR today at 76 bpm, denies CP 01/04: TELE: NSR today at 71 bpm, denies CP 01/05: TELE: NSR today at 76 bpm, denies CP Continue Eliquis and metoprolol upon discharge (11) Hyperkalemia: Code(s): E87.5 - Hyperkalemia Status: Acute Assessment and Plan: Lokeloh once initially Repeat potassium level 4.5 (Baseline K 3.8-4.5) Pt denies CP BMP in a.m: 12/31: 3.8 01/01: 3.7 01/02: 3.7 01/03: 4.2 01/04: 4.2, normalized (12) Hypocalcemia: Code(s): E83.51 - Hypocalcemia Status: Acute Assessment and Plan: 1 g calcium initially Continue checking BMP in a.m. Likely due to CKD -Add on Vit D 01/01, WDL 05/2024 (On daily Vit D suppl) -Mag pending from 01/01 draw 01/01: Ca appears to be at baseline, will continue to monitor Mag & Vit D WDL 01/02: Ca appears to be at baseline, will continue to monitor Repeat labs with PCP upon discharge. (13) Depression: Code(s): F32.A - Depression, unspecified Status: Acute Assessment and Plan: Continue Wellbutrin, buspirone, and Zoloft Mood stable (14) Obstructive sleep apnea on CPAP: Code(s): G47.33 - Obstructive sleep apnea (adult) (pediatric); Z99.89 - Dependence on other enabling machines and devices Status: Acute Assessment and Plan: Continue home CPAP upon discharge (15) Hyponatremia: Code(s): E87.1 - Hypo-osmolality and hyponatremia Status: Acute Assessment and Plan: Baseline Na 133-140 Labs daily, will continue to monitory Fluid restriction due to CHF already 01/01: Na 136 01/02: Na 137 01/03: Na 137 01/04: Na 138, normalized (16) Post-nasal drip: Code(s): R09.82 - Postnasal drip Status: Acute Assessment and Plan: Pt reporting of this today with associated sinus fullness. -Pt on guaifenesin that may be attributing. Will order antihistamine to see if this helps. Pt discharged with daily loratadine Plan Discharged to [facility] today for continued therapy. Pt to continue with his the remaining course of cefdinir abx for his PNA as well as a prompt follow- up with his PCP, endo, neph, and cards established providers. DS: Summary Hospital Course Reason for hospitalization: PNA Hospital Course: 84-year-old male past medical history of chronic lower back pain, CKD, hyperlipidemia, CHF, hypertension and diabetes presents to the hospital after a fall he also complains confusion and a temperature of 101.3?. Patient denies injuries from his fall. He states that just does not feel confused. A&O x4. Patient has no complaints of shortness of breath, nausea, vomiting, or painful urination. Lab work in the ED shows anemia of 8.8, INR 1.3, sodium of 133, potassium of 5.2, carbon dioxide 20, BUN of 60, creatinine of 3.39 which are the same as last month, glucose of 169, lactic acid of 2.4 followed by 1.3, calcium of 8.2 CRP of 3.8, BNP of 1520, UA negative for infection however there is 1+ blood. Moderate thickness of the osborne of the bladder with a small amount of air. The patient was straight cathed in the emergency room, cystitis versus distension. Small subpleural patchy opacities. 5 mm pulmonary nodule in the right upper lobe. Pt was continued on most of his outpatient medications with the exception of his insulin due to lower glucose readings in the AMs, partly due to pt lowered appetite and abnormal eating pattern than baseline. This was resolved and pt will be discharged to continue with his regular regimen. Pt treated for PNA inpatient with abx and breathing treatments and greatly improved over the course of his admission. Pt to continue with his cefdinir upon discharge. Pt did have some issues tolerating the oral abx Augmentin after switched from IV and was c/o nausea. Augmentin was switched to cefdinir and pt reports decreased nausea with it. Pt with constipation also while in hospital but was able to successfully have a considerable BM with help of bowel regimen and suppository. Pt also underwent evaluation from PT and OT both with recs for SNF, pt will be discharged to [facility] for care and therapy upon discharge. Pt farr catheter was removed during stay and will be discharged without. Pt with no urinary complaints other than warm urine which was r/o infection by a repeat UA. Pt also reporting some sx of post nasal drip and sinus fullness with no other ENT sx. Pt was started on loratadine while inpatient and was continued on this medication upon discharge with an Rx. Due to pt falls, imaging was performed and no pertinent findings were found to attribute to falls. PNA found and pt was started on abx therapy and felt better and lungs were clear by discharge. Pt was oriented to baseline of x4 for the duration of his hospital stay. Pt also initially had some electrolyte imbalance in the ED (hyperK and low Na) but had since resolved inpatient with fluid restriction and kidney rehab. Pt to continue on all outpatient meds at discharge with PCP f/u and neph f/u that is scheduled for next month per pt and pt sister, Jacque. Pt also reminded to have f/u chest imaging for new nodule found in x3 months via PCP. Status at Discharge Functional status at discharge: wheelchair bound Overall status at discharge: patient is progressing back to baseline Time Spent with Patient Time attestation: Total time spent providing and/or coordinating discharge services: 45 Exam Const: Other: +NAPAIMUTE HENMT: Face/Nose/Sinus: Normal nares present Mouth: Yes moist mucous membranes Eyes: General: appearance normal, both eyes and all related structures Sclera: sclerae normal Neck: Neck: supple Carotids: no bruits Resp: Auscultation: clear to auscultation bilaterally Cardio: Rate: regular rate and tachycardic Rhythm: regular rhythm Other: TELE: NSR 76 bpm GI: Inspection: non-distended GI Palp: Yes Soft to palpation Auscultation: normal bowel sounds Skin: General skin exam: normal color and no rashes or lesions noted Other: Healing skin tear to L anterior FA with surrounding healing ecchymosis Neuro: Motor exam (neuro): Normal motor muscle tone present throughout Other: BUE normal aging weakness Focal chronic tremor of lower jaw Extrem: Other: See skin Psych: Mental Status: mental status grossly normal Affect: normal affect DS: Data Data Completed and Pending Completed studies during hospitalization: Labs, urine, c-spine & head CT, C/A/P CT, EKG, CXR Labs on day of discharge: Labs from last 24 hours 01/05/25 01/05/25 01/05/25 11:34 08:12 04:59 WBC 9.7 RBC 3.22 L Hgb 8.2 L Hct 26.9 L MCV 83.5 MCH 25.5 L MCHC 30.5 L RDW 13.7 Plt Count 238 MPV 9.0 Immature Gran % (Auto) 1.1 H Neut % (Auto) 41.5 L Lymph % (Auto) 43.4 [place] % (Auto) 5.0 Eos % (Auto) 8.6 H Baso % (Auto) 0.4 Lymph # (Auto) 4.22 H [place] # (Auto) 0.5 Eos # (Auto) 0.8 H Baso # (Auto) 0.0 Abs Immat Gran (auto) 0.11 H Absolute Neuts (auto) 4.0 Absolute Nucleated RBC 0.000 Nucleated RBC % 0.0 Sodium 138 Potassium 4.2 Chloride 105 Carbon Dioxide 23 Anion Gap 10 BUN 51 H Creatinine 3.17 H Estim Creat Clear Calc 19 Estimated GFR 19 L Glucose 127 H POC Capillary Glucose 160 H 121 H Calcium 8.5 Total Bilirubin 0.4 AST 38 ALT 26 Alkaline Phosphatase 74 Total Protein 6.8 Albumin 3.3 L Urine Color Urine Appearance Urine pH Ur Specific [place] Urine Protein Urine Glucose (UA) Urine Ketones Ur Blood (Man) Urine Nitrate Urine Bilirubin Urine Urobilinogen Ur Leukocyte Esterase Urine RBC Urine WBC Ur Squamous Epith Cells Urine Bacteria Urine Casts 01/04/25 01/04/25 01/04/25 20:16 17:13 15:45 WBC RBC Hgb Hct MCV MCH MCHC RDW Plt Count MPV Immature Gran % (Auto) Neut % (Auto) Lymph % (Auto) [place] % (Auto) Eos % (Auto) Baso % (Auto) Lymph # (Auto) [place] # (Auto) Eos # (Auto) Baso # (Auto) Abs Immat Gran (auto) Absolute Neuts (auto) Absolute Nucleated RBC Nucleated RBC % Sodium Potassium Chloride Carbon Dioxide Anion Gap BUN Creatinine Estim Creat Clear Calc Estimated GFR Glucose POC Capillary Glucose 127 H 107 H Calcium Total Bilirubin AST ALT Alkaline Phosphatase Total Protein Albumin Urine Color Yellow Urine Appearance Clear Urine pH 5.5 Ur Specific [place] 1.012 Urine Protein Trace Urine Glucose (UA) 1+ H Urine Ketones Negative Ur Blood (Man) Negative Urine Nitrate Negative Urine Bilirubin Negative Urine Urobilinogen 0.2 Ur Leukocyte Esterase Negative Urine RBC 0-2 Urine WBC 0-5 Ur Squamous Epith Cells None seen Urine Bacteria None seen Urine Casts 0-2 Discharge Plan Discharge Attending physician on discharge: Arnold Blanco Consulting providers: Hill Pate; Fatemeh Lovell; Alan Duenas; Vikash Tang; Sean Gonzalez; Evangelist Vallecillo Discharging Clinician: Marie Carrizales Anticipated Discharge Date/Time: 01/05/25 17:00 Patient Disposition: SNF Activity: may shower Diet: heart healthy Discharge Instructions: 1. Make sure to follow-up with your primary care provider to obtain a chest CT follow-up in 3 months 2. Also make sure to follow-up with your kidney doctor, your appt for this is due next month. 3. Take the two more days worth of antibiotics (Cefdinir) that I have sent with you so we make sure that pneumonia is all of the way gone. Just as a reminder, we switched you from Augmentin to Cefdinir because the Augmentin was making you nauseous. You are able to take your Zofran at home too if you have any more nausea. Continue to check your blood pressure and blood sugar at home if applicable. Keep your scheduled appts with your primary care provider and any specialist that you may see. Return to the emergency department if you develop sudden shortness of breath, chest pain, a fever of greater than 101.5, or nausea, vomiting, abd pain, or diarrhea that does not go away. Follow-up with your primary care provider within 1-2 weeks, they will want to be updated on your inpatient stay in the hospital. Thank you for [facility] for your healthcare needs. Patient Instructions: Cefdinir (By mouth), Apixaban (By mouth), Heart Failure (DC), Bacterial Pneumonia (DC) Patient Language: Faroese Stand Alone Forms: General Discharge Information Discharge Medications: New cefdinir 300 mg Capsule 300 mg PO QHS 2 Days Qty: 2 0RF loratadine 10 mg Tablet 10 mg PO QAM Qty: 90 0RF Continued acetaminophen 325 mg capsule 650 mg PO Q6H PRN (Reason: headache/fever) buspirone 5 mg tablet 5 mg PO BID bupropion HCl 150 mg tablet sustained-release 12 hr 150 mg PO BID terazosin 2 mg capsule 2 mg PO BID ropinirole 1 mg tablet 1 mg PO QHS torsemide 10 mg tablet 10 mg PO QAM omeprazole 40 mg capsule,delayed release(DR/EC) 40 mg PO DAILY Qty: 30 6RF metoclopramide HCl [Reglan] 5 mg tablet 10 mg PO .HS Qty: 60 3RF docusate sodium 100 mg tablet 100 mg PO BID Qty: 60 11RF gabapentin [Neurontin] 300 mg capsule 600 mg PO BID Qty: 120 11RF Patient Comments: TAKE IN AM AND HS insulin lispro [Humalog KwikPen Insulin] 100 unit/mL insulin pen 10 unit subcut .before meals MDD 40 Qty: 45 0RF Rx Instructions: 8 units three times/day before meals Mounjaro 2.5 mg/0.5 mL pen injector 5 mg SUBCUT WEEKLY Qty: 6 3RF Rx Instructions: administer on Sunday cholecalciferol (vitamin D3) 1,250 mcg (50,000 unit) capsule 1,250 mcg PO WEEKLY Patient Comments: WEULISESEDAYS dapagliflozin propanediol [Farxiga] 5 mg tablet 5 mg PO DAILY Qty: 30 8RF Rx Instructions: brand only sertraline 50 mg tablet 50 mg PO DAILY Qty: 30 11RF [id number] [Esgic] 50-325-40 mg capsule 1 - 2 cap PO Q6H PRN (Reason: headaches) Rx Instructions: take 1-2 tabs by mouth every 6h prn headaches; 1 tab for mild/mod and 2 for severe; max 6 tabs/day simvastatin 40 mg Tablet 40 mg PO HS polyethylene glycol 3350 17 gram/dose powder 17 g PO DAILY insulin lispro [Humalog KwikPen Insulin] 100 unit/mL insulin pen 1 sliding scale dose subcut TIDWMEAL Rx Instructions: 150-200= 2UNITS, 201-250=3UNITS, 251-300=4UNITS,301-350=5UNITS,>350=6UNITS miconazole nitrate [Zeasorb AF] 2 % Powder 1 applic TOPICAL BID PRN (Reason: irritation) olopatadine [Pataday Twice Daily Relief] 0.1 % drops 1 drp EACH EYE BID metoprolol succinate 50 mg Tablet Extended Release 24 Hr 50 mg PO QAM Qty: 30 0RF Eliquis 2.5 mg Tablet 2.5 mg PO Q12HR Qty: 60 0RF sennosides-docusate sodium 8.6-50 mg capsule 1 tab-cap PO BID PRN (Reason: constipation) Qty: 60 0RF nystatin 100,000 unit/gram ointment 1 applic topical BID Qty: 15 0RF tramadol 50 mg tablet 50 - 100 mg PO Q6H PRN (Reason: pain) Qty: 240 5RF Rx Instructions: take with acetaminophen ondansetron HCl 4 mg tablet 4 - 8 mg PO Q8H PRN (Reason: nausea and vomiting) Qty: 60 5RF fluticasone propionate [Flonase Allergy Relief] 50 mcg/actuation spray,suspension 1 spray intranasal BID Qty: 16 2RF Rx Instructions: administer into each nostril (DME) FreeStyle Filemon 2 [place] Misc See Rx Instructions .Route Qty: 1 0RF Rx Instructions: use with Filemon 2 Sensors (DME) FreeStyle Filemon 2 Sensor Kit See Rx Instructions .Route Qty: 2 2RF Rx Instructions: change every 14 days hydrocortisone [Anti-Itch (HC)] 1 % cream 1 applic topical BID PRN (Reason: itching) Qty: 454 5RF hydroxyzine HCl 25 mg tablet 25 mg PO TID PRN (Reason: itching) Qty: 90 5RF clotrimazole [Jock Itch (clotrimazole)] 1 % cream 1 applic topical Q12H Qty: 90 11RF Rx Instructions: apply to affected area insulin glargine [Lantus Solostar U-100 Insulin] 100 unit/mL (3 mL) insulin pen 36 unit subcut DAILY Qty: 45 3RF Date of admission: 12/31/24 10:34 Primary Care Provider: Trung Avendaño Admitting Provider: Jadiel Flynn Attending physician on admission: Marie Carrizales Condition: Stable Quality VTE Prophylaxis VTE prophylaxis: mechanical ordered and pharmacologic ordered Hospitalist MIPS Heart Failure (Exclusion) Patient has history of Heart Transplant or Left Ventricular Assistive Device?: No IF YES, STOP HERE Heart Failure (Qualifier) Patient has current or prior documentation of LVEF less than or equal to 40%, or mod/servere depressed LVSF?: No IF NO, STOP HERE
== END 2025-01-05 16:45 | DRG 193 ==
LOC: ANHED 12:39 → ANH2MED 14:19
PROVIDERS: Nurse Practitioner Gerontology; Admitting Provider Internal Medicine; Emergency Provider Emergency Medicine; PCP Family Medicine
DX: J18.9 Pneumonia, unspecified organism (principal); I50.33 Acute on chronic diastolic (congestive) heart failure; Z68.42 Body mass index [BMI] 45.0-49.9, adult; J81.1 Chronic pulmonary edema; I13.0 Hypertensive heart and chronic kidney disease with heart failure and stage 1 through stage 4 chronic kidney disease, or unspecified chronic kidney disease; E87.20 Acidosis, unspecified; W18.30XA Fall on same level, unspecified, initial encounter; D63.1 Anemia in chronic kidney disease; M54.59 Other low back pain; K21.9 Gastro-esophageal reflux disease without esophagitis; E66.01 Morbid (severe) obesity due to excess calories; E11.22 Type 2 diabetes mellitus with diabetic chronic kidney disease; E11.42 Type 2 diabetes mellitus with diabetic polyneuropathy; I73.9 Peripheral vascular disease, unspecified; F41.9 Anxiety disorder, unspecified; H91.90 Unspecified hearing loss, unspecified ear; N30.90 Cystitis, unspecified without hematuria; Z20.822 Contact with and (suspected) exposure to COVID-19; R06.82 Tachypnea, not elsewhere classified; R11.0 Nausea; K59.00 Constipation, unspecified; Z91.81 History of falling; Z79.4 Long term (current) use of insulin; Z79.01 Long term (current) use of anticoagulants
CPT/HCPCS: 36415; 70450; 71045; 71250; 72125; 74176; 80048; 80053; 81001; 82306; 82948; 83605; 83735; 83880; 84132; 85025; 85610; 85730; 86140; 87040; 87637; 93005; 94002; 94640; 96361; 96365; 96366; 96375; 97110; 97162; 97166; 97530; 97535; 99285; A9270; C8929; G0378; J0456; J0612; J0696; J1815; J2405; J7050; J7120; Q9957